=== PATIENT | female | born 1955 | race African-American/Black ===

== ENCOUNTER 2023-02-16 22:55 | Inpatient (IN) | payer MEDICARE, MEDICAID ==
[~2023-02-16] VITALS: Ht 165.1 cm; Wt 85.8 kg
[2023-02-16 23:26] LABS: Basophils # (auto) 0 10 ^3/uL (0-0.2); Basophils % (auto) 0.2 % (0.0-2.0); Eosinophils # (auto) 0 10 ^3/uL (0-0.8); Eosinophils % (auto) 0.1 % (0.0-7.0); Hematocrit 41.4 % (36.0-46.0); Hemoglobin 13.6 g/dL (12.2-16.2); Lymphocytes # (auto) 1.3 10 ^3/uL (0.4-5.4); Lymphocytes % (auto) 8.6 % (10.0-50.0); Mean Corpuscular Hemoglobin 30.6 pg (28.0-32.0); Mean Corpuscular Hgb Conc. 32.8 g/dL (32.0-36.0); Mean Corpuscular Volume 93.1 fL (80.0-100.0); Monocytes # (auto) 0.8 10 ^3/uL (0-1.3); Monocytes % (auto) 5.2 % (0.0-12.0); Neutrophils # (auto) 12.7 10 ^3/uL (1.6-8.6); Neutrophils % (auto) 85.9 % (37.0-80.0); Red Blood Cells 4.45 10^6/uL (4.0-5.20); Red Cell Distribution Width 15.2 % (11.8-14.3); White Blood Cell 14.8 10^3/uL (4.4-10.8)
[2023-02-16] MEDS ORDERED: METOCLOPRAMIDE HCL 5MG/ml INJ 2ml VIAL IV ONE (23:30)
[2023-02-16] MEDS ORDERED: MORPHINE SULFATE 4 MG/ML SYR/VIAL IV ONE (23:30)
[2023-02-16 23:40] VITALS: PULSE 131; RESP 42; O2SAT 98
[2023-02-16] MEDS ORDERED: IOHEXOL 300 MG/ML 100ML BOTTLE IJ ONE (23:40)
[2023-02-16 23:47] LABS: INR 1.1 (0.9-1.15); Partial Thromboplastin Time 25.8 SEC (24.5-34.5); Prothrombin Time 11.5 sec (9.3-11.8)
[2023-02-16 23:54] LABS: Alanine Aminotransferase 49 U/L (7-40); Albumin 4.5 g/dL (3.2-4.8); Alkaline Phosphatase 102 U/L (46-116); Anion Gap 17 (5-15); Aspartate Aminotransferase 43 U/L (13-40); BUN/Creatinine Ratio 12.5 (10.0-20.0); Bilirubin, Total 0.5 mg/dL (0.2-1.0); Blood Urea Nitrogen 17 mg/dL (9-23); Calcium 9.5 mg/dL (8.7-10.4); Carbon Dioxide 18 mmol/L (20-30); Chloride 105 mmol/L (98-107); Glucose 216 mg/dL (74-106); Magnesium 1.6 mg/dL (1.6-2.6); Potassium 2.9 mmol/L (3.5-5.1); Sodium 140 mmol/L (136-145); Total Protein 7.9 g/dL (5.7-8.2)
[2023-02-17] MEDS ORDERED: ASPirin 325 MG TAB PO ONE (01:15)
[2023-02-17] MEDS: POTASSIUM CHL 20MEQ/100ML 100 ML IV SCH ×2 (01:20→04:01)
[2023-02-17] MEDS ORDERED: MORPHINE SULFATE 4 MG/ML SYR/VIAL IV ONE ×2 (02:30→06:45)
[2023-02-17] MEDS ORDERED: METOCLOPRAMIDE HCL 5MG/ml INJ 2ml VIAL IV ONE (06:45)
[2023-02-17] MEDS ORDERED: ACETAMINOPHEN 325 MG TAB PO PRN (08:00)
[2023-02-17] MEDS ORDERED: NITROGLYCERIN 0.4 MG SL TAB SL PRN (08:00)
[2023-02-17] MEDS: MORPHINE SULFATE INJ 2 MG/ml SYRG IV PRN ×6 (08:45→23:29)
[2023-02-17] MEDS: ONDANSETRON HCL 4 MG/2 ML VIAL IV PRN ×3 (08:46→23:28)
[2023-02-17 09:44] VITALS: PULSE 113; RESP 19; O2SAT 96
[2023-02-17] MEDS ORDERED: AMLO1TAB22 PO (10:26)
[2023-02-17] MEDS ORDERED: CLON0.2T PO (10:26)
[2023-02-17] MEDS ORDERED: SACU1TAB PO (10:26)
[2023-02-17] MEDS ORDERED: DEXTROSE (50%) 50ML SYRG IV PRN (10:30)
[2023-02-17] MEDS: MULTIPLE VITAMIN TAB PO SCH (10:42)
[2023-02-17] MEDS: ASCORBIC ACID 500 MG TAB PO SCH (10:42)
[2023-02-17] MEDS: ZINC SULFATE 220mg CAP or TAB PO SCH (10:42)
[2023-02-17] MEDS: ENOXAPARIN SOD 40 MG/0.4 ML SYRINGE SC SCH (10:43)
[2023-02-17] MEDS: ACCU-CHEK COMFORT CURVE STRIP VI SCH ×2 (11:55→17:03)
[2023-02-17 12:04] LABS: COVID19 ANTIGEN SOFIA FIA NEGATIVE (NEGATIVE)
[2023-02-17 12:05] LABS: Rapid Influenza A Negative (Negative); Rapid Influenza B Negative (Negative)
[2023-02-17] MEDS: LORazepam 2MG/ML-1ML VIAL IV PRN ×2 (12:31→21:31)
[2023-02-17] MEDS: InsuLIN REG 1unit/0.01ml Soln (100units/ml) SC SCH ×2 (12:33→17:00)
[2023-02-17 13:30] LABS: Alanine Aminotransferase 44 U/L (7-40); Albumin 4.3 g/dL (3.2-4.8); Alkaline Phosphatase 91 U/L (46-116); Anion Gap 13 (5-15); Aspartate Aminotransferase 47 U/L (13-40); BUN/Creatinine Ratio 11.6 (10.0-20.0); Bilirubin, Total 0.4 mg/dL (0.2-1.0); Blood Urea Nitrogen 16 mg/dL (9-23); Calcium 9.6 mg/dL (8.5-10.1); Carbon Dioxide 23 mmol/L (20-30); Chloride 106 mmol/L (98-107); Glucose 127 mg/dL (74-106); Potassium 3.9 mmol/L (3.5-5.1); Sodium 142 mmol/L (136-145); Total Protein 7.7 g/dL (5.7-8.2)
[2023-02-17] MEDS ORDERED: POTASSIUM CHL 20MEQ/100ML 100 ML IV SCH (13:30)
[2023-02-17] MEDS: AZITHROMYCIN 500MG/ 250ML 250 ML IV SCH (13:46)
[2023-02-17] MEDS: FUROSEMIDE 40 MG TAB PO SCH ×2 (13:46→18:41)
[2023-02-17] MEDS ORDERED: SODIUM CHLORIDE 0.9% 2,000 ML IV ONE (14:30)
[2023-02-17] MEDS ORDERED: POTASSIUM CHL 20MEQ/100ML 100 ML IV ONE (14:30)
[2023-02-17] MEDS ORDERED: KETOROLAC TROMETH 30 MG/ML 1ML VIAL IV ONE (14:30)
[2023-02-17] MEDS: HYDROcodone-ACET 5/325MG TAB PO PRN (15:18)
[2023-02-17 16:53] LABS: Urine Bacteria NONE SEEN /hpf (None Seen); Urine Blood 2+ /uL (Negative); Urine Clarity Clear (Clear); Urine Color Yellow (Yellow); Urine Protein, UAD 3+ (Negative); Urine Specific Gravity 1.031 (1.001-1.035); Urine Urobilinogen Normal (Negative); Urine WBC 2 /hpf (0 - 5)
[2023-02-17 20:00] VITALS: PULSE 107; RESP 16; O2SAT 96
[2023-02-17] MEDS: TEMAZEPAM 15 MG CAP PO PRN (23:28)
[2023-02-18] VITALS (10 sets, daily range): BP systolic 127–171; BP diastolic 64–94; PULSE 64–110; RESP 17–22; TEMP 99.2–101; O2SAT 94–99
[2023-02-18] MEDS: ACCU-CHEK COMFORT CURVE STRIP VI SCH ×5 (00:44→21:25)
[2023-02-18] MEDS: ASCORBIC ACID 500 MG TAB PO SCH ×3 (00:47→21:25)
[2023-02-18] MEDS: SACUBITRIL-VALSARTAN 24mg/26mg TAB PO SCH ×3 (00:47→21:25)
[2023-02-18] MEDS: InsuLIN REG 1unit/0.01ml Soln (100units/ml) SC SCH ×5 (00:49→21:19)
[2023-02-18] MEDS: HYDROcodone-ACET 5/325MG TAB PO PRN ×3 (01:41→20:13)
[2023-02-18] MEDS: MORPHINE SULFATE INJ 2 MG/ml SYRG IV PRN ×5 (04:09→22:43)
[2023-02-18 05:15] LABS: Basophils # (auto) 0.1 10 ^3/uL (0-0.2); Basophils % (auto) 0.3 % (0.0-2.0); Eosinophils # (auto) 0 10 ^3/uL (0-0.8); Hematocrit 40.1 % (36.0-46.0); Hemoglobin 13.2 g/dL (12.2-16.2); Lymphocytes # (auto) 1.6 10 ^3/uL (0.4-5.4); Lymphocytes % (auto) 9.3 % (10.0-50.0); Mean Corpuscular Hemoglobin 30.7 pg (28.0-32.0); Mean Corpuscular Hgb Conc. 32.8 g/dL (32.0-36.0); Mean Corpuscular Volume 93.7 fL (80.0-100.0); Monocytes # (auto) 1.2 10 ^3/uL (0-1.3); Monocytes % (auto) 7.1 % (0.0-12.0); Neutrophils # (auto) 13.8 10 ^3/uL (1.6-8.6); Neutrophils % (auto) 83.3 % (37.0-80.0); Nucleated Red Blood Cells % 0.1 %; Red Blood Cells 4.29 10^6/uL (4.0-5.20); Red Cell Distribution Width 15.3 % (11.8-14.3); White Blood Cell 16.6 10^3/uL (4.4-10.8)
[2023-02-18 05:40] LABS: Alanine Aminotransferase 50 U/L (7-40); Albumin 4.2 g/dL (3.2-4.8); Alkaline Phosphatase 84 U/L (46-116); Anion Gap 8 (5-15); Aspartate Aminotransferase 57 U/L (13-40); BUN/Creatinine Ratio 12.5 (10.0-20.0); Bilirubin, Total 0.4 mg/dL (0.2-1.0); Blood Urea Nitrogen 14 mg/dL (9-23); Calcium 9.1 mg/dL (8.7-10.4); Carbon Dioxide 26 mmol/L (20-30); Chloride 105 mmol/L (98-107); Glucose 116 mg/dL (74-106); Potassium 4.3 mmol/L (3.5-5.1); Sodium 139 mmol/L (136-145)
[2023-02-18 05:41] LABS: Total Protein 7.3 g/dL (5.7-8.2)
[2023-02-18] MEDS: FUROSEMIDE 40 MG TAB PO SCH ×2 (05:50→18:21)
[2023-02-18] MEDS: PANTOPRAZOLE 40 MG TAB PO SCH (09:07)
[2023-02-18] MEDS: MULTIPLE VITAMIN TAB PO SCH (09:08)
[2023-02-18] MEDS: ZINC SULFATE 220mg CAP or TAB PO SCH (09:08)
[2023-02-18] MEDS: amLODIPine BESYLATE 5 MG TAB PO SCH (09:09)
[2023-02-18] MEDS: AZITHROMYCIN 500MG/ 250ML 250 ML IV SCH (09:09)
[2023-02-18] MEDS: ENOXAPARIN SOD 40 MG/0.4 ML SYRINGE SC SCH (09:09)
[2023-02-18] MEDS: cefTRIAXone 1GM/50ML D5W 50 ML IV SCH (11:15)
[2023-02-18] MEDS ORDERED: LOPERAMIDE HCL 2 MG CAP/TAB PO PRN (11:15)
[2023-02-18] MEDS: metroNIDAZOLE 500 MG TAB PO SCH ×2 (14:33→21:25)
[2023-02-18] MEDS: ONDANSETRON HCL 4 MG/2 ML VIAL IV PRN ×2 (14:49→20:39)
[2023-02-19] VITALS (7 sets, daily range): BP systolic 112–148; BP diastolic 77–101; PULSE 59–130; RESP 16–20; TEMP 97.8–98.8; O2SAT 94–100
[2023-02-19] MEDS: MORPHINE SULFATE INJ 2 MG/ml SYRG IV PRN ×3 (03:31→12:57)
[2023-02-19] MEDS: ACCU-CHEK COMFORT CURVE STRIP VI SCH ×4 (06:14→22:08)
[2023-02-19] MEDS: ONDANSETRON HCL 4 MG/2 ML VIAL IV PRN (06:14)
[2023-02-19] MEDS: FUROSEMIDE 40 MG TAB PO SCH ×2 (06:14→17:08)
[2023-02-19] MEDS: metroNIDAZOLE 500 MG TAB PO SCH ×3 (06:14→22:09)
[2023-02-19] MEDS: InsuLIN REG 1unit/0.01ml Soln (100units/ml) SC SCH ×4 (06:20→22:00)
[2023-02-19] MEDS: ENOXAPARIN SOD 40 MG/0.4 ML SYRINGE SC SCH (08:41)
[2023-02-19] MEDS: PANTOPRAZOLE 40 MG TAB PO SCH (08:42)
[2023-02-19] MEDS: ZINC SULFATE 220mg CAP or TAB PO SCH (08:42)
[2023-02-19] MEDS: ASCORBIC ACID 500 MG TAB PO SCH ×2 (08:42→22:25)
[2023-02-19] MEDS: amLODIPine BESYLATE 5 MG TAB PO SCH (08:42)
[2023-02-19] MEDS: SACUBITRIL-VALSARTAN 24mg/26mg TAB PO SCH ×2 (08:42→22:09)
[2023-02-19] MEDS: MULTIPLE VITAMIN TAB PO SCH (08:43)
[2023-02-19] MEDS: cefTRIAXone 1GM/50ML D5W 50 ML IV SCH (08:43)
[2023-02-19] MEDS: LORazepam 2MG/ML-1ML VIAL IV PRN (08:46)
[2023-02-19] MEDS: AZITHROMYCIN 500MG/ 250ML 250 ML IV SCH (12:12)
[2023-02-19] MEDS: HYDROmorphone HCL 2 MG/ML VL/or syr IV PRN (22:08)
[2023-02-19] MEDS: TEMAZEPAM 15 MG CAP PO PRN (22:19)
[2023-02-20] VITALS (7 sets, daily range): BP systolic 120–154; BP diastolic 76–88; PULSE 81–98; RESP 17–22; TEMP 98.1–98.9; O2SAT 96–100
[2023-02-20] MEDS: HYDROmorphone HCL 2 MG/ML VL/or syr IV PRN ×3 (02:42→13:55)
[2023-02-20] MEDS: metroNIDAZOLE 500 MG TAB PO SCH ×2 (05:49→13:52)
[2023-02-20] MEDS: FUROSEMIDE 40 MG TAB PO SCH ×2 (05:49→17:27)
[2023-02-20] MEDS: ACCU-CHEK COMFORT CURVE STRIP VI SCH ×3 (06:08→17:26)
[2023-02-20] MEDS: InsuLIN REG 1unit/0.01ml Soln (100units/ml) SC SCH ×4 (06:10→22:00)
[2023-02-20] MEDS: LORazepam 2MG/ML-1ML VIAL IV PRN (06:19)
[2023-02-20] MEDS: cefTRIAXone 1GM/50ML D5W 50 ML IV SCH (08:50)
[2023-02-20] MEDS: ONDANSETRON HCL 4 MG/2 ML VIAL IV PRN ×2 (10:24→17:26)
[2023-02-20] MEDS: MULTIPLE VITAMIN TAB PO SCH (10:24)
[2023-02-20] MEDS: AZITHROMYCIN 500MG/ 250ML 250 ML IV SCH (10:24)
[2023-02-20] MEDS: ZINC SULFATE 220mg CAP or TAB PO SCH (10:24)
[2023-02-20] MEDS: ENOXAPARIN SOD 40 MG/0.4 ML SYRINGE SC SCH (10:25)
[2023-02-20] MEDS: SACUBITRIL-VALSARTAN 24mg/26mg TAB PO SCH (10:25)
[2023-02-20] MEDS: ASCORBIC ACID 500 MG TAB PO SCH (10:25)
[2023-02-20] MEDS: PANTOPRAZOLE 40 MG TAB PO SCH (10:25)
[2023-02-20] MEDS: amLODIPine BESYLATE 5 MG TAB PO SCH (10:25)
[2023-02-20 10:32] LABS: Hepatitis B Surface Antigen Negative (Negative)
[2023-02-20 11:12] LABS: Hepatitis C Antibody Positive (Negative)
[2023-02-20] MEDS: HYDROcodone-ACET 5/325MG TAB PO PRN ×2 (12:23→17:27)
[2023-02-20 12:24] LABS: Basophils # (auto) 0 10 ^3/uL (0-0.2); Basophils % (auto) 0.4 % (0.0-2.0); Eosinophils # (auto) 0.1 10 ^3/uL (0-0.8); Hematocrit 48.9 % (36.0-46.0); Lymphocytes # (auto) 1.5 10 ^3/uL (0.4-5.4); Lymphocytes % (auto) 20.3 % (10.0-50.0); Mean Corpuscular Hemoglobin 31.2 pg (28.0-32.0); Mean Corpuscular Hgb Conc. 32.8 g/dL (32.0-36.0); Mean Corpuscular Volume 95.2 fL (80.0-100.0); Monocytes # (auto) 0.7 10 ^3/uL (0-1.3); Monocytes % (auto) 9.4 % (0.0-12.0); Neutrophils # (auto) 5.1 10 ^3/uL (1.6-8.6); Neutrophils % (auto) 68.9 % (37.0-80.0); Nucleated Red Blood Cells % 0.1 %; Red Blood Cells 5.14 10^6/uL (4.0-5.20); Red Cell Distribution Width 15.4 % (11.8-14.3); White Blood Cell 7.3 10^3/uL (4.4-10.8)
[2023-02-20 12:50] LABS: Chloride 101 mmol/L (98-107); Sodium 138 mmol/L (136-145)
[2023-02-20 12:51] LABS: Anion Gap 9 (5-15); Carbon Dioxide 28 mmol/L (20-30)
[2023-02-20 12:52] LABS: Calcium 9.6 mg/dL (8.7-10.4)
[2023-02-20 12:56] LABS: Glucose 110 mg/dL (74-106)
[2023-02-20 12:57] LABS: Blood Urea Nitrogen 9 mg/dL (9-23)
[2023-02-21] VITALS (7 sets, daily range): BP systolic 121–160; BP diastolic 89–94; PULSE 86–104; RESP 16–20; TEMP 98.5–98.8; O2SAT 95–100
[2023-02-21] MEDS: ACCU-CHEK COMFORT CURVE STRIP VI SCH ×5 (01:01→21:59)
[2023-02-21] MEDS: metroNIDAZOLE 500 MG TAB PO SCH ×4 (01:02→21:57)
[2023-02-21] MEDS: ASCORBIC ACID 500 MG TAB PO SCH ×3 (01:02→21:56)
[2023-02-21] MEDS: SACUBITRIL-VALSARTAN 24mg/26mg TAB PO SCH ×3 (01:02→21:56)
[2023-02-21] MEDS: TEMAZEPAM 15 MG CAP PO PRN ×2 (01:03→21:56)
[2023-02-21] MEDS: HYDROmorphone HCL 2 MG/ML VL/or syr IV PRN ×3 (01:08→10:50)
[2023-02-21] MEDS: HYDROcodone-ACET 5/325MG TAB PO PRN ×3 (03:26→17:47)
[2023-02-21] MEDS: FUROSEMIDE 40 MG TAB PO SCH ×2 (05:34→17:47)
[2023-02-21] MEDS: InsuLIN REG 1unit/0.01ml Soln (100units/ml) SC SCH ×4 (05:35→22:07)
[2023-02-21] MEDS: amLODIPine BESYLATE 5 MG TAB PO SCH (09:36)
[2023-02-21] MEDS: cefTRIAXone 1GM/50ML D5W 50 ML IV SCH (09:36)
[2023-02-21] MEDS: PANTOPRAZOLE 40 MG TAB PO SCH (09:37)
[2023-02-21] MEDS: ZINC SULFATE 220mg CAP or TAB PO SCH (09:37)
[2023-02-21] MEDS: MULTIPLE VITAMIN TAB PO SCH (09:37)
[2023-02-21] MEDS: ENOXAPARIN SOD 40 MG/0.4 ML SYRINGE SC SCH (09:37)
[2023-02-21] MEDS: AZITHROMYCIN 250 MG TAB PO SCH (10:39)
[2023-02-21] MEDS: ONDANSETRON HCL 4 MG/2 ML VIAL IV PRN (13:37)
[2023-02-21] MEDS: KETOROLAC TROMETH 30 MG/ML 1ML VIAL IV PRN ×2 (15:53→21:57)
[2023-02-21] MEDS: LORazepam 2MG/ML-1ML VIAL IV PRN (21:58)
[2023-02-22] VITALS (7 sets, daily range): BP systolic 128–175; BP diastolic 84–105; PULSE 89–99; RESP 17–24; TEMP 98–98.8; O2SAT 94–100
[2023-02-22] MEDS: HYDROcodone-ACET 5/325MG TAB PO PRN (05:43)
[2023-02-22] MEDS: metroNIDAZOLE 500 MG TAB PO SCH ×3 (05:47→21:07)
[2023-02-22] MEDS: SUCRALFATE 1 GM/10 ML ORAL SUSP PO SCH ×4 (05:48→21:09)
[2023-02-22] MEDS: ACCU-CHEK COMFORT CURVE STRIP VI SCH ×4 (05:48→21:08)
[2023-02-22] MEDS: FUROSEMIDE 40 MG TAB PO SCH (05:48)
[2023-02-22] MEDS: InsuLIN REG 1unit/0.01ml Soln (100units/ml) SC SCH ×4 (05:50→21:07)
[2023-02-22] MEDS: MORPHINE SULFATE INJ 2 MG/ml SYRG IV PRN (07:43)
[2023-02-22] MEDS: ZINC SULFATE 220mg CAP or TAB PO SCH (09:33)
[2023-02-22] MEDS: SACUBITRIL-VALSARTAN 24mg/26mg TAB PO SCH ×3 (09:33→21:07)
[2023-02-22] MEDS: ENOXAPARIN SOD 40 MG/0.4 ML SYRINGE SC SCH (09:33)
[2023-02-22] MEDS: AZITHROMYCIN 250 MG TAB PO SCH (09:33)
[2023-02-22] MEDS: MULTIPLE VITAMIN TAB PO SCH (09:33)
[2023-02-22] MEDS: cefTRIAXone 1GM/50ML D5W 50 ML IV SCH (09:33)
[2023-02-22] MEDS: ASCORBIC ACID 500 MG TAB PO SCH ×2 (09:34→21:07)
[2023-02-22] MEDS: PANTOPRAZOLE 40 MG TAB PO SCH (09:34)
[2023-02-22] MEDS: amLODIPine BESYLATE 5 MG TAB PO SCH (09:34)
[2023-02-22] MEDS: predniSONE 20 MG TAB PO SCH (09:54)
[2023-02-22] MEDS ORDERED: SUCR1TAB22 OR ×2 (12:14)
[2023-02-22] MEDS ORDERED: PANT40TA2 PO ×2 (12:14)
[2023-02-22] MEDS: SODIUM CHLORIDE 0.9% 1,000 ML IV SCH ×3 (15:15→22:55)
[2023-02-22 15:16] LABS: Erythrocyte Sedimentation Rate 46 mm/hr (0-20)
[2023-02-22] MEDS: KETOROLAC TROMETH 30 MG/ML 1ML VIAL IV PRN (18:19)
[2023-02-22] MEDS: ONDANSETRON HCL 4 MG/2 ML VIAL IV PRN (18:19)
[2023-02-22] MEDS: CYCLOBENZAPRINE HCL 10 MG TAB PO PRN (18:20)
[2023-02-22] MEDS: TEMAZEPAM 15 MG CAP PO PRN (21:17)
[2023-02-23] VITALS (7 sets, daily range): BP systolic 134–186; BP diastolic 79–104; PULSE 83–98; RESP 14–22; TEMP 98–98.7; O2SAT 94–99
[2023-02-23] MEDS: HYDROcodone-ACET 5/325MG TAB PO PRN ×2 (02:53→20:58)
[2023-02-23] MEDS: metroNIDAZOLE 500 MG TAB PO SCH ×3 (05:39→20:58)
[2023-02-23] MEDS: InsuLIN REG 1unit/0.01ml Soln (100units/ml) SC SCH ×4 (05:39→21:05)
[2023-02-23] MEDS: SUCRALFATE 1 GM/10 ML ORAL SUSP PO SCH ×4 (05:40→20:58)
[2023-02-23] MEDS: ACCU-CHEK COMFORT CURVE STRIP VI SCH ×4 (05:40→21:07)
[2023-02-23] MEDS: SODIUM CHLORIDE 0.9% 1,000 ML IV SCH (06:53)
[2023-02-23] MEDS: KETOROLAC TROMETH 30 MG/ML 1ML VIAL IV PRN ×2 (09:48→23:35)
[2023-02-23] MEDS: predniSONE 20 MG TAB PO SCH (09:48)
[2023-02-23] MEDS: AZITHROMYCIN 250 MG TAB PO SCH (09:48)
[2023-02-23] MEDS: SACUBITRIL-VALSARTAN 24mg/26mg TAB PO SCH ×2 (09:48→20:58)
[2023-02-23] MEDS: cefTRIAXone 1GM/50ML D5W 50 ML IV SCH (09:48)
[2023-02-23] MEDS: ASCORBIC ACID 500 MG TAB PO SCH ×2 (09:48→20:58)
[2023-02-23] MEDS: MULTIPLE VITAMIN TAB PO SCH (09:48)
[2023-02-23] MEDS: ZINC SULFATE 220mg CAP or TAB PO SCH (09:49)
[2023-02-23] MEDS: PANTOPRAZOLE 40 MG TAB PO SCH (09:49)
[2023-02-23] MEDS: amLODIPine BESYLATE 5 MG TAB PO SCH (09:49)
[2023-02-23] MEDS: ENOXAPARIN SOD 40 MG/0.4 ML SYRINGE SC SCH (09:49)
[2023-02-23] MEDS: CYCLOBENZAPRINE HCL 10 MG TAB PO PRN (09:49)
[2023-02-23] MEDS: LORazepam 2MG/ML-1ML VIAL IV PRN ×2 (12:52→23:35)
[2023-02-23] MEDS ORDERED: DOCUSATE SOD 100 MG CAP PO PRN (15:45)
[2023-02-23] MEDS ORDERED: POLYETHYLENE GLYCOL 17 GM PWDR PO ONE (15:45)
[2023-02-23] MEDS: TEMAZEPAM 15 MG CAP PO PRN (20:58)
[2023-02-24] MEDS: ONDANSETRON HCL 4 MG/2 ML VIAL IV PRN (01:43)
[2023-02-24] MEDS: MORPHINE SULFATE INJ 2 MG/ml SYRG IV PRN (01:50)
[2023-02-24] MEDS: metroNIDAZOLE 500 MG TAB PO SCH ×2 (04:52→12:42)
[2023-02-24] MEDS: HYDROcodone-ACET 5/325MG TAB PO PRN ×3 (04:53→18:05)
[2023-02-24 05:00] VITALS: BP 191/105; PULSE 101; RESP 20; TEMP 95.5; O2SAT 96
[2023-02-24] MEDS ORDERED: cloNIDine HCL 0.1 MG TAB PO PRN (05:45)
[2023-02-24] MEDS: SUCRALFATE 1 GM/10 ML ORAL SUSP PO SCH ×3 (05:51→18:01)
[2023-02-24] MEDS: KETOROLAC TROMETH 30 MG/ML 1ML VIAL IV PRN ×2 (05:51→12:41)
[2023-02-24] MEDS: LORazepam 2MG/ML-1ML VIAL IV PRN ×2 (05:58→12:42)
[2023-02-24] MEDS: ACCU-CHEK COMFORT CURVE STRIP VI SCH ×3 (06:08→18:01)
[2023-02-24] MEDS: InsuLIN REG 1unit/0.01ml Soln (100units/ml) SC SCH ×3 (06:08→18:03)
[2023-02-24 08:00] VITALS: PULSE 81; PULSE 84; RESP 18; O2SAT 97
[2023-02-24 09:00] VITALS: BP 120/70; PULSE 84; RESP 18; TEMP 97.5; O2SAT 97
[2023-02-24] MEDS: cefTRIAXone 1GM/50ML D5W 50 ML IV SCH (09:42)
[2023-02-24] MEDS: ASCORBIC ACID 500 MG TAB PO SCH (09:42)
[2023-02-24] MEDS: PANTOPRAZOLE 40 MG TAB PO SCH (09:42)
[2023-02-24] MEDS: predniSONE 20 MG TAB PO SCH (09:43)
[2023-02-24] MEDS: AZITHROMYCIN 250 MG TAB PO SCH (09:43)
[2023-02-24] MEDS: SACUBITRIL-VALSARTAN 24mg/26mg TAB PO SCH (09:43)
[2023-02-24] MEDS: amLODIPine BESYLATE 5 MG TAB PO SCH (09:43)
[2023-02-24] MEDS: ZINC SULFATE 220mg CAP or TAB PO SCH (09:43)
[2023-02-24] MEDS: MULTIPLE VITAMIN TAB PO SCH (09:44)
[2023-02-24] MEDS: ENOXAPARIN SOD 40 MG/0.4 ML SYRINGE SC SCH (09:44)
[2023-02-24 13:00] VITALS: BP 108/74; PULSE 105; RESP 19; TEMP 98.3; O2SAT 95
[2023-02-24] MEDS ORDERED: PRED20TA2 PO ×3 (15:37→19:31)
[2023-02-24 17:00] VITALS: BP 138/85; PULSE 89; RESP 20; TEMP 98.5; O2SAT 93
[2023-02-24 17:35] VITALS: BP 138/85; PULSE 89; RESP 20; TEMP 98.5; O2SAT 93
[2023-02-24] MEDS ORDERED: SUCR1TAB22 OR (19:31)
[2023-02-24] MEDS ORDERED: PANT40TA2 PO (19:31)
== END 2023-02-24 19:55 | disposition home health service (06) | DRG 351 ==
LOC: EDBD 22:55 → ER 22:55 → TELE 02-17 07:52 → TELE-CENTR 02-17 23:46
PROVIDERS: ADMIT Nurse Practitioner; ATTEND Nurse Practitioner
DX: M60.9 Myositis, unspecified (principal); N17.0 Acute kidney failure with tubular necrosis; E87.6 Hypokalemia; I11.0 Hypertensive heart disease with heart failure; J44.1 Chronic obstructive pulmonary disease with (acute) exacerbation; K52.9 Noninfective gastroenteritis and colitis, unspecified; Z20.822 Contact with and (suspected) exposure to COVID-19; K21.9 Gastro-esophageal reflux disease without esophagitis; Z86.73 Personal history of transient ischemic attack (TIA), and cerebral infarction without residual deficits; Z85.05 Personal history of malignant neoplasm of liver; I25.2 Old myocardial infarction; Z90.49 Acquired absence of other specified parts of digestive tract
CPT/HCPCS: 36415; 71260; 74177; 78582; 80048; 80053; 81001; 82550; 82962; 83735; 83880; 84484; 85025; 85379; 85610; 85652; 85730; 86141; 86803; 87040; 87340; 87426; 87804; 93005; 93306; 93970; 96361; 96374; 96375; 96376; G0378; J1815; J1885; J2405; J3480

== ENCOUNTER 2023-12-07 08:37 | Inpatient (IN) | payer MEDICARE, MEDICAID ==
[~2023-12-07] VITALS: Ht 174 cm; Wt 78.3 kg
[~2023-12-07 08:37] MED LIST: ALPR0.255 PO; AMLO1TAB22 PO; ASPI81CH59 PO; ATOR-507 PO; CARI-277 PO; CLON0.3T PO; CLOP75TA70 PO; FURO20TA4 PO; HYDR-2792 PO; METO25TA93 PO; NIFE1TAB31 PO; PANT40TA2 PO; PERCOT PO; POTA-180 PO; SACU1TAB PO; SERT25TA84 PO; SUCR1TAB31 OR; SUMA50TA16 PO; TIZA4CAP PO; ZOLP10TA PO
--- NOTE | 2023-12-07 08:57 | ED.PDOC ---
History of Present Illness HPI Comments 68-year-old female brought in by EMS presents with a chief complaint of chest pain x onset yesterday with associated SOB and nausea. Patient states that her pain is localized to her epigastric/sternal region, radiates to her back, and rates her pain a 10/10. Patient mentions that the pain woke her up from her sleep. Patient has a history of liver cancer and previous strokes. Patient is sating at 100% on room air. No other symptoms or modifying factors present at this time. Time Seen by MD: 08:44 Primary Care Provider: TAY Reviewed Notes: Medications, Allergies Allergies: Coded Allergies: NO KNOWN ALLERGIES (Unverified , 02/16/23) Home Meds Active Scripts Sertraline Hcl (Zoloft) 25 Mg Tab, 1 TAB PO BID, #30 TAB 2 Refills Prov:KEVIN POSADA MD 08/18/23 Zolpidem Tartrate (Ambien) 10 Mg Tab, 1 TAB PO QPM PRN, #20 TAB 5 Refills Prov:KEVIN POSADA MD 08/18/23 Oxycodone W/ Acetaminophen (Percocet 5/325MG) 1 Tab Tb, 1 TAB PO QID, #30 TAB Prov:KEVIN POSADA MD 08/18/23 Pantoprazole Sodium Sesquihydr (Protonix) 40 Mg Tab, 40 MG PO DAILY, #30 TAB Prov:CESAR CHIN NP 02/24/23 Sucralfate (CARAFATE) 1 Gm Tab, 1 GM OR QID for 30 Days, #120 TAB Prov:CESAR CHIN CLOTH PATTERN MAKER 02/24/23 Reported Medications Carisoprodol (Soma) 350 Mg Tab, 350 MG PO TID, #30 TAB 08/18/23 Tizanidine Hydrochloride (Zanaflex) 4 Mg Cap, 2 MG PO TID 08/14/23 Clopidogrel Bisulfate (CLOPIDOGREL) 75 Mg Tab, 1 TAB PO DAILY 08/14/23 Atorvastatin Calcium (Lipitor) 40 Mg Tab, 1 TAB PO DAILY 08/14/23 Metoprolol Succinate (Metoprolol Succinate Er) 25 Mg Tab, 1 TAB PO DAILY 08/14/23 Potassium Chloride (Potassium Chloride ER) 20 Meq Tab, 1 TAB PO DAILY 08/14/23 Aspirin (Aspirin Low Dose) 81 Mg Chw, 1 TAB PO DAILY 08/14/23 Furosemide (Furosemide) 20 Mg Tab, 1 TAB PO DAILY 08/14/23 Sumatriptan Succinate (Sumatriptan Succinate) 50 Mg Tab, 1 TAB PO DAILY for 9 Da ys, #9 08/14/23 Alprazolam (Alprazolam) 0.25 Mg Tab, 1 TAB PO BID 08/14/23 Nifedipine (Nifedipine Er) 30 Mg Tab, 1 TAB PO BID 08/14/23 Clonidine Hydrochloride (Clonidine Hcl) 0.3 Mg Tab, 1 TAB PO BID 08/14/23 Hydralazine Hcl (Hydralazine Hcl) 10 Mg Tab, 1 TAB PO TID 08/14/23 Sacubitril-Valsartan (Entresto 24-26 mg) 1 Tab Tab, 1 TAB PO BID 02/17/23 Amlodipine Besylate (Amlodipine Besylate) 5 Mg Tab, 1 TAB PO DAILY 02/17/23 Information Source: Patient, Emergency Med Personnel Mode of Arrival: EMS Severity: Moderate Timing: Days Duration: Since onset Prehospital treatment: None Past Medical History PAST MEDICAL HISTORY: AFIB, Cancer, CHF, CVA, DM, HTN, 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 Family History Family History: Reviewed,noncontributory to illness, Unknown Social History Smoker: Non-Smoker Alcohol: Denies ETOH Use Drugs: Denies Drug Use Lives In: Home Constitutional: denies: chills, diaphoresis, fatigue, fever, malaise, sweats, weakness, others EENTM: denies: blurred vision, double vision, ear bleeding, ear discharge, ear drainage, ear pain, ear ringing, eye pain, eye redness, hearing loss, mouth pain, mouth swelling, nasal discharge, nose bleeding, nose congestion, nose pain, photophobia, tearing, throat pain, throat swelling, voice changes, others Respiratory: reports: shortness of breath; denies: cough, hemoptysis, orthopnea, SOB at rest, SOB with excertion, stridor, wheezing, others Cardiovascular: reports: chest pain; denies: dizzy spells, diaphoresis, Dyspnea on exertion, edema, irregular heart beat, left arm pain, lightheadedness, palpitations, PND, syncope, others Gastrointestinal: reports: nausea; denies: abdomen distended, abdominal pain, blood streaked bowels, constipated, diarrhea, dysphagia, difficulty swallowing, hematemesis, melena, poor appetite, poor fluid intake, rectal bleeding, rectal pain, vomiting, others Genitourinary: denies: abnormal vagina bleeding, burning, dyspareunia, dysuria, flank pain, frequency, hematuria, incontinence, pain, , vagina discharge, urgency, others Neurological: denies: dizziness, fainting, headache, left sided numbness, left sided weakness, numbness, paresthesia, pre-existing deficit, right sided numbness, right sided weakness, seizure, speech problems, tingling, tremors, we akness, others Musculoskeletal: denies: back pain, gout, joint pain, joint swelling, muscle pain, muscle stiffness, neck pain, others Integumetry: denies: bruises, change in color, change in hair/nails, dryness, laceration, lesions, lumps, rash, wounds, others Allergic/Immunocompromised: denies: Difficulty Healing, Frequent Infections, Hives, Itching, others Hematologic/Lymphatic: denies: anemia, blood clots, easy bleeding, easy bruising, swollen glands, others Endocrine: denies: excessive hunger, excessive sweating, excessive thirst, excessive urination, flushing, intolerance to cold, intolerance to heat, unexplained weight gain, unexplained weight loss, others Psychiatric: denies: anxiety, bipolar disorder, depression, hopeless, panic disorder, schizophrenia, sleepless, suicidal, others All Other Systems: Reviewed and Negative Physical Exam General Appearance: Moderate Distress, Normal HEENT: Normal ENT Inspection, Pharynx Normal, TMs Normal Neck: Full Range of Motion, Non-Tender, Normal, Normal Inspection Respiratory: Accessory Muscle Use, Chest Non-Tender, Respiratory Distress Cardiovascular: No Edema, No JVD, No Murmur, No Gallop, Normal Peripheral Pulses, Tachycardia Breast Exam: Deferred Gastrointestinal: No Organomegaly, Non Tender, No Pulsatile Mass, Normal Bowel Sounds, Soft Genitalia: Deferred Pelvic: Deferred Rectal: Deferred Extremities: No calf tenderness, Normal capillary refill, Normal inspection, Normal range of motion, Non-tender, No pedal edema Musculoskeletal : Apperance: Normal Neurologic: Alert, 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 Was a procedure done?: No Differential Dx Considerations may include: Acute respiratory distress Electrolyte imbalance X-Ray, Labs, Meds, VS Vital Signs Date Time Temp Pulse Resp B/P (MAP) Pulse Ox O2 Delivery O2 Flow Rate FiO2 12/07/23 14:42 99 18 154/92 (112) 98 12/07/23 12:37 96 18 117/73 (88) 100 12/07/23 12:00 99 12/07/23 11:37 97 18 130/79 12/07/23 11:09 110 20 175/100 12/07/23 10:37 110 18 162/100 12/07/23 09:45 141 12/07/23 09:22 130 44 98 Room Air* 0 21 12/07/23 09:21 98.1 113 18 158/87 (110) 100 98.1 12/07/23 09:00 130 44 157/98 12/07/23 08:47 98.4 148 48 196/101 (132) 94 12/07/23 08:39 103 Lab Test 12/07/23 14:16 12/07/23 11:00 12/07/23 09:56 12/07/23 09:16 Range/Units Troponin I High Sensitivity Pending 94 *H 68 *H </=34 ng/L White Blood Count 10.3 4.4-10.8 10^3/uL Red Blood Count 5.25 H 4.0-5.20 10^6/uL Hemoglobin 16.0 12.2-16.2 g/dL Hematocrit 47.2 H 36.0-46.0 % Mean Corpuscular Volume 90.0 80.0-100.0 fL Mean Corpuscular Hemoglobin 30.5 28.0-32.0 pg Mean Corpuscular Hemoglobin Concent 33.9 32.0-36.0 g/dL Red Cell Distribution Width 15.3 H 11.8-14.3 % Platelet Count 266 140-450 10^3/uL Mean Platelet Volume 8.6 6.9-10.8 fL Neutrophils (%) (Auto) 86.1 H 37.0-80.0 % Lymphocytes (%) (Auto) 8.1 L 10.0-50.0 % Monocytes (%) (Auto) 5.6 0.0-12.0 % Eosinophils (%) (Auto) 0.0 0.0-7.0 % Basophils (%) (Auto) 0.2 0.0-2.0 % Neutrophils # (Auto) 8.8 H 1.6-8.6 10 ^3/uL Lymphocytes # (Auto) 0.8 0.4-5.4 10 ^3/uL Monocytes # (Auto) 0.6 0-1.3 10 ^3/uL Eosinophils # (Auto) 0 0-0.8 10 ^3/uL Basophils # (Auto) 0 0-0.2 10 ^3/uL Nucleated Red Blood Cells 0.1 % Sodium Level 136 136-145 mmol/L Potassium Level 2.4 *L 3.5-5.1 mmol/L Chloride Level 99 98-107 mmol/L Carbon Dioxide Level 17 L 20-31 mmol/L Anion Gap 20 H 5-15 Blood Urea Nitrogen 48 H 9-23 mg/dL Creatinine 2.28 H 0.550-1.02 mg/dL Glomerular Filtration Rate Calc 23 >90 mL/min BUN/Creatinine Ratio 21.1 H 10.0-20.0 Serum Glucose 268 H 74-106 mg/dL Calcium Level 11.5 H 8.7-10.4 mg/dL Total Bilirubin 0.3 0.2-1.0 mg/dL Aspartate Amino Transferase (AST) 38 13-40 U/L Alanine Aminotransferase (ALT) 29 7-40 U/L Alkaline Phosphatase 139 H 46-116 U/L Total Protein 9.1 H 5.7-8.2 g/dL Albumin 5.3 H 3.2-4.8 g/dL Current Medications Medications (Trade) Dose Ordered Sig/Jennifer Route Start Time Stop Time Status Last Admin Morphine Sulfate 4 mg ONCE ONCE IV 12/07/23 09:00 12/07/23 09:01 DC 12/07/23 09:00 Ondansetron HCl (Zofran) 4 mg ONCE ONCE IV 12/07/23 09:00 12/07/23 09:01 DC 12/07/23 09:00 Lorazepam (Ativan Inj) 1 mg ONCE ONCE IV 12/07/23 09:00 12/07/23 09:01 DC 12/07/23 09:00 Aspirin 325 mg ONCE ONCE PO 12/07/23 09:00 12/07/23 09:01 DC 12/07/23 09:00 Potassium Chloride 100 ml @ 50 mls/hr Q2H IV 12/07/23 10:15 12/07/23 14:14 DC 12/07/23 12:28 Hydromorphone HCl (Dilaudid Injection) 0.5 mg ONCE ONCE IV 12/07/23 11:00 12/07/23 11:01 DC 12/07/23 11:09 Patient alert pain Complaining of chest pain. Increased respiration. Saturation pristine on room air. Tachycardia. Unable to get a good history from the patient. Blood pressure elevated. History of cardiac disease. Does have abdominal surgery. Has a scar of the abdomen along with a chest. Reviewed her chart. Chest x-ray reviewed does not show any acute changes. EKG reviewed does not show any acute changes. Explained to the patient. Time of 1ST Reevaluation: 09:14 Reevaluation 1ST: Unchanged Patient Education/Counseling: Diagnosis, Treatment, Prognosis Family Education/Counseling: No Family Present Departure 1 Departure Time of Disposition: 09:33 Impression: Primary Impression: Chest pain of unknown etiology Additional Impressions: Hypertensive urgency Acute respiratory distress NSTEMI (non-ST elevated myocardial infarction) Disposition: ADMITTED INPATIENT Admit to: Med Surg Condition: Guarded Critical Care Note Critical Care Time?: Yes (45 min-critical care time only) Stability Stability form required: No Heart Score Heart Score: Heart Score Response (Comments) Value History Slightly Suspicious 0 EKG Normal 0 Age >65 2 Risk Factors >3 or Hx ASHD 2 Troponin Normal limit 0 Total 4 I personally scribed for ASH BIRMINGHAM MD ([email or web address]) on 12/07/23 at 08:57. Electronically submitted by Kit Bolton ([email or web address]). ASH BIRMINGHAM MD Dec 07, 2023 08:57
[2023-12-07] MEDS: MORPHINE SULFATE 4 MG/ML SYR/VIAL IV ONE (09:00)
[2023-12-07] MEDS: ASPirin 325 MG TAB PO ONE (09:00)
[2023-12-07] MEDS: ONDANSETRON HCL 4 MG/2 ML VIAL IV ONE (09:00)
[2023-12-07] MEDS: LORazepam 2MG/ML-1ML VIAL IV ONE (09:00)
[2023-12-07 09:22] VITALS: PULSE 130; RESP 44; O2SAT 98
--- NOTE | 2023-12-07 09:27 | DVH ---
EXAM: XY CHEST PORTABLE Indication:sob Technique: Single frontal view of the chest was obtained Comparison: XY CHEST XRAY 1 VIEW on DOS: 08/12/23 FINDINGS: Lines and Tubes: None Lungs: No focal consolidation. Pleura: No effusion. No pneumothorax. Cardiomediastinal contours: Unremarkable Bones: No acute osseous abnormality. IMPRESSION: No acute cardiopulmonary disease.
[2023-12-07 09:39] LABS: Basophils # (auto) 0 10 ^3/uL (0-0.2); Basophils % (auto) 0.2 % (0.0-2.0); Eosinophils # (auto) 0 10 ^3/uL (0-0.8); Hematocrit 47.2 % (36.0-46.0); Lymphocytes # (auto) 0.8 10 ^3/uL (0.4-5.4); Lymphocytes % (auto) 8.1 % (10.0-50.0); Mean Corpuscular Hemoglobin 30.5 pg (28.0-32.0); Mean Corpuscular Hgb Conc. 33.9 g/dL (32.0-36.0); Monocytes # (auto) 0.6 10 ^3/uL (0-1.3); Monocytes % (auto) 5.6 % (0.0-12.0); Neutrophils # (auto) 8.8 10 ^3/uL (1.6-8.6); Neutrophils % (auto) 86.1 % (37.0-80.0); Nucleated Red Blood Cells % 0.1 %; Platelet Count (auto) 266 10^3/uL (140-450); Red Blood Cells 5.25 10^6/uL (4.0-5.20); Red Cell Distribution Width 15.3 % (11.8-14.3); White Blood Cell 10.3 10^3/uL (4.4-10.8)
[2023-12-07 09:55] LABS: Alanine Aminotransferase 29 U/L (7-40); Albumin 5.3 g/dL (3.2-4.8); Alkaline Phosphatase 139 U/L (46-116); Anion Gap 20 (5-15); Aspartate Aminotransferase 38 U/L (13-40); BUN/Creatinine Ratio 21.1 (10.0-20.0); Blood Urea Nitrogen 48 mg/dL (9-23); Calcium 11.5 mg/dL (8.7-10.4); Carbon Dioxide 17 mmol/L (20-31); Chloride 99 mmol/L (98-107); Glucose 268 mg/dL (74-106); Sodium 136 mmol/L (136-145)
[2023-12-07 09:56] LABS: Bilirubin, Total 0.3 mg/dL (0.2-1.0); Total Protein 9.1 g/dL (5.7-8.2)
[2023-12-07 10:08] LABS: Potassium 2.4 mmol/L (3.5-5.1)
[2023-12-07] MEDS: POTASSIUM CHL 20MEQ/100ML 100 ML IV SCH (10:37)
[2023-12-07] MEDS: HYDROmorphone HCL 2 MG/ML VL/or syr IV ONE ×2 (11:09→15:49)
--- NOTE | 2023-12-07 13:43 | ECG ---
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
--- NOTE | 2023-12-07 13:44 | ECG ---
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
[2023-12-07] MEDS: ENOXAPARIN SOD 60 MG/0.6 ML SYRINGE SC ONE (15:49)
[2023-12-07] MEDS ORDERED: MORPHINE SULFATE INJ 2 MG/ml SYRG IV PRN (17:00)
[2023-12-07] MEDS ORDERED: ACETAMINOPHEN 325 MG TAB PO PRN (17:00)
[2023-12-07] MEDS ORDERED: NITROGLYCERIN 0.4 MG SL TAB SL PRN (17:00)
--- NOTE | 2023-12-07 17:21 | DVHHP2 ---
History of Present Illness History of Present Illness 68-year-old female PMHx CVA (deficits right-sided weakness), hypertension, diabetes, VT s/p stent (Dr Emeterio Orozco), AFib; chronic resp failure on home O2 2 L , CHF , Hx liver cancer (status post partial hepatectomy, no current chemo), Hx colectomy 2/2 SBO, oophorectomy, appendectomy, p/w CC of onset yesterday with associated SOB and nausea. Patient states that her pain is localized to her epigastric/sternal region, radiates to her back, and rates her pain a 10/10. Patient mentions that the pain woke her up from her sleep. She develop nausea/vomit yesterday, then diarrhea, then chest pain started. denies sick contacts, travel, fevers, cough, dysuria. She has diffuse chest pain which is worse with deep breaths. She has been offered hospice with cardiology but has declined in the past, opting for home health. Denies etoh, drug, smoking. in ED BP elevated. work-up shows left shift w/o leukocytosis, Tn trending up, hypokalemia 2.4, Cr 2.28, AGMA 20, ALP high, . VS show high BP. ED meds: she is given morphine, dilaudid, zofran, K rider, and ACS [id number]+ Lovenox. Review of Systems Review of Systems as above in hpi Allergies: Coded Allergies: NO KNOWN ALLERGIES (Unverified , 02/16/23) Exam Vital Signs Vital Signs Date Time Temp Pulse Resp B/P (MAP) Pulse Ox O2 Delivery O2 Flow Rate FiO2 12/07/23 17:03 106 18 148/89 (108) 98 12/07/23 09:22 Room Air* 0 21 12/07/23 09:21 98.1 98.1 Exam on exam: - VS - L and R arm are similar, on oxygen sat well - gen: appears in distress (mild-mod). pleuritic CP cant take deep breaths - lung- CTAB, no WRR - cards - s1s2, regular. rate 100s, no edema. NMRG. tender in multiple spots TTP along costosternal angle and lateral ribs - abd - hyperactive BS, mild TTP in all quadrants. no masses appreciated. - neuro - some R sided weakness c/w prior cva. Labs/Xrays Labs Test 12/07/23 14:16 12/07/23 09:16 Range/Units Troponin I High Sensitivity 165 *H </=34 ng/L White Blood Count 10.3 4.4-10.8 10^3/uL Red Blood Count 5.25 H 4.0-5.20 10^6/uL Hemoglobin 16.0 12.2-16.2 g/dL Hematocrit 47.2 H 36.0-46.0 % Mean Corpuscular Volume 90.0 80.0-100.0 fL Mean Corpuscular Hemoglobin 30.5 28.0-32.0 pg Mean Corpuscular Hemoglobin Concent 33.9 32.0-36.0 g/dL Red Cell Distribution Width 15.3 H 11.8-14.3 % Platelet Count 266 140-450 10^3/uL Mean Platelet Volume 8.6 6.9-10.8 fL Neutrophils (%) (Auto) 86.1 H 37.0-80.0 % Lymphocytes (%) (Auto) 8.1 L 10.0-50.0 % Monocytes (%) (Auto) 5.6 0.0-12.0 % Eosinophils (%) (Auto) 0.0 0.0-7.0 % Basophils (%) (Auto) 0.2 0.0-2.0 % Neutrophils # (Auto) 8.8 H 1.6-8.6 10 ^3/uL Lymphocytes # (Auto) 0.8 0.4-5.4 10 ^3/uL Monocytes # (Auto) 0.6 0-1.3 10 ^3/uL Eosinophils # (Auto) 0 0-0.8 10 ^3/uL Basophils # (Auto) 0 0-0.2 10 ^3/uL Nucleated Red Blood Cells 0.1 % Sodium Level 136 136-145 mmol/L Potassium Level 2.4 *L 3.5-5.1 mmol/L Chloride Level 99 98-107 mmol/L Carbon Dioxide Level 17 L 20-31 mmol/L Anion Gap 20 H 5-15 Blood Urea Nitrogen 48 H 9-23 mg/dL Creatinine 2.28 H 0.550-1.02 mg/dL Glomerular Filtration Rate Calc 23 >90 mL/min BUN/Creatinine Ratio 21.1 H 10.0-20.0 Serum Glucose 268 H 74-106 mg/dL Calcium Level 11.5 H 8.7-10.4 mg/dL Total Bilirubin 0.3 0.2-1.0 mg/dL Aspartate Amino Transferase (AST) 38 13-40 U/L Alanine Aminotransferase (ALT) 29 7-40 U/L Alkaline Phosphatase 139 H 46-116 U/L Total Protein 9.1 H 5.7-8.2 g/dL Albumin 5.3 H 3.2-4.8 g/dL Assessment/Plan Assessment/Plan chest pain, ACS, possible NSTEMI type 2. viral syndrome possible (nausea vomiting, diarrhea); left shift Troponinemia - patient p/w chest pain , but 1st had nausea vomiting -chest x-ray normal. - work-up shows left shift w/o leukocytosis, Tn trending up, hypokalemia 2.4, Cr 2.28, AGMA 20, ALP high, . VS show high BP. - differential includes viral syndrome, ACS - ACS given as aspirin 325 Lovenox 60 - suspected viral syndrome; we will give fluids (slow due to history of CHF), conservative measures with p.r.n. pain, antiemetics; encouraged p.o. hydration -admit to tele, consult Cards(Dr. Storm) - NPO for possible cardiac intervention. History of CHF - continuing most GDM T meds; holding Entresto AGMa -will obtain lactic acid versus bhb DANIA on CKD - holding nephrotoxic home meds - holding Entresto, Protonix Hypokalemia - likely secondary to vomiting, repleted in ED ALP elevated - will defer workup to hospitalist DVT prophylaxis with Lovenox GI prophylaxis with Pepcid and SCDs Admit to tele Activity: Bedrest, activity as tolerated Plan discussed with: Patient My Orders Orders - BERNADINE CRANE MD Procedure Category Date Status Time Code Status CODE 12/07/23 Transmitted 17:00 Hydrocodone-Acet PHA 12/07/23 Transmitted 5/325mg Tab ([place] 17:00 Ondansetron Hcl PHA 12/07/23 Transmitted (Zofran) 17:00 Enoxaparin Sodium PHA 12/08/23 Transmitted (Lovenox) 10:00 Complete Blood Count LAB 12/08/23 Verified 04:00 Comprehensive LAB 12/08/23 Verified Metabolic Panel 04:00 Npo (Nothing By DIET 12/07/23 Transmitted Mouth) Diet Dinner Condition: Fair PHILL 12/07/23 In Process 17:00 Acetaminophen Tablet PHA 12/07/23 Transmitted (Tylenol Tablet) 17:00 Bedrest With Bathroom PHILL 12/07/23 In Process Privileg 17:00 Morphine Sulfate PHA 12/07/23 Transmitted Injection 17:00 Nitroglycerin PHA 12/07/23 Transmitted Sublingual (Ntrostat 17:00 Morphine Sulfate PHA 12/07/23 Transmitted Injection 17:00 Stat Ekg For Chest PHILL 12/07/23 In Process Pain 17:00 Notify Of Changes [facility] 12/07/23 In Process From Base 17:00 Advertising Analyst For [facility] 12/07/23 In Process 24 Hours 17:00 Emergency Dysrhythmia [facility] 12/07/23 In Process Protocol 17:00 Rhythm Strips Once [facility] 12/07/23 In Process Every Shift 17:00 Oxygen By Nasal RT 12/07/23 Transmitted Cannula 17:00 Admit ADMIT 12/07/23 Verified 17:04 Date of Service: Dec 07, 2023 Billing Provider: BERNADINE CRANE MD Common Visit Codes: [id number] INP/OBS CARE (HIGH) BERNADINE CRANE MD Dec 07, 2023 17:21
[2023-12-07] MEDS: LACTATED RINGER'S 500 ML IV ONE (17:30)
[2023-12-07 18:53] VITALS: RESP 18
[2023-12-07] MEDS: MORPHINE SULFATE INJ 2 MG/ml SYRG IV PRN (19:17)
[2023-12-07 20:00] VITALS: PULSE 96
[2023-12-07 20:38] LABS: Lactic Acid w/Reflex 2.2 mmol/L (0.4-2.0)
[2023-12-07 21:00] VITALS: BP 203/113; PULSE 96; RESP 20; TEMP 98.9; O2SAT 99
[2023-12-07] MEDS: hydrALAZINE HCL 10 MG TAB PO SCH (21:16)
[2023-12-07] MEDS: SERTRALINE HCL 50 MG TAB PO SCH (21:16)
[2023-12-07] MEDS: ATORVASTATIN 20 MG TAB PO SCH (21:16)
[2023-12-07] MEDS: NIFEdipine ER 30 MG TAB PO SCH (21:17)
[2023-12-07] MEDS: ONDANSETRON HCL 4 MG/2 ML VIAL IV PRN (21:41)
[2023-12-07] MEDS ORDERED: HYDROmorphone HCL 2 MG/ML VL/or syr IV ONE (23:15)
[2023-12-07] MEDS: MELATONIN 5 MG TAB PO SCH (23:32)
[2023-12-08] VITALS (8 sets, daily range): BP systolic 132–199; BP diastolic 76–107; PULSE 66–102; RESP 16–20; TEMP 97.9–98.7; O2SAT 96–100
[2023-12-08] MEDS: HYDROcodone-ACET 5/325MG TAB PO PRN (00:18)
[2023-12-08 07:32] LABS: Basophils # (auto) 0 10 ^3/uL (0-0.2); Basophils % (auto) 0.4 % (0.0-2.0); Eosinophils # (auto) 0 10 ^3/uL (0-0.8); Eosinophils % (auto) 0.1 % (0.0-7.0); Hematocrit 41.9 % (36.0-46.0); Hemoglobin 14.3 g/dL (12.2-16.2); Lymphocytes # (auto) 2.1 10 ^3/uL (0.4-5.4); Lymphocytes % (auto) 19.8 % (10.0-50.0); Mean Corpuscular Hemoglobin 31.1 pg (28.0-32.0); Mean Corpuscular Hgb Conc. 34.1 g/dL (32.0-36.0); Mean Corpuscular Volume 91.4 fL (80.0-100.0); Monocytes # (auto) 0.9 10 ^3/uL (0-1.3); Monocytes % (auto) 8.8 % (0.0-12.0); Neutrophils # (auto) 7.5 10 ^3/uL (1.6-8.6); Neutrophils % (auto) 70.9 % (37.0-80.0); Nucleated Red Blood Cells % 0.1 %; Platelet Count (auto) 224 10^3/uL (140-450); Red Blood Cells 4.58 10^6/uL (4.0-5.20); Red Cell Distribution Width 15.1 % (11.8-14.3); White Blood Cell 10.5 10^3/uL (4.4-10.8)
[2023-12-08 07:53] LABS: Alanine Aminotransferase 20 U/L (7-40); Albumin 4.3 g/dL (3.2-4.8); Alkaline Phosphatase 109 U/L (46-116); Anion Gap 10 (5-15); Aspartate Aminotransferase 32 U/L (13-40); BUN/Creatinine Ratio 17.4 (10.0-20.0); Bilirubin, Total 0.4 mg/dL (0.2-1.0); Calcium 10.4 mg/dL (8.7-10.4); Carbon Dioxide 26 mmol/L (20-31); Chloride 103 mmol/L (98-107); Glucose 119 mg/dL (74-106); Potassium 2.7 mmol/L (3.5-5.1); Sodium 139 mmol/L (136-145); Total Protein 7.4 g/dL (5.7-8.2)
[2023-12-08 08:05] LABS: Blood Urea Nitrogen 38 mg/dL (9-23)
[2023-12-08] MEDS: FAMOTIDINE (10MG/ML) 2ML VL IV SCH (08:10)
[2023-12-08] MEDS: CLOPIDOGREL BISULFATE 75 MG TAB PO SCH (10:46)
[2023-12-08] MEDS: amLODIPine BESYLATE 5 MG TAB PO SCH (10:46)
[2023-12-08] MEDS: METOPROLOL SUCCINATE XL 50 MG TAB PO SCH (10:49)
[2023-12-08] MEDS: ENOXAPARIN SOD 80 MG/0.8ML SYRINGE SC SCH (10:49)
[2023-12-08] MEDS: POTASSIUM CHL 20MEQ/100ML 100 ML IV SCH (13:05)
[2023-12-08] MEDS ORDERED: METOCLOPRAMIDE HCL 5MG/ml INJ 2ml VIAL IV PRN (14:00)
--- NOTE | 2023-12-08 14:08 | DVHPN2 ---
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 WAS NEGATIVE CT OF CT NEGATIVE HIGH BUN/ CR RATION CONSISTENT WITH HYPOVOLEMIA WITH NAUSEA AND VOMITING PT WITH SEVERE HYPOKALEMIA PMH: DIABETES HTN HYPERLIPIDEMIA S/P PTCA CA OF LIVER S/P PARTIAL HEPATECTOMY HX OF COLSTOMY SECONDARY TO SBO AFIB CHRONIC HX OF L CVA RIGHT SIDED WEAKNESS vital signs Vital Sign Date Time Temp Pulse Resp B/P (MAP) Pulse Ox O2 Delivery O2 Flow Rate FiO2 12/08/23 13:00 98.4 87 20 148/81 (103) 96 98.4 12/08/23 08:00 Nasal Cannula* 2 28 Total Intake and Output 12/07/23 12/07/23 12/08/23 15:00 23:00 07:00 Intake Total 150 ml 0 ml Output Total 400 ml Balance 150 ml -400 ml medications Current Medications Medications Dose Ordered Sig/Jennifer Route Start Time Stop Time Status Last Admin Dose Admin Acetaminophen/ Hydrocodone Bitart 1 tab Q4HP PRN PO 12/07/23 17:00 12/08/23 10:45 1 TAB Ondansetron HCl 4 mg Q4HP PRN IV 12/07/23 17:00 12/07/23 21:41 4 MG Enoxaparin Sodium 70 mg DAILY SC 12/08/23 10:00 12/08/23 10:49 70 MG Acetaminophen 650 mg Q6HP PRN PO 12/07/23 17:00 Morphine Sulfate 2 mg Q4HPRN PRN IV 12/07/23 17:00 12/08/23 12:23 2 MG Nitroglycerin 0.4 mg Q5MINP PRN SL 12/07/23 17:00 Morphine Sulfate 2 mg Q30M PRN IV 12/07/23 17:00 Famotidine 20 mg DAILY IV 12/08/23 10:00 12/08/23 08:10 20 MG Amlodipine Besylate 5 mg DAILY PO 12/08/23 10:00 12/08/23 10:46 5 MG Clopidogrel Bisulfate 75 mg DAILY PO 12/08/23 10:00 12/08/23 10:46 75 MG Hydralazine HCl 10 mg TID PO 12/07/23 22:00 12/08/23 05:31 10 MG Nifedipine 30 mg BID PO 12/07/23 22:00 12/08/23 10:48 30 MG Atorvastatin Calcium 40 mg HS PO 12/07/23 22:00 12/07/23 21:16 40 MG Metoprolol Succinate 25 mg DAILY PO 12/08/23 10:00 12/08/23 10:49 25 MG Sertraline HCl 25 mg BID PO 12/07/23 22:00 12/08/23 10:47 25 MG Melatonin 5 mg HS PO 12/07/23 22:00 12/07/23 23:32 5 MG Potassium Chloride 100 ml @ 50 mls/hr Q2H IV 12/08/23 12:15 12/08/23 16:14 12/08/23 13:05 50 MLS/HR laboratory and microbiology Laboratory Tests 12/08/23 06:44 Test 12/08/23 06:44 Range/Units Serum Glucose 119 H 74-106 mg/dL Problem List SEVERE ABD / EPIGASTRIC PAIN AND 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
[2023-12-08] MEDS: SODIUM CHLORIDE 0.9% 1,000 ML IV SCH (14:27)
[2023-12-08 17:19] LABS: Urine Bacteria FEW /hpf (None Seen); Urine Blood 1+ /uL (Negative); Urine Clarity Clear (Clear); Urine Color Light-Yellow (Yellow); Urine Hyaline Cast FEW /lpf (0 - 2); Urine Protein, UAD 1+ (Negative); Urine Specific Gravity 1.015 (1.001-1.035); Urine Urobilinogen Normal (Negative); Urine WBC 1 /hpf (0 - 5); Urine pH 5.5 (5.0-9.0)
--- NOTE | 2023-12-08 19:34 | DVHPN2 ---
Subjective 68-year-old female with past medical history of CVA with right-sided residual, hypertension, diabetes, ME status post ROME, surgical aortic valve replacement, AFib Eliquis, COPD on home oxygen 2 L, CKD stage III admitted to medicine for shortness of breath, abdominal and chest pain. Was following with . Chest pain reproducible by palpation, ED found to have troponin elevation that is trending down, elevated creatinine, prolonged QT on EKG. Patient was seen by me during rounds Still abdominal pain and chest pain, reproducible by palpation. Cardiology consult appreciated. Patient breathing comfortably with 2 L he decision to obtain CT abdomen and pelvis with contrast in setting of DANIA on CKD benefit outweighs risk of contrast induced nephropathy. We will increase IV hydration meantime. Reviewed: Care Plan, H&P, Labs, Medications, Previous Orders, Radiology Changes from previous H/P or p: No Changes Objective Vitals Vital Signs Date Time Temp Pulse Resp B/P (MAP) Pulse Ox O2 Delivery O2 Flow Rate FiO2 12/08/23 18:38 86 19 155/80 12/08/23 16:56 98.0 99 98.0 12/08/23 08:00 Nasal Cannula* 2 28 Intake/Output Intake and Output 12/08/23 07:00 Intake Total 150 ml Output Total 400 ml Balance -250 ml Intake Oral 0 ml IV Total 150 ml Output Urine Total 400 ml Exam Alert, oriented x3 PERRLA, Face symmetrical No JVD Decreased breath sounds bilaterally, no crackles, no rhonchi S1-S2 irregular, systolic murmur Chest wall tender to palpation Abdomen distended, no guarding, no rebound, tender on palpation in the epigastric and umbilical area No suprapubic or flank tenderness No lower extremity edema Equal pulses bilaterally Mildly decreased strength R<L Medications Current Medications Medications Dose Ordered Sig/Jennifer Route Start Time Stop Time Status Last Admin Dose Admin Acetaminophen/ Hydrocodone Bitart 1 tab Q4HP PRN PO 12/07/23 17:00 12/08/23 16:17 1 TAB Ondansetron HCl 4 mg Q4HP PRN IV 12/07/23 17:00 Hold 12/07/23 21:41 4 MG Enoxaparin Sodium 70 mg DAILY SC 12/08/23 10:00 12/08/23 10:49 70 MG Acetaminophen 650 mg Q6HP PRN PO 12/07/23 17:00 Morphine Sulfate 2 mg Q4HPRN PRN IV 12/07/23 17:00 12/08/23 18:38 2 MG Nitroglycerin 0.4 mg Q5MINP PRN SL 12/07/23 17:00 Morphine Sulfate 2 mg Q30M PRN IV 12/07/23 17:00 Famotidine 20 mg DAILY IV 12/08/23 10:00 12/08/23 08:10 20 MG Amlodipine Besylate 5 mg DAILY PO 12/08/23 10:00 12/08/23 10:46 5 MG Clopidogrel Bisulfate 75 mg DAILY PO 12/08/23 10:00 12/08/23 10:46 75 MG Hydralazine HCl 10 mg TID PO 12/07/23 22:00 12/08/23 14:27 10 MG Nifedipine 30 mg BID PO 12/07/23 22:00 12/08/23 10:48 30 MG Atorvastatin Calcium 40 mg HS PO 12/07/23 22:00 12/07/23 21:16 40 MG Metoprolol Succinate 25 mg DAILY PO 12/08/23 10:00 12/08/23 10:49 25 MG Sertraline HCl 25 mg BID PO 12/07/23 22:00 12/08/23 10:47 25 MG Melatonin 5 mg HS PO 12/07/23 22:00 12/07/23 23:32 5 MG Sodium Chloride 1,000 ml @ 75 mls/hr [id number] IV 12/08/23 14:00 12/08/23 14:27 75 MLS/HR Metoclopramide HCl 10 mg Q8HPRN PRN IV 12/08/23 14:00 Laboratory Results Laboratory Tests 12/08/23 06:44 Chemistry Test 12/08/23 06:44 Albumin 4.3 g/dL (3.2-4.8) Calcium Level 10.4 mg/dL (8.7-10.4) Total Protein 7.4 g/dL (5.7-8.2) LFT Test 12/08/23 06:44 Alanine Aminotransferase (ALT) 20 U/L (7-40) Alkaline Phosphatase 109 U/L (46-116) Aspartate Amino Transferase (AST) 32 U/L (13-40) Total Bilirubin 0.4 mg/dL (0.2-1.0) Urinalysis Test 12/08/23 16:59 Urine Color Light-yellow (Yellow) Urine Clarity Clear (Clear) Urine pH 5.5 (5.0-9.0) Urine Specific [place] 1.015 (1.001-1.035) Urine Protein 1+ (Negative) H Urine Ketones Negative (Negative) Urine Blood 1+ /uL (Negative) H Urine Nitrite Negative (Negative) Urine Bilirubin Negative (Negative) Urine Urobilinogen Normal mg/dL (Negative) Urine Leukocyte Esterase Negative /uL (Negative) Urine RBC 7 /hpf (0 - 4) Urine WBC 1 /hpf (0 - 5) Urine Squamous Epithelial Cells Few /hpf (<5) Urine Bacteria Few /hpf (None Seen) H Urine Hyaline Casts Few /lpf (0 - 2) Urine Glucose Normal mg/dL (Normal) Labs and/or images reviewed: Labs reviewed by me, Image(s) reviewed by me Assessment/Plan Assessment/Plan Intractable abdominal and chest tenderness CVA with right-sided residual Hypertension Diabetes CAD status post ROME AFib Chronic hypoxic respiratory failure on home oxygen Likely DANIA on CKD Prolonged QT Hypokalemia Continue with home medication Insulin basal bolus and sliding scale inpatient Fingerstick x4 a.c. HS Continue with Eliquis Avoid QT prolonging medication Cardiac consult appreciated CT abdomen and pelvis with contrast, IV hydration prior Continue with oxygen supplements 2 L Replete potassium Pain management Diet clear liquid DVT prophylaxis on full anticoagulation Plan discussed with: Patient My Orders Orders - EMILI RANDOLPH MD Procedure Category Date Status Time Basic Metabolic Panel LAB 12/09/23 Verified 04:00 Phosphorus LAB 12/09/23 Verified 04:00 Magnesium LAB 12/09/23 Verified 04:00 Complete Blood Count LAB 12/09/23 Verified 04:00 Date of Service: Dec 08, 2023 Billing Provider: EMILI RANDOLPH MD Common Visit Codes: [id number] INP/OBS CARE(HIGH) EMILI RANDOLPH MD Dec 08, 2023 19:34
[2023-12-09] VITALS (10 sets, daily range): BP systolic 159–182; BP diastolic 86–99; PULSE 71–87; RESP 15–20; TEMP 97.7–99.8; O2SAT 93–99
[2023-12-09 07:35] LABS: Basophils # (auto) 0.1 10 ^3/uL (0-0.2); Basophils % (auto) 0.6 % (0.0-2.0); Eosinophils # (auto) 0.1 10 ^3/uL (0-0.8); Eosinophils % (auto) 0.6 % (0.0-7.0); Hematocrit 38.3 % (36.0-46.0); Hemoglobin 12.8 g/dL (12.2-16.2); Lymphocytes # (auto) 1.9 10 ^3/uL (0.4-5.4); Lymphocytes % (auto) 21.9 % (10.0-50.0); Mean Corpuscular Hgb Conc. 33.4 g/dL (32.0-36.0); Mean Corpuscular Volume 92.8 fL (80.0-100.0); Monocytes # (auto) 0.7 10 ^3/uL (0-1.3); Monocytes % (auto) 7.8 % (0.0-12.0); Neutrophils # (auto) 6.1 10 ^3/uL (1.6-8.6); Neutrophils % (auto) 69.1 % (37.0-80.0); Platelet Count (auto) 187 10^3/uL (140-450); Red Blood Cells 4.13 10^6/uL (4.0-5.20); Red Cell Distribution Width 15.4 % (11.8-14.3); White Blood Cell 8.8 10^3/uL (4.4-10.8)
[2023-12-09 07:51] LABS: Anion Gap 8 (5-15); Calcium 9.9 mg/dL (8.7-10.4); Carbon Dioxide 28 mmol/L (20-31); Chloride 105 mmol/L (98-107); Potassium 2.9 mmol/L (3.5-5.1); Sodium 141 mmol/L (136-145)
[2023-12-09 07:57] LABS: Blood Urea Nitrogen 29 mg/dL (9-23); Glucose 115 mg/dL (74-106); Magnesium 1.9 mg/dL (1.6-2.6)
[2023-12-09 07:59] LABS: Phosphorus 2.6 mg/dL (2.4-5.1)
[2023-12-09] MEDS: OMNIPAQUE 12mg/ml 500ml ORAL SOLUTION PO ONE (13:20)
[2023-12-09] MEDS: IOHEXOL 300 MG/ML 100ML BOTTLE IJ ONE (15:20)
--- NOTE | 2023-12-09 17:16 | DVH ---
Procedure: CT CT ABD PELVIS W CON-ORAL IV 12/09/2023 04:08 PM Indication:SEVER DIFFUSE PAIN WITH NAUSEA. Comparison Study: Chest CT scan dated 08/15/2023 , CT scan of chest, abdomen and pelvis dated 023 Technique: Axial images were obtained and reformatted in coronal and sagittal planes. All CT scans at this medical facility are performed using dose modulation techniques as appropriate t o a performed exam including the following: Automated exposure control was utilized; adjustment of th e MA and/or KV according to patient size; and use of iterative reconstruction technique. CT Dose: CTDI volume is 7.21 mGy. Dose-length product is 369.18 mGy*cm FINDINGS: Lower Chest: Unremarkable. Hepatobiliary: Gallbladder is surgically absent. Stable dilated CBD, 1.1 cm in caliber likely compens atory post cholecystectomy change. Stable 1.5 cm simple appearing right hepatic lobe cyst. Spleen: Unremarkable. Pancreas: Unremarkable. Adrenal Glands: Unremarkable. tract: The kidneys are normal in size bilaterally without hydronephrosis . A 3 mm nonobstructing s tone seen in the left kidney. The urinary bladder is unremarkable. GI tract: The stomach is grossly normal in appearance. No evidence of small bowel obstruction. Scatt ered colonic diverticula are noted without evidence of diverticulitis. The appendix is not visualiz ed. No inflammatory change is noted in the right lower quadrant. Lymphatics: No mesenteric, retroperitoneal or periportal lymphadenopathy. Vasculature: Aorta is normal in caliber. Scattered calcified plaques are noted. Pelvic Organs: Unremarkable Bones/soft tissues: Chronic mild depression of the superior endplate of L4 without retropulsion. Mul tilevel degenerative disc disease and posterior facet arthropathy of the lumbar spine. Several inject ion granulomas are seen in the left buttock. Other: None. IMPRESSION: 1. No CT evidence for acute intra-abdominal or intrapelvic process. No evidence of bowel obstruction. 2. Mild bibasilar pulmonary opacities likely subsegmental atelectasis.
[2023-12-09] MEDS: SOD CHL 0.9%/ KCL 40MEQ 1,000 ML IV ONE (17:48)
[2023-12-09] MEDS: LABETALOL HCL 20 MG/4 ML VL IV PRN (18:11)
--- NOTE | 2023-12-09 18:23 | DVHPN2 ---
Subjective Patient continues to report having some abdominal discomfort, noted in her epigastric and right lower quadrant. Reviewed: Care Plan, H&P, Labs, Medications, Previous Orders, Radiology Changes from previous H/P or p: No Changes General: Per HPI Objective Vitals Vital Signs Date Time Temp Pulse Resp B/P (MAP) Pulse Ox O2 Delivery O2 Flow Rate FiO2 12/09/23 18:11 86 182/99 12/09/23 17:00 98.6 17 93 98.6 12/09/23 08:00 Nasal Cannula* 2 28 Intake/Output Intake and Output 12/09/23 07:00 Intake Total 1150 ml Output Total 150 ml Balance 1000 ml Intake Oral 800 ml IV Total 350 ml Output Urine Total 150 ml # Voids 5 General Appearance: Alert, Cooperative, No acute distress HEENT: Atraumatic, PERRLA Lungs: Clear to auscultation, Normal air movement Cardiovascular: Normal S1, Normal S2 Abdomen: Normal bowel sounds Musculoskeletal: Normal sensory function, Normal motor function Neuro: Normal gait, Normal speech Psych/Mental Status: Mental status NL, Mood NL Medications Current Medications Medications Dose Ordered Sig/Jennifer Route Start Time Stop Time Status Last Admin Dose Admin Acetaminophen/ Hydrocodone Bitart 1 tab Q4HP PRN PO 12/07/23 17:00 12/09/23 12:47 1 TAB Ondansetron HCl 4 mg Q4HP PRN IV 12/07/23 17:00 Hold 12/07/23 21:41 4 MG Enoxaparin Sodium 70 mg DAILY SC 12/08/23 10:00 12/09/23 09:09 70 MG Acetaminophen 650 mg Q6HP PRN PO 12/07/23 17:00 Morphine Sulfate 2 mg Q4HPRN PRN IV 12/07/23 17:00 12/09/23 14:26 2 MG Nitroglycerin 0.4 mg Q5MINP PRN SL 12/07/23 17:00 Morphine Sulfate 2 mg Q30M PRN IV 12/07/23 17:00 Famotidine 20 mg DAILY IV 12/08/23 10:00 12/09/23 08:55 20 MG Clopidogrel Bisulfate 75 mg DAILY PO 12/08/23 10:00 12/09/23 09:07 75 MG Hydralazine HCl 10 mg TID PO 12/07/23 22:00 12/09/23 12:47 10 MG Atorvastatin Calcium 40 mg HS PO 12/07/23 22:00 12/08/23 21:10 40 MG Metoprolol Succinate 25 mg DAILY PO 12/08/23 10:00 12/09/23 09:08 25 MG Sertraline HCl 25 mg BID PO 12/07/23 22:00 12/09/23 09:07 25 MG Melatonin 5 mg HS PO 12/07/23 22:00 12/08/23 21:11 5 MG Metoclopramide HCl 10 mg Q8HPRN PRN IV 12/08/23 14:00 Nifedipine 60 mg BID PO 12/09/23 22:00 Zolpidem Tartrate 5 mg HSPRN PRN PO 12/09/23 17:00 Labetalol HCl 10 mg Q2HPRN PRN IV 12/09/23 17:00 12/09/23 18:11 10 MG Laboratory Results Laboratory Tests 12/09/23 06:41 Chemistry Test 12/09/23 06:41 Calcium Level 9.9 mg/dL (8.7-10.4) Magnesium Level 1.9 mg/dL (1.6-2.6) Phosphorus Level 2.6 mg/dL (2.4-5.1) Urinalysis Test 12/08/23 16:59 Urine Color Light-yellow (Yellow) Urine Clarity Clear (Clear) Urine pH 5.5 (5.0-9.0) Urine Specific [place] 1.015 (1.001-1.035) Urine Protein 1+ (Negative) H Urine Ketones Negative (Negative) Urine Blood 1+ /uL (Negative) H Urine Nitrite Negative (Negative) Urine Bilirubin Negative (Negative) Urine Urobilinogen Normal mg/dL (Negative) Urine Leukocyte Esterase Negative /uL (Negative) Urine RBC 7 /hpf (0 - 4) Urine WBC 1 /hpf (0 - 5) Urine Squamous Epithelial Cells Few /hpf (<5) Urine Bacteria Few /hpf (None Seen) H Urine Hyaline Casts Few /lpf (0 - 2) Urine Glucose Normal mg/dL (Normal) Labs and/or images reviewed: Labs reviewed by me, Image(s) reviewed by me Assessment/Plan Assessment/Plan Impression: -acute abdominal pain, questionable viral gastroenteritis -intractable nausea and vomiting -hypokalemia -history of CVA with left-sided weakness -dyslipidemia -liver CA with hepatectomy -history of small-bowel obstructions -hypokalemia -acute kidney injury Plan: -CT scan with oral contrast reviewed. No acute pathology noted. Assist patient's abdomen with mild pain noted in epigastric and right lower quadrant. Patient reports that her diarrhea has resolved. Continue with clear liquid diet. -start trial of Bentyl -start antibiotic therapy with Flagyl and Levaquin -gentle IV hydration with potassium replacement -cardiology consultation -continue antiplatelet therapy -repeat labs in a.m. -reassess for discharge in a.m. Total time spent with patient discussing and formulating plan of care: 35 minutes. This medical document was created using an electronic medical record system with [employer] dictation system. Although this document has been carefully reviewed, there may still be some phonetic and typographical errors. These areas are purely typographical due to imperfections of the software programs, and do not reflect any compromise in the patient's medical care. Plan discussed with: Patient, Other (RN) My Orders Orders - KEVEN FOLEY NP Procedure Category Date Status Time Nifedipine Er PHA 12/09/23 In Process (Procardia Xl 22:00 Zolpidem Tartrate PHA 12/09/23 In Process (Ambien) 17:00 Labetalol Hcl PHA 12/09/23 In Process (Labetalol Hcl) 17:00 Sod Chl 0.9%/ Kcl PHA 12/09/23 In Process [id number] 17:00 Basic Metabolic Panel LAB 12/10/23 Verified 04:00 Magnesium LAB 12/10/23 Verified 04:00 Metronidazole Ivpb PHA 12/09/23 Transmitted Flagyl 22:00 Levofloxacin Levaquin PHA 12/10/23 Transmitted 10:00 Lactic Acid W/ Reflex LAB 12/09/23 Transmitted Order 18:15 Dicyclomine Capsule PHA 12/09/23 Transmitted (Bentyl Capsule) 22:00 Date of Service: Dec 09, 2023 Billing Provider: KEVEN FOLEY NP Common Visit Codes: [id number] INP/OBS CARE(HIGH) KEVEN FOLEY NP Dec 09, 2023 18:23
[2023-12-09 20:05] LABS: Lactic Acid w/Reflex 2.4 mmol/L (0.4-2.0)
[2023-12-09] MEDS: DICYCLOMINE HCL 10 MG CAP PO SCH (20:15)
[2023-12-09] MEDS: NIFEdipine ER 30 MG TAB PO SCH (20:16)
[2023-12-09] MEDS: metroNIDAZOLE 500MG/100ML 100 ML IV SCH (20:18)
[2023-12-09] MEDS: ZOLPIDEM TARTRATE 5 MG TAB PO PRN (21:56)
[2023-12-10] VITALS (8 sets, daily range): BP systolic 119–164; BP diastolic 82–93; PULSE 71–82; RESP 16–20; TEMP 97.8–98.8; O2SAT 96–100
[2023-12-10 02:49] LABS: Anion Gap 6 (5-15); Carbon Dioxide 28 mmol/L (20-31); Chloride 107 mmol/L (98-107); Potassium 3.1 mmol/L (3.5-5.1); Sodium 141 mmol/L (136-145)
[2023-12-10 02:50] LABS: Calcium 9.8 mg/dL (8.7-10.4)
[2023-12-10 02:55] LABS: BUN/Creatinine Ratio 13.1 (10.0-20.0); Blood Urea Nitrogen 13 mg/dL (9-23); Glucose 102 mg/dL (74-106); Magnesium 1.8 mg/dL (1.6-2.6)
[2023-12-10] MEDS: levoFLOXacin 500MG 100 ML IV SCH (10:25)
--- NOTE | 2023-12-10 14:47 | DVHPN2 ---
Subjective Patient continues to have epigastric, questionable substernal pain in addition to left lower quadrant pain. Reviewed: Care Plan, H&P, Labs, Medications, Previous Orders, Radiology Changes from previous H/P or p: No Changes General: Per HPI Objective Vitals Vital Signs Date Time Temp Pulse Resp B/P (MAP) Pulse Ox O2 Delivery O2 Flow Rate FiO2 12/10/23 13:00 98.8 82 20 164/92 (116) 100 98.8 12/09/23 19:50 Nasal Cannula* 2 28 Intake/Output Intake and Output 12/10/23 07:00 Intake Total 900 ml Output Total 1000 ml Balance -100 ml Intake Oral 700 ml IV Total 200 ml Output Urine Total 1000 ml # Voids 5 General Appearance: Alert, Cooperative, No acute distress HEENT: Atraumatic, PERRLA Lungs: Clear to auscultation, Normal air movement Cardiovascular: Normal S1, Normal S2 Abdomen: Normal bowel sounds Musculoskeletal: Normal sensory function, Normal motor function Neuro: Normal gait, Normal speech Psych/Mental Status: Mental status NL, Mood NL Medications Current Medications Medications Dose Ordered Sig/Jennifer Route Start Time Stop Time Status Last Admin Dose Admin Acetaminophen/ Hydrocodone Bitart 1 tab Q4HP PRN PO 12/07/23 17:00 12/10/23 09:27 1 TAB Ondansetron HCl 4 mg Q4HP PRN IV 12/07/23 17:00 Hold 12/07/23 21:41 4 MG Enoxaparin Sodium 70 mg DAILY SC 12/08/23 10:00 12/10/23 10:28 70 MG Acetaminophen 650 mg Q6HP PRN PO 12/07/23 17:00 Morphine Sulfate 2 mg Q4HPRN PRN IV 12/07/23 17:00 12/10/23 10:31 2 MG Nitroglycerin 0.4 mg Q5MINP PRN SL 12/07/23 17:00 Morphine Sulfate 2 mg Q30M PRN IV 12/07/23 17:00 Famotidine 20 mg DAILY IV 12/08/23 10:00 12/10/23 10:28 20 MG Clopidogrel Bisulfate 75 mg DAILY PO 12/08/23 10:00 12/10/23 10:30 75 MG Hydralazine HCl 10 mg TID PO 12/07/23 22:00 12/10/23 05:16 10 MG Atorvastatin Calcium 40 mg HS PO 10/17/24 22:00 12/09/23 20:16 40 MG Metoprolol Succinate 25 mg DAILY PO 12/08/23 10:00 12/10/23 10:29 25 MG Sertraline HCl 25 mg BID PO 12/07/23 22:00 12/10/23 10:00 25 MG Melatonin 5 mg HS PO 12/07/23 22:00 12/08/23 21:11 5 MG Metoclopramide HCl 10 mg Q8HPRN PRN IV 12/08/23 14:00 Nifedipine 60 mg BID PO 12/09/23 22:00 12/10/23 10:30 60 MG Zolpidem Tartrate 5 mg HSPRN PRN PO 12/09/23 17:00 12/09/23 21:56 5 MG Labetalol HCl 10 mg Q2HPRN PRN IV 12/09/23 17:00 12/09/23 22:40 10 MG Metronidazole 100 ml @ 100 mls/hr Q8HR IV 12/09/23 22:00 12/10/23 05:12 100 MLS/HR Levofloxacin/ Dextrose 100 ml @ 100 mls/hr DAILY IV 12/10/23 10:00 12/10/23 10:25 100 MLS/HR Dicyclomine HCl 20 mg QID PO 12/09/23 22:00 12/10/23 12:17 20 MG Laboratory Results Laboratory Tests 12/09/23 06:41 12/10/23 02:00 12/10/23 09:29 Chemistry Test 12/10/23 02:00 Calcium Level 9.8 mg/dL (8.7-10.4) Magnesium Level 1.8 mg/dL (1.6-2.6) Urinalysis Test 12/08/23 16:59 Urine Color Light-yellow (Yellow) Urine Clarity Clear (Clear) Urine pH 5.5 (5.0-9.0) Urine Specific [place] 1.015 (1.001-1.035) Urine Protein 1+ (Negative) H Urine Ketones Negative (Negative) Urine Blood 1+ /uL (Negative) H Urine Nitrite Negative (Negative) Urine Bilirubin Negative (Negative) Urine Urobilinogen Normal mg/dL (Negative) Urine Leukocyte Esterase Negative /uL (Negative) Urine RBC 7 /hpf (0 - 4) Urine WBC 1 /hpf (0 - 5) Urine Squamous Epithelial Cells Few /hpf (<5) Urine Bacteria Few /hpf (None Seen) H Urine Hyaline Casts Few /lpf (0 - 2) Urine Glucose Normal mg/dL (Normal) Labs and/or images reviewed: Labs reviewed by me, Image(s) reviewed by me Assessment/Plan Assessment/Plan Impression: -acute abdominal pain, questionable viral gastroenteritis -intractable nausea and vomiting -hypokalemia -history of CVA with left-sided weakness -dyslipidemia -liver CA with hepatectomy -history of small-bowel obstructions -hypokalemia -acute kidney injury Plan: Events: Patient continues to have epigastric pain, left lower quadrant pain. CT scan with oral contrast negative for any acute pathology. Patient was started on Bentyl yesterday without any relief of her pain. -GI consultation -trial of transdermal nitroglycerin to see if it alleviates her pain. -start antibiotic therapy with Flagyl and Levaquin -gentle IV hydration with potassium replacement -cardiology consultation -continue antiplatelet therapy -repeat labs in a.m. -reassess for discharge in a.m. Total time spent with patient discussing and formulating plan of care: 35 minutes. This medical document was created using an electronic medical record system with [employer] dictation system. Although this document has been carefully reviewed, there may still be some phonetic and typographical errors. These areas are purely typographical due to imperfections of the software programs, and do not reflect any compromise in the patient's medical care. Plan discussed with: Patient, Other (RN) My Orders Orders - KEVEN FOLEY NP Procedure Category Date Status Time Nifedipine Er PHA 12/09/23 In Process (Procardia Xl 22:00 Zolpidem Tartrate PHA 12/09/23 In Process (Ambien) 17:00 Labetalol Hcl PHA 12/09/23 In Process (Labetalol Hcl) 17:00 Metronidazole PHA 12/09/23 In Process 500mg/100ml (Flagyl 22:00 Levofloxacin 500mg PHA 12/10/23 In Process (Levaquin 500mg/ 100m 10:00 Dicyclomine Capsule PHA 12/09/23 In Process (Bentyl Capsule) 22:00 Date of Service: Dec 10, 2023 Billing Provider: KEVEN FOLEY NP Common Visit Codes: [id number] INP/OBS CARE(HIGH) KEVEN FOLEY NP Dec 10, 2023 14:47
[2023-12-10] MEDS: NITROGLYCERIN 0.4MG/HR TOPICAL PATCH TD ONE (17:31)
[2023-12-10] MEDS: PANTOPRAZOLE 40 MG TAB PO SCH (19:29)
[2023-12-11] VITALS (8 sets, daily range): BP systolic 126–169; BP diastolic 76–98; PULSE 74–89; RESP 16–18; TEMP 98.2–98.8; O2SAT 95–99
[2023-12-11] MEDS: MORPHINE SULFATE INJ 2 MG/ml SYRG ONE (10:04)
[2023-12-11 10:32] LABS: Basophils # (auto) 0 10 ^3/uL (0-0.2); Basophils % (auto) 0.5 % (0.0-2.0); Eosinophils # (auto) 0 10 ^3/uL (0-0.8); Eosinophils % (auto) 0.6 % (0.0-7.0); Hematocrit 38.9 % (36.0-46.0); Lymphocytes # (auto) 1.3 10 ^3/uL (0.4-5.4); Mean Corpuscular Hemoglobin 30.7 pg (28.0-32.0); Mean Corpuscular Hgb Conc. 33.4 g/dL (32.0-36.0); Mean Corpuscular Volume 91.7 fL (80.0-100.0); Monocytes # (auto) 0.6 10 ^3/uL (0-1.3); Monocytes % (auto) 8.7 % (0.0-12.0); Neutrophils # (auto) 4.7 10 ^3/uL (1.6-8.6); Neutrophils % (auto) 70.2 % (37.0-80.0); Nucleated Red Blood Cells % 0.1 %; Platelet Count (auto) 182 10^3/uL (140-450); Red Blood Cells 4.24 10^6/uL (4.0-5.20); Red Cell Distribution Width 15.1 % (11.8-14.3); White Blood Cell 6.6 10^3/uL (4.4-10.8)
[2023-12-11 10:42] LABS: Chloride 103 mmol/L (98-107); Potassium 3.2 mmol/L (3.5-5.1); Sodium 138 mmol/L (136-145)
[2023-12-11 10:43] LABS: Anion Gap 6 (5-15); Carbon Dioxide 29 mmol/L (20-31)
[2023-12-11] MEDS: IOHEXOL 350 MG/ML 100ML IJ ONE ×2 (10:43→14:55)
[2023-12-11 10:44] LABS: Calcium 10.2 mg/dL (8.7-10.4)
[2023-12-11 10:48] LABS: Glucose 120 mg/dL (74-106)
[2023-12-11 10:49] LABS: BUN/Creatinine Ratio 6.6 (10.0-20.0); Blood Urea Nitrogen 8 mg/dL (9-23)
[2023-12-11] MEDS: ACETAMINOPHEN 325 MG TAB PO SCH (11:24)
[2023-12-11] MEDS: IBUPROFEN 400 MG TAB PO SCH (11:25)
--- NOTE | 2023-12-11 12:29 | ECG ---
[facility] Test Date: 2023-12-09 Test Time: 09:02:52 Pat Name: MANNY RETANA Department: Room: 0291T B Gender: F Genetic Technologist: tej : 1955 Requested By: TAY DUNLAP Order Number: [id number] Reading MD: Jose Nuñez Measurements Intervals Solomon Rate: 83 P: 240 CA: 121 QRS: 7 QRSD: 98 T: 256 QT: 363 QTc: 427 Interpretive Statements Sinus or ectopic atrial rhythm Probable left ventricular hypertrophy Anterior Q waves, possibly due to LVH Nonspecific T abnormalities, inferior leads Electronically Signed On 12-11-2023 16:39:23 PDT by Jose Nuñez Please click the below link to view image of tracing.
--- NOTE | 2023-12-11 14:48 | DVHPN2 ---
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 WAS NEGATIVE CT OF CT NEGATIVE HIGH BUN/ CR RATION CONSISTENT WITH HYPOVOLEMIA WITH NAUSEA AND VOMITING PT WITH SEVERE HYPOKALEMIA PMH: DIABETES HTN HYPERLIPIDEMIA S/P PTCA CA OF LIVER S/P PARTIAL HEPATECTOMY HX OF COLSTOMY SECONDARY TO SBO AFIB CHRONIC HX OF L CVA RIGHT SIDED WEAKNESS vital signs Vital Sign Date Time Temp Pulse Resp B/P (MAP) Pulse Ox O2 Delivery O2 Flow Rate FiO2 12/11/23 12:24 98.6 12/11/23 10:00 107/72 12/11/23 10:00 76 12/11/23 08:36 16 96 12/10/23 20:00 Nasal Cannula* 2 28 Total Intake and Output 12/10/23 12/10/23 12/11/23 15:00 23:00 07:00 Intake Total 200 ml 1050 ml 325 ml Output Total 5 ml Balance 200 ml 1045 ml 325 ml medications Current Medications Medications Dose Ordered Sig/Jennifer Route Start Time Stop Time Status Last Admin Dose Admin Ondansetron HCl 4 mg Q4HP PRN IV 12/07/23 17:00 Hold 12/07/23 21:41 4 MG Enoxaparin Sodium 70 mg DAILY SC 12/08/23 10:00 12/11/23 09:50 70 MG Famotidine 20 mg DAILY IV 12/08/23 10:00 12/11/23 10:01 20 MG Clopidogrel Bisulfate 75 mg DAILY PO 12/08/23 10:00 12/11/23 10:05 75 MG Hydralazine HCl 10 mg TID PO 12/07/23 22:00 12/11/23 05:20 10 MG Atorvastatin Calcium 40 mg HS PO 12/07/23 22:00 12/10/23 21:30 40 MG Metoprolol Succinate 25 mg DAILY PO 12/08/23 10:00 12/10/23 10:29 25 MG Sertraline HCl 25 mg BID PO 12/07/23 22:00 12/11/23 09:51 25 MG Melatonin 5 mg HS PO 12/07/23 22:00 12/08/23 21:11 5 MG Metoclopramide HCl 10 mg Q8HPRN PRN IV 12/08/23 14:00 Nifedipine 60 mg BID PO 12/09/23 22:00 12/10/23 21:31 60 MG Zolpidem Tartrate 5 mg HSPRN PRN PO 12/09/23 17:00 12/10/23 22:36 5 MG Labetalol HCl 10 mg Q2HPRN PRN IV 12/09/23 17:00 12/09/23 22:40 10 MG Metronidazole 100 ml @ 100 mls/hr Q8HR IV 12/09/23 22:00 12/11/23 05:20 100 MLS/HR Levofloxacin/ Dextrose 100 ml @ 100 mls/hr DAILY IV 12/10/23 10:00 12/11/23 09:50 100 MLS/HR Pantoprazole Sodium 40 mg BID@0600,1700 PO 12/10/23 17:00 12/11/23 05:20 40 MG Acetaminophen 650 mg Q8HR PO 12/11/23 14:00 12/11/23 11:24 650 MG Ibuprofen 400 mg Q8HR PO 12/11/23 14:00 12/14/23 13:59 12/11/23 11:25 400 MG laboratory and microbiology Laboratory Tests 12/11/23 09:57 Test 12/11/23 09:57 Range/Units Serum Glucose 120 H 74-106 mg/dL Problem List SEVERE ABD / EPIGASTRIC PAIN AND TENDERNESS 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 WAS NEGATIVE CT OF CT NEGATIVE HIGH BUN/ CR RATION CONSISTENT WITH HYPOVOLEMIA WITH NAUSEA AND VOMITING PT WITH SEVERE HYPOKALEMIA PMH: DIABETES HTN HYPERLIPIDEMIA S/P PTCA CA OF LIVER S/P PARTIAL HEPATECTOMY HX OF COLSTOMY SECONDARY TO SBO AFIB CHRONIC HX OF L CVA RIGHT SIDED WEAKNESS Assessment/Plan CTA OD ABD PELVIS R/O ISCHEMIC BOWEL GASTRIC OBSTRUCTION IV FLUID H INHIBITOR ADVANCE DIET UNTIL PT GI WORKUP CAN BE INITIATED DILAUDID FOR PAIN NEEDS EGD WITH BIOPSY TO R/O INFILTATIVE DISEASE SUCH AMYLOID/ SARCOID SINCE PAIN OUT OF PROPORTION TO CLINICAL FINDINGS ISCHEMIC BOWEL SHOULD ALSO BE EVALUATED Plan discussed with: Patient TAY DUNLAP MD Dec 11, 2023 14:48
[2023-12-11] MEDS: HYDROmorphone HCL 2 MG/ML VL/or syr IV PRN (15:56)
--- NOTE | 2023-12-11 17:07 | DVH ---
Exam: CT ANGIO AORTIC ABDOMINAL History: r/o ischemic colitis Comparison Study: None TECHNIQUE: Multidetector CT of the abdomen and pelvis was performed from lung bases to pubic symphysi s. Imaging was performed without IV contrast. Axial, coronal, and sagittal multiplanar reformats were obtained from the axial data set by the technologist. RADIATION DOSE: DLP 405.46 mGy.cm; CTDI vol 6.86 mGy. Findings: Lungs: The lung bases are clear. Heart: The visualized heart is unremarkable. No cardiomegaly or pericardial effusion. Liver: Left hepatic cyst. Postsurgical changes of the liver. Gallbladder: Unremarkable. Spleen: Unremarkable Pancreas: Unremarkable Adrenals: Unremarkable Kidneys: Right renal cysts. Punctate nonobstructive left nephrolithiasis. GI tract: Diverticulosis without evidence of acute diverticulitis. No definite evidence of ischemic c olitis. : Unremarkable. Vasculature: Unremarkable Lymphadenopathy: Absent Peritoneum: No ascites Musculoskeletal: Unremarkable Soft tissues: Unremarkable Impression: 1. No acute abdominopelvic abnormalities. 2. No definite evidence of ischemic colitis. 3. Diverticulosis without evidence of acute diverticulitis.
--- NOTE | 2023-12-11 20:11 | DVHCONRES ---
Date Seen: Dec 11, 2023 Resident Creating Document: LU RAMON RESIDENT Referring Physician MYRON Crow Reason for Consultation Nausea and vomiting History of Present Illness This is a 68-year-old female with a past medical history of CVA (deficits right- sided weakness), hypertension, diabetes, [place] s/p stent (Dr Tay Orozco), AFib; chronic respiratory failure on home O2 2 L, CHF, Hx liver cancer (status post partial hepatectomy, no current chemo), Hx colectomy 2/2 SBO, oophorectomy, appendectomy. She presented to the ED with SOB and nausea and elevated BP and work-up shows left shift w/o leukocytosis, Tn trending up, hypokalemia 2.4, Cr 2.28, AGMA 20, ALP high. Patient also complained of intractable vomiting and diarrhea for 2 days. According to patient, she was awoken from sleep by the vomits. Since her admission, she had not had any symptoms. She denies any hematemesis; however, she mentioned that her stool was dark. She had dizziness and head at the time of the vomiting. Of note, patient has not had colonoscopy or endoscopy ever. Past Medical History history of CVA (deficits right-sided weakness), hypertension, diabetes, [place] s/p stent (Dr Tay Orozco), AFib; chronic respiratory failure on home O2 2 L, CHF, Hx liver cancer Past Surgical History status post partial hepatectomy, no current chemo, Hx colectomy 2/2 SBO, oophorectomy, appendectomy Family History: FH: breast cancer G8 MOTHER FH: stomach cancer G8 MOTHER Hypertension G8 MOTHER Allergies: Coded Allergies: NO KNOWN ALLERGIES (Unverified , 02/16/23) Home Meds Active Scripts Sertraline Hcl (Zoloft) 25 Mg Tab, 1 TAB PO BID, #30 TAB 2 Refills Prov:KEVIN POSADA MD 08/18/23 Zolpidem Tartrate (Ambien) 10 Mg Tab, 1 TAB PO QPM PRN, #20 TAB 5 Refills Prov:KEVIN POSADA MD 08/18/23 Oxycodone W/ Acetaminophen (Percocet 5/325MG) 1 Tab Tb, 1 TAB PO QID, #30 TAB Prov:KEVIN POSADA MD 08/18/23 Pantoprazole Sodium Sesquihydr (Protonix) 40 Mg Tab, 40 MG PO DAILY, #30 TAB Prov:CESAR CHIN QUALITY CONTROL TECHNICIAN 02/24/23 Sucralfate (CARAFATE) 1 Gm Tab, 1 GM OR QID for 30 Days, #120 TAB Prov:CESAR CHIN QUALITY CONTROL TECHNICIAN 02/24/23 Reported Medications Carisoprodol (Soma) 350 Mg Tab, 350 MG PO TID, #30 TAB 08/18/23 Tizanidine Hydrochloride (Zanaflex) 4 Mg Cap, 2 MG PO TID 08/14/23 Clopidogrel Bisulfate (CLOPIDOGREL) 75 Mg Tab, 1 TAB PO DAILY 08/14/23 Atorvastatin Calcium (Lipitor) 40 Mg Tab, 1 TAB PO DAILY 08/14/23 Metoprolol Succinate (Metoprolol Succinate Er) 25 Mg Tab, 1 TAB PO DAILY 08/14/23 Potassium Chloride (Potassium Chloride ER) 20 Meq Tab, 1 TAB PO DAILY 08/14/23 Aspirin (Aspirin Low Dose) 81 Mg Chw, 1 TAB PO DAILY 08/14/23 Furosemide (Furosemide) 20 Mg Tab, 1 TAB PO DAILY 08/14/23 Sumatriptan Succinate (Sumatriptan Succinate) 50 Mg Tab, 1 TAB PO DAILY for 9 Days, #9 08/14/23 Alprazolam (Alprazolam) 0.25 Mg Tab, 1 TAB PO BID 08/14/23 Nifedipine (Nifedipine Er) 30 Mg Tab, 1 TAB PO BID 08/14/23 Clonidine Hydrochloride (Clonidine Hcl) 0.3 Mg Tab, 1 TAB PO BID 08/14/23 Hydralazine Hcl (Hydralazine Hcl) 10 Mg Tab, 1 TAB PO TID 08/14/23 Sacubitril-Valsartan (Entresto 24-26 mg) 1 Tab Tab, 1 TAB PO BID 02/17/23 Amlodipine Besylate (Amlodipine Besylate) 5 Mg Tab, 1 TAB PO DAILY 02/17/23 Current Medications Current Medications Medications (Trade) Dose Ordered Sig/Jennifer Route PRN Reason Start Time Stop Time Status Last Admin Acetaminophen (Tylenol Tablet) 650 mg Q8HR PO 12/11/23 14:00 12/11/23 11:24 Ibuprofen (Motrin Tablet) 400 mg Q8HR PO 12/11/23 14:00 12/14/23 13:59 12/11/23 11:25 Hydromorphone HCl (Dilaudid Injection) 0.5 mg Q4HPRN PRN IV MODERATE PAIN (4-6 PAIN SCALE) 12/11/23 14:45 12/11/23 15:56 Review of Systems as indicated in hpi. Vital Signs Vital Signs Date Time Temp Pulse Resp B/P (MAP) Pulse Ox O2 Delivery O2 Flow Rate FiO2 12/11/23 17:00 98.6 89 18 160/92 (114) 99 98.6 12/11/23 08:15 Nasal Cannula* 2 28 Physical Exam General examination- lying comfortably in bed. Not in any respiratory distress HEENT- PEERLA, no acute nasal discharge Cardiovascular- S1-S2 audible, rate and rhythm regular, no murmur Respiratory- CTAB, no wheeze or rhonchi Gastrointestinal- nondistended, no abdominal tenderness, lower abdominal tenderness, bowel sound+ Musculoskeletal-no acute joint swelling or tenderness or redness# Lower extremity- no leg edema Neurological- cranial nerves intact, no acute dysarthria or dysphagia Psychiatry- denies depression or SI or HI Skin- no acute rash or purpura Labs/Diagnostic Data Labs Test 12/11/23 09:57 12/10/23 02:00 12/09/23 06:41 12/08/23 16:59 Range/Units White Blood Count 6.6 4.4-10.8 10^3/uL Red Blood Count 4.24 4.0-5.20 10^6/uL Hemoglobin 13.0 12.2-16.2 g/dL Hematocrit 38.9 36.0-46.0 % Mean Corpuscular Volume 91.7 80.0-100.0 fL Mean Corpuscular Hemoglobin 30.7 28.0-32.0 pg Mean Corpuscular Hemoglobin Concent 33.4 32.0-36.0 g/dL Red Cell Distribution Width 15.1 H 11.8-14.3 % Platelet Count 182 140-450 10^3/uL Mean Platelet Volume 8.2 6.9-10.8 fL Neutrophils (%) (Auto) 70.2 37.0-80.0 % Lymphocytes (%) (Auto) 20.0 10.0-50.0 % Monocytes (%) (Auto) 8.7 0.0-12.0 % Eosinophils (%) (Auto) 0.6 0.0-7.0 % Basophils (%) (Auto) 0.5 0.0-2.0 % Neutrophils # (Auto) 4.7 1.6-8.6 10 ^3/uL Lymphocytes # (Auto) 1.3 0.4-5.4 10 ^3/uL Monocytes # (Auto) 0.6 0-1.3 10 ^3/uL Eosinophils # (Auto) 0 0-0.8 10 ^3/uL Basophils # (Auto) 0 0-0.2 10 ^3/uL Nucleated Red Blood Cells 0.1 % Sodium Level 138 136-145 mmol/L Potassium Level 3.2 L 3.5-5.1 mmol/L Chloride Level 103 98-107 mmol/L Carbon Dioxide Level 29 20-31 mmol/L Anion Gap 6 5-15 Blood Urea Nitrogen 8 L 9-23 mg/dL Creatinine 1.21 H 0.550-1.02 mg/dL Glomerular Filtration Rate Calc 49 >90 mL/min BUN/Creatinine Ratio 6.6 L 10.0-20.0 Serum Glucose 120 H 74-106 mg/dL Calcium Level 10.2 8.7-10.4 mg/dL Lactic Acid Level 1.2 0.4-2.0 mmol/L Magnesium Level 1.8 1.6-2.6 mg/dL Phosphorus Level 2.6 2.4-5.1 mg/dL Urine Color Light-yellow Yellow Urine Clarity Clear Clear Urine pH 5.5 5.0-9.0 Urine Specific [place] 1.015 1.001-1.035 Urine Protein 1+ H Negative Urine Ketones Negative Negative Urine Blood 1+ H Negative /uL Urine Nitrite Negative Negative Urine Bilirubin Negative Negative Urine Urobilinogen Normal Negative mg/dL Urine Leukocyte Esterase Negative Negative /uL Urine RBC 7 0 - 4 /hpf Urine WBC 1 0 - 5 /hpf Urine Squamous Epithelial Cells Few <5 /hpf Urine Bacteria Few H None Seen /hpf Urine Hyaline Casts Few 0 - 2 /lpf Urine Glucose Normal Normal mg/dL Test 12/08/23 06:44 12/07/23 22:20 12/07/23 14:16 Range/Units Total Bilirubin 0.4 0.2-1.0 mg/dL Aspartate Amino Transferase (AST) 32 13-40 U/L Alanine Aminotransferase (ALT) 20 7-40 U/L Alkaline Phosphatase 109 46-116 U/L Total Protein 7.4 5.7-8.2 g/dL Albumin 4.3 3.2-4.8 g/dL Troponin I High Sensitivity 107 *H </=34 ng/L Beta-Hydroxybutyric Acid 0.545 H < 0.4 mmol/L ORDERING PHYSICIAN: TAY DUNLAP MD PROCEDURE(s): ABPLC - CT ABD PELVIS W CON-ORAL & IV REASON: SEVER DIFFUSE PAIN WITH NAUSEA ORDER NUMBER(s): [id number], ACCESSION NUMBER(s): [id number] Procedure: CT CT ABD PELVIS W CON-ORAL IV 12/09/2023 04:08 PM Indication:SEVER DIFFUSE PAIN WITH NAUSEA. Comparison Study: Chest CT scan dated 08/15/2023 , CT scan of chest, abdomen and pelvis dated 02/16/2023 Technique: Axial images were obtained and reformatted in coronal and sagittal planes. All CT scans at this medical facility are performed using dose modulation techniques as appropriate to a performed exam including the following: Automated exposure control was utilized; adjustment of the MA and/or KV according to patient size; and use of iterative reconstruction technique. CT Dose: CTDI volume is 7.21 mGy. Dose-length product is 369.18 mGy*cm FINDINGS: Lower Chest: Unremarkable. Hepatobiliary: Gallbladder is surgically absent. Stable dilated CBD, 1.1 cm in caliber likely compensatory post cholecystectomy change. Stable 1.5 cm simple appearing right hepatic lobe cyst. Spleen: Unremarkable. Pancreas: Unremarkable. Adrenal Glands: Unremarkable. tract: The kidneys are normal in size bilaterally without hydronephrosis . A 3 mm nonobstructing stone seen in the left kidney. The urinary bladder is unremarkable. GI tract: The stomach is grossly normal in appearance. No evidence of small bowel obstruction. Scattered colonic diverticula are noted without evidence of diverticulitis. The appendix is not visualized. No inflammatory change is noted in the right lower quadrant. Lymphatics: No mesenteric, retroperitoneal or periportal lymphadenopathy. Vasculature: Aorta is normal in caliber. Scattered calcified plaques are noted. Pelvic Organs: Unremarkable Bones/soft tissues: Chronic mild depression of the superior endplate of L4 without retropulsion. Multilevel degenerative disc disease and posterior facet arthropathy of the lumbar spine. Several injection granulomas are seen in the left buttock. Other: None. IMPRESSION: 1. No CT evidence for acute intra-abdominal or intrapelvic process. No evidence of bowel obstruction. 2. Mild bibasilar pulmonary opacities likely subsegmental atelectasis. ATED BY: ASUNCION HARDING MD DICTATED DATE/TIME: 12/09/23 1714 ORDERING PHYSICIAN: EMILI RANDOLPH MD PROCEDURE(s): ANGAC - ANGIO AORTIC ABDOMINAL REASON: r/o ischemic colitis ORDER NUMBER(s): [id number], ACCESSION NUMBER(s): [id number] Exam: CT ANGIO AORTIC ABDOMINAL History: r/o ischemic colitis Comparison Study: None TECHNIQUE: Multidetector CT of the abdomen and pelvis was performed from lung bases to pubic symphysis. Imaging was performed without IV contrast. Axial, coronal, and sagittal multiplanar reformats were obtained from the axial data set by the technologist. RADIATION DOSE: DLP 405.46 mGy.cm; CTDI vol 6.86 mGy. Findings: Lungs: The lung bases are clear. Heart: The visualized heart is unremarkable. No cardiomegaly or pericardial effusion. Liver: Left hepatic cyst. Postsurgical changes of the liver. Gallbladder: Unremarkable. Spleen: Unremarkable Pancreas: Unremarkable Adrenals: Unremarkable Kidneys: Right renal cysts. Punctate nonobstructive left nephrolithiasis. GI tract: Diverticulosis without evidence of acute diverticulitis. No definite evidence of ischemic colitis. : Unremarkable. Vasculature: Unremarkable Lymphadenopathy: Absent Peritoneum: No ascites Musculoskeletal: Unremarkable Soft tissues: Unremarkable Impression: 1. No acute abdominopelvic abnormalities. 2. No definite evidence of ischemic colitis. 3. Diverticulosis without evidence of acute diverticulitis. ATED BY: ADINA IGNACIO DO DICTATED DATE/TIME: 12/11/23 1706 Assessment Intractable vomiting and diarrhea for 2 days --> Needs cardiac clearance prior to EGD --> Protonix 40mg po bid --> Will monitor closely Severe hypokalemia --> 2.4--> 3.2 --> replete K by primary team Diverticulosis without evidence of acute diverticulitis noted on CT abdomen Hx liver cancer (status post partial hepatectomy, no current chemo) CVA (deficits right-sided weakness) [place] s/p stent (Dr Tay Orozco) hypertension diabetes --> sliding scale --> plan per primary team AFib Goal care discussed for more than 25 minute: Full code Case and plan discussed with Dr. Granger Plan discussed with: Patient LU RAMON RESIDENT Dec 11, 2023 20:11
--- NOTE | 2023-12-11 21:08 | DVHPN2 ---
Subjective 68-year-old female with past medical history of CVA with right-sided residual, hypertension, diabetes, [place] status post ROME, surgical aortic valve replacement, AFib Eliquis, COPD on home oxygen 2 L, CKD stage III admitted to medicine for shortness of breath, abdominal and chest pain. Was following with . Chest pain reproducible by palpation, ED found to have troponin elevation that is trending down, elevated creatinine, prolonged QT on EKG. Patient was seen by me during rounds Having abdominal on CT you abdomen, CTA oral and IV negative, no rebound, no guarding, however persistently having abdominal and chest pain reproducible by palpation. Patient would probably benefit for EGD to rule out PUD and biopsy for other pathology Reviewed: Care Plan, H&P, Labs, Medications, Previous Orders, Radiology Changes from previous H/P or p: No Changes General: Per HPI Objective Vitals Vital Signs Date Time Temp Pulse Resp B/P (MAP) Pulse Ox O2 Delivery O2 Flow Rate FiO2 12/11/23 20:17 89 18 169/101 12/11/23 17:00 98.6 99 98.6 12/11/23 08:15 Nasal Cannula* 2 28 Intake/Output Intake and Output 12/11/23 07:00 Intake Total 1575 ml Output Total 5 ml Balance 1570 ml Intake Oral 1275 ml IV Total 300 ml Output Urine Total 5 ml # Voids 3 Exam Alert, oriented x3 PERRLA, Face symmetrical No JVD Decreased breath sounds bilaterally, no crackles, no rhonchi S1-S2 irregular, systolic murmur Chest wall tender to palpation Abdomen distended, no guarding, no rebound, tender on palpation in the epigastric and umbilical area No suprapubic or flank tenderness No lower extremity edema Equal pulses bilaterally Mildly decreased strength R<L General Appearance: Alert, Cooperative, No acute distress HEENT: Atraumatic, PERRLA Lungs: Clear to auscultation, Normal air movement Cardiovascular: Normal S1, Normal S2 Abdomen: Normal bowel sounds Musculoskeletal: Normal sensory function, Normal motor function Neuro: Normal gait, Normal speech Psych/Mental Status: Mental status NL, Mood NL Medications Current Medications Medications Dose Ordered Sig/Jennifer Route Start Time Stop Time Status Last Admin Dose Admin Ondansetron HCl 4 mg Q4HP PRN IV 12/07/23 17:00 Hold 12/07/23 21:41 4 MG Enoxaparin Sodium 70 mg DAILY SC 12/08/23 10:00 12/11/23 09:50 70 MG Famotidine 20 mg DAILY IV 12/08/23 10:00 12/11/23 10:01 20 MG Clopidogrel Bisulfate 75 mg DAILY PO 12/08/23 10:00 12/11/23 10:05 75 MG Hydralazine HCl 10 mg TID PO 12/07/23 22:00 12/11/23 16:34 10 MG Atorvastatin Calcium 40 mg HS PO 12/07/23 22:00 12/10/23 21:30 40 MG Metoprolol Succinate 25 mg DAILY PO 12/08/23 10:00 12/10/23 10:29 25 MG Sertraline HCl 25 mg BID PO 12/07/23 22:00 12/11/23 09:51 25 MG Melatonin 5 mg HS PO 12/07/23 22:00 12/08/23 21:11 5 MG Metoclopramide HCl 10 mg Q8HPRN PRN IV 12/08/23 14:00 Nifedipine 60 mg BID PO 12/09/23 22:00 12/10/23 21:31 60 MG Zolpidem Tartrate 5 mg HSPRN PRN PO 12/09/23 17:00 12/10/23 22:36 5 MG Labetalol HCl 10 mg Q2HPRN PRN IV 12/09/23 17:00 12/09/23 22:40 10 MG Metronidazole 100 ml @ 100 mls/hr Q8HR IV 12/09/23 22:00 12/11/23 15:16 100 MLS/HR Levofloxacin/ Dextrose 100 ml @ 100 mls/hr DAILY IV 12/10/23 10:00 12/11/23 09:50 100 MLS/HR Pantoprazole Sodium 40 mg BID@0600,1700 PO 12/10/23 17:00 12/11/23 18:08 40 MG Acetaminophen 650 mg Q8HR PO 12/11/23 14:00 12/11/23 11:24 650 MG Ibuprofen 400 mg Q8HR PO 12/11/23 14:00 12/14/23 13:59 12/11/23 11:25 400 MG Hydromorphone HCl 0.5 mg Q4HPRN PRN IV 12/11/23 14:45 12/11/23 20:17 0.5 MG Laboratory Results Laboratory Tests 12/11/23 09:57 Chemistry Test 12/11/23 09:57 Calcium Level 10.2 mg/dL (8.7-10.4) Urinalysis Test 12/08/23 16:59 Urine Color Light-yellow (Yellow) Urine Clarity Clear (Clear) Urine pH 5.5 (5.0-9.0) Urine Specific [place] 1.015 (1.001-1.035) Urine Protein 1+ (Negative) H Urine Ketones Negative (Negative) Urine Blood 1+ /uL (Negative) H Urine Nitrite Negative (Negative) Urine Bilirubin Negative (Negative) Urine Urobilinogen Normal mg/dL (Negative) Urine Leukocyte Esterase Negative /uL (Negative) Urine RBC 7 /hpf (0 - 4) Urine WBC 1 /hpf (0 - 5) Urine Squamous Epithelial Cells Few /hpf (<5) Urine Bacteria Few /hpf (None Seen) H Urine Hyaline Casts Few /lpf (0 - 2) Urine Glucose Normal mg/dL (Normal) Labs and/or images reviewed: Labs reviewed by me, Image(s) reviewed by me Assessment/Plan Assessment/Plan Intractable abdominal and chest tenderness CVA with right-sided residual Hypertension Diabetes CAD status post ROME AFib Chronic hypoxic respiratory failure on home oxygen Likely DANIA on CKD Prolonged QT Hypokalemia Continue with home medication Insulin basal bolus and sliding scale inpatient Fingerstick x4 a.c. HS Continue with Eliquis Avoid QT prolonging medication Cardiac consult appreciated CT abdomen and pelvis with contrast, IV hydration prior Continue with oxygen supplements 2 L Replete potassium Pain management CT abdomen and pelvis negative, CT angio abdomen negative, ischemic bowel ruled out. GI consult, for EGD Diet clear liquid DVT prophylaxis on full anticoagulation Plan discussed with: Patient My Orders Orders - EMILI RANDOLPH MD Procedure Category Date Status Time Acetaminophen Tablet PHA 12/11/23 In Process (Tylenol Tablet) 14:00 Ibuprofen Tablet PHA 12/11/23 In Process (Motrin Tablet) 14:[address] 12/11/23 Resulted 10:27 Date of Service: Dec 11, 2023 Billing Provider: EMILI RANDOLPH MD Common Visit Codes: [id number] INP/OBS CARE(HIGH) EMILI RANDOLPH MD Dec 11, 2023 21:08
[2023-12-12] VITALS (8 sets, daily range): BP systolic 114–156; BP diastolic 45–95; PULSE 72–83; RESP 16–18; TEMP 98.4–98.9; O2SAT 91–99
[2023-12-12] MEDS ORDERED: HYDROmorphone HCL 2 MG/ML VL/or syr IV PRN (10:15)
[2023-12-12] MEDS: HYDROmorphone HCL 2 MG/ML VL/or syr IV PRN (10:49)
--- NOTE | 2023-12-12 12:22 | DVHPN2 ---
Subjective 68-year-old female with past medical history of CVA with right-sided residual, hypertension, diabetes, [place] status post ROME, surgical aortic valve replacement, AFib Eliquis, COPD on home oxygen 2 L, CKD stage III admitted to medicine for shortness of breath, abdominal and chest pain. Was following with . Chest pain reproducible by palpation, ED found to have troponin elevation that is trending down, elevated creatinine, prolonged QT on EKG. Patient was seen by me during rounds Change in pain medication to scheduled Percocet plus p.r.n. Dilaudid. Pending cardiac clearance for scoping. GI on board. From prior negative studies, and pain out of proportion, high suspicion that pain is from malignancy. Discussed goals of care today with patient, she would like to continue with curative treatment including surgery if needed, pain management insert priority. In case she is incapacitated decision making will be done by John Lambert [phone]. Reviewed: Care Plan, H&P, Labs, Medications, Previous Orders, Radiology Changes from previous H/P or p: No Changes General: Per HPI Objective Vitals Vital Signs Date Time Temp Pulse Resp B/P (MAP) Pulse Ox O2 Delivery O2 Flow Rate FiO2 12/12/23 10:56 84 156/91 12/12/23 10:49 19 12/12/23 08:00 Room Air* 0 21 12/12/23 01:20 98.6 99 98.6 Intake/Output Intake and Output 12/12/23 07:00 Intake Total 2340 ml Output Total 800 ml Balance 1540 ml Intake Oral 2040 ml IV Total 300 ml Output Urine Total 800 ml # Voids 4 Exam Alert, oriented x3 PERRLA, Face symmetrical No JVD Decreased breath sounds bilaterally, no crackles, no rhonchi S1-S2 irregular, systolic murmur Chest wall tender to palpation Abdomen distended, no guarding, no rebound, tender on palpation in the epigastric and umbilical area No suprapubic or flank tenderness No lower extremity edema Equal pulses bilaterally Mildly decreased strength R<L General Appearance: Alert, Cooperative, No acute distress HEENT: Atraumatic, PERRLA Lungs: Clear to auscultation, Normal air movement Cardiovascular: Normal S1, Normal S2 Abdomen: Normal bowel sounds Musculoskeletal: Normal sensory function, Normal motor function Neuro: Normal gait, Normal speech Psych/Mental Status: Mental status NL, Mood NL Medications Current Medications Medications Dose Ordered Sig/Jennifer Route Start Time Stop Time Status Last Admin Dose Admin Ondansetron HCl 4 mg Q4HP PRN IV 12/07/23 17:00 Hold 12/07/23 21:41 4 MG Enoxaparin Sodium 70 mg DAILY SC 12/08/23 10:00 12/11/23 09:50 70 MG Famotidine 20 mg DAILY IV 12/08/23 10:00 12/12/23 10:52 20 MG Clopidogrel Bisulfate 75 mg DAILY PO 12/08/23 10:00 12/11/23 10:05 75 MG Hydralazine HCl 10 mg TID PO 12/07/23 22:00 12/12/23 06:08 10 MG Atorvastatin Calcium 40 mg HS PO 12/07/23 22:00 12/11/23 21:48 40 MG Metoprolol Succinate 25 mg DAILY PO 12/08/23 10:00 12/12/23 10:56 25 MG Sertraline HCl 25 mg BID PO 12/07/23 22:00 12/12/23 10:55 25 MG Melatonin 5 mg HS PO 12/07/23 22:00 12/08/23 21:11 5 MG Nifedipine 60 mg BID PO 12/09/23 22:00 12/12/23 10:53 60 MG Zolpidem Tartrate 5 mg HSPRN PRN PO 12/09/23 17:00 12/11/23 21:48 5 MG Metronidazole 100 ml @ 100 mls/hr Q8HR IV 12/09/23 22:00 12/12/23 06:09 100 MLS/HR Levofloxacin/ Dextrose 100 ml @ 100 mls/hr DAILY IV 12/10/23 10:00 12/12/23 10:56 100 MLS/HR Pantoprazole Sodium 40 mg BID@0600,1700 PO 12/10/23 17:00 12/12/23 06:08 40 MG Acetaminophen 650 mg Q8HR PO 12/11/23 14:00 12/11/23 11:24 650 MG Oxycodone/ Acetaminophen 1 tab Q8HR PO 12/12/23 10:15 Hydromorphone HCl 0.25 mg Q2HPRN PRN IV 12/12/23 10:15 12/12/23 10:49 0.25 MG Hydromorphone HCl 0.25 mg Q4HPRN PRN IV 12/12/23 10:15 Laboratory Results Laboratory Tests 12/11/23 09:57 Urinalysis Test 12/08/23 16:59 Urine Color Light-yellow (Yellow) Urine Clarity Clear (Clear) Urine pH 5.5 (5.0-9.0) Urine Specific [place] 1.015 (1.001-1.035) Urine Protein 1+ (Negative) H Urine Ketones Negative (Negative) Urine Blood 1+ /uL (Negative) H Urine Nitrite Negative (Negative) Urine Bilirubin Negative (Negative) Urine Urobilinogen Normal mg/dL (Negative) Urine Leukocyte Esterase Negative /uL (Negative) Urine RBC 7 /hpf (0 - 4) Urine WBC 1 /hpf (0 - 5) Urine Squamous Epithelial Cells Few /hpf (<5) Urine Bacteria Few /hpf (None Seen) H Urine Hyaline Casts Few /lpf (0 - 2) Urine Glucose Normal mg/dL (Normal) Labs and/or images reviewed: Labs reviewed by me, Image(s) reviewed by me Assessment/Plan Assessment/Plan Intractable abdominal and chest tenderness CVA with right-sided residual Hypertension Diabetes CAD status post ROME AFib Chronic hypoxic respiratory failure on home oxygen Likely DANIA on CKD Prolonged QT Hypokalemia Continue with home medication Insulin basal bolus and sliding scale inpatient Fingerstick x4 a.c. HS Continue with Eliquis Avoid QT prolonging medication Cardiac consult appreciated Continue with oxygen supplements 2 L Replete potassium Pain management with scheduled Percocet and p.r.n. Dilaudid CT abdomen and pelvis negative, CT angio abdomen negative, ischemic bowel ruled out. GI consult, for EGD need cardiac reasons Diet clear liquid DVT prophylaxis on full anticoagulation Plan discussed with: Patient My Orders Orders - EMILI RANDOLPH MD Procedure Category Date Status Time Oxycodone W/ Acet PHA 12/12/23 In Process 5/325mg Tab (Percocet 10:15 Hydromorphone PHA 12/12/23 In Process Injection (Dilaudid 10:15 Hydromorphone PHA 12/12/23 In Process Injection (Dilaudid 10:15 Date of Service: Dec 12, 2023 Billing Provider: EMILI RANDOLPH MD Common Visit Codes: [id number] INP/OBS CARE(HIGH) EMILI RANDOLPH MD Dec 12, 2023 12:22
[2023-12-12] MEDS: OXYCODONE W/ ACETAMINOPHEN 5/325MG TABLET PO SCH ×2 (12:38→20:14)
--- NOTE | 2023-12-12 13:26 | DVHPN2 ---
Progress Note - Dictate Date Seen: Dec 12, 2023 Medical Necessity Reason Pt with a Central, PICC or Fol: No Subjective PT WITH SEVERE ABD / EPIGASTRIC PAIN AND TENDERNESS 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 WAS NEGATIVE CT OF CT NEGATIVE HIGH BUN/ CR RATION CONSISTENT WITH HYPOVOLEMIA WITH NAUSEA AND VOMITING PT WITH SEVERE HYPOKALEMIA PMH: DIABETES HTN HYPERLIPIDEMIA S/P PTCA CA OF LIVER S/P PARTIAL HEPATECTOMY HX OF COLSTOMY SECONDARY TO SBO AFIB CHRONIC HX OF L CVA RIGHT SIDED WEAKNESS vital signs Vital Sign Date Time Temp Pulse Resp B/P (MAP) Pulse Ox O2 Delivery O2 Flow Rate FiO2 12/12/23 13:00 98.6 83 18 137/84 (101) 97 98.6 12/12/23 08:00 Room Air* 0 21 Total Intake and Output 12/11/23 12/11/23 12/12/23 15:00 23:00 07:00 Intake Total 580 ml 1160 ml 600 ml Output Total 800 ml Balance 580 ml 1160 ml -200 ml medications Current Medications Medications Dose Ordered Sig/Jennifer Route Start Time Stop Time Status Last Admin Dose Admin Ondansetron HCl 4 mg Q4HP PRN IV 12/07/23 17:00 Hold 12/07/23 21:41 4 MG Enoxaparin Sodium 70 mg DAILY SC 12/08/23 10:00 12/12/23 12:37 70 MG Famotidine 20 mg DAILY IV 12/08/23 10:00 12/12/23 10:52 20 MG Clopidogrel Bisulfate 75 mg DAILY PO 12/08/23 10:00 12/12/23 12:37 75 MG Hydralazine HCl 10 mg TID PO 12/07/23 22:00 12/12/23 06:08 10 MG Atorvastatin Calcium 40 mg HS PO 12/07/23 22:00 12/11/23 21:48 40 MG Metoprolol Succinate 25 mg DAILY PO 12/08/23 10:00 12/12/23 10:56 25 MG Sertraline HCl 25 mg BID PO 12/07/23 22:00 12/12/23 10:55 25 MG Melatonin 5 mg HS PO 12/07/23 22:00 12/08/23 21:11 5 MG Nifedipine 60 mg BID PO 12/09/23 22:00 12/12/23 10:53 60 MG Zolpidem Tartrate 5 mg HSPRN PRN PO 12/09/23 17:00 12/11/23 21:48 5 MG Metronidazole 100 ml @ 100 mls/hr Q8HR IV 12/09/23 22:00 12/12/23 06:09 100 MLS/HR Levofloxacin/ Dextrose 100 ml @ 100 mls/hr DAILY IV 12/10/23 10:00 12/12/23 10:56 100 MLS/HR Pantoprazole Sodium 40 mg BID@0600,1700 PO 12/10/23 17:00 12/12/23 06:08 40 MG Acetaminophen 650 mg Q8HR PO 12/11/23 14:00 12/11/23 11:24 650 MG Hydromorphone HCl 0.25 mg Q2HPRN PRN IV 12/12/23 10:15 12/12/23 10:49 0.25 MG Hydromorphone HCl 0.25 mg Q4HPRN PRN IV 12/12/23 10:15 Oxycodone/ Acetaminophen 1 tab Q8H PO 12/12/23 20:00 laboratory and microbiology Laboratory Tests 12/11/23 09:57 Test 12/11/23 09:57 Range/Units Serum Glucose 120 H 74-106 mg/dL Problem List SEVERE ABD / EPIGASTRIC PAIN AND TENDERNESS 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 WAS NEGATIVE CT OF CT NEGATIVE HIGH BUN/ CR RATION CONSISTENT WITH HYPOVOLEMIA WITH NAUSEA AND VOMITING PT WITH SEVERE HYPOKALEMIA PMH: DIABETES HTN HYPERLIPIDEMIA S/P PTCA CA OF LIVER S/P PARTIAL HEPATECTOMY HX OF COLSTOMY SECONDARY TO SBO AFIB CHRONIC HX OF L CVA RIGHT SIDED WEAKNESS Assessment/Plan CTA OD ABD PELVIS R/O ISCHEMIC BOWEL GASTRIC OBSTRUCTION IV FLUID H INHIBITOR ADVANCE DIET UNTIL PT GI WORKUP CAN BE INITIATED DILAUDID FOR PAIN NEEDS EGD WITH BIOPSY TO R/O INFILTRATIVE DISEASE SUCH AMYLOID/ SARCOID SINCE PAIN OUT OF PROPORTION TO CLINICAL FINDINGS ISCHEMIC BOWEL SHOULD ALSO BE EVALUATED MAY PROCEED TO EGD WITH BIOPSY TO R/O INFILTRATIVE PROCESS Dietary Evaluation Review Comments: 1) Advance pt diet when medically feasible 2) Continue current plan of care Expected Outcomes/Goals: F/U in 2-3 days Plan discussed with: Patient TAY DUNLAP MD Dec 12, 2023 13:26
--- NOTE | 2023-12-12 15:22 | DVHSR ---
APPROVED REPORT EXAM: Two-dimensional and M-mode echocardiogram with Doppler and color Doppler. Blood Pressure: 156/100 mmHg INDICATION EF RISK FACTORS Height: 5'8", Weight: 162 DIMENSIONS LVDd4.2 (3.8-5.7cm)LA (2D)4.0 (1.9-4.0cm)Aortic Root3.2 (2.0-3.7cm) LVDs2.2 (2.5-4.0cm)LA (MM) (1.9-4.0cm)Aortic Cusp Exc2.0 (1.5-2.0cm) EF (%) 79.0 (55-70%)Rt. Atrium3.8 (1.9-4.0cm)Asc. Aorta cm IVSd1.5 (0.7-1.1cm)RV (D) (1.8-2.4cm) PWd1.0 (0.7-1.1cm) Mitral Valve MitralMitral Stenosis E wave0.55m/sMV Mean GR.mmHg A wave0.75m/sMV Peak GR.mmHg E/A ratio0.72D MVAcm2 DECEL [id number] 1/2 Timems Aortic Valve Aortic ValveAortic Stenosis V11.44m/Mari Mean GR.4mmHg V21.30m/Mari Peak GR.7mmHg LVOT Diameter2.2 (1.8-2.4cm)Doppler AVA4.21cm2 Pulmonic Valve V21.30m/s Other Information Quality : Technically LimitedRhythm : Technically limited study due to body habitus. Conclusion CONC LVH DIASTOLIC DYSFUNCTION EF >70%
--- NOTE | 2023-12-12 20:47 | DVHPN2 ---
Progress Note Date Seen: Dec 12, 2023 Resident Creating Document: LU RAMON RESIDENT Medical Necessity Reason Pt with a Central, PICC or Fol: No Medical Necessity Reason Persistent nausea and Vomiting Subjective Review of Systems Patient with severe abdominal and epigastric pain. Patient also complained of intractable vomiting and diarrhea for 2 days. According to patient, she was awoken from sleep by the vomits. Since her admission, she had not had any symptoms. She denies any hematemesis; however, she mentioned that her stool was dark. She had dizziness and head at the time of the vomiting. Of note, patient has not had colonoscopy or endoscopy ever. Objective vital signs Vital Sign Date Time Temp Pulse Resp B/P (MAP) Pulse Ox O2 Delivery O2 Flow Rate FiO2 12/12/23 17:41 73 17 136/82 12/12/23 17:00 98.4 96 98.4 12/12/23 08:00 Room Air* 0 21 Total Intake and Output 12/11/23 12/11/23 12/12/23 15:00 23:00 07:00 Intake Total 580 ml 1160 ml 600 ml Output Total 800 ml Balance 580 ml 1160 ml -200 ml medications Current Medications Medications Dose Ordered Sig/Jennifer Route Start Time Stop Time Status Last Admin Dose Admin Ondansetron HCl 4 mg Q4HP PRN IV 12/07/23 17:00 Hold 12/07/23 21:41 4 MG Enoxaparin Sodium 70 mg DAILY SC 12/08/23 10:00 12/12/23 12:37 70 MG Famotidine 20 mg DAILY IV 12/08/23 10:00 12/12/23 10:52 20 MG Clopidogrel Bisulfate 75 mg DAILY PO 12/08/23 10:00 12/12/23 12:37 75 MG Hydralazine HCl 10 mg TID PO 12/07/23 22:00 12/12/23 13:37 10 MG Atorvastatin Calcium 40 mg HS PO 12/07/23 22:00 12/11/23 21:48 40 MG Metoprolol Succinate 25 mg DAILY PO 12/08/23 10:00 12/12/23 10:56 25 MG Sertraline HCl 25 mg BID PO 12/07/23 22:00 12/12/23 10:55 25 MG Melatonin 5 mg HS PO 12/07/23 22:00 12/08/23 21:11 5 MG Nifedipine 60 mg BID PO 12/09/23 22:00 12/12/23 10:53 60 MG Zolpidem Tartrate 5 mg HSPRN PRN PO 12/09/23 17:00 12/11/23 21:48 5 MG Metronidazole 100 ml @ 100 mls/hr Q8HR IV 12/09/23 22:00 12/12/23 13:34 100 MLS/HR Levofloxacin/ Dextrose 100 ml @ 100 mls/hr DAILY IV 12/10/23 10:00 12/12/23 10:56 100 MLS/HR Pantoprazole Sodium 40 mg BID@0600,1700 PO 12/10/23 17:00 12/12/23 17:11 40 MG Acetaminophen 650 mg Q8HR PO 12/11/23 14:00 12/11/23 11:24 650 MG Hydromorphone HCl 0.25 mg Q2HPRN PRN IV 12/12/23 10:15 12/12/23 17:11 0.25 MG Hydromorphone HCl 0.25 mg Q4HPRN PRN IV 12/12/23 10:15 Oxycodone/ Acetaminophen 1 tab Q8H PO 12/12/23 20:00 12/12/23 20:14 1 TAB Examination General examination- lying comfortably in bed. Not in any respiratory distress HEENT- PEERLA, no acute nasal discharge Cardiovascular- S1-S2 audible, rate and rhythm regular, no murmur Respiratory- CTAB, no wheeze or rhonchi Gastrointestinal- nondistended, But abdominal tenderness, lower abdominal tenderness, bowel sound+ Musculoskeletal-no acute joint swelling or tenderness or redness# Lower extremity- no leg edema Neurological- cranial nerves intact, no acute dysarthria or dysphagia Psychiatry- denies depression or SI or HI Skin- no acute rash or purpura laboratory and microbiology Laboratory Tests 12/11/23 09:57 Test 12/11/23 09:57 Range/Units Serum Glucose 120 H 74-106 mg/dL Problem List/Assessment/Plan Problem List/Assessment/Plan Intractable vomiting and diarrhea --> For EGD TOMORROW 02/12/2024 --> Protonix 40 mg po bid --> Will monitor closely Severe hypokalemia --> 2.4--> 3.2 --> replete K by primary team Diverticulosis without evidence of acute diverticulitis noted on CT abdomen Hx liver cancer (status post partial hepatectomy, no current chemo) CVA (deficits right-sided weakness) [place] s/p stent (Dr Emeterio Orozco) hypertension diabetes --> sliding scale --> plan per primary team AFib --> Currently on lovenox and plavix --> hold for EGD tomorrow Goal care discussed for more than 20 minute: Full code Case and plan discussed with Dr. Granger Plan discussed with: Patient My Orders My Orders Orders - LU RAMON Procedure Category Date Status Time Obtain Consent For: ORDERS 12/12/23 Transmitted 16:07 Npo (Nothing By DIET 12/12/23 Transmitted Mouth) Diet Dinner Obtain Consent For PHILL 12/12/23 In Process Anesthesia 16:07 Dietary Evaluation Review Comments: 1) Advance pt diet when medically feasible 2) Continue current plan of care Expected Outcomes/Goals: F/U in 2-3 days LU RAMON Dec 12, 2023 20:47
[2023-12-13] VITALS (7 sets, daily range): BP systolic 127–170; BP diastolic 60–99; PULSE 63–98; RESP 18–20; TEMP 97.9–98.2; O2SAT 93–96
[2023-12-13 05:40] LABS: INR 1.18 (0.9-1.15); Partial Thromboplastin Time 27.8 SEC (24.5-34.5); Prothrombin Time 12.4 sec (9.3-11.8)
[2023-12-13] MEDS: OXYCODONE W/ ACETAMINOPHEN 5/325MG TABLET PO ONE (08:30)
[2023-12-13] MEDS ORDERED: MIDAZOLAM HCL 2MG/2ML 2ml VIAL (1mg/ml) ONE (12:26)
[2023-12-13] MEDS ORDERED: PROPOFOL 10 MG/ML 20 ML IV ONE (12:26)
[2023-12-13] MEDS ORDERED: GLYCOPYRROLATE 0.2 MG/ML 1ML VIAL ONE (12:26)
[2023-12-13] MEDS ORDERED: ONDANSETRON HCL 4 MG/2 ML VIAL ONE (12:26)
[2023-12-13] MEDS ORDERED: fentaNYL CITRATE 100 MCG/2 ML VL ONE (12:26)
[2023-12-13] MEDS: HYDROmorphone HCL 2 MG/ML VL/or syr IV ONE (12:37)
--- NOTE | 2023-12-13 13:41 | DVHPN2 ---
Progress Note - Dictate Date Seen: Dec 13, 2023 Medical Necessity Reason Pt with a Central, PICC or Fol: No Subjective PT WITH SEVERE ABD / EPIGASTRIC PAIN AND TENDERNESS 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 WAS NEGATIVE CT OF CT NEGATIVE HIGH BUN/ CR RATION CONSISTENT WITH HYPOVOLEMIA WITH NAUSEA AND VOMITING PT WITH SEVERE HYPOKALEMIA PMH: DIABETES HTN HYPERLIPIDEMIA S/P PTCA CA OF LIVER S/P PARTIAL HEPATECTOMY HX OF COLSTOMY SECONDARY TO SBO AFIB CHRONIC HX OF L CVA RIGHT SIDED WEAKNESS vital signs Vital Sign Date Time Temp Pulse Resp B/P (MAP) Pulse Ox O2 Delivery O2 Flow Rate FiO2 12/13/23 13:23 98.2 63 20 131/86 (101) 96 98.2 12/13/23 08:00 Room Air* 0 21 Total Intake and Output 12/12/23 12/12/23 12/13/23 15:00 23:00 07:00 Intake Total 900 ml 200 ml Output Total 450 ml Balance 450 ml 200 ml medications Current Medications Medications Dose Ordered Sig/Jennifer Route Start Time Stop Time Status Last Admin Dose Admin Ondansetron HCl 4 mg Q4HP PRN IV 12/07/23 17:00 Hold 12/07/23 21:41 4 MG Enoxaparin Sodium 70 mg DAILY SC 12/08/23 10:00 12/12/23 12:37 70 MG Famotidine 20 mg DAILY IV 12/08/23 10:00 12/12/23 10:52 20 MG Clopidogrel Bisulfate 75 mg DAILY PO 12/08/23 10:00 Hold 12/12/23 12:37 75 MG Hydralazine HCl 10 mg TID PO 12/07/23 22:00 12/13/23 05:23 10 MG Atorvastatin Calcium 40 mg HS PO 12/07/23 22:00 12/12/23 22:29 40 MG Metoprolol Succinate 25 mg DAILY PO 12/08/23 10:00 12/12/23 10:56 25 MG Sertraline HCl 25 mg BID PO 12/07/23 22:00 12/12/23 22:29 25 MG Melatonin 5 mg HS PO 12/07/23 22:00 12/08/23 21:11 5 MG Nifedipine 60 mg BID PO 12/09/23 22:00 12/12/23 22:31 60 MG Zolpidem Tartrate 5 mg HSPRN PRN PO 12/09/23 17:00 12/12/23 22:29 5 MG Metronidazole 100 ml @ 100 mls/hr Q8HR IV 12/09/23 22:00 12/13/23 05:20 100 MLS/HR Levofloxacin/ Dextrose 100 ml @ 100 mls/hr DAILY IV 12/10/23 10:00 12/13/23 09:16 100 MLS/HR Pantoprazole Sodium 40 mg BID@0600,1700 PO 12/10/23 17:00 12/13/23 05:23 40 MG Hydromorphone HCl 0.25 mg Q2HPRN PRN IV 12/12/23 10:15 12/13/23 09:07 0.25 MG Hydromorphone HCl 0.25 mg Q4HPRN PRN IV 12/12/23 10:15 Oxycodone/ Acetaminophen 2 tab Q8H PO 12/13/23 12:00 laboratory and microbiology Laboratory Tests 12/11/23 09:57 Test 12/11/23 09:57 Range/Units Serum Glucose 120 H 74-106 mg/dL Problem List SEVERE ABD / EPIGASTRIC PAIN AND TENDERNESS 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 WAS NEGATIVE CT OF CT NEGATIVE HIGH BUN/ CR RATION CONSISTENT WITH HYPOVOLEMIA WITH NAUSEA AND VOMITING PT WITH SEVERE HYPOKALEMIA PMH: DIABETES HTN HYPERLIPIDEMIA S/P PTCA CA OF LIVER S/P PARTIAL HEPATECTOMY HX OF COLSTOMY SECONDARY TO SBO AFIB CHRONIC HX OF L CVA RIGHT SIDED WEAKNESS Assessment/Plan CTA OD ABD PELVIS R/O ISCHEMIC BOWEL GASTRIC OBSTRUCTION IV FLUID H INHIBITOR ADVANCE DIET UNTIL PT GI WORKUP CAN BE INITIATED DILAUDID FOR PAIN NEEDS EGD WITH BIOPSY TO R/O INFILTRATIVE DISEASE SUCH AMYLOID/ SARCOID SINCE PAIN OUT OF PROPORTION TO CLINICAL FINDINGS ISCHEMIC BOWEL SHOULD ALSO BE EVALUATED MAY PROCEED TO EGD WITH BIOPSY TO R/O INFILTRATIVE PROCESS EGD TODAY Dietary Evaluation Review Comments: 1) Advance pt diet when medically feasible 2) Continue current plan of care Expected Outcomes/Goals: F/U in 2-3 days Plan discussed with: Patient TAY DUNLAP MD Dec 13, 2023 13:41
--- NOTE | 2023-12-13 13:52 | DVHOP2 ---
Operative Report DATE OF OPERATION: 12/13/23 PROCEDURE: Upper Endoscopy with biopsy. PREOPERATIVE INDICATION: The patient is a 68 -year-old female undergoing endoscopy for epigastric pain recurrent nausea vomiting POSTOPERATIVE DIAGNOSES: 1. 2 cm sliding-type hiatal hernia with grade a erosive esophagitis and irregular squamocolumnar junction from which biopsies were obtained Patient had a 1 cm distal esophageal ulcer just above the hiatal hernia area with overlying eschar possibly a pill induced ulcer from which biopsies were obtained 2. Diujhumr-ze-eqazyn gastritis and gastropathy with multiple gastric erosions 3. Mild duodenitis of the duodenal bulb and postbulbar area otherwise normal examination up to the 2nd and 3rd part of the duodenum with no active bleeding no fresh or old blood in the stomach PROCEDURE PERFORMED BY: Clemencia Granger GI NURSE: Hali SCOPE: Olympus videoendoscope. ASA CLASS: 3 PREOPERATIVE MEDICATIONS: Mac sedation, Dr. Kirkpatrick PROCEDURE IN DETAIL: After obtaining an informed consent, the patient was placed on left lateral decubitus position. The patient was then sedated with the above medications. A bite block was placed between her teeth. The endoscope was then passed through the oropharynx, into the esophagus, and through the stomach and pylorus up to the second and third part of the duodenum. The endoscope was then withdrawn. The 2nd and 3rd part of the duodenal were normal. Duodenal bulb and postbulbar area showed duodenitis. Duodenal biopsies were obtained. The pre-pyloric area antrum and body showed wzldiogg-so-yhtavq gastritis and gastropathy With multiple small gastric erosions hyperemia erythema. Gastric biopsies were obtained. On retroflexion the fundus and cardia were otherwise normal The endoscope was then withdrawn into the distal esophagus. Patient had a 2 cm sliding-type hiatal hernia with grade a erosive esophagitis and irregular squamocolumnar junction GE junction biopsies were obtained Just above the GE junction there was a 1 cm esophageal ulcer seen at the 4 o'clock position with an overlying eschar. This appeared acute and benign possibly pill induced Biopsies were obtained from this area. The remaining distal and proximal esophagus and oropharynx were unremarkable The patient tolerated the procedure well without difficulty. COMPLICATIONS : None SPECIMENS: Duodenal biopsies Gastric biopsies Esophageal biopsies DISPOSITION: Transfer back to the floor Stable PLAN: 1. Await for biopsy result 2. Will place pt on Protonix 40 mg bid IV 3. Carafate 1 g p.o. 4 times a day 4. Zofran as needed for nausea and vomiting 5. Start a clear liquid diet advance to full liquid 6. I will follow as needed CLEMENCIA GRANGER MD Dec 13, 2023 13:52
--- NOTE | 2023-12-13 16:20 | DVHPN2 ---
Subjective 68-year-old female with past medical history of CVA with right-sided residual, hypertension, diabetes, [place] status post ROME, surgical aortic valve replacement, AFib Eliquis, COPD on home oxygen 2 L, CKD stage III admitted to medicine for shortness of breath, abdominal and chest pain. Was following with . Chest pain reproducible by palpation, ED found to have troponin elevation that is trending down, elevated creatinine, prolonged QT on EKG. Patient was seen by me during rounds Increased pain medication, patient is for EGD today. Patient will have to follow up biopsy. Advance diet once EGD is done. Reviewed: Care Plan, H&P, Labs, Medications, Previous Orders, Radiology Changes from previous H/P or p: No Changes General: Per HPI Objective Vitals Vital Signs Date Time Temp Pulse Resp B/P (MAP) Pulse Ox O2 Delivery O2 Flow Rate FiO2 12/13/23 14:15 95 15 126/77 (93) 95 12/13/23 13:45 Room Air 97 12/13/23 13:45 99.1 99.1 12/13/23 08:00 0 Intake/Output Intake and Output 12/13/23 07:00 Intake Total 1100 ml Output Total 450 ml Balance 650 ml Intake Oral 900 ml IV Total 200 ml Output Urine Total 450 ml # Voids 7 Exam Alert, oriented x3 PERRLA, Face symmetrical No JVD Decreased breath sounds bilaterally, no crackles, no rhonchi S1-S2 irregular, systolic murmur Chest wall tender to palpation Abdomen distended, no guarding, no rebound, tender on palpation in the epigastric and umbilical area No suprapubic or flank tenderness No lower extremity edema Equal pulses bilaterally Mildly decreased strength R<L General Appearance: Alert, Cooperative, No acute distress HEENT: Atraumatic, PERRLA Lungs: Clear to auscultation, Normal air movement Cardiovascular: Normal S1, Normal S2 Abdomen: Normal bowel sounds Musculoskeletal: Normal sensory function, Normal motor function Neuro: Normal gait, Normal speech Psych/Mental Status: Mental status NL, Mood NL Medications Current Medications Medications Dose Ordered Sig/Jennifer Route Start Time Stop Time Status Last Admin Dose Admin Ondansetron HCl 4 mg Q4HP PRN IV 12/07/23 17:00 Hold 12/07/23 21:41 4 MG Enoxaparin Sodium 70 mg DAILY SC 12/08/23 10:00 12/12/23 12:37 70 MG Famotidine 20 mg DAILY IV 12/08/23 10:00 12/12/23 10:52 20 MG Clopidogrel Bisulfate 75 mg DAILY PO 12/08/23 10:00 Hold 12/12/23 12:37 75 MG Hydralazine HCl 10 mg TID PO 12/07/23 22:00 12/13/23 05:23 10 MG Atorvastatin Calcium 40 mg HS PO 12/07/23 22:00 12/12/23 22:29 40 MG Metoprolol Succinate 25 mg DAILY PO 12/08/23 10:00 12/12/23 10:56 25 MG Sertraline HCl 25 mg BID PO 12/07/23 22:00 12/12/23 22:29 25 MG Melatonin 5 mg HS PO 12/07/23 22:00 12/08/23 21:11 5 MG Nifedipine 60 mg BID PO 12/09/23 22:00 12/12/23 22:31 60 MG Zolpidem Tartrate 5 mg HSPRN PRN PO 12/09/23 17:00 12/12/23 22:29 5 MG Metronidazole 100 ml @ 100 mls/hr Q8HR IV 12/09/23 22:00 12/13/23 05:20 100 MLS/HR Levofloxacin/ Dextrose 100 ml @ 100 mls/hr DAILY IV 12/10/23 10:00 12/13/23 09:16 100 MLS/HR Pantoprazole Sodium 40 mg BID@0600,1700 PO 12/10/23 17:00 12/13/23 05:23 40 MG Hydromorphone HCl 0.25 mg Q2HPRN PRN IV 12/12/23 10:15 12/13/23 09:07 0.25 MG Hydromorphone HCl 0.25 mg Q4HPRN PRN IV 12/12/23 10:15 Oxycodone/ Acetaminophen 2 tab Q8H PO 12/13/23 12:00 Pantoprazole Sodium 40 mg BID IV 12/13/23 22:00 Sucralfate 1 gm QID@0600,1130,1700,2200 PO 12/13/23 17:00 Laboratory Results Laboratory Tests 12/11/23 09:57 Coagulation Test 12/13/23 05:00 Prothrombin Time 12.4 sec (9.3-11.8) H Prothrombin Time INR 1.18 (0.9-1.15) H Activated Partial Thromboplast Time 27.8 SEC (24.5-34.5) Urinalysis Test 12/08/23 16:59 Urine Color Light-yellow (Yellow) Urine Clarity Clear (Clear) Urine pH 5.5 (5.0-9.0) Urine Specific [place] 1.015 (1.001-1.035) Urine Protein 1+ (Negative) H Urine Ketones Negative (Negative) Urine Blood 1+ /uL (Negative) H Urine Nitrite Negative (Negative) Urine Bilirubin Negative (Negative) Urine Urobilinogen Normal mg/dL (Negative) Urine Leukocyte Esterase Negative /uL (Negative) Urine RBC 7 /hpf (0 - 4) Urine WBC 1 /hpf (0 - 5) Urine Squamous Epithelial Cells Few /hpf (<5) Urine Bacteria Few /hpf (None Seen) H Urine Hyaline Casts Few /lpf (0 - 2) Urine Glucose Normal mg/dL (Normal) Labs and/or images reviewed: Labs reviewed by me, Image(s) reviewed by me Assessment/Plan Assessment/Plan Intractable abdominal and chest tenderness CVA with right-sided residual Hypertension Diabetes CAD status post ROME AFib Chronic hypoxic respiratory failure on home oxygen Likely DANIA on CKD Prolonged QT Hypokalemia Continue with home medication Insulin basal bolus and sliding scale inpatient Fingerstick x4 a.c. HS Continue with Eliquis Avoid QT prolonging medication Cardiac consult appreciated Continue with oxygen supplements 2 L Replete potassium Pain management with scheduled Percocet and p.r.n. Dilaudid CT abdomen and pelvis negative, CT angio abdomen negative, ischemic bowel ruled out. Status post EGD, pending biopsy results Diet clear liquid DVT prophylaxis on full anticoagulation Plan discussed with: Patient My Orders Orders - EMILI RANDOLPH MD Procedure Category Date Status Time Oxycodone W/ Acet PHA 12/13/23 In Process 5/325mg Tab (Percocet 12:00 Date of Service: Dec 13, 2023 Billing Provider: EMILI RANDOLPH MD Common Visit Codes: [id number] INP/OBS CARE(HIGH) EMILI RANDOLPH MD Dec 13, 2023 16:20
[2023-12-13] MEDS: SUCRALFATE 1 GM/10 ML ORAL SUSP PO SCH (17:13)
[2023-12-13] MEDS: OXYCODONE W/ ACETAMINOPHEN 5/325MG TABLET PO SCH (17:13)
[2023-12-13] MEDS: PANTOPRAZOLE 40 MG/10 ML VIAL INJ IV SCH (21:08)
[2023-12-14] VITALS (8 sets, daily range): BP systolic 129–149; BP diastolic 72–91; PULSE 71–87; RESP 17–19; TEMP 97.8–99; O2SAT 93–98
[2023-12-14 10:38] LABS: Anion Gap 9 (5-15); Carbon Dioxide 26 mmol/L (20-31); Chloride 105 mmol/L (98-107); Potassium 3.1 mmol/L (3.5-5.1); Sodium 140 mmol/L (136-145)
[2023-12-14 10:39] LABS: Calcium 9.6 mg/dL (8.7-10.4)
[2023-12-14 10:43] LABS: Glucose 115 mg/dL (74-106)
[2023-12-14 10:44] LABS: BUN/Creatinine Ratio 5.9 (10.0-20.0); Blood Urea Nitrogen 7 mg/dL (9-23)
--- NOTE | 2023-12-14 14:20 | DVHPN2 ---
Progress Note - Dictate Date Seen: Dec 14, 2023 Medical Necessity Reason Pt with a Central, PICC or Fol: No Subjective PT WITH SEVERE ABD / EPIGASTRIC PAIN AND TENDERNESS 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 WAS NEGATIVE CT OF CT NEGATIVE HIGH BUN/ CR RATION CONSISTENT WITH HYPOVOLEMIA WITH NAUSEA AND VOMITING PT WITH SEVERE HYPOKALEMIA PMH: DIABETES HTN HYPERLIPIDEMIA S/P PTCA CA OF LIVER S/P PARTIAL HEPATECTOMY HX OF COLSTOMY SECONDARY TO SBO AFIB CHRONIC HX OF L CVA RIGHT SIDED WEAKNESS vital signs Vital Sign Date Time Temp Pulse Resp B/P (MAP) Pulse Ox O2 Delivery O2 Flow Rate FiO2 12/14/23 12:46 84 20 166/127 12/14/23 12:39 97.8 95 97.8 12/14/23 08:00 Room Air* 0 21 Total Intake and Output 12/13/23 12/13/23 12/14/23 15:00 23:00 07:00 Intake Total 120 ml 350 ml 780 ml Output Total 250 ml Balance 120 ml 100 ml 780 ml medications Current Medications Medications Dose Ordered Sig/Jennifer Route Start Time Stop Time Status Last Admin Dose Admin Ondansetron HCl 4 mg Q4HP PRN IV 12/07/23 17:00 Hold 12/07/23 21:41 4 MG Enoxaparin Sodium 70 mg DAILY SC 12/08/23 10:00 Hold 12/12/23 12:37 70 MG Famotidine 20 mg DAILY IV 12/08/23 10:00 Hold 12/12/23 10:52 20 MG Clopidogrel Bisulfate 75 mg DAILY PO 12/08/23 10:00 Hold 12/12/23 12:37 75 MG Hydralazine HCl 10 mg TID PO 12/07/23 22:00 12/14/23 05:21 10 MG Atorvastatin Calcium 40 mg HS PO 12/07/23 22:00 12/13/23 21:25 40 MG Metoprolol Succinate 25 mg DAILY PO 12/08/23 10:00 12/14/23 09:31 25 MG Sertraline HCl 25 mg BID PO 12/07/23 22:00 12/14/23 09:33 25 MG Melatonin 5 mg HS PO 12/07/23 22:00 12/08/23 21:11 5 MG Nifedipine 60 mg BID PO 12/09/23 22:00 12/14/23 09:32 60 MG Zolpidem Tartrate 5 mg HSPRN PRN PO 12/09/23 17:00 12/13/23 21:25 5 MG Metronidazole 100 ml @ 100 mls/hr Q8HR IV 12/09/23 22:00 12/14/23 05:13 100 MLS/HR Levofloxacin/ Dextrose 100 ml @ 100 mls/hr DAILY IV 12/10/23 10:00 12/14/23 09:33 100 MLS/HR Hydromorphone HCl 0.25 mg Q2HPRN PRN IV 12/12/23 10:15 12/14/23 12:46 0.25 MG Hydromorphone HCl 0.25 mg Q4HPRN PRN IV 12/12/23 10:15 Oxycodone/ Acetaminophen 2 tab Q8H PO 12/13/23 12:00 12/14/23 03:56 2 TAB Pantoprazole Sodium 40 mg BID IV 12/13/23 22:00 12/14/23 09:33 40 MG Sucralfate 1 gm QID@0600,1130,1700,2200 PO 12/13/23 17:00 12/14/23 12:40 1 GM laboratory and microbiology Laboratory Tests 12/14/23 09:42 12/11/23 09:57 Test 12/14/23 09:42 Range/Units Serum Glucose 115 H 74-106 mg/dL Problem List SEVERE ABD / EPIGASTRIC PAIN AND TENDERNESS 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 WAS NEGATIVE CT OF CT NEGATIVE HIGH BUN/ CR RATION CONSISTENT WITH HYPOVOLEMIA WITH NAUSEA AND VOMITING PT WITH SEVERE HYPOKALEMIA PMH: DIABETES HTN HYPERLIPIDEMIA S/P PTCA CA OF LIVER S/P PARTIAL HEPATECTOMY HX OF COLSTOMY SECONDARY TO SBO AFIB CHRONIC HX OF L CVA RIGHT SIDED WEAKNESS Assessment/Plan CTA OD ABD PELVIS R/O ISCHEMIC BOWEL GASTRIC OBSTRUCTION IV FLUID H INHIBITOR ADVANCE DIET UNTIL PT GI WORKUP CAN BE INITIATED DILAUDID FOR PAIN NEEDS EGD WITH BIOPSY TO R/O INFILTRATIVE DISEASE SUCH AMYLOID/ SARCOID SINCE PAIN OUT OF PROPORTION TO CLINICAL FINDINGS ISCHEMIC BOWEL SHOULD ALSO BE EVALUATED MAY PROCEED TO EGD WITH BIOPSY TO R/O INFILTRATIVE PROCESS EGD TODAY EGD SEVERE ESOPHAGEAL AND GASTRIC ULCERATION AND GASTRITIS CONSIDER POTASSIUM CONNECTED ACID GOPAL (VONOPRAZAN) Na-K ATPase INHIBITOR Dietary Evaluation Review Comments: 1) Advance pt diet when medically feasible 2) Continue current plan of care Expected Outcomes/Goals: F/U in 2-3 days Plan discussed with: Patient TAY DUNLAP MD Dec 14, 2023 14:20
[2023-12-14] MEDS: LACTULOSE 20Gm/30ML SOLN PO ONE (17:20)
[2023-12-14] MEDS: POTASSIUM EFFERVESENT TAB 25 MEQ PO ONE (17:20)
--- NOTE | 2023-12-14 18:50 | DVHPN2 ---
Progress Note Date Seen: Dec 14, 2023 Resident Creating Document: LU RAMON RESIDENT Medical Necessity Reason Pt with a Central, PICC or Fol: No Medical Necessity Reason Patient is seen and examined at the bedside today. She is status post EGD which revealed hiatal hernia in the epigastric region. This is probably the cause of her upper abdominal pain, nausea nausea and vomiting. Subjective Review of Systems General examination- lying comfortably in bed. Not in any respiratory distress HEENT- PEERLA, no acute nasal discharge Cardiovascular- S1-S2 audible, rate and rhythm regular, no murmur Respiratory- CTAB, no wheeze or rhonchi Gastrointestinal- nondistended, abdominal tenderness IMPROVING, lower abdominal tenderness IMPROVING, bowel sound+ Musculoskeletal-no acute joint swelling or tenderness or redness# Lower extremity- no leg edema Neurological- cranial nerves intact, no acute dysarthria or dysphagia Psychiatry- denies depression or SI or HI Skin- no acute rash or purpura Objective vital signs Vital Sign Date Time Temp Pulse Resp B/P (MAP) Pulse Ox O2 Delivery O2 Flow Rate FiO2 12/14/23 16:40 99.0 74 19 129/81 (97) 97 99.0 12/14/23 08:00 Room Air* 0 21 Total Intake and Output 12/13/23 12/13/23 12/14/23 14:59 22:59 06:59 Intake Total 120 ml 350 ml 780 ml Output Total 250 ml Balance 120 ml 100 ml 780 ml medications Current Medications Medications Dose Ordered Sig/Jennifer Route Start Time Stop Time Status Last Admin Dose Admin Ondansetron HCl 4 mg Q4HP PRN IV 12/07/23 17:00 Hold 12/07/23 21:41 4 MG Enoxaparin Sodium 70 mg DAILY SC 12/08/23 10:00 Hold 12/12/23 12:37 70 MG Clopidogrel Bisulfate 75 mg DAILY PO 12/08/23 10:00 Hold 12/12/23 12:37 75 MG Hydralazine HCl 10 mg TID PO 12/07/23 22:00 12/14/23 14:29 10 MG Atorvastatin Calcium 40 mg HS PO 12/07/23 22:00 12/13/23 21:25 40 MG Metoprolol Succinate 25 mg DAILY PO 12/08/23 10:00 12/14/23 09:31 25 MG Sertraline HCl 25 mg BID PO 12/07/23 22:00 12/14/23 09:33 25 MG Melatonin 5 mg HS PO 12/07/23 22:00 12/08/23 21:11 5 MG Nifedipine 60 mg BID PO 12/09/23 22:00 12/14/23 09:32 60 MG Zolpidem Tartrate 5 mg HSPRN PRN PO 12/09/23 17:00 12/13/23 21:25 5 MG Metronidazole 100 ml @ 100 mls/hr Q8HR IV 12/09/23 22:00 12/14/23 14:21 100 MLS/HR Levofloxacin/ Dextrose 100 ml @ 100 mls/hr DAILY IV 12/10/23 10:00 12/14/23 09:33 100 MLS/HR Hydromorphone HCl 0.25 mg Q2HPRN PRN IV 12/12/23 10:15 12/14/23 12:46 0.25 MG Hydromorphone HCl 0.25 mg Q4HPRN PRN IV 12/12/23 10:15 Oxycodone/ Acetaminophen 2 tab Q8H PO 12/13/23 12:00 12/14/23 14:22 2 TAB Pantoprazole Sodium 40 mg BID IV 12/13/23 22:00 12/14/23 09:33 40 MG Sucralfate 1 gm QID@0600,1130,1700,2200 PO 12/13/23 17:00 12/14/23 17:20 1 GM laboratory and microbiology Laboratory Tests 12/14/23 09:42 12/11/23 09:57 Test 12/14/23 09:42 Range/Units Serum Glucose 115 H 74-106 mg/dL Problem List/Assessment/Plan Problem List/Assessment/Plan Intractable vomiting and diarrhea likely secondary hiatal hernia noted on EGD --> Protonix 40 mg po bid --> Carafate --> advanced diet as can tolerate --> Will monitor closely Severe hypokalemia K: 3.2--> 3.1 --> replete K by primary team Diverticulosis without evidence of acute diverticulitis noted on CT abdomen Hx liver cancer (status post partial hepatectomy, no current chemo) CVA (deficits right-sided weakness) [place] s/p stent (Dr Emeterio Orozco) hypertension diabetes --> sliding scale --> plan per primary team AFib --> resume lovenox and plavix Goal care discussed for more than 19minute: Full code Case and plan discussed with Dr. Granger Plan discussed with: Patient Dietary Evaluation Review Comments: 1) Advance pt diet when medically feasible 2) Continue current plan of care Expected Outcomes/Goals: F/U in 2-3 days LU RAMON RESIDENT Dec 14, 2023 18:49
--- NOTE | 2023-12-14 21:07 | DVHPN2 ---
Subjective 68-year-old female with past medical history of CVA with right-sided residual, hypertension, diabetes, [place] status post ROME, surgical aortic valve replacement, AFib Eliquis, COPD on home oxygen 2 L, CKD stage III admitted to medicine for shortness of breath, abdominal and chest pain. Was following with . Chest pain reproducible by palpation, ED found to have troponin elevation that is trending down, elevated creatinine, prolonged QT on EKG. Patient was seen by me during rounds Status post EGD, found ulcer, hiatal hernia. Started on sucralfate and IV ppi. Pain management advanced. Biopsy done Reviewed: Care Plan, H&P, Labs, Medications, Previous Orders, Radiology Changes from previous H/P or p: No Changes General: Per HPI Objective Vitals Vital Signs Date Time Temp Pulse Resp B/P (MAP) Pulse Ox O2 Delivery O2 Flow Rate FiO2 12/14/23 20:42 98.3 71 18 146/76 (99) 93 98.3 12/14/23 08:00 Room Air* 0 21 Intake/Output Intake and Output 12/15/23 04:00 Intake Total 1380 ml Output Total 800 ml Balance 580 ml Intake Oral 1080 ml IV Total 300 ml Output Urine Total 800 ml # Voids 5 Exam Alert, oriented x3 PERRLA, Face symmetrical No JVD Decreased breath sounds bilaterally, no crackles, no rhonchi S1-S2 irregular, systolic murmur Chest wall tender to palpation Abdomen distended, no guarding, no rebound, tender on palpation in the epigastric and umbilical area No suprapubic or flank tenderness No lower extremity edema Equal pulses bilaterally Mildly decreased strength R<L General Appearance: Alert, Cooperative, No acute distress HEENT: Atraumatic, PERRLA Lungs: Clear to auscultation, Normal air movement Cardiovascular: Normal S1, Normal S2 Abdomen: Normal bowel sounds Musculoskeletal: Normal sensory function, Normal motor function Neuro: Normal gait, Normal speech Psych/Mental Status: Mental status NL, Mood NL Medications Current Medications Medications Dose Ordered Sig/Jennifer Route Start Time Stop Time Status Last Admin Dose Admin Ondansetron HCl 4 mg Q4HP PRN IV 12/07/23 17:00 Hold 12/07/23 21:41 4 MG Enoxaparin Sodium 70 mg DAILY SC 12/08/23 10:00 Hold 12/12/23 12:37 70 MG Clopidogrel Bisulfate 75 mg DAILY PO 12/08/23 10:00 Hold 12/12/23 12:37 75 MG Hydralazine HCl 10 mg TID PO 12/07/23 22:00 12/14/23 14:29 10 MG Atorvastatin Calcium 40 mg HS PO 12/07/23 22:00 12/13/23 21:25 40 MG Metoprolol Succinate 25 mg DAILY PO 12/08/23 10:00 12/14/23 09:31 25 MG Sertraline HCl 25 mg BID PO 12/07/23 22:00 12/14/23 09:33 25 MG Melatonin 5 mg HS PO 12/07/23 22:00 12/08/23 21:11 5 MG Nifedipine 60 mg BID PO 12/09/23 22:00 12/14/23 09:32 60 MG Zolpidem Tartrate 5 mg HSPRN PRN PO 12/09/23 17:00 12/13/23 21:25 5 MG Metronidazole 100 ml @ 100 mls/hr Q8HR IV 12/09/23 22:00 12/14/23 14:21 100 MLS/HR Levofloxacin/ Dextrose 100 ml @ 100 mls/hr DAILY IV 12/10/23 10:00 12/14/23 09:33 100 MLS/HR Hydromorphone HCl 0.25 mg Q2HPRN PRN IV 12/12/23 10:15 12/14/23 18:45 0.25 MG Hydromorphone HCl 0.25 mg Q4HPRN PRN IV 12/12/23 10:15 Oxycodone/ Acetaminophen 2 tab Q8H PO 12/13/23 12:00 12/14/23 19:22 2 TAB Pantoprazole Sodium 40 mg BID IV 12/13/23 22:00 12/14/23 09:33 40 MG Sucralfate 1 gm QID@0600,1130,1700,2200 PO 12/13/23 17:00 12/14/23 17:20 1 GM Laboratory Results Laboratory Tests 12/11/23 09:57 12/14/23 09:42 Chemistry Test 12/14/23 09:42 Calcium Level 9.6 mg/dL (8.7-10.4) Urinalysis Test 12/08/23 16:59 Urine Color Light-yellow (Yellow) Urine Clarity Clear (Clear) Urine pH 5.5 (5.0-9.0) Urine Specific [place] 1.015 (1.001-1.035) Urine Protein 1+ (Negative) H Urine Ketones Negative (Negative) Urine Blood 1+ /uL (Negative) H Urine Nitrite Negative (Negative) Urine Bilirubin Negative (Negative) Urine Urobilinogen Normal mg/dL (Negative) Urine Leukocyte Esterase Negative /uL (Negative) Urine RBC 7 /hpf (0 - 4) Urine WBC 1 /hpf (0 - 5) Urine Squamous Epithelial Cells Few /hpf (<5) Urine Bacteria Few /hpf (None Seen) H Urine Hyaline Casts Few /lpf (0 - 2) Urine Glucose Normal mg/dL (Normal) Labs and/or images reviewed: Labs reviewed by me, Image(s) reviewed by me Assessment/Plan Assessment/Plan Intractable abdominal and chest tenderness CVA with right-sided residual Hypertension Diabetes CAD status post ROME AFib Chronic hypoxic respiratory failure on home oxygen Likely DANIA on CKD Prolonged QT Hypokalemia Continue with home medication Insulin basal bolus and sliding scale inpatient Fingerstick x4 a.c. HS Continue with Eliquis Avoid QT prolonging medication Cardiac consult appreciated Continue with oxygen supplements 2 L Replete potassium Pain management with scheduled Percocet, p.r.n. p.o. morphine and IV Dilaudid for breakthrough pain CT abdomen and pelvis negative, CT angio abdomen negative, ischemic bowel ruled out. Status post EGD, pending biopsy results IV PPI, sucralfate Diet clear liquid DVT prophylaxis on full anticoagulation Plan discussed with: Patient My Orders Orders - EMILI RANDOLPH MD Procedure Category Date Status Time Soft Diet DIET 12/14/23 Transmitted Lunch Communication Order ORDERS 12/14/23 Transmitted 09:37 Date of Service: Dec 15, 2023 Billing Provider: EMILI RANDOLPH MD Common Visit Codes: [id number] INP/OBS CARE(HIGH) EMILI RANDOLPH MD Dec 14, 2023 21:07
[2023-12-14] MEDS: HYDROmorphone HCL 2 MG/ML VL/or syr IV PRN (22:31)
[2023-12-15] VITALS (8 sets, daily range): BP systolic 140–173; BP diastolic 89–105; PULSE 72–94; RESP 16–20; TEMP 97.6–98.7; O2SAT 94–99
[2023-12-15] MEDS: MORPHINE SULF 15mg ER tab PO SCH (05:15)
[2023-12-15] MEDS: oxyCODONE HCL 5MG TAB PO PRN (12:19)
--- NOTE | 2023-12-15 14:07 | DVHPN2 ---
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 WAS NEGATIVE CT OF CT NEGATIVE HIGH BUN/ CR RATION CONSISTENT WITH HYPOVOLEMIA WITH NAUSEA AND VOMITING PT WITH SEVERE HYPOKALEMIA PMH: DIABETES HTN HYPERLIPIDEMIA S/P PTCA CA OF LIVER S/P PARTIAL HEPATECTOMY HX OF COLSTOMY SECONDARY TO SBO AFIB CHRONIC HX OF L CVA RIGHT SIDED WEAKNESS vital signs Vital Sign Date Time Temp Pulse Resp B/P (MAP) Pulse Ox O2 Delivery O2 Flow Rate FiO2 12/15/23 12:54 98.0 74 16 151/91 (111) 97 98.0 12/15/23 08:00 Room Air* 0 21 Total Intake and Output 12/14/23 12/14/23 12/15/23 15:00 23:00 07:00 Intake Total 100 ml 500 ml 800 ml Output Total 800 ml Balance 100 ml -300 ml 800 ml medications Current Medications Medications Dose Ordered Sig/Jennifer Route Start Time Stop Time Status Last Admin Dose Admin Ondansetron HCl 4 mg Q4HP PRN IV 12/07/23 17:00 Hold 12/07/23 21:41 4 MG Enoxaparin Sodium 70 mg DAILY SC 12/08/23 10:00 Hold 12/12/23 12:37 70 MG Clopidogrel Bisulfate 75 mg DAILY PO 12/08/23 10:00 Hold 12/12/23 12:37 75 MG Hydralazine HCl 10 mg TID PO 12/07/23 22:00 12/15/23 05:15 10 MG Atorvastatin Calcium 40 mg HS PO 12/07/23 22:00 12/14/23 23:55 40 MG Metoprolol Succinate 25 mg DAILY PO 12/08/23 10:00 12/15/23 09:06 25 MG Sertraline HCl 25 mg BID PO 12/07/23 22:00 12/15/23 09:07 25 MG Melatonin 5 mg HS PO 12/07/23 22:00 12/08/23 21:11 5 MG Nifedipine 60 mg BID PO 12/09/23 22:00 12/15/23 09:06 60 MG Zolpidem Tartrate 5 mg HSPRN PRN PO 12/09/23 17:00 12/14/23 23:55 5 MG Metronidazole 100 ml @ 100 mls/hr Q8HR IV 12/09/23 22:00 12/15/23 05:17 100 MLS/HR Levofloxacin/ Dextrose 100 ml @ 100 mls/hr DAILY IV 12/10/23 10:00 12/15/23 09:06 100 MLS/HR Pantoprazole Sodium 40 mg BID IV 12/13/23 22:00 12/15/23 09:05 40 MG Sucralfate 1 gm QID@0600,1130,1700,2200 PO 12/13/23 17:00 12/15/23 11:34 1 GM Morphine Sulfate 15 mg Q8HR PO 12/15/23 06:00 12/15/23 05:15 15 MG Hydromorphone HCl 0.25 mg Q4HPRN PRN IV 12/14/23 21:15 12/15/23 09:05 0.25 MG Oxycodone HCl 5 mg Q4HP PRN PO 12/15/23 06:00 12/15/23 12:19 5 MG laboratory and microbiology Laboratory Tests 12/14/23 09:42 12/11/23 09:57 Test 12/14/23 09:42 Range/Units Serum Glucose 115 H 74-106 mg/dL Problem List SEVERE ABD / EPIGASTRIC PAIN AND TENDERNESS 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 WAS NEGATIVE CT OF CT NEGATIVE HIGH BUN/ CR RATION CONSISTENT WITH HYPOVOLEMIA WITH NAUSEA AND VOMITING PT WITH SEVERE HYPOKALEMIA PMH: DIABETES HTN HYPERLIPIDEMIA S/P PTCA CA OF LIVER S/P PARTIAL HEPATECTOMY HX OF COLSTOMY SECONDARY TO SBO AFIB CHRONIC HX OF L CVA RIGHT SIDED WEAKNESS Assessment/Plan CTA OD ABD PELVIS R/O ISCHEMIC BOWEL GASTRIC OBSTRUCTION IV FLUID H INHIBITOR ADVANCE DIET UNTIL PT GI WORKUP CAN BE INITIATED DILAUDID FOR PAIN NEEDS EGD WITH BIOPSY TO R/O INFILTRATIVE DISEASE SUCH AMYLOID/ SARCOID SINCE PAIN OUT OF PROPORTION TO CLINICAL FINDINGS ISCHEMIC BOWEL SHOULD ALSO BE EVALUATED MAY PROCEED TO EGD WITH BIOPSY TO R/O INFILTRATIVE PROCESS EGD TODAY EGD SEVERE ESOPHAGEAL AND GASTRIC ULCERATION AND GASTRITIS CONSIDER POTASSIUM CONNECTED ACID GOPAL (VONOPRAZAN) Na-K ATPase INHIBITOR Dietary Evaluation Review Comments: 1) Advance pt diet when medically feasible 2) Continue current plan of care Expected Outcomes/Goals: F/U in 2-3 days Plan discussed with: Patient TAY DUNLAP MD Dec 15, 2023 14:07
--- NOTE | 2023-12-15 14:08 | DVHDS2 ---
Discharge Summary Date of Admission Dec 07, 2023 at 17:04 Date of Discharge: Dec 15, 2023 Admitting Diagnosis ABD PAIN CHEST PAIN Labs/Diagnostic Data: Laboratory Results Test 12/14/23 09:42 12/13/23 05:00 12/11/23 09:57 12/10/23 02:00 Sodium Level 140 mmol/L (136-145) Potassium Level 3.1 mmol/L (3.5-5.1) Chloride Level 105 mmol/L (98-107) Carbon Dioxide Level 26 mmol/L (20-31) Anion Gap 9 (5-15) Blood Urea Nitrogen 7 mg/dL (9-23) Creatinine 1.18 mg/dL (0.550-1.02) Glomerular Filtration Rate Calc 51 mL/min (>90) BUN/Creatinine Ratio 5.9 (10.0-20.0) Serum Glucose 115 mg/dL (74-106) Calcium Level 9.6 mg/dL (8.7-10.4) Prothrombin Time 12.4 sec (9.3-11.8) Prothrombin Time INR 1.18 (0.9-1.15) Activated Partial Thromboplast Time 27.8 SEC (24.5-34.5) White Blood Count 6.6 10^3/uL (4.4-10.8) Red Blood Count 4.24 10^6/uL (4.0-5.20) Hemoglobin 13.0 g/dL (12.2-16.2) Hematocrit 38.9 % (36.0-46.0) Mean Corpuscular Volume 91.7 fL (80.0-100.0) Mean Corpuscular Hemoglobin 30.7 pg (28.0-32.0) Mean Corpuscular Hemoglobin Concent 33.4 g/dL (32.0-36.0) Red Cell Distribution Width 15.1 % (11.8-14.3) Platelet Count 182 10^3/uL (140-450) Mean Platelet Volume 8.2 fL (6.9-10.8) Neutrophils (%) (Auto) 70.2 % (37.0-80.0) Lymphocytes (%) (Auto) 20.0 % (10.0-50.0) Monocytes (%) (Auto) 8.7 % (0.0-12.0) Eosinophils (%) (Auto) 0.6 % (0.0-7.0) Basophils (%) (Auto) 0.5 % (0.0-2.0) Neutrophils # (Auto) 4.7 10 ^3/uL (1.6-8.6) Lymphocytes # (Auto) 1.3 10 ^3/uL (0.4-5.4) Monocytes # (Auto) 0.6 10 ^3/uL (0-1.3) Eosinophils # (Auto) 0 10 ^3/uL (0-0.8) Basophils # (Auto) 0 10 ^3/uL (0-0.2) Nucleated Red Blood Cells 0.1 % Lactic Acid Level 1.2 mmol/L (0.4-2.0) Magnesium Level 1.8 mg/dL (1.6-2.6) Test 12/09/23 06:41 12/08/23 16:59 12/08/23 06:44 12/07/23 22:20 Phosphorus Level 2.6 mg/dL (2.4-5.1) Urine Color Light-yellow (Yellow) Urine Clarity Clear (Clear) Urine pH 5.5 (5.0-9.0) Urine Specific [place] 1.015 (1.001-1.035) Urine Protein 1+ (Negative) Urine Ketones Negative (Negative) Urine Blood 1+ /uL (Negative) Urine Nitrite Negative (Negative) Urine Bilirubin Negative (Negative) Urine Urobilinogen Normal mg/dL (Negative) Urine Leukocyte Esterase Negative /uL (Negative) Urine RBC 7 /hpf (0 - 4) Urine WBC 1 /hpf (0 - 5) Urine Squamous Epithelial Cells Few /hpf (<5) Urine Bacteria Few /hpf (None Seen) Urine Hyaline Casts Few /lpf (0 - 2) Urine Glucose Normal mg/dL (Normal) Total Bilirubin 0.4 mg/dL (0.2-1.0) Aspartate Amino Transferase (AST) 32 U/L (13-40) Alanine Aminotransferase (ALT) 20 U/L (7-40) Alkaline Phosphatase 109 U/L (46-116) Total Protein 7.4 g/dL (5.7-8.2) Albumin 4.3 g/dL (3.2-4.8) Troponin I High Sensitivity 107 ng/L (</=34) Test 12/07/23 14:16 Beta-Hydroxybutyric Acid 0.545 mmol/L (< 0.4) Other Laboratory Tests 12/14/23 09:42 12/11/23 09:57 Brief Hx & Hospital Course: SEVERE ABD / EPIGASTRIC PAIN AND TENDERNESS 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 WAS NEGATIVE CT OF CT NEGATIVE HIGH BUN/ CR RATION CONSISTENT WITH HYPOVOLEMIA WITH NAUSEA AND VOMITING PT WITH SEVERE HYPOKALEMIA PMH: DIABETES HTN HYPERLIPIDEMIA S/P PTCA CA OF LIVER S/P PARTIAL HEPATECTOMY HX OF COLSTOMY SECONDARY TO SBO AFIB CHRONIC HX OF L CVA RIGHT SIDED WEAKNESS Assessment/Plan CTA OD ABD PELVIS R/O ISCHEMIC BOWEL GASTRIC OBSTRUCTION IV FLUID H INHIBITOR ADVANCE DIET UNTIL PT GI WORKUP CAN BE INITIATED DILAUDID FOR PAIN NEEDS EGD WITH BIOPSY TO R/O INFILTRATIVE DISEASE SUCH AMYLOID/ SARCOID SINCE PAIN OUT OF PROPORTION TO CLINICAL FINDINGS ISCHEMIC BOWEL SHOULD ALSO BE EVALUATED MAY PROCEED TO EGD WITH BIOPSY TO R/O INFILTRATIVE PROCESS EGD TODAY EGD SEVERE ESOPHAGEAL AND GASTRIC ULCERATION AND GASTRITIS CONSIDER POTASSIUM CONNECTED ACID GOPAL (VONOPRAZAN) Na-K ATPase INHIBITOR START PT ON PROTON INHIBITOR CARFATE Consults/Reason for consult GI Operations or Procedures EGD Condition at Discharge: Guarded Final Diagnosis/Problems List EROSIVE ESOPHAGITIS GASTRIC ULCER Discharge Disposition: Home Discharge Instruct/Medications Diet: Cardiac 2g Na,low cholest Activity: Light activity Follow Up/Referral: 1 WEEK Medications: NEXXIUM 40 MG PO BID CARAFATE SUSPENSION 2G PO BID CONT HOME MEDS Discharge Statement: "Patient was advised to return to the ER or call 911 if any headaches, dizziness, shortness of breath, chest pain, abdominal pain, bleeding, fevers, or worsening of medical condition. Patient was counseled about treatment plan, medications, possible side effects, patientverbalized understanding. All questions were answered to the best of my ability. This discharge took greater then 30 minutes in planning, reviewing documentation, counseling the patient, and discussing with other team members." ASSESSMENT ASSESSMENT Assessment EROSIVE ESOPHAGITIS GASTRIC ULCER TAY DUNLAP MD Dec 15, 2023 14:08
--- NOTE | 2023-12-15 16:39 | DVHPN2 ---
Subjective 68-year-old female with past medical history of CVA with right-sided residual, hypertension, diabetes, [place] status post ROME, surgical aortic valve replacement, AFib Eliquis, COPD on home oxygen 2 L, CKD stage III admitted to medicine for shortness of breath, abdominal and chest pain. Was following with . Chest pain reproducible by palpation, ED found to have troponin elevation that is trending down, elevated creatinine, prolonged QT on EKG. Patient was seen by me during rounds Status post EGD, found ulcer, hiatal hernia. Started on sucralfate and IV ppi. Pain management advanced. Biopsy done Reviewed: Care Plan, H&P, Labs, Medications, Previous Orders, Radiology Changes from previous H/P or p: No Changes General: Per HPI Objective Vitals Vital Signs Date Time Temp Pulse Resp B/P (MAP) Pulse Ox O2 Delivery O2 Flow Rate FiO2 12/15/23 16:35 97.6 79 17 173/93 (119) 99 97.6 12/15/23 08:00 Room Air* 0 21 Intake/Output Intake and Output 12/15/23 07:00 Intake Total 1400 ml Output Total 800 ml Balance 600 ml Intake Oral 1000 ml IV Total 400 ml Output Urine Total 800 ml # Voids 5 # Bowel Movements 3 Exam Alert, oriented x3 PERRLA, Face symmetrical No JVD Decreased breath sounds bilaterally, no crackles, no rhonchi S1-S2 irregular, systolic murmur Chest wall tender to palpation Abdomen distended, no guarding, no rebound, tender on palpation in the epigastric and umbilical area No suprapubic or flank tenderness No lower extremity edema Equal pulses bilaterally Mildly decreased strength R<L General Appearance: Alert, Cooperative, No acute distress HEENT: Atraumatic, PERRLA Lungs: Clear to auscultation, Normal air movement Cardiovascular: Normal S1, Normal S2 Abdomen: Normal bowel sounds Musculoskeletal: Normal sensory function, Normal motor function Neuro: Normal gait, Normal speech Psych/Mental Status: Mental status NL, Mood NL Medications Current Medications Medications Dose Ordered Sig/Jennifer Route Start Time Stop Time Status Last Admin Dose Admin Ondansetron HCl 4 mg Q4HP PRN IV 12/07/23 17:00 Hold 12/07/23 21:41 4 MG Enoxaparin Sodium 70 mg DAILY SC 12/08/23 10:00 Hold 12/12/23 12:37 70 MG Clopidogrel Bisulfate 75 mg DAILY PO 12/08/23 10:00 Hold 12/12/23 12:37 75 MG Hydralazine HCl 10 mg TID PO 12/07/23 22:00 12/15/23 14:06 10 MG Atorvastatin Calcium 40 mg HS PO 12/07/23 22:00 12/14/23 23:55 40 MG Metoprolol Succinate 25 mg DAILY PO 12/08/23 10:00 12/15/23 09:06 25 MG Sertraline HCl 25 mg BID PO 12/07/23 22:00 12/15/23 09:07 25 MG Melatonin 5 mg HS PO 12/07/23 22:00 12/08/23 21:11 5 MG Nifedipine 60 mg BID PO 12/09/23 22:00 12/15/23 09:06 60 MG Zolpidem Tartrate 5 mg HSPRN PRN PO 12/09/23 17:00 12/14/23 23:55 5 MG Metronidazole 100 ml @ 100 mls/hr Q8HR IV 12/09/23 22:00 12/15/23 14:05 100 MLS/HR Levofloxacin/ Dextrose 100 ml @ 100 mls/hr DAILY IV 12/10/23 10:00 12/15/23 09:06 100 MLS/HR Pantoprazole Sodium 40 mg BID IV 12/13/23 22:00 12/15/23 09:05 40 MG Sucralfate 1 gm QID@0600,1130,1700,2200 PO 12/13/23 17:00 12/15/23 11:34 1 GM Morphine Sulfate 15 mg Q8HR PO 12/15/23 06:00 12/15/23 14:06 15 MG Hydromorphone HCl 0.25 mg Q4HPRN PRN IV 12/14/23 21:15 12/15/23 16:14 0.25 MG Oxycodone HCl 5 mg Q4HP PRN PO 12/15/23 06:00 12/15/23 12:19 5 MG Laboratory Results Laboratory Tests 12/11/23 09:57 12/14/23 09:42 Urinalysis Test 12/08/23 16:59 Urine Color Light-yellow (Yellow) Urine Clarity Clear (Clear) Urine pH 5.5 (5.0-9.0) Urine Specific [place] 1.015 (1.001-1.035) Urine Protein 1+ (Negative) H Urine Ketones Negative (Negative) Urine Blood 1+ /uL (Negative) H Urine Nitrite Negative (Negative) Urine Bilirubin Negative (Negative) Urine Urobilinogen Normal mg/dL (Negative) Urine Leukocyte Esterase Negative /uL (Negative) Urine RBC 7 /hpf (0 - 4) Urine WBC 1 /hpf (0 - 5) Urine Squamous Epithelial Cells Few /hpf (<5) Urine Bacteria Few /hpf (None Seen) H Urine Hyaline Casts Few /lpf (0 - 2) Urine Glucose Normal mg/dL (Normal) Labs and/or images reviewed: Labs reviewed by me, Image(s) reviewed by me Assessment/Plan Assessment/Plan Intractable abdominal and chest tenderness CVA with right-sided residual Hypertension Diabetes CAD status post ROME AFib Chronic hypoxic respiratory failure on home oxygen Likely DANIA on CKD Prolonged QT Hypokalemia Continue with home medication Insulin basal bolus and sliding scale inpatient Fingerstick x4 a.c. HS Continue with Eliquis Avoid QT prolonging medication Cardiac consult appreciated Continue with oxygen supplements 2 L Replete potassium Pain management with scheduled Percocet, p.r.n. p.o. morphine and IV Dilaudid for breakthrough pain CT abdomen and pelvis negative, CT angio abdomen negative, ischemic bowel ruled out. Status post EGD, pending biopsy results IV PPI, sucralfate Diet clear liquid DVT prophylaxis on full anticoagulation Plan discussed with: Patient My Orders Orders - EMILI RANDOLPH MD Procedure Category Date Status Time Morphine Extended PHA 12/15/23 In Process Release Tab (Oramorph 06:00 Hydromorphone PHA 12/14/23 In Process Injection (Dilaudid 21:15 Oxycodone Immediate PHA 12/15/23 In Process Rel Tablet 06:00 Date of Service: Dec 15, 2023 Billing Provider: EMILI RANDOLPH MD Common Visit Codes: [id number] INP/OBS CARE(MOD) EMILI RANDOLPH MD Dec 15, 2023 16:38
--- NOTE | 2023-12-15 19:55 | DVHPN2 ---
Progress Note Date Seen: Dec 15, 2023 Resident Creating Document: LU RAMON RESIDENT Medical Necessity Reason Pt with a Central, PICC or Fol: No Medical Necessity Reason Patient is seen and examined at the bedside today. Abdominal pain is getting better. currently on the protonix and carafate Subjective Review of Systems General: Not acutely ill, in bed HEENT: No headache, ear/eye pain, nasal discharges, throat is clear CVS: no chest pain, shortness of breath, palpitation Resp: No cough, sputum production, epistasis or hemoptysis GI: Mild epigastric discomfort : No dysuria, heamturia MSK: No joint or muscle pains Objective vital signs Vital Sign Date Time Temp Pulse Resp B/P (MAP) Pulse Ox O2 Delivery O2 Flow Rate FiO2 12/15/23 16:44 72 16 149/102 12/15/23 16:35 97.6 99 97.6 12/15/23 08:00 Room Air* 0 21 Total Intake and Output 12/14/23 12/14/23 12/15/23 15:00 23:00 07:00 Intake Total 100 ml 500 ml 800 ml Output Total 800 ml Balance 100 ml -300 ml 800 ml medications Current Medications Medications Dose Ordered Sig/Jennifer Route Start Time Stop Time Status Last Admin Dose Admin Ondansetron HCl 4 mg Q4HP PRN IV 12/07/23 17:00 Hold 12/07/23 21:41 4 MG Enoxaparin Sodium 70 mg DAILY SC 12/08/23 10:00 Hold 12/12/23 12:37 70 MG Clopidogrel Bisulfate 75 mg DAILY PO 12/08/23 10:00 Hold 12/12/23 12:37 75 MG Hydralazine HCl 10 mg TID PO 12/07/23 22:00 12/15/23 14:06 10 MG Atorvastatin Calcium 40 mg HS PO 12/07/23 22:00 12/14/23 23:55 40 MG Metoprolol Succinate 25 mg DAILY PO 12/08/23 10:00 12/15/23 09:06 25 MG Sertraline HCl 25 mg BID PO 12/07/23 22:00 12/15/23 09:07 25 MG Melatonin 5 mg HS PO 12/07/23 22:00 12/08/23 21:11 5 MG Nifedipine 60 mg BID PO 12/09/23 22:00 12/15/23 09:06 60 MG Zolpidem Tartrate 5 mg HSPRN PRN PO 12/09/23 17:00 12/14/23 23:55 5 MG Metronidazole 100 ml @ 100 mls/hr Q8HR IV 12/09/23 22:00 12/15/23 14:05 100 MLS/HR Levofloxacin/ Dextrose 100 ml @ 100 mls/hr DAILY IV 12/10/23 10:00 12/15/23 09:06 100 MLS/HR Pantoprazole Sodium 40 mg BID IV 12/13/23 22:00 12/15/23 09:05 40 MG Sucralfate 1 gm QID@0600,1130,1700,2200 PO 12/13/23 17:00 12/15/23 17:08 1 GM Morphine Sulfate 15 mg Q8HR PO 12/15/23 06:00 12/15/23 14:06 15 MG Hydromorphone HCl 0.25 mg Q4HPRN PRN IV 12/14/23 21:15 12/15/23 16:14 0.25 MG Oxycodone HCl 5 mg Q4HP PRN PO 12/15/23 06:00 12/15/23 12:19 5 MG Examination General examination- lying comfortably in bed. Not in distress HEENT- PEERLA, no acute nasal discharge Cardiovascular- S1-S2 audible, rate and rhythm regular, no murmur Respiratory- CTAB, no wheeze or rhonchi Gastrointestinal- nondistended, abdominal tenderness IMPROVING, lower abdominal tenderness IMPROVING, bowel sound+ Musculoskeletal-no acute joint swelling or tenderness or redness# Lower extremity- no leg edemaI laboratory and microbiology Laboratory Tests 12/14/23 09:42 12/11/23 09:57 Test 12/14/23 09:42 Range/Units Serum Glucose 115 H 74-106 mg/dL Problem List/Assessment/Plan Problem List/Assessment/Plan Intractable vomiting and diarrhea likely secondary hiatal hernia noted on EGD --> Continue Protonix 40 mg po bid --> Continue Carafate --> advanced diet as can tolerate --> follow up at the GI clinic for biopsy result --> stable from GI standpoint Severe hypokalemia K: 3.2--> 3.1 --> replete K by primary team Diverticulosis without evidence of acute diverticulitis noted on CT abdomen Hx liver cancer (status post partial hepatectomy, no current chemo) CVA (deficits right-sided weakness) LA s/p stent (Dr Emeterio Orozco) hypertension diabetes --> sliding scale --> plan per primary team AFib --> resume ovenox and plavix Goal care discussed for more than 19minute: Full code Case and plan discussed with Dr. Granger Plan discussed with: Patient Dietary Evaluation Review Comments: 1) Advance pt diet when medically feasible 2) Continue current plan of care Expected Outcomes/Goals: F/U in 2-3 days LU RAMON RESIDENT Dec 15, 2023 19:55
== END 2023-12-15 20:56 | disposition home or self-care (01) | DRG 243 ==
LOC: EDUNIT# 08:37 → EDBD 08:37 → ER 08:37 → TELE 17:04 → TELE-WESTW 17:59
PROVIDERS: ADMIT Student in an Organized Health Care Education/Training Program; ATTEND Student in an Organized Health Care Education/Training Program
PROC: 05H933Z Insertion of Infusion Device into Right Brachial Vein, Percutaneous Approach (ICD-10-PCS; 2023-12-07)
PROC: B54MZZA Ultrasonography of Right Upper Extremity Veins, Guidance (ICD-10-PCS; 2023-12-07)
PROC: 0DB68ZX Excision of Stomach, Via Natural or Artificial Opening Endoscopic, Diagnostic (ICD-10-PCS; 2023-12-13)
PROC: 0DB58ZX Excision of Esophagus, Via Natural or Artificial Opening Endoscopic, Diagnostic (ICD-10-PCS; 2023-12-13)
PROC: 0DB98ZX Excision of Duodenum, Via Natural or Artificial Opening Endoscopic, Diagnostic (ICD-10-PCS; principal; 2023-12-13 13:30)
DX: K22.10 Ulcer of esophagus without bleeding (principal); E87.20 Acidosis, unspecified; N17.9 Acute kidney failure, unspecified; J96.11 Chronic respiratory failure with hypoxia; I48.20 Chronic atrial fibrillation, unspecified; I69.351 Hemiplegia and hemiparesis following cerebral infarction affecting right dominant side; E86.1 Hypovolemia; B34.9 Viral infection, unspecified; K29.70 Gastritis, unspecified, without bleeding; K25.9 Gastric ulcer, unspecified as acute or chronic, without hemorrhage or perforation; E87.6 Hypokalemia; I50.9 Heart failure, unspecified; I13.0 Hypertensive heart and chronic kidney disease with heart failure and stage 1 through stage 4 chronic kidney disease, or unspecified chronic kidney disease; K29.80 Duodenitis without bleeding; E11.22 Type 2 diabetes mellitus with diabetic chronic kidney disease; I69.354 Hemiplegia and hemiparesis following cerebral infarction affecting left non-dominant side; I25.10 Atherosclerotic heart disease of native coronary artery without angina pectoris; E78.5 Hyperlipidemia, unspecified; I16.0 Hypertensive urgency; N18.30 Chronic kidney disease, stage 3 unspecified; J44.9 Chronic obstructive pulmonary disease, unspecified; K31.9 Disease of stomach and duodenum, unspecified; K44.9 Diaphragmatic hernia without obstruction or gangrene; Z85.05 Personal history of malignant neoplasm of liver; Z95.2 Presence of prosthetic heart valve; Z95.5 Presence of coronary angioplasty implant and graft; Z99.81 Dependence on supplemental oxygen
CPT/HCPCS: 36415; 71045; 74175; 74177; 80048; 80053; 81001; 82010; 83605; 83735; 84100; 84132; 84484; 85025; 85610; 85730; 86850; 86900; 86901; 93005; 93306; 96361; 96372; 96374; 96375; 96376; 99291; G0378; J1956; J2250; J2405; J2470; J2704; J3480; J3490

== ENCOUNTER 2024-02-12 05:11 | Inpatient (IN) | payer MEDICARE, MEDICAID ==
[~2024-02-12] VITALS: Ht 172.7 cm; Wt 85.1 kg
--- NOTE | 2024-02-12 05:27 | ED.PDOC ---
HPI Comments 68-year-old female presents with a chief complaint of chest pain x onset "this morning". Patient states that her chest pain is localized to her sternal region/epigastric region, non-radiating, and describes as sharp. Patient is crying and thrashing around, not able to sit still. Patient is poor historian and does not know what medications she takes. Patient simply states "Dr. Storm is my doctor". Time Seen by MD: 05:23 Primary Care Provider: TAY Reviewed Notes: Medications, Allergies Allergies: Coded Allergies: NO KNOWN ALLERGIES (Unverified , 02/16/23) Home Meds Active Scripts Sertraline Hcl (Zoloft) 25 Mg Tab, 1 TAB PO BID, #30 TAB 2 Refills Prov:KEVIN POSADA MD 08/18/23 Zolpidem Tartrate (Ambien) 10 Mg Tab, 1 TAB PO QPM PRN, #20 TAB 5 Refills Prov:KEVIN POSADA MD 08/18/23 Oxycodone W/ Acetaminophen (Percocet 5/325MG) 1 Tab Tb, 1 TAB PO QID, #30 TAB Prov:KEVIN POSADA MD 08/18/23 Pantoprazole Sodium Sesquihydr (Protonix) 40 Mg Tab, 40 MG PO DAILY, #30 TAB Prov:CESAR CHIN HOSPITALITY MANAGER 02/24/23 Sucralfate (CARAFATE) 1 Gm Tab, 1 GM OR QID for 30 Days, #120 TAB Prov:CESAR CHIN HOSPITALITY MANAGER 02/24/23 Reported Medications Carisoprodol (Soma) 350 Mg Tab, 350 MG PO TID, #30 TAB 08/18/23 Tizanidine Hydrochloride (Zanaflex) 4 Mg Cap, 2 MG PO TID 08/14/23 Clopidogrel Bisulfate (CLOPIDOGREL) 75 Mg Tab, 1 TAB PO DAILY 08/14/23 Atorvastatin Calcium (Lipitor) 40 Mg Tab, 1 TAB PO DAILY 08/14/23 Metoprolol Succinate (Metoprolol Succinate Er) 25 Mg Tab, 1 TAB PO DAILY 08/14/23 Potassium Chloride (Potassium Chloride ER) 20 Meq Tab, 1 TAB PO DAILY 08/14/23 Aspirin (Aspirin Low Dose) 81 Mg Chw, 1 TAB PO DAILY 08/14/23 Furosemide (Furosemide) 20 Mg Tab, 1 TAB PO DAILY 08/14/23 Sumatriptan Succinate (Sumatriptan Succinate) 50 Mg Tab, 1 TAB PO DAILY for 9 Days, #9 08/14/23 Alprazolam (Alprazolam) 0.25 Mg Tab, 1 TAB PO BID 08/14/23 Nifedipine (Nifedipine Er) 30 Mg Tab, 1 TAB PO BID 08/14/23 Clonidine Hydrochloride (Clonidine Hcl) 0.3 Mg Tab, 1 TAB PO BID 08/14/23 Hydralazine Hcl (Hydralazine Hcl) 10 Mg Tab, 1 TAB PO TID 08/14/23 Sacubitril-Valsartan (Entresto 24-26 mg) 1 Tab Tab, 1 TAB PO BID 02/17/23 Amlodipine Besylate (Amlodipine Besylate) 5 Mg Tab, 1 TAB PO DAILY 02/17/23 Information Source: Patient Mode of Arrival: Wheelchair Severity: Moderate Timing: Hours Duration: Since onset Prehospital treatment: None Location: Substernal Radiation: No Radiation Quality: Sharp Onset: At Rest History of: Similar pain in past Past Medical History PAST MEDICAL HISTORY: AFIB, Cancer, CHF, CVA, DM, HTN, [place] Surgical History: [employer] MARKETING ACCOUNT MANAGER History: No Pertinent MARKETING ACCOUNT MANAGER History Family History Family History: Reviewed,noncontributory to illness, Unknown Social History Smoker: Non-Smoker Alcohol: Denies ETOH Use Drugs: Denies Drug Use Lives In: Home Constitutional: denies: chills, diaphoresis, fatigue, fever, malaise, sweats, weakness, others EENTM: denies: blurred vision, double vision, ear bleeding, ear discharge, ear drainage, ear pain, ear ringing, eye pain, eye redness, hearing loss, mouth pain, mouth swelling, nasal discharge, nose bleeding, nose congestion, nose pain, photophobia, tearing, throat pain, throat swelling, voice changes, others Respiratory: denies: cough, hemoptysis, orthopnea, SOB at rest, shortness of breath, SOB with excertion, stridor, wheezing, others Cardiovascular: reports: chest pain; denies: dizzy spells, diaphoresis, Dyspnea on exertion, edema, irregular heart beat, left arm pain, lightheadedness, palpitations, PND, syncope, others Gastrointestinal: denies: abdomen distended, abdominal pain, blood streaked bowels, constipated, diarrhea, dysphagia, difficulty swallowing, hematemesis, melena, nausea, poor appetite, poor fluid intake, rectal bleeding, rectal pain, vomiting, others Genitourinary: denies: abnormal vagina bleeding, burning, dyspareunia, dysuria, flank pain, frequency, hematuria, incontinence, pain, , vagina discharge, urgency, others Neurological: denies: dizziness, fainting, headache, left sided numbness, left sided weakness, numbness, paresthesia, pre-existing deficit, right sided numbness, right sided weakness, seizure, speech problems, tingling, tremors, weakness, others Musculoskeletal: denies: back pain, gout, joint pain, joint swelling, muscle pain, muscle stiffness, neck pain, others Integumetry: denies: bruises, change in color, change in hair/nails, dryness, laceration, lesions, lumps, rash, wounds, others Allergic/Immunocompromised: denies: Difficulty Healing, Frequent Infections, Hives, Itching, others Hematologic/Lymphatic: denies: anemia, blood clots, easy bleeding, easy bruising, swollen glands, others Endocrine: denies: excessive hunger, excessive sweating, excessive thirst, excessive urination, flushing, intolerance to cold, intolerance to heat, unexplained weight gain, unexplained weight loss, others Psychiatric: denies: anxiety, bipolar disorder, depression, hopeless, panic disorder, schizophrenia, sleepless, suicidal, others All Other Systems: Reviewed and Negative Physical Exam General Appearance: No Apparent Distress, Normal HEENT: Normal ENT Inspection, Pharynx Normal, TMs Normal Neck: Full Range of Motion, Non-Tender, Normal, Normal Inspection Respiratory: Chest Non-Tender, Lungs Clear, No Accessory Muscle Use, No Respiratory Distress, Normal Breath Sounds Cardiovascular: No Edema, No JVD, No Murmur, No Gallop, Normal Peripheral Pulses, Regular Rate/Rhythm Breast Exam: Deferred Gastrointestinal: No Organomegaly, Non Tender, No Pulsatile Mass, Normal Bowel Sounds, Soft Genitalia: Deferred Pelvic: Deferred Rectal: Deferred Extremities: No calf tenderness, Normal capillary refill, Normal inspection, Normal range of motion, Non-tender, No pedal edema Musculoskeletal : Apperance: Normal Neurologic: Alert, ore miner blasting II-XII nml as Tested, No Motor Deficits, Normal Affect, Normal Mood, No Sensory Deficits Cerebellar Function: Normal Reflexes: Normal Skin: Dry, Normal Color, Warm Lymphatic: No Adenopathy Was a procedure done? Was a procedure done?: No CP Differential Dx Differential Diagnosis: A-fib, A-Flutter, Anxiety / Panic Attack, MAT, PAC's Differential Diagnosis: CHF, HTN Essential Differential Diagnosis: Cholelithiasis, Myocardial Infarction, Pericarditis X-Ray, Labs, Meds, VS Vital Signs Date Time Temp Pulse Resp B/P (MAP) Pulse Ox O2 Delivery O2 Flow Rate FiO2 02/12/24 06:19 118 02/12/24 06:05 120 14 200/101 02/12/24 05:44 134 22 183/53 02/12/24 05:19 160 02/12/24 05:15 98.6 160 24 214/85 (128) 99 Lab Test 02/12/24 05:30 Range/Units White Blood Count 12.5 H 4.4-10.8 10^3/uL Red Blood Count 4.54 4.0-5.20 10^6/uL Hemoglobin 13.8 12.2-16.2 g/dL Hematocrit 41.9 36.0-46.0 % Mean Corpuscular Volume 92.1 80.0-100.0 fL Mean Corpuscular Hemoglobin 30.4 28.0-32.0 pg Mean Corpuscular Hemoglobin Concent 33.0 32.0-36.0 g/dL Red Cell Distribution Width 15.5 H 11.8-14.3 % Platelet Count 275 140-450 10^3/uL Mean Platelet Volume 8.7 6.9-10.8 fL Neutrophils (%) (Auto) 80.5 H 37.0-80.0 % Lymphocytes (%) (Auto) 14.3 10.0-50.0 % Monocytes (%) (Auto) 5.0 0.0-12.0 % Eosinophils (%) (Auto) 0.0 0.0-7.0 % Basophils (%) (Auto) 0.2 0.0-2.0 % Neutrophils # (Auto) 10.1 H 1.6-8.6 10 ^3/uL Lymphocytes # (Auto) 1.8 0.4-5.4 10 ^3/uL Monocytes # (Auto) 0.6 0-1.3 10 ^3/uL Eosinophils # (Auto) 0 0-0.8 10 ^3/uL Basophils # (Auto) 0 0-0.2 10 ^3/uL Nucleated Red Blood Cells 0.0 % Sodium Level 142 136-145 mmol/L Potassium Level 3.0 L 3.5-5.1 mmol/L Chloride Level 105 98-107 mmol/L Carbon Dioxide Level 21 20-31 mmol/L Anion Gap 16 H 5-15 Blood Urea Nitrogen 12 9-23 mg/dL Creatinine 1.16 H 0.550-1.02 mg/dL Glomerular Filtration Rate Calc 52 >90 mL/min BUN/Creatinine Ratio 10.3 10.0-20.0 Serum Glucose 127 H 74-106 mg/dL Lactic Acid Level 4.5 *H 0.4-2.0 mmol/L Calcium Level 10.8 H 8.7-10.4 mg/dL Total Bilirubin 0.3 0.2-1.0 mg/dL Aspartate Amino Transferase (AST) 35 13-40 U/L Alanine Aminotransferase (ALT) 29 7-40 U/L Alkaline Phosphatase 139 H 46-116 U/L Troponin I High Sensitivity 18 </=34 ng/L B-Type Natriuretic Peptide 314.89 0-100 pg/mL Total Protein 8.4 H 5.7-8.2 g/dL Albumin 4.9 H 3.2-4.8 g/dL Lipase 43 12-53 U/L Current Medications Medications (Trade) Dose Ordered Sig/Jennifer Route Start Time Stop Time Status Last Admin Morphine Sulfate 4 mg ONCE ONCE IV 02/12/24 05:30 02/12/24 05:31 NE 02/12/24 05:44 Ondansetron HCl (Zofran) 4 mg ONCE ONCE IV 02/12/24 05:30 02/12/24 05:31 NE 02/12/24 05:46 Sodium Chloride 1,000 ml @ 1,000 mls/hr Q1H ONCE IV 02/12/24 05:30 02/12/24 06:29 NE 02/12/24 05:46 Morphine Sulfate 4 mg ONCE ONCE IV 02/12/24 06:00 02/12/24 06:01 NE 02/12/24 06:05 Time of 1ST Reevaluation: 05:53 Reevaluation 1ST: Unchanged Patient Education/Counseling: Diagnosis, Treatment, Prognosis Family Education/Counseling: No Family Present Departure 1 Departure Time of Disposition: 07:04 (Patient presented with chest pain that was concerning for possible STEMI, ACS, PE, Pneumonia, Muscle Strain, COPD, Dissection. Data: 1. I ordered and reviewed the result of at least 3 labs including a CBC, BMP, and Troponin. 2. I independently interpreted the following tests: EKG which shows _ AFib with RVR and Chest X-ray which shows benign chest.Risk:This patient has a high risk of morbidity due to further diagnostic testing or treatment and may suffer from an acute cardiac or respiratory disorder. Workup reveals concern for ACS and patient should be admitted for further workup and possible expert consultation. ) Impression: Primary Impression: Acute chest pain Additional Impression: Atrial fibrillation with RVR Disposition: ADMITTED INPATIENT Admit to: Tele Condition: Guarded Critical Care Note Critical Care Time?: Yes Critical care comment: Acute chest pain Authorized and Performed by: Jacqueline Foreman MD Total critical care time: Approximately 44_ minutes Due to a high probability of clinically significant, life threatening deterioration, the patient required my highest level of preparedness to intervene emergently and I personally spent this critical care time directly and personally managing the patient. This critical care time included obtaining a history; examining the patient; pulse oximetry; ordering and review of studies; arranging urgent treatment with development of a management plan; evaluation of patient's response to treatment; frequent reassessment; and, discussions with other providers. This critical care time was performed to assess and manage the high probability of imminent, life-threatening deterioration that could result in multi-organ failure. It was exclusive of separately billable procedures and treating other patients and teaching time. Please see my other sections and the rest of the note for further information on patient assessment and treatment. Stability Stability form required: No Heart Score Heart Score: Heart Score Response (Comments) Value History Moderate Suspicious [address]-Deviation 2 Age >65 2 Risk Factors >3 or Hx ASHD 2 Troponin 1-2 x's Normal limit 1 Total 8 I personally scribed for JACQUELINE FOREMAN MD ([email or web address]) on 02/12/24 at 05:27. Electronically submitted by Kit Bolton ([email or web address]). JACQUELINE FOREMAN MD Feb 12, 2024 05:27
[2024-02-12] MEDS: MORPHINE SULFATE 4 MG/ML SYR/VIAL IV ONE ×2 (05:44→06:05)
[2024-02-12] MEDS: ONDANSETRON HCL 4 MG/2 ML VIAL IV ONE (05:46)
[2024-02-12] MEDS: SODIUM CHLORIDE 0.9% 1,000 ML IV ONE (05:46)
[2024-02-12 05:53] LABS: Basophils # (auto) 0 10 ^3/uL (0-0.2); Basophils % (auto) 0.2 % (0.0-2.0); Eosinophils # (auto) 0 10 ^3/uL (0-0.8); Hematocrit 41.9 % (36.0-46.0); Hemoglobin 13.8 g/dL (12.2-16.2); Lymphocytes # (auto) 1.8 10 ^3/uL (0.4-5.4); Lymphocytes % (auto) 14.3 % (10.0-50.0); Mean Corpuscular Hemoglobin 30.4 pg (28.0-32.0); Mean Corpuscular Volume 92.1 fL (80.0-100.0); Monocytes # (auto) 0.6 10 ^3/uL (0-1.3); Neutrophils # (auto) 10.1 10 ^3/uL (1.6-8.6); Neutrophils % (auto) 80.5 % (37.0-80.0); Platelet Count (auto) 275 10^3/uL (140-450); Red Blood Cells 4.54 10^6/uL (4.0-5.20); Red Cell Distribution Width 15.5 % (11.8-14.3); White Blood Cell 12.5 10^3/uL (4.4-10.8)
--- NOTE | 2024-02-12 06:12 | DVH ---
CHEST RADIOGRAPH Indication: chest pain Technique: Single frontal view of the chest was obtained Comparison: XY CHEST PORTABLE on DOS: 12/07/23 FINDINGS: Lines and Tubes: None Lungs: No focal consolidation. Pleura: No effusion. No pneumothorax. Cardiomediastinal contours: Unremarkable Bones: No acute osseous abnormality. Status post median sternotomy. IMPRESSION: 1. No acute cardiopulmonary disease.
--- NOTE | 2024-02-12 06:17 | ECG ---
[facility] Test Date: 2024-02-12 Test Time: 05:19:53 Pat Name: MANNY RETANA Department: ED Room: [address] [place] [address] Gender: F Seo Associate: MERY : 1955 Requested By: JACQUELINE FOREMAN Order Number: [id number] Reading MD: Randy Church Measurements Intervals [place] Rate: 160 P: 0 MN: 0 QRS: 110 QRSD: 91 T: -13 QT: 310 QTc: 506 Interpretive Statements Atrial fibrillation with rapid V-rate Paired ventricular premature complexes Right axis deviation Anteroseptal infarct, old ST depression, probably rate related Electronically Signed On 02-13-2024 13:08:18 PST by Randy Church Please click the below link to view image of tracing.
[2024-02-12 06:18] LABS: Alanine Aminotransferase 29 U/L (7-40); Anion Gap 16 (5-15); Aspartate Aminotransferase 35 U/L (13-40); BUN/Creatinine Ratio 10.3 (10.0-20.0); Bilirubin, Total 0.3 mg/dL (0.2-1.0); Blood Urea Nitrogen 12 mg/dL (9-23); Carbon Dioxide 21 mmol/L (20-31); Chloride 105 mmol/L (98-107); Lipase 43 U/L (12-53); Sodium 142 mmol/L (136-145)
[2024-02-12 06:23] LABS: Lactic Acid w/Reflex 4.5 mmol/L (0.4-2.0)
[2024-02-12 06:25] LABS: Albumin 4.9 g/dL (3.2-4.8); Alkaline Phosphatase 139 U/L (46-116); Calcium 10.8 mg/dL (8.7-10.4); Glucose 127 mg/dL (74-106); Total Protein 8.4 g/dL (5.7-8.2)
[2024-02-12 06:30] VITALS: PULSE 41; RESP 38; O2SAT 100
[2024-02-12] MEDS: LORazepam 2MG/ML-1ML VIAL ONE (07:22)
[2024-02-12] MEDS: PANTOPRAZOLE 40 MG/10 ML VIAL INJ IV ONE ×2 (07:27→12:45)
[2024-02-12] MEDS: METOPROLOL TARTRATE 1MG/1ML-5ML VIAL IV ONE (07:27)
[2024-02-12] MEDS: LORazepam 2MG/ML-1ML VIAL IV ONE (07:29)
[2024-02-12 07:31] VITALS: PULSE 102; RESP 22; O2SAT 95
[2024-02-12] MEDS: IOHEXOL 350 MG/ML 100ML IJ ONE (07:39)
[2024-02-12] MEDS: MAALOX PLUS or MAALOX 30 ML PO ONE (09:00)
[2024-02-12] MEDS: hydrALAZINE HCL 20 MG/ML VL IV ONE (09:17)
[2024-02-12] MEDS: HYDROmorphone HCL 2 MG/ML VL/or syr IV ONE (09:18)
--- NOTE | 2024-02-12 12:25 | DVH ---
CTA of the chest abdomen and pelvis INDICATION: CTA abd look for mesen ischemia vs aortic dissection TECHNIQUE: Following IV administration of 100 cc contrast, Serial axial images were performed through the abdomen and pelvis and then reformatted in the sagittal and coronal plane. All CT scans at this medical facility are performed using dose modulation techniques as appropriate t o a performed exam including the following: Automated exposure control was utilized; adjustment of the MA and/or KvP according to patient size; a nd use of iterative reconstruction technique. FINDINGS: Chest: On lung windows there is pulmonary hyperexpansion. There is a 3 mm pleural-based nodule in th e right lower lung zone. Patchy infiltrate is seen in the right lung base. On soft tissue windows the heart size is enlarged without pericardial effusion The aorta is normal in caliber without aneurysm or dissection. ABDOMEN and PELVIS Liver borderline normal in size. There is a 1 cm cyst high in the right lobe of the liver. Spleen normal in size Bilateral renal concentration and excretion. Right renal cyst measures 3 cm No masses in the adrenal glands or pancreas. No biliary dilatation. Gallbladder has been removed. No evidence of bowel obstruction. No evidence of bowel wall thickening. The aorta is normal in caliber without evidence of dissection or obstruction. There is calcification in the hernandez of the aorta and iliac arteries. No evidence of appendicitis No evidence of diverticulitis In the pelvis the bladder is smooth walled. No uterine or adnexal masses are present. No hernia sacs On bone windows degenerative changes in the spine. Mild old compression fracture at L4. IMPRESSION: 1. No evidence of mesenteric ischemia or aortic aneurysm, dissection, or obstruction. Computed Tomographic Radiation Dosimetry Report: Total CTDI vol = 13 mGy Total DLP = 871 mGy-cm Low dose protocols were performed.
[2024-02-12] MEDS ORDERED: NITROGLYCERIN 0.4 MG SL TAB SL PRN (12:45)
[2024-02-12] MEDS ORDERED: MORPHINE SULFATE INJ 2 MG/ml SYRG IV PRN ×2 (12:45)
--- NOTE | 2024-02-12 13:09 | DVHHP2 ---
History of Present Illness History of Present Illness 68-year-old female PMHx CVA (deficits right-sided weakness), hypertension, diabetes, [place] s/p stent (Dr Emeterio Orozco), AFib on Eliquis; COPD/chronic resp failure on home O2 2 L , CHF , Hx liver cancer (status post partial hepatectomy, no current chemo), CKD 3, Hx colectomy 2/2 SBO, oophorectomy, appendectomy, presenting to ED with c/o chest pain x onset "this morning". Patient states that her chest pain is localized to her sternal region/epigastric region, radiating to the back, and describes as sharp , mostly constant but has episodes of worsening unlike colic.. Patient is crying and thrashing around, not able to sit still. Patient is poor historian and does not know what medications she takes. Patient has history of admissions due to similar complaints. ACS has been ruled out multiple times. Mesentery ischemia with CTA ruled out multiple times. All admissions CT have shown negative acute abdomen. More recent in December 10, 2023 EGD is done and shows hiatal hernia, erosive esophagitis, distal esophageal ulcer (? Pill esophagitis), gastritis, gastropathy, duodenitis. This episode again is acute onset and patient is not able to give a good history, or if there is any precipitating events. No nausea/vomit, cough, fever chills, diarrhea, constipation,. ROS márquez-negative. She was history of colostomy, history of SBO, history multiple abdominal surgeries. Review of Systems Review of Systems As HPI Allergies: Coded Allergies: NO KNOWN ALLERGIES (Unverified , 02/16/23) Medications Current Medications Medications Dose Ordered Sig/Jennifer Route Start Time Stop Time Status Last Admin Dose Admin Acetaminophen/ Hydrocodone Bitart 1 tab Q4HP PRN PO 02/12/24 12:45 UNV Ondansetron HCl 4 mg Q4HP PRN IV 02/12/24 12:45 UNV Enoxaparin Sodium 40 mg DAILY SC 02/13/24 10:00 UNV Acetaminophen 650 mg Q6HP PRN PO 02/12/24 12:45 UNV Morphine Sulfate 2 mg Q4HPRN PRN IV 02/12/24 12:45 UNV Nitroglycerin 0.4 mg Q5MINP PRN SL 02/12/24 12:45 UNV Morphine Sulfate 2 mg Q30M PRN IV 02/12/24 12:45 UNV Pantoprazole Sodium 40 mg BID IV 02/12/24 22:00 UNV Sucralfate 1 gm BID@0600,2200 PO 02/12/24 22:00 UNV Exam Vital Signs Vital Signs Date Time Temp Pulse Resp B/P (MAP) Pulse Ox O2 Delivery O2 Flow Rate FiO2 02/12/24 12:43 67 192/119 02/12/24 12:41 18 02/12/24 11:20 98 02/12/24 09:32 Nasal Cannula* 2 28 02/12/24 06:05 97.9 97.9 Exam GEN: Patient in acute distress despite multiple or enteral analgesic injections HEENT: NC/AT; dry mucous membrane CV: Severe Tender chest wall LUNGS: CTAB, no w/r/c. ABD: Severe tender epigastrium, hypo active BS, no rigidity guarding or rebound, no acute abdomen signs, no masses or organomegaly. EXT: skin Warm, well perfused. no rashes. No clubbing, cyanosis, or edema. NEURO: Ambulating with no limitations. No focal deficits. Labs/Xrays Labs Test 02/12/24 09:32 02/12/24 05:30 Range/Units Lactic Acid Level 1.4 0.4-2.0 mmol/L Troponin I High Sensitivity 22 </=34 ng/L White Blood Count 12.5 H 4.4-10.8 10^3/uL Red Blood Count 4.54 4.0-5.20 10^6/uL Hemoglobin 13.8 12.2-16.2 g/dL Hematocrit 41.9 36.0-46.0 % Mean Corpuscular Volume 92.1 80.0-100.0 fL Mean Corpuscular Hemoglobin 30.4 28.0-32.0 pg Mean Corpuscular Hemoglobin Concent 33.0 32.0-36.0 g/dL Red Cell Distribution Width 15.5 H 11.8-14.3 % Platelet Count 275 140-450 10^3/uL Mean Platelet Volume 8.7 6.9-10.8 fL Neutrophils (%) (Auto) 80.5 H 37.0-80.0 % Lymphocytes (%) (Auto) 14.3 10.0-50.0 % Monocytes (%) (Auto) 5.0 0.0-12.0 % Eosinophils (%) (Auto) 0.0 0.0-7.0 % Basophils (%) (Auto) 0.2 0.0-2.0 % Neutrophils # (Auto) 10.1 H 1.6-8.6 10 ^3/uL Lymphocytes # (Auto) 1.8 0.4-5.4 10 ^3/uL Monocytes # (Auto) 0.6 0-1.3 10 ^3/uL Eosinophils # (Auto) 0 0-0.8 10 ^3/uL Basophils # (Auto) 0 0-0.2 10 ^3/uL Nucleated Red Blood Cells 0.0 % Sodium Level 142 136-145 mmol/L Potassium Level 3.0 L 3.5-5.1 mmol/L Chloride Level 105 98-107 mmol/L Carbon Dioxide Level 21 20-31 mmol/L Anion Gap 16 H 5-15 Blood Urea Nitrogen 12 9-23 mg/dL Creatinine 1.16 H 0.550-1.02 mg/dL Glomerular Filtration Rate Calc 52 >90 mL/min BUN/Creatinine Ratio 10.3 10.0-20.0 Serum Glucose 127 H 74-106 mg/dL Calcium Level 10.8 H 8.7-10.4 mg/dL Total Bilirubin 0.3 0.2-1.0 mg/dL Aspartate Amino Transferase (AST) 35 13-40 U/L Alanine Aminotransferase (ALT) 29 7-40 U/L Alkaline Phosphatase 139 H 46-116 U/L B-Type Natriuretic Peptide 314.89 0-100 pg/mL Total Protein 8.4 H 5.7-8.2 g/dL Albumin 4.9 H 3.2-4.8 g/dL Lipase 43 12-53 U/L Assessment/Plan Assessment/Plan # Hypertensive emergency- given multiple parenteral IV pushes blood pressure remains elevated. - started nitro patch, we will up titrate p.o. meds as needed # Sirs with end-organ damage - source from likely pain - IV fluids. Adding IV p.r.n. hydralazine, adding p.o. Procardia 60, Coreg 12.5 b.i.d.. # Intractable abdominal pain- p.r.n. pain control, NPO # abdominal pain likely due to hiatal hernia versus erosive esophagitis- # gastritis, gastropathy possible- PPI IV b.i.d., Carafate 1 g b.i.d. # diffuse Esophageal spasms possible- try 1 time congenital oumou Procardia # Intractable chest pain - troponins negative, BNP normal, now # aortic dissection ruled out CTA chest abdomen without any signs of dissection. # Lactic acidosis- lactic acidosis concern for mesenteric ischemia, CTA abdomen negative for blockages. Prior CTA is abdomen are also negative. Lactic acidosis resolved on repeat # History erosive esophagitis # Recent EGD with hiatal hernia # Gastritis and gastropathy # History SBO with colostomy status post reversal # Multiple abdominal surgeries # Liver cancer status post hepatectomy # History left stroke with residual right hemiplegia # Hypertension - C hypertensive emergency above # Diabetes - moderate SSI q.6 H # CAD status post stents # AFib on Eliquis # CHF Diet NPO GI prophylaxis PPI IV b.i.d. DVT prophylaxis-patient already on Eliquis for AFib Telemetry with we will threshold for ICU/day OU for hypertensive emergency Full code Plan discussed with: Patient My Orders Orders - BERNADINE CRANE MD Procedure Category Date Status Time Insert Midline ORDERS 02/12/24 Transmitted 09:40 Ct Chest/Ab/Pl W Con- CT 02/12/24 Resulted Iv Only 08:32 Admit ADMIT 02/12/24 Transmitted 12:33 Code Status CODE 02/12/24 Transmitted 12:33 Hydrocodone-Acet PHA 02/12/24 Logged 5/325mg Tab ([place] 12:45 Ondansetron Hcl PHA 02/12/24 Logged (Zofran) 12:45 Enoxaparin Sodium PHA 02/13/24 Logged (Lovenox) 10:00 Complete Blood Count LAB 02/13/24 Verified 04:00 Comprehensive LAB 02/13/24 Verified Metabolic Panel 04:00 Npo (Nothing By DIET 02/12/24 Transmitted Mouth) Diet Lunch Acetaminophen Tablet PHA 02/12/24 Logged (Tylenol Tablet) 12:45 Bedrest With Bathroom PHILL 02/12/24 In Process Privileg 12:33 Morphine Sulfate PHA 02/12/24 Logged Injection 12:45 Nitroglycerin PHA 02/12/24 Logged Sublingual (Ntrostat 12:45 Morphine Sulfate PHA 02/12/24 Logged Injection 12:45 Stat Ekg For Chest PHILL 02/12/24 In Process Pain 12:33 Notify Md Of Changes [facility] 02/12/24 In Process From Base 12:33 Computer Numeric Control Setter For [facility] 02/12/24 In Process 24 Hours 12:33 Emergency Dysrhythmia [facility] 02/12/24 In Process Protocol 12:33 Rhythm Strips Once [facility] 02/12/24 In Process Every Shift 12:33 Oxygen By Nasal RT 02/12/24 Transmitted Cannula 12:33 Pantoprazole PHA 02/12/24 Logged (Protonix) 12:45 Pantoprazole PHA 02/12/24 Logged (Protonix) 22:00 Sucralfate Susp PHA 02/12/24 Logged (Carafate Susp) 22:00 Nitroglycerin PHA 02/12/24 Logged 0.4mg/Hr (Nitrodur 12:45 Nifedipine Er PHA 02/12/24 Logged (Procardia Xl 12:45 Date of Service: Feb 12, 2024 Billing Provider: BERNADINE CRANE MD Common Visit Codes: [id number] INP/OBS CARE (HIGH) BERNADINE CRANE MD Feb 12, 2024 13:09
[2024-02-12] MEDS: NIFEdipine ER 30 MG TAB PO ONE ×2 (13:46→17:20)
[2024-02-12] MEDS: NITROGLYCERIN 0.4MG/HR TOPICAL PATCH TD ONE (13:46)
[2024-02-12] MEDS: HYDROmorphone HCL 2 MG/ML VL/or syr IV PRN (13:47)
[2024-02-12] MEDS: hydrALAZINE HCL 20 MG/ML VL ONE (16:47)
[2024-02-12] MEDS: SUCRALFATE 1 GM/10 ML ORAL SUSP PO SCH (17:19)
[2024-02-12] MEDS: CARVEDILOL 12.5 MG TAB PO ONE (17:19)
[2024-02-12] MEDS: hydrALAZINE HCL 20 MG/ML VL IV PRN (17:21)
--- NOTE | 2024-02-12 19:09 | ECG ---
[facility] Test Date: 2024-02-12 Test Time: 08:14:30 Pat Name: MANNY RETANA Department: ER Room: [address] [place] [address] Gender: F Executor Of Estate: ANNY : 1955 Requested By: JACQUELINE FOREMAN Order Number: [id number] Reading MD: Randy Church Measurements Intervals [place] Rate: 97 P: 62 KS: 161 QRS: 5 QRSD: 90 T: 149 QT: 419 QTc: 533 Interpretive Statements Sinus rhythm Multiform ventricular premature complexes Probable left atrial enlargement Anterior infarct, old Nonspecific T abnormalities, lateral leads Prolonged QT interval Electronically Signed On 02-13-2024 13:08:40 PST by Randy Church Please click the below link to view image of tracing.
[2024-02-12 20:56] VITALS: PULSE 122; RESP 22; O2SAT 94
[2024-02-12] MEDS: dilTIAZem 25 MG/5 ML VIAL IV ONE (21:30)
[2024-02-12] MEDS: SERTRALINE HCL 50 MG TAB PO SCH (21:30)
[2024-02-12] MEDS: CARISOPRODOL 350 MG TAB PO SCH (21:31)
[2024-02-12] MEDS: PANTOPRAZOLE 40 MG/10 ML VIAL INJ IV SCH (21:31)
[2024-02-12] MEDS: ATORVASTATIN 20 MG TAB PO SCH (21:31)
[2024-02-12] MEDS ORDERED: PATIENTS OWN MEDICATION (Sertraline Hcl (Zoloft) 1 TAB) PO SCH (22:00)
[2024-02-12 22:02] VITALS: BP 142/84; PULSE 99; RESP 17; TEMP 99.4; O2SAT 96
[2024-02-12] MEDS: CIPROFLOXACIN 0.3%OPTH(EYE) SOL 5ML EACHEYE SCH (23:55)
[2024-02-13] VITALS (10 sets, daily range): BP systolic 111–160; BP diastolic 68–93; PULSE 75–108; RESP 16–20; TEMP 98.2–100; O2SAT 93–97
[2024-02-13 07:02] LABS: Basophils # (auto) 0 10 ^3/uL (0-0.2); Basophils % (auto) 0.4 % (0.0-2.0); Eosinophils # (auto) 0 10 ^3/uL (0-0.8); Eosinophils % (auto) 0.4 % (0.0-7.0); Hematocrit 35.9 % (36.0-46.0); Lymphocytes % (auto) 25.6 % (10.0-50.0); Mean Corpuscular Hemoglobin 30.6 pg (28.0-32.0); Mean Corpuscular Hgb Conc. 33.4 g/dL (32.0-36.0); Mean Corpuscular Volume 91.8 fL (80.0-100.0); Monocytes # (auto) 0.5 10 ^3/uL (0-1.3); Monocytes % (auto) 6.8 % (0.0-12.0); Neutrophils # (auto) 5.3 10 ^3/uL (1.6-8.6); Neutrophils % (auto) 66.8 % (37.0-80.0); Nucleated Red Blood Cells % 0.1 %; Platelet Count (auto) 189 10^3/uL (140-450); Red Blood Cells 3.91 10^6/uL (4.0-5.20); Red Cell Distribution Width 15.4 % (11.8-14.3); White Blood Cell 7.9 10^3/uL (4.4-10.8)
[2024-02-13 07:09] LABS: Alanine Aminotransferase 23 U/L (7-40); Albumin 4.2 g/dL (3.2-4.8); Anion Gap 9 (5-15); Aspartate Aminotransferase 28 U/L (13-40); BUN/Creatinine Ratio 11.3 (10.0-20.0); Bilirubin, Total 0.6 mg/dL (0.2-1.0); Blood Urea Nitrogen 14 mg/dL (9-23); Calcium 9.8 mg/dL (8.7-10.4); Carbon Dioxide 26 mmol/L (20-31); Chloride 107 mmol/L (98-107); Glucose 99 mg/dL (74-106); Sodium 142 mmol/L (136-145); Total Protein 7.1 g/dL (5.7-8.2)
[2024-02-13 07:12] LABS: Alkaline Phosphatase 119 U/L (46-116); Potassium 3.2 mmol/L (3.5-5.1)
[2024-02-13] MEDS: CIPROFLOXACIN 0.3%OPTH(EYE) SOL 5ML EACHEYE SCH (08:10)
[2024-02-13] MEDS: ASPirin-EC 81 mg tab PO SCH (08:38)
[2024-02-13] MEDS: NIFEdipine ER 30 MG TAB PO SCH (08:39)
[2024-02-13] MEDS: CLOPIDOGREL BISULFATE 75 MG TAB PO SCH (08:40)
[2024-02-13] MEDS: CARVEDILOL 12.5 MG TAB PO SCH (08:40)
[2024-02-13] MEDS: ENOXAPARIN SOD 40 MG/0.4 ML SYRINGE SC SCH (08:42)
[2024-02-13] MEDS ORDERED: METOPROLOL SUCCINATE XL 50 MG TAB PO SCH (10:00)
[2024-02-13] MEDS ORDERED: PATIENTS OWN MEDICATION (Atorvastatin Calcium (Lipitor) 1 TAB) PO SCH (10:00)
[2024-02-13] MEDS ORDERED: PATIENTS OWN MEDICATION (Aspirin (Aspirin Low Dose) 1 TAB) PO SCH (10:00)
[2024-02-13] MEDS ORDERED: PATIENTS OWN MEDICATION (Metoprolol Succinate (Metoprolol Succinate Er) 1 TAB) PO SCH (10:00)
--- NOTE | 2024-02-13 11:27 | ECG ---
[facility] Test Date: 2024-02-12 Test Time: 06:19:11 Pat Name: MANNY RETANA Department: ED Room: [address] [place] [address] 4 Gender: F Telecommunications Clerk: RICHA : 1955 Requested By: JACQUELINE FOREMAN Order Number: [id number] Reading MD: Randy Church Measurements Intervals [place] Rate: 118 P: 71 NV: 174 QRS: 30 QRSD: 81 T: 256 QT: 307 QTc: 431 Interpretive Statements Sinus tachycardia Atrial premature complex LAE, consider biatrial enlargement Anteroseptal infarct, old Nonspecific T abnormalities, inferior leads Electronically Signed On 02-13-2024 13:08:27 PST by Randy Church Please click the below link to view image of tracing.
--- NOTE | 2024-02-13 13:28 | DVHPN2 ---
Reviewed: Care Plan, H&P, Labs, Medications, Previous Orders, Radiology Changes from previous H/P or p: No Changes Objective Vitals Vital Signs Date Time Temp Pulse Resp B/P (MAP) Pulse Ox O2 Delivery O2 Flow Rate FiO2 02/13/24 13:06 98.4 88 16 123/71 (88) 95 98.4 02/13/24 08:00 Nasal Cannula* 2 28 Intake/Output Intake and Output 02/13/24 07:00 Intake Total 0 ml Balance 0 ml Intake Oral 0 ml Medications Current Medications Medications Dose Ordered Sig/Jennifer Route Start Time Stop Time Status Last Admin Dose Admin Acetaminophen/ Hydrocodone Bitart 1 tab Q4HP PRN PO 02/12/24 12:45 Ondansetron HCl 4 mg Q4HP PRN IV 02/12/24 12:45 Enoxaparin Sodium 40 mg DAILY SC 02/13/24 10:00 02/13/24 08:42 40 MG Acetaminophen 650 mg Q6HP PRN PO 02/12/24 12:45 Nitroglycerin 0.4 mg Q5MINP PRN SL 02/12/24 12:45 Pantoprazole Sodium 40 mg BID IV 02/12/24 22:00 02/13/24 08:38 40 MG Sucralfate 1 gm BIDAC PO 02/12/24 17:00 02/13/24 05:56 1 GM Hydromorphone HCl 0.5 mg Q2HPRN PRN IV 02/12/24 13:00 02/13/24 11:49 0.5 MG Carisoprodol 350 mg TID PO 02/12/24 22:00 02/13/24 05:57 350 MG Clopidogrel Bisulfate 75 mg DAILY PO 02/13/24 10:00 02/13/24 08:40 75 MG Patient Own Medication 1 tab DAILY PO 02/13/24 10:00 UNV Patient Own Medication 1 tab DAILY PO 02/13/24 10:00 UNV Patient Own Medication 1 tab DAILY PO 02/13/24 10:00 UNV Patient Own Medication 1 tab BID PO 02/12/24 22:00 UNV Patient Own Medication 2 mg TID PO 02/12/24 22:00 Aspirin 81 mg DAILY PO 02/13/24 10:00 02/13/24 08:38 81 MG Atorvastatin Calcium 40 mg HS PO 02/12/24 22:00 02/12/24 21:31 40 MG Sertraline HCl 25 mg BID PO 02/12/24 22:00 02/13/24 08:40 25 MG Hydralazine HCl 10 mg Q6HP PRN IV 02/12/24 16:45 02/12/24 17:21 10 MG Nifedipine 60 mg DAILY PO 02/13/24 10:00 02/13/24 08:39 60 MG Carvedilol 12.5 mg Q12HR PO 02/13/24 09:00 02/13/24 08:40 12.5 MG Ciprofloxacin HCl 1 drop Q4H EACHEYE 02/13/24 08:00 02/13/24 11:30 1 DROP Laboratory Results Laboratory Tests 02/13/24 06:13 Chemistry Test 02/13/24 06:13 Albumin 4.2 g/dL (3.2-4.8) Calcium Level 9.8 mg/dL (8.7-10.4) Total Protein 7.1 g/dL (5.7-8.2) LFT Test 02/13/24 06:13 Alanine Aminotransferase (ALT) 23 U/L (7-40) Alkaline Phosphatase 119 U/L (46-116) H Aspartate Amino Transferase (AST) 28 U/L (13-40) Total Bilirubin 0.6 mg/dL (0.2-1.0) Labs and/or images reviewed: Labs reviewed by me, Image(s) reviewed by me Assessment/Plan Assessment/Plan PCP Dr Storm # Hypertensive emergency- given multiple parenteral IV pushes blood pressure remains elevated. - started nitro patch, we will up titrate p.o. meds as needed # Sirs with end-organ damage - source from likely pain - IV fluids. Adding IV p.r.n. hydralazine, adding p.o. Procardia 60, Coreg 12.5 b.i.d.. # Intractable abdominal pain- p.r.n. pain control, NPO # abdominal pain likely due to hiatal hernia versus erosive esophagitis- # gastritis, gastropathy possible- PPI IV b.i.d., Carafate 1 g b.i.d. # diffuse Esophageal spasms possible- try 1 time congenital oumou Procardia # Intractable chest pain - troponins negative, BNP normal, consult for patient's program officer Dr. Storm # aortic dissection ruled out CTA chest abdomen without any signs of dissection. # Lactic acidosis- lactic acidosis concern for mesenteric ischemia, CTA abdomen negative for blockages. Prior CTA is abdomen are also negative. Lactic acidosis resolved on repeat # History erosive esophagitis # Recent EGD with hiatal hernia # Gastritis and gastropathy # History SBO with colostomy status post reversal # Multiple abdominal surgeries # Liver cancer status post hepatectomy # History left stroke with residual right hemiplegia # Hypertension - C hypertensive emergency above # Diabetes - moderate SSI q.6 H # CAD status post stents # AFib on Eliquis # CHF Continue current management Time spent 65 minutes Condition guarded Patient is full code Advanced care planning time 20 mts Plan discussed with: Patient Date of Service: Feb 13, 2024 Billing Provider: KEVIN POSADA MD Common Visit Codes: [id number] CARE 30-74 MIN KEVIN POSADA MD Feb 13, 2024 13:28
[2024-02-13] MEDS: POTASSIUM CHL 20 Meq TABLET PO ONE (14:35)
[2024-02-14] VITALS (8 sets, daily range): BP systolic 125–185; BP diastolic 81–93; PULSE 66–117; RESP 18–19; TEMP 98–99.9; O2SAT 92–96
[2024-02-14] MEDS: HYDROcodone-ACET 5/325MG TAB PO PRN (09:18)
--- NOTE | 2024-02-14 12:05 | DVHPN2 ---
Reviewed: Care Plan, H&P, Labs, Medications, Previous Orders, Radiology Changes from previous H/P or p: No Changes Objective Vitals Vital Signs Date Time Temp Pulse Resp B/P (MAP) Pulse Ox O2 Delivery O2 Flow Rate FiO2 02/14/24 11:32 80 18 138/80 02/14/24 09:00 98.1 96 98.1 02/13/24 20:00 Nasal Cannula* 2 28 Intake/Output Intake and Output 02/14/24 07:00 Intake Total 1650 ml Output Total 350 ml Balance 1300 ml Intake Oral 1650 ml Output Urine Total 350 ml # Voids 1 # Bowel Movements 1 Medications Current Medications Medications Dose Ordered Sig/Jennifer Route Start Time Stop Time Status Last Admin Dose Admin Acetaminophen/ Hydrocodone Bitart 1 tab Q4HP PRN PO 02/12/24 12:45 02/14/24 09:18 1 TAB Ondansetron HCl 4 mg Q4HP PRN IV 02/12/24 12:45 Enoxaparin Sodium 40 mg DAILY SC 02/13/24 10:00 02/14/24 09:15 40 MG Acetaminophen 650 mg Q6HP PRN PO 02/12/24 12:45 Nitroglycerin 0.4 mg Q5MINP PRN SL 02/12/24 12:45 Pantoprazole Sodium 40 mg BID IV 02/12/24 22:00 02/14/24 09:19 40 MG Sucralfate 1 gm BIDAC PO 02/12/24 17:00 02/14/24 06:18 1 GM Hydromorphone HCl 0.5 mg Q2HPRN PRN IV 02/12/24 13:00 02/14/24 11:32 0.5 MG Carisoprodol 350 mg TID PO 02/12/24 22:00 02/14/24 06:18 350 MG Clopidogrel Bisulfate 75 mg DAILY PO 02/13/24 10:00 02/14/24 09:16 75 MG Patient Own Medication 1 tab DAILY PO 02/13/24 10:00 UNV Patient Own Medication 1 tab DAILY PO 02/13/24 10:00 UNV Patient Own Medication 1 tab DAILY PO 02/13/24 10:00 UNV Patient Own Medication 1 tab BID PO 02/12/24 22:00 UNV Patient Own Medication 2 mg TID PO 02/12/24 22:00 Aspirin 81 mg DAILY PO 02/13/24 10:00 02/14/24 09:14 81 MG Atorvastatin Calcium 40 mg HS PO 02/12/24 22:00 02/13/24 21:04 40 MG Sertraline HCl 25 mg BID PO 02/12/24 22:00 02/14/24 09:15 25 MG Hydralazine HCl 10 mg Q6HP PRN IV 02/12/24 16:45 02/14/24 04:05 10 MG Nifedipine 60 mg DAILY PO 02/13/24 10:00 02/14/24 09:14 60 MG Carvedilol 12.5 mg Q12HR PO 02/13/24 09:00 02/14/24 09:17 12.5 MG Ciprofloxacin HCl 1 drop Q4H EACHEYE 02/13/24 08:00 02/14/24 08:00 1 DROP Laboratory Results Laboratory Tests 02/13/24 06:13 Microbiology Microbiology Date/Time Source Procedure Growth Status 02/13/24 01:00 Nose MRSA Screen - Final Complete Labs and/or images reviewed: Labs reviewed by me, Image(s) reviewed by me Assessment/Plan Assessment/Plan PCP Dr Storm # Hypertensive emergency- given multiple parenteral IV pushes blood pressure remains elevated. - started nitro patch, we will up titrate p.o. meds as needed # Sirs with end-organ damage - source from likely pain - IV fluids. Adding IV p.r.n. hydralazine, adding p.o. Procardia 60, Coreg 12.5 b.i.d.. # Intractable abdominal pain- p.r.n. pain control, NPO # abdominal pain likely due to hiatal hernia versus erosive esophagitis- # gastritis, gastropathy possible- PPI IV b.i.d., Carafate 1 g b.i.d. # diffuse Esophageal spasms possible- try 1 time congenital oumou Procardia # Intractable chest pain - troponins negative, BNP normal, consult for patient's fans clerk Dr. Storm # aortic dissection ruled out CTA chest abdomen without any signs of dissection. # Lactic acidosis- lactic acidosis concern for mesenteric ischemia, CTA abdomen negative for blockages. Prior CTA is abdomen are also negative. Lactic acidosis resolved on repeat # History erosive esophagitis # Recent EGD with hiatal hernia # Gastritis and gastropathy # History SBO with colostomy status post reversal # Multiple abdominal surgeries # Liver cancer status post hepatectomy # History left stroke with residual right hemiplegia # Hypertension - C hypertensive emergency above # Diabetes - moderate SSI q.6 H # CAD status post stents # AFib on Eliquis # CHF Continue current management Time spent 68 minutes Condition guarded Patient is full code Plan discussed with: Patient My Orders Orders - KEVIN POSADA MD Procedure Category Date Status Time Cardiac DIET 02/13/24 Transmitted Diet-2gna,Lofat,Lochol Lunch * Cardiology Consult CONS 02/13/24 Transmitted 13:28 Transfer Service ORDERS 02/13/24 Transmitted 13:36 Date of Service: Feb 14, 2024 Billing Provider: KEVIN POSADA MD Common Visit Codes: [id number] CARE 30-74 MIN KEVIN POSADA MD Feb 14, 2024 12:05
[2024-02-15] VITALS (8 sets, daily range): BP systolic 154–185; BP diastolic 90–98; PULSE 61–119; RESP 16–19; TEMP 97.5–98.8; O2SAT 93–97
--- NOTE | 2024-02-15 11:32 | DVHPN2 ---
Progress Note - Dictate Date Seen: Feb 15, 2024 Medical Necessity Reason Pt with a Central, PICC or Fol: Yes The following are medically ne: Sanchez Catheter Subjective PT WITH RECURRENT ACC HTN ABD PAIN NON COMPLIANT HAS NOT SEEN ME IN OFFICE SINCE LAST ADMISSION IN NOVEMBER PT HAS HAD MULTIPLE CTs OF ABD/ HEAD / CHEST LACK OF MOBILITY MORBID OBESITY SEVERE ABD / EPIGASTRIC PAIN AND TENDERNESS 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 WAS NEGATIVE CT OF CT NEGATIVE HIGH BUN/ CR RATION CONSISTENT WITH HYPOVOLEMIA WITH NAUSEA AND VOMITING PT WITH SEVERE HYPOKALEMIA PMH: DIABETES HTN HYPERLIPIDEMIA S/P PTCA CA OF LIVER S/P PARTIAL HEPATECTOMY HX OF COLSTOMY SECONDARY TO SBO AFIB CHRONIC HX OF L CVA RIGHT SIDED WEAKNESS vital signs Vital Sign Date Time Temp Pulse Resp B/P (MAP) Pulse Ox O2 Delivery O2 Flow Rate FiO2 02/15/24 10:30 80 155/85 02/15/24 10:30 16 02/15/24 09:00 97.8 96 97.8 02/14/24 20:00 Room Air* 0 21 Total Intake and Output 02/14/24 02/14/24 02/15/24 15:00 23:00 07:00 Intake Total 480 ml 960 ml 800 ml Output Total 600 ml Balance 480 ml 360 ml 800 ml medications Current Medications Medications Dose Ordered Sig/Jennifer Route Start Time Stop Time Status Last Admin Dose Admin Acetaminophen/ Hydrocodone Bitart 1 tab Q4HP PRN PO 02/12/24 12:45 02/15/24 00:58 1 TAB Ondansetron HCl 4 mg Q4HP PRN IV 02/12/24 12:45 Enoxaparin Sodium 40 mg DAILY SC 02/13/24 10:00 02/15/24 09:28 40 MG Acetaminophen 650 mg Q6HP PRN PO 02/12/24 12:45 Nitroglycerin 0.4 mg Q5MINP PRN SL 02/12/24 12:45 Pantoprazole Sodium 40 mg BID IV 02/12/24 22:00 02/15/24 09:28 40 MG Sucralfate 1 gm BIDAC PO 02/12/24 17:00 02/15/24 06:08 1 GM Hydromorphone HCl 0.5 mg Q2HPRN PRN IV 02/12/24 13:00 02/15/24 09:30 0.5 MG Carisoprodol 350 mg TID PO 02/12/24 22:00 02/15/24 06:08 350 MG Clopidogrel Bisulfate 75 mg DAILY PO 02/13/24 10:00 02/15/24 09:29 75 MG Patient Own Medication 1 tab DAILY PO 02/13/24 10:00 UNV Patient Own Medication 1 tab DAILY PO 02/13/24 10:00 UNV Patient Own Medication 1 tab DAILY PO 02/13/24 10:00 UNV Patient Own Medication 1 tab BID PO 02/12/24 22:00 UNV Patient Own Medication 2 mg TID PO 02/12/24 22:00 Aspirin 81 mg DAILY PO 02/13/24 10:00 02/15/24 09:29 81 MG Atorvastatin Calcium 40 mg HS PO 02/12/24 22:00 02/14/24 21:44 40 MG Sertraline HCl 25 mg BID PO 02/12/24 22:00 02/15/24 09:29 25 MG Hydralazine HCl 10 mg Q6HP PRN IV 02/12/24 16:45 02/14/24 04:05 10 MG Nifedipine 60 mg DAILY PO 02/13/24 10:00 02/15/24 09:28 60 MG Carvedilol 12.5 mg Q12HR PO 02/13/24 09:00 02/15/24 09:28 12.5 MG Ciprofloxacin HCl 1 drop Q4H EACHEYE 02/13/24 08:00 02/15/24 09:29 1 DROP laboratory and microbiology Laboratory Tests 02/13/24 06:13 Test 02/13/24 06:13 Range/Units Serum Glucose 99 74-106 mg/dL Problem List RECURRENT ACC HTN ABD PAIN NON COMPLIANT HAS NOT SEEN ME IN OFFICE SINCE LAST ADMISSION IN NOVEMBER PT HAS HAD MULTIPLE CTs OF ABD/ HEAD / CHEST LACK OF MOBILITY MORBID OBESITY SEVERE ABD / EPIGASTRIC PAIN AND TENDERNESS 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 WAS NEGATIVE CT OF CT NEGATIVE HIGH BUN/ CR RATION CONSISTENT WITH HYPOVOLEMIA WITH NAUSEA AND VOMITING PT WITH SEVERE HYPOKALEMIA PMH: DIABETES HTN HYPERLIPIDEMIA S/P PTCA CA OF LIVER S/P PARTIAL HEPATECTOMY HX OF COLSTOMY SECONDARY TO SBO AFIB CHRONIC HX OF L CVA RIGHT SIDED WEAKNESS HYPOKALEMIA ANEMIA Assessment/Plan NOW WITH CHEST PAIN/ ABD PAIN CT NEGATIVE TROPONIN NEGATIVE RESTART ENTRESTO Plan discussed with: Patient Critical Care Time(min): 35 ARUNASALAM,TAY MD Feb 15, 2024 11:32
[2024-02-15] MEDS: ACETAMINOPHEN 325 MG TAB PO PRN (20:26)
[2024-02-15] MEDS: HYOSCYAMINE SULF 0.125 MG ODT TAB PO SCH (21:37)
[2024-02-15] MEDS: SACUBITRIL-VALSARTAN 24mg/26mg TAB PO SCH (21:37)
[2024-02-16] VITALS (8 sets, daily range): BP systolic 137–163; BP diastolic 75–110; PULSE 68–98; RESP 15–19; TEMP 97.7–98.8; O2SAT 94–98
[2024-02-16] MEDS: ZOLPIDEM TARTRATE 5 MG TAB PO PRN (02:23)
--- NOTE | 2024-02-16 13:43 | DVHPN2 ---
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 WAS NEGATIVE CT OF CT NEGATIVE HIGH BUN/ CR RATION CONSISTENT WITH HYPOVOLEMIA WITH NAUSEA AND VOMITING PT WITH SEVERE HYPOKALEMIA PMH: DIABETES HTN HYPERLIPIDEMIA S/P PTCA CA OF LIVER S/P PARTIAL HEPATECTOMY HX OF COLSTOMY SECONDARY TO SBO AFIB CHRONIC HX OF L CVA RIGHT SIDED WEAKNESS vital signs Vital Sign Date Time Temp Pulse Resp B/P (MAP) Pulse Ox O2 Delivery O2 Flow Rate FiO2 02/16/24 13:00 98.3 72 16 156/104 (121) 96 98.3 02/16/24 08:00 Room Air* 0 21 Total Intake and Output 02/15/24 02/15/24 02/16/24 15:00 23:00 07:00 Intake Total 600 ml 1200 ml 420 ml Output Total 950 ml 4 ml Balance 600 ml 250 ml 416 ml medications Current Medications Medications Dose Ordered Sig/Jennifer Route Start Time Stop Time Status Last Admin Dose Admin Acetaminophen/ Hydrocodone Bitart 1 tab Q4HP PRN PO 02/12/24 12:45 02/15/24 00:58 1 TAB Ondansetron HCl 4 mg Q4HP PRN IV 02/12/24 12:45 Enoxaparin Sodium 40 mg DAILY SC 02/13/24 10:00 02/16/24 09:23 40 MG Acetaminophen 650 mg Q6HP PRN PO 02/12/24 12:45 02/15/24 20:26 650 MG Nitroglycerin 0.4 mg Q5MINP PRN SL 02/12/24 12:45 Pantoprazole Sodium 40 mg BID IV 02/12/24 22:00 02/16/24 09:23 40 MG Sucralfate 1 gm BIDAC PO 02/12/24 17:00 02/16/24 06:42 1 GM Hydromorphone HCl 0.5 mg Q2HPRN PRN IV 02/12/24 13:00 02/16/24 12:39 0.5 MG Carisoprodol 350 mg TID PO 02/12/24 22:00 02/16/24 06:42 350 MG Clopidogrel Bisulfate 75 mg DAILY PO 02/13/24 10:00 02/16/24 09:24 75 MG Patient Own Medication 1 tab DAILY PO 02/13/24 10:00 UNV Patient Own Medication 1 tab DAILY PO 02/13/24 10:00 UNV Patient Own Medication 1 tab DAILY PO 02/13/24 10:00 UNV Patient Own Medication 1 tab BID PO 02/12/24 22:00 UNV Patient Own Medication 2 mg TID PO 02/12/24 22:00 Aspirin 81 mg DAILY PO 02/13/24 10:00 02/16/24 09:23 81 MG Atorvastatin Calcium 40 mg HS PO 02/12/24 22:00 02/15/24 21:37 40 MG Sertraline HCl 25 mg BID PO 02/12/24 22:00 02/16/24 09:24 25 MG Hydralazine HCl 10 mg Q6HP PRN IV 02/12/24 16:45 02/15/24 17:44 10 MG Nifedipine 60 mg DAILY PO 02/13/24 10:00 02/16/24 09:25 60 MG Carvedilol 12.5 mg Q12HR PO 02/13/24 09:00 02/16/24 09:24 12.5 MG Ciprofloxacin HCl 1 drop Q4H EACHEYE 02/13/24 08:00 02/16/24 12:54 1 DROP Sacubitril/ Valsartan 2 tab BID PO 02/15/24 22:00 02/16/24 09:23 2 TAB Hyoscyamine 0.125 mg BID PO 02/15/24 22:00 02/16/24 09:23 0.125 MG Zolpidem Tartrate 10 mg HSPRN PRN PO 02/15/24 23:00 02/16/24 02:23 10 MG laboratory and microbiology Laboratory Tests 02/13/24 06:13 Test 02/13/24 06:13 Range/Units Serum Glucose 99 74-106 mg/dL Problem List RECURRENT ACC HTN ABD PAIN NON COMPLIANT HAS NOT SEEN ME IN OFFICE SINCE LAST ADMISSION IN NOVEMBER PT HAS HAD MULTIPLE CTs OF ABD/ HEAD / CHEST LACK OF MOBILITY MORBID OBESITY SEVERE ABD / EPIGASTRIC PAIN AND TENDERNESS 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 WAS NEGATIVE CT OF CT NEGATIVE HIGH BUN/ CR RATION CONSISTENT WITH HYPOVOLEMIA WITH NAUSEA AND VOMITING PT WITH SEVERE HYPOKALEMIA PMH: DIABETES HTN HYPERLIPIDEMIA S/P PTCA CA OF LIVER S/P PARTIAL HEPATECTOMY HX OF COLSTOMY SECONDARY TO SBO AFIB CHRONIC HX OF L CVA RIGHT SIDED WEAKNESS HYPOKALEMIA ANEMIA Assessment/Plan NOW WITH CHEST PAIN/ ABD PAIN CT NEGATIVE TROPONIN NEGATIVE RESTART ENTRESTO LEVSIN 0.125 MG PO BID QUESTIONABLE ADHESIONS/ RADIATION ENTERITIS Plan discussed with: Patient TAY DUNLAP MD Feb 16, 2024 13:43
[2024-02-17] VITALS (8 sets, daily range): BP systolic 121–159; BP diastolic 39–102; PULSE 64–76; RESP 16–19; TEMP 97.9–99.2; O2SAT 92–96
[2024-02-18] VITALS (8 sets, daily range): BP systolic 119–178; BP diastolic 71–119; PULSE 65–92; RESP 15–20; TEMP 97.7–98.4; O2SAT 94–98
[2024-02-19] VITALS (7 sets, daily range): BP systolic 135–170; BP diastolic 75–105; PULSE 52–78; RESP 18–19; TEMP 98–99.5; O2SAT 96–97
--- NOTE | 2024-02-19 13:46 | DVHPN2 ---
Progress Note - Dictate Date Seen: Feb 18, 2024 Medical Necessity Reason Pt with a Central, PICC or Fol: Yes The following are medically ne: Sanchez Catheter Subjective PT WITH RECURRENT ACC HTN ABD PAIN NON COMPLIANT HAS NOT SEEN ME IN OFFICE SINCE LAST ADMISSION IN NOVEMBER PT HAS HAD MULTIPLE CTs OF ABD/ HEAD / CHEST LACK OF MOBILITY MORBID OBESITY SEVERE ABD / EPIGASTRIC PAIN AND TENDERNESS 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 WAS NEGATIVE CT OF CT NEGATIVE HIGH BUN/ CR RATION CONSISTENT WITH HYPOVOLEMIA WITH NAUSEA AND VOMITING PT WITH SEVERE HYPOKALEMIA PMH: DIABETES HTN HYPERLIPIDEMIA S/P PTCA CA OF LIVER S/P PARTIAL HEPATECTOMY HX OF COLSTOMY SECONDARY TO SBO AFIB CHRONIC HX OF L CVA RIGHT SIDED WEAKNESS vital signs Vital Sign Date Time Temp Pulse Resp B/P (MAP) Pulse Ox O2 Delivery O2 Flow Rate FiO2 02/19/24 11:36 71 20 182/107 02/19/24 09:00 98.0 96 98.0 02/19/24 08:00 Room Air* 0 21 Total Intake and Output 02/18/24 02/18/24 02/19/24 14:59 22:59 06:59 Intake Total 750 ml 800 ml Output Total 600 ml Balance 750 ml 200 ml medications Current Medications Medications Dose Ordered Sig/Jennifer Route Start Time Stop Time Status Last Admin Dose Admin Acetaminophen/ Hydrocodone Bitart 1 tab Q4HP PRN PO 02/12/24 12:45 02/15/24 00:58 1 TAB Ondansetron HCl 4 mg Q4HP PRN IV 02/12/24 12:45 Enoxaparin Sodium 40 mg DAILY SC 02/13/24 10:00 02/19/24 08:20 40 MG Acetaminophen 650 mg Q6HP PRN PO 02/12/24 12:45 02/15/24 20:26 650 MG Nitroglycerin 0.4 mg Q5MINP PRN SL 02/12/24 12:45 Pantoprazole Sodium 40 mg BID IV 02/12/24 22:00 02/19/24 08:17 40 MG Sucralfate 1 gm BIDAC PO 02/12/24 17:00 02/19/24 06:26 1 GM Hydromorphone HCl 0.5 mg Q2HPRN PRN IV 02/12/24 13:00 02/19/24 11:36 0.5 MG Carisoprodol 350 mg TID PO 02/12/24 22:00 02/19/24 06:04 350 MG Clopidogrel Bisulfate 75 mg DAILY PO 02/13/24 10:00 02/19/24 08:26 75 MG Patient Own Medication 1 tab DAILY PO 02/13/24 10:00 UNV Patient Own Medication 1 tab DAILY PO 02/13/24 10:00 UNV Patient Own Medication 1 tab DAILY PO 02/13/24 10:00 UNV Patient Own Medication 1 tab BID PO 02/12/24 22:00 UNV Patient Own Medication 2 mg TID PO 02/12/24 22:00 Aspirin 81 mg DAILY PO 02/13/24 10:00 02/19/24 08:26 81 MG Atorvastatin Calcium 40 mg HS PO 02/12/24 22:00 02/18/24 22:16 40 MG Sertraline HCl 25 mg BID PO 02/12/24 22:00 02/19/24 08:27 25 MG Hydralazine HCl 10 mg Q6HP PRN IV 02/12/24 16:45 02/15/24 17:44 10 MG Nifedipine 60 mg DAILY PO 02/13/24 10:00 02/19/24 08:26 60 MG Carvedilol 12.5 mg Q12HR PO 02/13/24 09:00 02/19/24 08:27 12.5 MG Ciprofloxacin HCl 1 drop Q4H EACHEYE 02/13/24 08:00 02/19/24 04:55 1 DROP Sacubitril/ Valsartan 2 tab BID PO 02/15/24 22:00 02/19/24 08:26 2 TAB Hyoscyamine 0.125 mg BID PO 02/15/24 22:00 02/19/24 08:27 0.125 MG Zolpidem Tartrate 10 mg HSPRN PRN PO 02/15/24 23:00 02/18/24 22:16 10 MG laboratory and microbiology Laboratory Tests 02/13/24 06:13 Test 02/13/24 06:13 Range/Units Serum Glucose 99 74-106 mg/dL Problem List RECURRENT ACC HTN ABD PAIN NON COMPLIANT HAS NOT SEEN ME IN OFFICE SINCE LAST ADMISSION IN NOVEMBER PT HAS HAD MULTIPLE CTs OF ABD/ HEAD / CHEST LACK OF MOBILITY MORBID OBESITY SEVERE ABD / EPIGASTRIC PAIN AND TENDERNESS 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 WAS NEGATIVE CT OF CT NEGATIVE HIGH BUN/ CR RATION CONSISTENT WITH HYPOVOLEMIA WITH NAUSEA AND VOMITING PT WITH SEVERE HYPOKALEMIA PMH: DIABETES HTN HYPERLIPIDEMIA S/P PTCA CA OF LIVER S/P PARTIAL HEPATECTOMY HX OF COLSTOMY SECONDARY TO SBO AFIB CHRONIC HX OF L CVA RIGHT SIDED WEAKNESS HYPOKALEMIA ANEMIA Assessment/Plan NOW WITH CHEST PAIN/ ABD PAIN CT NEGATIVE TROPONIN NEGATIVE RESTART ENTRESTO LEVSIN 0.125 MG PO BID QUESTIONABLE ADHESIONS/ RADIATION ENTERITIS Plan discussed with: Patient Critical Care Time(min): 35 TAY DUNLAP MD Feb 19, 2024 13:46
[2024-02-19 14:49] LABS: Alanine Aminotransferase 23 U/L (7-40); Albumin 4.1 g/dL (3.2-4.8); Alkaline Phosphatase 104 U/L (46-116); Anion Gap 5 (5-15); Aspartate Aminotransferase 32 U/L (13-40); BUN/Creatinine Ratio 12.7 (10.0-20.0); Blood Urea Nitrogen 14 mg/dL (9-23); CRP High Sensitivity 0.02 mg/dL (<1.0); Carbon Dioxide 28 mmol/L (20-31); Chloride 105 mmol/L (98-107); Glucose 103 mg/dL (74-106); Sodium 138 mmol/L (136-145); Total Protein 6.9 g/dL (5.7-8.2)
[2024-02-19 15:10] LABS: Potassium 3.4 mmol/L (3.5-5.1)
[2024-02-19 15:11] LABS: Bilirubin, Total < 0.2 mg/dL (0.2-1.0)
[2024-02-19 15:27] LABS: Erythrocyte Sedimentation Rate 33 mm/hr (0-20)
[2024-02-19 16:37] LABS: Basophils # (auto) 0 10 ^3/uL (0-0.2); Basophils % (auto) 0.4 % (0.0-2.0); Eosinophils # (auto) 0.1 10 ^3/uL (0-0.8); Eosinophils % (auto) 2.7 % (0.0-7.0); Hematocrit 37.3 % (36.0-46.0); Hemoglobin 12.3 g/dL (12.2-16.2); Lymphocytes # (auto) 1.9 10 ^3/uL (0.4-5.4); Lymphocytes % (auto) 37.8 % (10.0-50.0); Monocytes # (auto) 0.5 10 ^3/uL (0-1.3); Monocytes % (auto) 9.6 % (0.0-12.0); Neutrophils # (auto) 2.4 10 ^3/uL (1.6-8.6); Neutrophils % (auto) 49.5 % (37.0-80.0); Nucleated Red Blood Cells % 0.1 %; Platelet Count (auto) 161 10^3/uL (140-450); Red Cell Distribution Width 14.9 % (11.8-14.3); White Blood Cell 4.9 10^3/uL (4.4-10.8)
[2024-02-20] VITALS (8 sets, daily range): BP systolic 141–164; BP diastolic 58–118; PULSE 59–79; RESP 15–19; TEMP 97.4–99.1; O2SAT 94–100
[2024-02-21] VITALS (8 sets, daily range): BP systolic 151–191; BP diastolic 80–109; PULSE 59–97; RESP 16–20; TEMP 97.9–99.1; O2SAT 94–98
--- NOTE | 2024-02-21 14:02 | ECG ---
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
[2024-02-21] MEDS: HYDROmorphone HCL 2 MG/ML VL/or syr IV PRN (21:24)
[2024-02-22] VITALS (8 sets, daily range): BP systolic 130–184; BP diastolic 89–109; PULSE 55–67; RESP 16–20; TEMP 97.9–99.4; O2SAT 91–98
--- NOTE | 2024-02-22 11:36 | DVHPN2 ---
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 WAS NEGATIVE CT OF CT NEGATIVE HIGH BUN/ CR RATION CONSISTENT WITH HYPOVOLEMIA WITH NAUSEA AND VOMITING PT WITH SEVERE HYPOKALEMIA PMH: DIABETES HTN HYPERLIPIDEMIA S/P PTCA CA OF LIVER S/P PARTIAL HEPATECTOMY HX OF COLSTOMY SECONDARY TO SBO AFIB CHRONIC HX OF L CVA RIGHT SIDED WEAKNESS vital signs Vital Sign Date Time Temp Pulse Resp B/P (MAP) Pulse Ox O2 Delivery O2 Flow Rate FiO2 02/22/24 09:40 94 18 130/68 02/22/24 09:00 99.4 91 99.4 02/22/24 08:00 Room Air* 0 21 Total Intake and Output 02/21/24 02/21/24 02/22/24 15:00 23:00 07:00 Intake Total 180 ml 600 ml 1020 ml Output Total 2 ml Balance 180 ml 598 ml 1020 ml medications Current Medications Medications Dose Ordered Sig/Jennifer Route Start Time Stop Time Status Last Admin Dose Admin Ondansetron HCl 4 mg Q4HP PRN IV 02/12/24 12:45 Enoxaparin Sodium 40 mg DAILY SC 02/13/24 10:00 02/22/24 09:39 40 MG Acetaminophen 650 mg Q6HP PRN PO 02/12/24 12:45 02/15/24 20:26 650 MG Nitroglycerin 0.4 mg Q5MINP PRN SL 02/12/24 12:45 Pantoprazole Sodium 40 mg BID IV 02/12/24 22:00 02/22/24 09:38 40 MG Sucralfate 1 gm BIDAC PO 02/12/24 17:00 02/22/24 06:24 1 GM Carisoprodol 350 mg TID PO 02/12/24 22:00 02/22/24 06:24 350 MG Clopidogrel Bisulfate 75 mg DAILY PO 02/13/24 10:00 02/22/24 09:37 75 MG Patient Own Medication 1 tab DAILY PO 02/13/24 10:00 UNV Patient Own Medication 1 tab DAILY PO 02/13/24 10:00 UNV Patient Own Medication 1 tab DAILY PO 02/13/24 10:00 UNV Patient Own Medication 1 tab BID PO 02/12/24 22:00 UNV Patient Own Medication 2 mg TID PO 02/12/24 22:00 Aspirin 81 mg DAILY PO 02/13/24 10:00 02/22/24 09:38 81 MG Atorvastatin Calcium 40 mg HS PO 02/12/24 22:00 02/21/24 21:51 40 MG Sertraline HCl 25 mg BID PO 02/12/24 22:00 02/21/24 21:50 25 MG Hydralazine HCl 10 mg Q6HP PRN IV 02/12/24 16:45 02/21/24 15:53 10 MG Nifedipine 60 mg DAILY PO 02/13/24 10:00 02/22/24 09:38 60 MG Carvedilol 12.5 mg Q12HR PO 02/13/24 09:00 02/22/24 09:38 12.5 MG Ciprofloxacin HCl 1 drop Q4H EACHEYE 02/13/24 08:00 02/22/24 04:45 1 DROP Sacubitril/ Valsartan 2 tab BID PO 02/15/24 22:00 02/22/24 09:37 2 TAB Hyoscyamine 0.125 mg BID PO 02/15/24 22:00 02/22/24 09:37 0.125 MG Zolpidem Tartrate 10 mg HSPRN PRN PO 02/15/24 23:00 02/21/24 21:51 10 MG Hydromorphone HCl 0.5 mg Q2HPRN PRN IV 02/21/24 20:45 02/22/24 09:40 0.5 MG Acetaminophen/ Hydrocodone Bitart 1 tab Q4HPRN PRN PO 02/21/24 20:45 Belladonna Alkaloids/ Phenobarbital 10 ml Q8HR PO 02/22/24 14:00 laboratory and microbiology Laboratory Tests 02/19/24 14:23 Test 02/19/24 14:23 Range/Units Serum Glucose 103 74-106 mg/dL Problem List RECURRENT ACC HTN ABD PAIN NON COMPLIANT HAS NOT SEEN ME IN OFFICE SINCE LAST ADMISSION IN NOVEMBER PT HAS HAD MULTIPLE CTs OF ABD/ HEAD / CHEST LACK OF MOBILITY MORBID OBESITY SEVERE ABD / EPIGASTRIC PAIN AND TENDERNESS 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
[2024-02-22 13:10] LABS: Basophils # (auto) 0 10 ^3/uL (0-0.2); Basophils % (auto) 0.4 % (0.0-2.0); Eosinophils # (auto) 0.2 10 ^3/uL (0-0.8); Eosinophils % (auto) 2.4 % (0.0-7.0); Hematocrit 36.3 % (36.0-46.0); Hemoglobin 11.7 g/dL (12.2-16.2); Lymphocytes % (auto) 29.8 % (10.0-50.0); Mean Corpuscular Hemoglobin 30.2 pg (28.0-32.0); Mean Corpuscular Hgb Conc. 32.1 g/dL (32.0-36.0); Monocytes # (auto) 0.5 10 ^3/uL (0-1.3); Neutrophils # (auto) 3.9 10 ^3/uL (1.6-8.6); Neutrophils % (auto) 59.4 % (37.0-80.0); Nucleated Red Blood Cells % 0.1 %; Platelet Count (auto) 250 10^3/uL (140-450); Red Blood Cells 3.86 10^6/uL (4.0-5.20); Red Cell Distribution Width 15.5 % (11.8-14.3); White Blood Cell 6.6 10^3/uL (4.4-10.8)
[2024-02-22 13:20] LABS: Alanine Aminotransferase 27 U/L (7-40); Alkaline Phosphatase 95 U/L (46-116); Anion Gap 6 (5-15); Aspartate Aminotransferase 27 U/L (13-40); BUN/Creatinine Ratio 10.1 (10.0-20.0); Blood Urea Nitrogen 11 mg/dL (9-23); Carbon Dioxide 25 mmol/L (20-31); Chloride 107 mmol/L (98-107); Glucose 104 mg/dL (74-106); Potassium 3.9 mmol/L (3.5-5.1); Sodium 138 mmol/L (136-145); Total Protein 6.8 g/dL (5.7-8.2)
[2024-02-22 13:21] LABS: Bilirubin, Total 0.2 mg/dL (0.2-1.0)
[2024-02-22] MEDS: DONNATAL 5ml ORAL Elix (BELLADONNA ALK-PHENOBARB) PO SCH (14:00)
[2024-02-22] MEDS: HYDROcodone-ACET 5/325MG TAB PO PRN (20:20)
[2024-02-22] MEDS: PREGABALIN 25 MG CAP PO SCH (20:43)
[2024-02-23] VITALS (8 sets, daily range): BP systolic 110–138; BP diastolic 62–95; PULSE 61–70; RESP 17–20; TEMP 97.8–99.2; O2SAT 92–97
[2024-02-23] MEDS: ONDANSETRON HCL 4 MG/2 ML VIAL IV PRN (09:01)
[2024-02-23] MEDS: PREGABALIN 25 MG CAP PO ONE (11:02)
--- NOTE | 2024-02-23 13:56 | DVHPN2 ---
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 WAS NEGATIVE CT OF CT NEGATIVE HIGH BUN/ CR RATION CONSISTENT WITH HYPOVOLEMIA WITH NAUSEA AND VOMITING PT WITH SEVERE HYPOKALEMIA PMH: DIABETES HTN HYPERLIPIDEMIA S/P PTCA CA OF LIVER S/P PARTIAL HEPATECTOMY HX OF COLSTOMY SECONDARY TO SBO AFIB CHRONIC HX OF L CVA RIGHT SIDED WEAKNESS vital signs Vital Sign Date Time Temp Pulse Resp B/P (MAP) Pulse Ox O2 Delivery O2 Flow Rate FiO2 02/23/24 13:26 66 17 110/62 02/23/24 13:00 98.7 92 98.7 02/23/24 08:00 Room Air* 0 21 Total Intake and Output 02/22/24 02/22/24 02/23/24 15:00 23:00 07:00 Intake Total 1000 ml 400 ml Balance 1000 ml 400 ml medications Current Medications Medications Dose Ordered Sig/Jennifer Route Start Time Stop Time Status Last Admin Dose Admin Ondansetron HCl 4 mg Q4HP PRN IV 02/12/24 12:45 02/23/24 13:25 4 MG Enoxaparin Sodium 40 mg DAILY SC 02/13/24 10:00 02/23/24 09:13 40 MG Acetaminophen 650 mg Q6HP PRN PO 02/12/24 12:45 02/15/24 20:26 650 MG Nitroglycerin 0.4 mg Q5MINP PRN SL 02/12/24 12:45 Pantoprazole Sodium 40 mg BID IV 02/12/24 22:00 02/23/24 09:02 40 MG Sucralfate 1 gm BIDAC PO 02/12/24 17:00 02/23/24 05:16 1 GM Carisoprodol 350 mg TID PO 02/12/24 22:00 02/23/24 13:34 350 MG Clopidogrel Bisulfate 75 mg DAILY PO 02/13/24 10:00 02/23/24 09:14 75 MG Patient Own Medication 1 tab DAILY PO 02/13/24 10:00 UNV Patient Own Medication 1 tab DAILY PO 02/13/24 10:00 UNV Patient Own Medication 1 tab DAILY PO 02/13/24 10:00 UNV Patient Own Medication 1 tab BID PO 02/12/24 22:00 UNV Patient Own Medication 2 mg TID PO 02/12/24 22:00 Aspirin 81 mg DAILY PO 02/13/24 10:00 02/23/24 09:13 81 MG Atorvastatin Calcium 40 mg HS PO 02/12/24 22:00 02/22/24 21:11 40 MG Sertraline HCl 25 mg BID PO 02/12/24 22:00 02/23/24 09:14 25 MG Hydralazine HCl 10 mg Q6HP PRN IV 02/12/24 16:45 02/22/24 21:05 10 MG Nifedipine 60 mg DAILY PO 02/13/24 10:00 02/23/24 09:14 60 MG Carvedilol 12.5 mg Q12HR PO 02/13/24 09:00 02/23/24 09:15 12.5 MG Ciprofloxacin HCl 1 drop Q4H EACHEYE 02/13/24 08:00 02/23/24 12:08 1 DROP Sacubitril/ Valsartan 2 tab BID PO 02/15/24 22:00 02/23/24 09:15 2 TAB Hyoscyamine 0.125 mg BID PO 02/15/24 22:00 02/23/24 12:42 0.125 MG Zolpidem Tartrate 10 mg HSPRN PRN PO 02/15/24 23:00 02/22/24 21:10 10 MG Hydromorphone HCl 0.5 mg Q2HPRN PRN IV 02/21/24 20:45 02/23/24 13:26 0.5 MG Acetaminophen/ Hydrocodone Bitart 1 tab Q4HPRN PRN PO 02/21/24 20:45 02/22/24 20:20 1 TAB Belladonna Alkaloids/ Phenobarbital 10 ml Q8HR PO 02/22/24 14:00 02/23/24 13:35 10 ML Pregabalin 75 mg BID PO 02/23/24 22:00 laboratory and microbiology Laboratory Tests 02/22/24 12:15 Test 02/22/24 12:15 Range/Units Serum Glucose 104 74-106 mg/dL Problem List RECURRENT ACC HTN ABD PAIN NON COMPLIANT HAS NOT SEEN ME IN OFFICE SINCE LAST ADMISSION IN NOVEMBER PT HAS HAD MULTIPLE CTs OF ABD/ HEAD / CHEST LACK OF MOBILITY MORBID OBESITY SEVERE ABD / EPIGASTRIC PAIN AND TENDERNESS 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 WAS NEGATIVE CT OF CT NEGATIVE HIGH BUN/ CR RATION CONSISTENT WITH HYPOVOLEMIA WITH NAUSEA AND VOMITING PT WITH SEVERE HYPOKALEMIA PMH: DIABETES HTN HYPERLIPIDEMIA S/P PTCA CA OF LIVER S/P PARTIAL HEPATECTOMY HX OF COLSTOMY SECONDARY TO SBO AFIB CHRONIC HX OF L CVA RIGHT SIDED WEAKNESS HYPOKALEMIA ANEMIA Assessment/Plan NOW WITH CHEST PAIN/ ABD PAIN CT NEGATIVE TROPONIN NEGATIVE RESTART ENTRESTO LEVSIN 0.125 MG PO BID QUESTIONABLE ADHESIONS/ RADIATION ENTERITIS START NEEDS AMBULATION TITRATE LYRICA INCREASE LYRICA TO 75 MG BID Plan discussed with: Patient TAY DUNLAP MD Feb 23, 2024 13:56
[2024-02-23] MEDS: PREGABALIN CAPSULE 75 MG CAP PO SCH (21:18)
[2024-02-24] VITALS (8 sets, daily range): BP systolic 110–158; BP diastolic 68–113; PULSE 60–83; RESP 16–20; TEMP 97.1–99.1; O2SAT 93–99
[2024-02-25] VITALS (7 sets, daily range): BP systolic 109–159; BP diastolic 67–87; PULSE 63–71; RESP 17–20; TEMP 97.8–98.7; O2SAT 92–98
[2024-02-26] VITALS (9 sets, daily range): BP systolic 126–170; BP diastolic 76–109; PULSE 59–91; RESP 16–20; TEMP 98.7–99.3; O2SAT 94–97
--- NOTE | 2024-02-26 08:43 | DVHPN2 ---
Progress Note - Dictate Date Seen: Feb 24, 2024 Medical Necessity Reason Pt with a Central, PICC or Fol: Yes The following are medically ne: Sanchez Catheter Subjective PT WITH RECURRENT ACC HTN ABD PAIN NON COMPLIANT HAS NOT SEEN ME IN OFFICE SINCE LAST ADMISSION IN NOVEMBER PT HAS HAD MULTIPLE CTs OF ABD/ HEAD / CHEST LACK OF MOBILITY MORBID OBESITY SEVERE ABD / EPIGASTRIC PAIN AND TENDERNESS 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 WAS NEGATIVE CT OF CT NEGATIVE HIGH BUN/ CR RATION CONSISTENT WITH HYPOVOLEMIA WITH NAUSEA AND VOMITING PT WITH SEVERE HYPOKALEMIA PMH: DIABETES HTN HYPERLIPIDEMIA S/P PTCA CA OF LIVER S/P PARTIAL HEPATECTOMY HX OF COLSTOMY SECONDARY TO SBO AFIB CHRONIC HX OF L CVA RIGHT SIDED WEAKNESS vital signs Vital Sign Date Time Temp Pulse Resp B/P (MAP) Pulse Ox O2 Delivery O2 Flow Rate FiO2 02/26/24 08:17 66 147/76 02/26/24 08:14 18 02/26/24 05:00 98.7 95 98.7 02/25/24 20:00 Nasal Cannula* 2 28 Total Intake and Output 02/25/24 02/25/24 02/26/24 15:00 23:00 07:00 Intake Total 1480 ml 900 ml Output Total 6 ml Balance 1480 ml 894 ml medications Current Medications Medications Dose Ordered Sig/Jennifer Route Start Time Stop Time Status Last Admin Dose Admin Ondansetron HCl 4 mg Q4HP PRN IV 02/12/24 12:45 02/25/24 21:44 4 MG Acetaminophen 650 mg Q6HP PRN PO 02/12/24 12:45 02/15/24 20:26 650 MG Nitroglycerin 0.4 mg Q5MINP PRN SL 02/12/24 12:45 Pantoprazole Sodium 40 mg BID IV 02/12/24 22:00 02/26/24 08:14 40 MG Sucralfate 1 gm BIDAC PO 02/12/24 17:00 02/26/24 06:07 1 GM Carisoprodol 350 mg TID PO 02/12/24 22:00 02/26/24 06:07 350 MG Clopidogrel Bisulfate 75 mg DAILY PO 02/13/24 10:00 02/26/24 08:15 75 MG Patient Own Medication 1 tab DAILY PO 02/13/24 10:00 UNV Patient Own Medication 1 tab DAILY PO 02/13/24 10:00 UNV Patient Own Medication 1 tab DAILY PO 02/13/24 10:00 UNV Patient Own Medication 1 tab BID PO 02/12/24 22:00 UNV Patient Own Medication 2 mg TID PO 02/12/24 22:00 Aspirin 81 mg DAILY PO 02/13/24 10:00 02/26/24 08:18 81 MG Atorvastatin Calcium 40 mg HS PO 02/12/24 22:00 02/25/24 21:05 40 MG Sertraline HCl 25 mg BID PO 02/12/24 22:00 02/26/24 08:16 25 MG Hydralazine HCl 10 mg Q6HP PRN IV 02/12/24 16:45 02/22/24 21:05 10 MG Nifedipine 60 mg DAILY PO 02/13/24 10:00 02/26/24 08:17 60 MG Carvedilol 12.5 mg Q12HR PO 02/13/24 09:00 02/26/24 08:17 12.5 MG Sacubitril/ Valsartan 2 tab BID PO 02/15/24 22:00 02/26/24 08:17 2 TAB Hyoscyamine 0.125 mg BID PO 02/15/24 22:00 02/26/24 08:16 0.125 MG Zolpidem Tartrate 10 mg HSPRN PRN PO 02/15/24 23:00 02/25/24 22:16 10 MG Hydromorphone HCl 0.5 mg Q2HPRN PRN IV 02/21/24 20:45 02/26/24 08:14 0.5 MG Acetaminophen/ Hydrocodone Bitart 1 tab Q4HPRN PRN PO 02/21/24 20:45 02/25/24 18:15 1 TAB Belladonna Alkaloids/ Phenobarbital 10 ml Q8HR PO 02/22/24 14:00 02/26/24 07:47 10 ML Pregabalin 75 mg BID PO 02/23/24 22:00 02/26/24 08:16 75 MG laboratory and microbiology Laboratory Tests 02/22/24 12:15 Test 02/22/24 12:15 Range/Units Serum Glucose 104 74-106 mg/dL Problem List RECURRENT ACC HTN ABD PAIN NON COMPLIANT HAS NOT SEEN ME IN OFFICE SINCE LAST ADMISSION IN NOV[place]BER PT HAS HAD MULTIPLE CTs OF ABD/ HEAD / CHEST LACK OF MOBILITY MORBID OBESITY SEVERE ABD / EPIGASTRIC PAIN AND TENDERNESS 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
--- NOTE | 2024-02-26 08:46 | DVHPN2 ---
Progress Note - Dictate Date Seen: Feb 25, 2024 Medical Necessity Reason Pt with a Central, PICC or Fol: Yes The following are medically ne: Sanchez Catheter Subjective PT WITH RECURRENT ACC HTN ABD PAIN NON COMPLIANT HAS NOT SEEN ME IN OFFICE SINCE LAST ADMISSION IN NOVEMBER PT HAS HAD MULTIPLE CTs OF ABD/ HEAD / CHEST LACK OF MOBILITY MORBID OBESITY SEVERE ABD / EPIGASTRIC PAIN AND TENDERNESS 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 WAS NEGATIVE CT OF CT NEGATIVE HIGH BUN/ CR RATION CONSISTENT WITH HYPOVOLEMIA WITH NAUSEA AND VOMITING PT WITH SEVERE HYPOKALEMIA PMH: DIABETES HTN HYPERLIPIDEMIA S/P PTCA CA OF LIVER S/P PARTIAL HEPATECTOMY HX OF COLSTOMY SECONDARY TO SBO AFIB CHRONIC HX OF L CVA RIGHT SIDED WEAKNESS vital signs Vital Sign Date Time Temp Pulse Resp B/P (MAP) Pulse Ox O2 Delivery O2 Flow Rate FiO2 02/26/24 08:17 66 147/76 02/26/24 08:14 18 02/26/24 05:00 98.7 95 98.7 02/25/24 20:00 Nasal Cannula* 2 28 Total Intake and Output 02/25/24 02/25/24 02/26/24 15:00 23:00 07:00 Intake Total 1480 ml 900 ml Output Total 6 ml Balance 1480 ml 894 ml medications Current Medications Medications Dose Ordered Sig/Jennifer Route Start Time Stop Time Status Last Admin Dose Admin Ondansetron HCl 4 mg Q4HP PRN IV 02/12/24 12:45 02/25/24 21:44 4 MG Acetaminophen 650 mg Q6HP PRN PO 02/12/24 12:45 02/15/24 20:26 650 MG Nitroglycerin 0.4 mg Q5MINP PRN SL 02/12/24 12:45 Pantoprazole Sodium 40 mg BID IV 02/12/24 22:00 02/26/24 08:14 40 MG Sucralfate 1 gm BIDAC PO 02/12/24 17:00 02/26/24 06:07 1 GM Carisoprodol 350 mg TID PO 02/12/24 22:00 02/26/24 06:07 350 MG Clopidogrel Bisulfate 75 mg DAILY PO 02/13/24 10:00 02/26/24 08:15 75 MG Patient Own Medication 1 tab DAILY PO 02/13/24 10:00 UNV Patient Own Medication 1 tab DAILY PO 02/13/24 10:00 UNV Patient Own Medication 1 tab DAILY PO 02/13/24 10:00 UNV Patient Own Medication 1 tab BID PO 02/12/24 22:00 UNV Patient Own Medication 2 mg TID PO 02/12/24 22:00 Aspirin 81 mg DAILY PO 02/13/24 10:00 02/26/24 08:18 81 MG Atorvastatin Calcium 40 mg HS PO 02/12/24 22:00 02/25/24 21:05 40 MG Sertraline HCl 25 mg BID PO 02/12/24 22:00 02/26/24 08:16 25 MG Hydralazine HCl 10 mg Q6HP PRN IV 02/12/24 16:45 02/22/24 21:05 10 MG Nifedipine 60 mg DAILY PO 02/13/24 10:00 02/26/24 08:17 60 MG Carvedilol 12.5 mg Q12HR PO 02/13/24 09:00 02/26/24 08:17 12.5 MG Sacubitril/ Valsartan 2 tab BID PO 02/15/24 22:00 02/26/24 08:17 2 TAB Hyoscyamine 0.125 mg BID PO 02/15/24 22:00 02/26/24 08:16 0.125 MG Zolpidem Tartrate 10 mg HSPRN PRN PO 02/15/24 23:00 02/25/24 22:16 10 MG Hydromorphone HCl 0.5 mg Q2HPRN PRN IV 02/21/24 20:45 02/26/24 08:14 0.5 MG Acetaminophen/ Hydrocodone Bitart 1 tab Q4HPRN PRN PO 02/21/24 20:45 02/25/24 18:15 1 TAB Belladonna Alkaloids/ Phenobarbital 10 ml Q8HR PO 02/22/24 14:00 02/26/24 07:47 10 ML Pregabalin 75 mg BID PO 02/23/24 22:00 02/26/24 08:16 75 MG laboratory and microbiology Laboratory Tests 02/22/24 12:15 Test 02/22/24 12:15 Range/Units Serum Glucose 104 74-106 mg/dL Problem List RECURRENT ACC HTN ABD PAIN NON COMPLIANT HAS NOT SEEN ME IN OFFICE SINCE LAST ADMISSION IN NOVEMBER PT HAS HAD MULTIPLE CTs OF ABD/ HEAD / CHEST LACK OF MOBILITY MORBID OBESITY SEVERE ABD / EPIGASTRIC PAIN AND TENDERNESS 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 WAS NEGATIVE CT OF CT NEGATIVE HIGH BUN/ CR RATION CONSISTENT WITH HYPOVOLEMIA WITH NAUSEA AND VOMITING PT WITH SEVERE HYPOKALEMIA PMH: DIABETES HTN HYPERLIPIDEMIA S/P PTCA CA OF LIVER S/P PARTIAL HEPATECTOMY HX OF COLSTOMY SECONDARY TO SBO AFIB CHRONIC HX OF L CVA RIGHT SIDED WEAKNESS HYPOKALEMIA ANEMIA Assessment/Plan NOW WITH CHEST PAIN/ ABD PAIN CT NEGATIVE TROPONIN NEGATIVE RESTART ENTRESTO LEVSIN 0.125 MG PO BID QUESTIONABLE ADHESIONS/ RADIATION ENTERITIS START NEEDS AMBULATION TITRATE LYRICA INCREASE LYRICA TO 75 MG BID CHECK LABS IF LABS WNL THAN DC HOME ON ADEQUATE PAIN MANAGEMENT NEEDS PILL CAM RE[facility]AL [facility]AL[facility] Plan discussed with: Patient TAY DUNLAP MD Feb 26, 2024 08:46
[2024-02-26 11:12] LABS: Basophils # (auto) 0 10 ^3/uL (0-0.2); Basophils % (auto) 0.6 % (0.0-2.0); Eosinophils # (auto) 0.2 10 ^3/uL (0-0.8); Eosinophils % (auto) 3.4 % (0.0-7.0); Lymphocytes # (auto) 1.3 10 ^3/uL (0.4-5.4); Lymphocytes % (auto) 24.9 % (10.0-50.0); Mean Corpuscular Hemoglobin 30.3 pg (28.0-32.0); Mean Corpuscular Hgb Conc. 32.3 g/dL (32.0-36.0); Monocytes # (auto) 0.5 10 ^3/uL (0-1.3); Monocytes % (auto) 9.1 % (0.0-12.0); Neutrophils # (auto) 3.2 10 ^3/uL (1.6-8.6); Nucleated Red Blood Cells % 0.1 %; Platelet Count (auto) 211 10^3/uL (140-450); Red Blood Cells 3.62 10^6/uL (4.0-5.20); White Blood Cell 5.1 10^3/uL (4.4-10.8)
[2024-02-26 12:09] LABS: Urine Bacteria None Seen /hpf (None Seen)
[2024-02-26] MEDS: predniSONE 20 MG TAB PO SCH (12:11)
--- NOTE | 2024-02-26 12:17 | DVHDS2 ---
Discharge Summary Date of Admission Feb 12, 2024 at 12:33 Date of Discharge: Feb 26, 2024 Admitting Diagnosis ACC HTN ABD PAIN Labs/Diagnostic Data: Laboratory Results Test 02/26/24 11:30 02/26/24 10:35 02/26/24 09:58 02/19/24 14:23 White Blood Count 5.1 10^3/uL (4.4-10.8) Red Blood Count 3.62 10^6/uL (4.0-5.20) Hemoglobin 11.0 g/dL (12.2-16.2) Hematocrit 34.0 % (36.0-46.0) Mean Corpuscular Volume 94.0 fL (80.0-100.0) Mean Corpuscular Hemoglobin 30.3 pg (28.0-32.0) Mean Corpuscular Hemoglobin Concent 32.3 g/dL (32.0-36.0) Red Cell Distribution Width 15.0 % (11.8-14.3) Platelet Count 211 10^3/uL (140-450) Mean Platelet Volume 8.4 fL (6.9-10.8) Neutrophils (%) (Auto) 62.0 % (37.0-80.0) Lymphocytes (%) (Auto) 24.9 % (10.0-50.0) Monocytes (%) (Auto) 9.1 % (0.0-12.0) Eosinophils (%) (Auto) 3.4 % (0.0-7.0) Basophils (%) (Auto) 0.6 % (0.0-2.0) Neutrophils # (Auto) 3.2 10 ^3/uL (1.6-8.6) Lymphocytes # (Auto) 1.3 10 ^3/uL (0.4-5.4) Monocytes # (Auto) 0.5 10 ^3/uL (0-1.3) Eosinophils # (Auto) 0.2 10 ^3/uL (0-0.8) Basophils # (Auto) 0 10 ^3/uL (0-0.2) Nucleated Red Blood Cells 0.1 % Erythrocyte Sedimentation Rate 33 mm/hr (0-20) C-Reactive Protein High Sensitivity 0.02 mg/dL (<1.0) Test 02/13/24 06:13 02/12/24 09:32 02/12/24 05:30 Hepatitis B Surface Antigen Negative (Negative) Lactic Acid Level 1.4 mmol/L (0.4-2.0) Troponin I High Sensitivity 22 ng/L (</=34) B-Type Natriuretic Peptide 314.89 pg/mL (0-100) Lipase 43 U/L (12-53) Other Laboratory Tests 02/26/24 10:35 Brief Hx & Hospital Course: RECURRENT ACC HTN ABD PAIN NON COMPLIANT HAS NOT SEEN ME IN OFFICE SINCE LAST ADMISSION IN NOVEMBER PT HAS HAD MULTIPLE CTs OF ABD/ HEAD / CHEST LACK OF MOBILITY MORBID OBESITY SEVERE ABD / EPIGASTRIC PAIN AND TENDERNESS 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 WAS NEGATIVE CT OF CT NEGATIVE HIGH BUN/ CR RATION CONSISTENT WITH HYPOVOLEMIA WITH NAUSEA AND VOMITING PT WITH SEVERE HYPOKALEMIA PMH: DIABETES HTN HYPERLIPIDEMIA S/P PTCA CA OF LIVER S/P PARTIAL HEPATECTOMY HX OF COLSTOMY SECONDARY TO SBO AFIB CHRONIC HX OF L CVA RIGHT SIDED WEAKNESS HYPOKALEMIA ANEMIA Assessment/Plan NOW WITH CHEST PAIN/ ABD PAIN CT NEGATIVE TROPONIN NEGATIVE RESTART ENTRESTO LEVSIN 0.125 MG PO BID QUESTIONABLE ADHESIONS/ RADIATION ENTERITIS START NEEDS AMBULATION TITRATE LYRICA INCREASE LYRICA TO 75 MG BID CHECK LABS IF LABS WNL THAN DC HOME ON ADEQUATE PAIN MANAGEMENT NEEDS PILL CAM [facility] Condition at Discharge: Guarded Final Diagnosis/Problems List ACC HTN ABD PAIN NON COMPLIANT HAS NOT SEEN ME IN OFFICE SINCE LAST ADMISSION IN NOVEMBER PT HAS HAD MULTIPLE CTs OF ABD/ HEAD / CHEST LACK OF MOBILITY MORBID OBESITY SEVERE ABD / EPIGASTRIC PAIN AND TENDERNESS 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 WAS NEGATIVE CT OF CT NEGATIVE HIGH BUN/ CR RATION CONSISTENT WITH HYPOVOLEMIA WITH NAUSEA AND VOMITING PT WITH SEVERE HYPOKALEMIA PMH: DIABETES HTN HYPERLIPIDEMIA S/P PTCA CA OF LIVER S/P PARTIAL HEPATECTOMY HX OF COLSTOMY SECONDARY TO SBO AFIB CHRONIC HX OF L CVA RIGHT SIDED WEAKNESS HYPOKALEMIA ANEMIA Discharge Disposition: Home Discharge Instruct/Medications Diet: Cardiac 2g Na,low cholest Activity: No Restrictions, As Tolerated Follow Up/Referral: 1 WEEK Medications: CONT CURRENT MEDS Discharge Statement: "Patient was advised to return to the ER or call 911 if any headaches, dizziness, shortness of breath, chest pain, abdominal pain, bleeding, fevers, or worsening of medical condition. Patient was counseled about treatment plan, medications, possible side effects, patientverbalized understanding. All questions were answered to the best of my ability. This discharge took greater then 30 minutes in planning, reviewing documentation, counseling the patient, and discussing with other team members." ASSESSMENT ASSESSMENT Assessment TAY DUNLAP MD Feb 26, 2024 12:17
[2024-02-26 12:49] LABS: Urine Blood Negative /uL (Negative); Urine Clarity Clear (Clear); Urine Color Colorless (Yellow); Urine Protein, UAD Negative (Negative); Urine Specific Gravity 1.006 (1.001-1.035); Urine Squamous Epithelial Cell FEW /hpf (<5); Urine Urobilinogen Normal (Negative); Urine WBC <1 /hpf (0 - 5)
[2024-02-26 13:34] LABS: Alanine Aminotransferase 17 U/L (7-40); Albumin 3.8 g/dL (3.2-4.8); Alkaline Phosphatase 94 U/L (46-116); Anion Gap 7 (5-15); Aspartate Aminotransferase 22 U/L (13-40); BUN/Creatinine Ratio 18.9 (10.0-20.0); Blood Urea Nitrogen 23 mg/dL (9-23); Calcium 9.5 mg/dL (8.7-10.4); Carbon Dioxide 26 mmol/L (20-31); Chloride 106 mmol/L (98-107); Glucose 98 mg/dL (74-106); Potassium 4.3 mmol/L (3.5-5.1); Sodium 139 mmol/L (136-145); Total Protein 6.2 g/dL (5.7-8.2)
[2024-02-26 13:35] LABS: Bilirubin, Total < 0.2 mg/dL (0.2-1.0)
[2024-02-27] VITALS (9 sets, daily range): BP systolic 105–160; BP diastolic 68–112; PULSE 63–82; RESP 16–20; TEMP 97.6–99; O2SAT 95–98
--- NOTE | 2024-02-27 16:13 | DVHPN2 ---
Progress Note - Dictate Date Seen: Mar 28, 2024 Medical Necessity Reason Pt with a Central, PICC or Fol: Yes The following are medically ne: Sanchez Catheter Subjective PT WITH RECURRENT ACC HTN ABD PAIN NON COMPLIANT HAS NOT SEEN ME IN OFFICE SINCE LAST ADMISSION IN NOVEMBER PT HAS HAD MULTIPLE CTs OF ABD/ HEAD / CHEST LACK OF MOBILITY MORBID OBESITY SEVERE ABD / EPIGASTRIC PAIN AND TENDERNESS 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 WAS NEGATIVE CT OF CT NEGATIVE HIGH BUN/ CR RATION CONSISTENT WITH HYPOVOLEMIA WITH NAUSEA AND VOMITING PT WITH SEVERE HYPOKALEMIA PMH: DIABETES HTN HYPERLIPIDEMIA S/P PTCA CA OF LIVER S/P PARTIAL HEPATECTOMY HX OF COLSTOMY SECONDARY TO SBO AFIB CHRONIC HX OF L CVA RIGHT SIDED WEAKNESS vital signs Vital Sign Date Time Temp Pulse Resp B/P (MAP) Pulse Ox O2 Delivery O2 Flow Rate FiO2 02/27/24 13:31 65 18 137/81 02/27/24 13:18 98.0 95 98.0 02/27/24 08:00 Room Air* 0 21 Total Intake and Output 02/26/24 02/26/24 02/27/24 15:00 23:00 07:00 Intake Total 858 ml 1138 ml 420 ml Balance 858 ml 1138 ml 420 ml medications Current Medications Medications Dose Ordered Sig/Jennifer Route Start Time Stop Time Status Last Admin Dose Admin Ondansetron HCl 4 mg Q4HP PRN IV 02/12/24 12:45 02/25/24 21:44 4 MG Acetaminophen 650 mg Q6HP PRN PO 02/12/24 12:45 02/15/24 20:26 650 MG Nitroglycerin 0.4 mg Q5MINP PRN SL 02/12/24 12:45 Pantoprazole Sodium 40 mg BID IV 02/12/24 22:00 02/27/24 09:13 40 MG Sucralfate 1 gm BIDAC PO 02/12/24 17:00 02/27/24 06:13 1 GM Carisoprodol 350 mg TID PO 02/12/24 22:00 02/27/24 14:17 350 MG Clopidogrel Bisulfate 75 mg DAILY PO 02/13/24 10:00 02/27/24 09:15 75 MG Patient Own Medication 1 tab DAILY PO 02/13/24 10:00 UNV Patient Own Medication 1 tab DAILY PO 02/13/24 10:00 UNV Patient Own Medication 1 tab DAILY PO 02/13/24 10:00 UNV Patient Own Medication 1 tab BID PO 02/12/24 22:00 UNV Patient Own Medication 2 mg TID PO 02/12/24 22:00 Aspirin 81 mg DAILY PO 02/13/24 10:00 02/27/24 09:15 81 MG Atorvastatin Calcium 40 mg HS PO 02/12/24 22:00 02/26/24 21:01 40 MG Sertraline HCl 25 mg BID PO 02/12/24 22:00 02/27/24 09:16 25 MG Hydralazine HCl 10 mg Q6HP PRN IV 02/12/24 16:45 02/26/24 12:11 10 MG Nifedipine 60 mg DAILY PO 02/13/24 10:00 02/27/24 09:17 60 MG Carvedilol 12.5 mg Q12HR PO 02/13/24 09:00 02/27/24 09:17 12.5 MG Sacubitril/ Valsartan 2 tab BID PO 02/15/24 22:00 02/27/24 09:16 2 TAB Hyoscyamine 0.125 mg BID PO 02/15/24 22:00 02/27/24 09:16 0.125 MG Zolpidem Tartrate 10 mg HSPRN PRN PO 02/15/24 23:00 02/26/24 23:02 10 MG Hydromorphone HCl 0.5 mg Q2HPRN PRN IV 02/21/24 20:45 02/27/24 13:01 0.5 MG Acetaminophen/ Hydrocodone Bitart 1 tab Q4HPRN PRN PO 02/21/24 20:45 02/25/24 18:15 1 TAB Belladonna Alkaloids/ Phenobarbital 10 ml Q8HR PO 02/22/24 14:00 02/27/24 14:17 10 ML Pregabalin 75 mg BID PO 02/23/24 22:00 02/27/24 09:15 75 MG Prednisone 20 mg DAILY PO 02/26/24 10:00 02/27/24 09:15 20 MG laboratory and microbiology Laboratory Tests 02/26/24 10:35 02/26/24 09:58 Test 02/26/24 09:58 Range/Units Serum Glucose 98 74-106 mg/dL Problem List RECURRENT ACC HTN ABD PAIN NON COMPLIANT HAS NOT SEEN ME IN OFFICE SINCE LAST ADMISSION IN NOVEMBER PT HAS HAD MULTIPLE CTs OF ABD/ HEAD / CHEST LACK OF MOBILITY MORBID OBESITY SEVERE ABD / EPIGASTRIC PAIN AND TENDERNESS 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 WAS NEGATIVE CT OF CT NEGATIVE HIGH BUN/ CR RATION CONSISTENT WITH HYPOVOLEMIA WITH NAUSEA AND VOMITING PT WITH SEVERE HYPOKALEMIA PMH: DIABETES HTN HYPERLIPIDEMIA S/P PTCA CA OF LIVER S/P PARTIAL HEPATECTOMY HX OF COLSTOMY SECONDARY TO SBO AFIB CHRONIC HX OF L CVA RIGHT SIDED WEAKNESS HYPOKALEMIA ANEMIA Assessment/Plan NOW WITH CHEST PAIN/ ABD PAIN CT NEGATIVE TROPONIN NEGATIVE RESTART ENTRESTO LEVSIN 0.125 MG PO BID QUESTIONABLE ADHESIONS/ RADIATION ENTERITIS START NEEDS AMBULATION TITRATE LYRICA INCREASE LYRICA TO 75 MG BID CHECK LABS IF LABS WNL THAN DC HOME ON ADEQUATE PAIN MANAGEMENT NEEDS PILL CAM RE[facility] Plan discussed with: Patient TAY DUNLAP MD Feb 27, 2024 16:13
[2024-02-28 01:00] VITALS: BP 108/59; PULSE 80; RESP 16; TEMP 98; O2SAT 94
[2024-02-28 05:00] VITALS: BP 179/99; PULSE 68; RESP 18; TEMP 98.5; O2SAT 99
[2024-02-28 08:00] VITALS: PULSE 70; PULSE 74; RESP 16; O2SAT 96
[2024-02-28 09:00] VITALS: BP 155/90; PULSE 70; RESP 19; TEMP 99; O2SAT 96
[2024-02-28 13:24] VITALS: BP 144/79; PULSE 70; RESP 19; TEMP 97.9; O2SAT 96
--- NOTE | 2024-02-28 13:31 | DVHPN2 ---
Progress Note - Dictate Date Seen: Feb 28, 2024 Medical Necessity Reason Pt with a Central, PICC or Fol: Yes The following are medically ne: Sanchez Catheter Subjective PT WITH RECURRENT ACC HTN ABD PAIN NON COMPLIANT HAS NOT SEEN ME IN OFFICE SINCE LAST ADMISSION IN NOVEMBER PT HAS HAD MULTIPLE CTs OF ABD/ HEAD / CHEST LACK OF MOBILITY MORBID OBESITY SEVERE ABD / EPIGASTRIC PAIN AND TENDERNESS 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 WAS NEGATIVE CT OF CT NEGATIVE HIGH BUN/ CR RATION CONSISTENT WITH HYPOVOLEMIA WITH NAUSEA AND VOMITING PT WITH SEVERE HYPOKALEMIA PMH: DIABETES HTN HYPERLIPIDEMIA S/P PTCA CA OF LIVER S/P PARTIAL HEPATECTOMY HX OF COLSTOMY SECONDARY TO SBO AFIB CHRONIC HX OF L CVA RIGHT SIDED WEAKNESS vital signs Vital Sign Date Time Temp Pulse Resp B/P (MAP) Pulse Ox O2 Delivery O2 Flow Rate FiO2 02/28/24 13:24 97.9 70 19 144/79 (100) 96 97.9 02/28/24 08:00 Room Air* 0 21 Total Intake and Output 02/27/24 02/27/24 02/28/24 15:00 23:00 07:00 Intake Total 1100 ml 320 ml Balance 1100 ml 320 ml medications Current Medications Medications Dose Ordered Sig/Jennifer Route Start Time Stop Time Status Last Admin Dose Admin Ondansetron HCl 4 mg Q4HP PRN IV 02/12/24 12:45 02/25/24 21:44 4 MG Acetaminophen 650 mg Q6HP PRN PO 02/12/24 12:45 02/15/24 20:26 650 MG Nitroglycerin 0.4 mg Q5MINP PRN SL 02/12/24 12:45 Pantoprazole Sodium 40 mg BID IV 02/12/24 22:00 02/28/24 09:38 40 MG Sucralfate 1 gm BIDAC PO 02/12/24 17:00 02/28/24 06:09 1 GM Carisoprodol 350 mg TID PO 02/12/24 22:00 02/28/24 05:17 350 MG Clopidogrel Bisulfate 75 mg DAILY PO 02/13/24 10:00 02/28/24 09:38 75 MG Patient Own Medication 1 tab DAILY PO 02/13/24 10:00 UNV Patient Own Medication 1 tab DAILY PO 02/13/24 10:00 UNV Patient Own Medication 1 tab DAILY PO 02/13/24 10:00 UNV Patient Own Medication 1 tab BID PO 02/12/24 22:00 UNV Patient Own Medication 2 mg TID PO 02/12/24 22:00 Aspirin 81 mg DAILY PO 02/13/24 10:00 02/28/24 09:39 81 MG Atorvastatin Calcium 40 mg HS PO 02/12/24 22:00 02/27/24 21:18 40 MG Sertraline HCl 25 mg BID PO 02/12/24 22:00 02/28/24 09:39 25 MG Hydralazine HCl 10 mg Q6HP PRN IV 02/12/24 16:45 02/27/24 17:06 10 MG Nifedipine 60 mg DAILY PO 02/13/24 10:00 02/28/24 09:39 60 MG Carvedilol 12.5 mg Q12HR PO 02/13/24 09:00 02/28/24 09:40 12.5 MG Sacubitril/ Valsartan 2 tab BID PO 02/15/24 22:00 02/28/24 09:38 2 TAB Hyoscyamine 0.125 mg BID PO 02/15/24 22:00 02/27/24 21:18 0.125 MG Zolpidem Tartrate 10 mg HSPRN PRN PO 02/15/24 23:00 02/27/24 22:31 10 MG Hydromorphone HCl 0.5 mg Q2HPRN PRN IV 02/21/24 20:45 02/28/24 12:22 0.5 MG Acetaminophen/ Hydrocodone Bitart 1 tab Q4HPRN PRN PO 02/21/24 20:45 02/25/24 18:15 1 TAB Belladonna Alkaloids/ Phenobarbital 10 ml Q8HR PO 02/22/24 14:00 02/28/24 05:18 10 ML Pregabalin 75 mg BID PO 02/23/24 22:00 02/28/24 09:39 75 MG Prednisone 20 mg DAILY PO 02/26/24 10:00 02/28/24 09:38 20 MG laboratory and microbiology Laboratory Tests 02/26/24 10:35 02/26/24 09:58 Test 02/26/24 09:58 Range/Units Serum Glucose 98 74-106 mg/dL Problem List RECURRENT ACC HTN ABD PAIN NON COMPLIANT HAS NOT SEEN ME IN OFFICE SINCE LAST ADMISSION IN NOVEMBER PT HAS HAD MULTIPLE CTs OF ABD/ HEAD / CHEST LACK OF MOBILITY MORBID OBESITY SEVERE ABD / EPIGASTRIC PAIN AND TENDERNESS 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 WAS NEGATIVE CT OF CT NEGATIVE HIGH BUN/ CR RATION CONSISTENT WITH HYPOVOLEMIA WITH NAUSEA AND VOMITING PT WITH SEVERE HYPOKALEMIA PMH: DIABETES HTN HYPERLIPIDEMIA S/P PTCA CA OF LIVER S/P PARTIAL HEPATECTOMY HX OF COLSTOMY SECONDARY TO SBO AFIB CHRONIC HX OF L CVA RIGHT SIDED WEAKNESS HYPOKALEMIA ANEMIA Assessment/Plan NOW WITH CHEST PAIN/ ABD PAIN CT NEGATIVE TROPONIN NEGATIVE RESTART ENTRESTO LEVSIN 0.125 MG PO BID QUESTIONABLE ADHESIONS/ RADIATION ENTERITIS START NEEDS AMBULATION TITRATE LYRICA INCREASE LYRICA TO 75 MG BID CHECK LABS IF LABS WNL THAN DC HOME ON ADEQUATE PAIN MANAGEMENT NEEDS PILL CAM RE[facility] Plan discussed with: Patient TAY DUNLAP MD Feb 28, 2024 13:31
== END 2024-02-28 13:00 | disposition home or self-care (01) | DRG 199 ==
LOC: ER 05:11 → TELE 12:33 → TELE-E-ADS 22:01
PROVIDERS: ADMIT Student in an Organized Health Care Education/Training Program; ATTEND Internal Medicine Cardiovascular Disease
PROC: 05H933Z Insertion of Infusion Device into Right Brachial Vein, Percutaneous Approach (ICD-10-PCS; principal; 2024-02-12)
PROC: B54MZZA Ultrasonography of Right Upper Extremity Veins, Guidance (ICD-10-PCS; 2024-02-12)
DX: I16.1 Hypertensive emergency (principal); R65.11 Systemic inflammatory response syndrome (SIRS) of non-infectious origin with acute organ dysfunction; K52.0 Gastroenteritis and colitis due to radiation; E87.20 Acidosis, unspecified; I69.351 Hemiplegia and hemiparesis following cerebral infarction affecting right dominant side; D64.9 Anemia, unspecified; I48.91 Unspecified atrial fibrillation; E86.1 Hypovolemia; E11.9 Type 2 diabetes mellitus without complications; E87.6 Hypokalemia; I50.9 Heart failure, unspecified; I11.0 Hypertensive heart disease with heart failure; K66.0 Peritoneal adhesions (postprocedural) (postinfection); J44.9 Chronic obstructive pulmonary disease, unspecified; I25.10 Atherosclerotic heart disease of native coronary artery without angina pectoris; E66.01 Morbid (severe) obesity due to excess calories; E78.5 Hyperlipidemia, unspecified; Z79.01 Long term (current) use of anticoagulants; Z79.891 Long term (current) use of opiate analgesic; Z79.899 Other long term (current) drug therapy; Z93.3 Colostomy status; Z85.05 Personal history of malignant neoplasm of liver; Z87.19 Personal history of other diseases of the digestive system; Z95.5 Presence of coronary angioplasty implant and graft; Z91.199 Patient's noncompliance with other medical treatment and regimen due to unspecified reason; Z68.28 Body mass index [BMI] 28.0-28.9, adult
CPT/HCPCS: 36415; 71045; 71260; 74177; 80053; 81001; 83605; 83690; 83880; 84484; 85025; 85652; 86141; 87081; 87340; 93005; 96374; 96375; 96376; 97110; 97116; 97163; 97530; 99291; G0378; J2405; J2470

== ENCOUNTER 2024-04-07 08:16 | Inpatient (IN) | payer MEDICARE, MEDICAID ==
[~2024-04-07] VITALS: Ht 172.7 cm; Wt 82.3 kg
[2024-04-07] VITALS (8 sets, daily range): BP systolic 157–170; BP diastolic 95–117; PULSE 92–107; RESP 18–22; TEMP 98.7–100.2; O2SAT 95–97
--- NOTE | 2024-04-07 08:33 | ECG ---
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
[2024-04-07] MEDS: ONDANSETRON HCL 4 MG/2 ML VIAL IV ONE (08:39)
[2024-04-07] MEDS: SODIUM CHLORIDE 0.9% 1,000 ML IVB ONE (08:39)
[2024-04-07] MEDS: MORPHINE SULFATE 4 MG/ML SYR/VIAL IV ONE (08:39)
--- NOTE | 2024-04-07 08:51 | ED.PDOC ---
History of Present Illness HPI Comments 69F BIBA w/ prior Hx of Liver Cancer, Ulcer, and gastric Bypass x2 which all may be associated to the c/c of ABD pain. EMS report the pt was coming from home and has had N/V x6hrs, w/ emesis x4, and Hematemesis x2 normal color. EMS state that the pt was hospitalized at [facility] for 2 weeks 1.5 months ago and was diagnosed w/ ulcers. Pt states that she has 10/10 upper epigastric pain. Pt is Tachycardic arrival to the ER. PMHx of HTN, DM, CVA, CHF, AFIB and CO. SHx of Leg Sx and Tonsillectomy. Denies chills, fever, /D, SOB, CP or other associated symptom's, modifiers, or recent injuries or sick contact at this time. Chief Complaint: Abdominal Pain Time Seen by MD: 08:25 Primary Care Provider: TAY Reviewed Notes: Nurses Notes, Spray Drier Operator Helper Notes, Medications, Allergies Allergies: Coded Allergies: NO KNOWN ALLERGIES (Unverified , 02/16/23) Home Meds Active Scripts Sertraline Hcl (Zoloft) 25 Mg Tab, 1 TAB PO BID, #30 TAB 2 Refills Prov:KEVIN POSADA MD 08/18/23 Zolpidem Tartrate (Ambien) 10 Mg Tab, 1 TAB PO QPM PRN, #20 TAB 5 Refills Prov:KEVIN POSADA MD 08/18/23 Oxycodone W/ Acetaminophen (Percocet 5/325MG) 1 Tab Tb, 1 TAB PO QID, #30 TAB Prov:KEVIN POSADA MD 08/18/23 Pantoprazole Sodium Sesquihydr (Protonix) 40 Mg Tab, 40 MG PO DAILY, #30 TAB Prov:CESAR CHIN NP 02/24/23 Sucralfate (CARAFATE) 1 Gm Tab, 1 GM OR QID for 30 Days, #120 TAB Prov:CESAR CHIN STEAM SHOVEL OILER 02/24/23 Reported Medications Carisoprodol (Soma) 350 Mg Tab, 350 MG PO TID, #30 TAB 08/18/23 Tizanidine Hydrochloride (Zanaflex) 4 Mg Cap, 2 MG PO TID 08/14/23 Clopidogrel Bisulfate (CLOPIDOGREL) 75 Mg Tab, 1 TAB PO DAILY 08/14/23 Atorvastatin Calcium (Lipitor) 40 Mg Tab, 1 TAB PO DAILY 08/14/23 Metoprolol Succinate (Metoprolol Succinate Er) 25 Mg Tab, 1 TAB PO DAILY 08/14/23 Potassium Chloride (Potassium Chloride ER) 20 Meq Tab, 1 TAB PO DAILY 08/14/23 Aspirin (Aspirin Low Dose) 81 Mg Chw, 1 TAB PO DAILY 08/14/23 Furosemide (Furosemide) 20 Mg Tab, 1 TAB PO DAILY 08/14/23 Sumatriptan Succinate (Sumatriptan Succinate) 50 Mg Tab, 1 TAB PO DAILY for 9 Days, #9 08/14/23 Alprazolam (Alprazolam) 0.25 Mg Tab, 1 TAB PO BID 08/14/23 Nifedipine (Nifedipine Er) 30 Mg Tab, 1 TAB PO BID 08/14/23 Clonidine Hydrochloride (Clonidine Hcl) 0.3 Mg Tab, 1 TAB PO BID 08/14/23 Hydralazine Hcl (Hydralazine Hcl) 10 Mg Tab, 1 TAB PO TID 08/14/23 Sacubitril-Valsartan (Entresto 24-26 mg) 1 Tab Tab, 1 TAB PO BID 02/17/23 Amlodipine Besylate (Amlodipine Besylate) 5 Mg Tab, 1 TAB PO DAILY 02/17/23 Information Source: Patient, Emergency Med Personnel Mode of Arrival: EMS Severity: Moderate Timing: Hours Duration: Since onset, Hours Prehospital treatment: None Past Medical History PAST MEDICAL HISTORY: AFIB, Cancer (Liver), CHF, CVA, DM, HTN, CO Surgical History: Tonsillectomy Surgical History (Other): Gastric Bypass x2 and Leg Sx 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 COACH 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 COACH History Family History Family History: Reviewed,noncontributory to illness, Unknown Social History Smoker: Non-Smoker Alcohol: Denies ETOH Use Drugs: Denies Drug Use Lives In: Home Constitutional: denies: chills, diaphoresis, fatigue, fever, malaise, sweats, weakness, others EENTM: denies: blurred vision, double vision, ear bleeding, ear discharge, ear drainage, ear pain, ear ringing, eye pain, eye redness, hearing loss, mouth pain, mouth swelling, nasal discharge, nose bleeding, nose congestion, nose pain, photophobia, tearing, throat pain, throat swelling, voice changes, others Respiratory: denies: cough, hemoptysis, orthopnea, SOB at rest, shortness of breath, SOB with excertion, stridor, wheezing, others Cardiovascular: denies: chest pain, dizzy spells, diaphoresis, Dyspnea on exertion, edema, irregular heart beat, left arm pain, lightheadedness, palpitations, PND, syncope, others Gastrointestinal: reports: abdominal pain, hematemesis, nausea, vomiting; denies: abdomen distended, blood streaked bowels, constipated, diarrhea, dysphagia, difficulty swallowing, melena, poor appetite, poor fluid intake, rectal bleeding, rectal pain, others Genitourinary: denies: abnormal vagina bleeding, burning, dyspareunia, dysuria, flank pain, frequency, hematuria, incontinence, pain, , vagina discharge, urgency, others Neurological: denies: dizziness, fainting, headache, left sided numbness, left sided weakness, numbness, paresthesia, pre-existing deficit, right sided numbness, right sided weakness, seizure, speech problems, tingling, tremors, weakness, others Musculoskeletal: denies: back pain, gout, joint pain, joint swelling, muscle pain, muscle stiffness, neck pain, others Integumetry: denies: bruises, change in color, change in hair/nails, dryness, laceration, lesions, lumps, rash, wounds, others Allergic/Immunocompromised: denies: Difficulty Healing, Frequent Infections, Hives, Itching, others Hematologic/Lymphatic: denies: anemia, blood clots, easy bleeding, easy bruising, swollen glands, others Endocrine: denies: excessive hunger, excessive sweating, excessive thirst, excessive urination, flushing, intolerance to cold, intolerance to heat, unexplained weight gain, unexplained weight loss, others Psychiatric: denies: anxiety, bipolar disorder, depression, hopeless, panic disorder, schizophrenia, sleepless, suicidal, others All Other Systems: Reviewed and Negative Physical Exam General Appearance: Moderate Distress, Normal HEENT: Normal ENT Inspection, Pharynx Normal, TMs Normal Neck: Full Range of Motion, Non-Tender, Normal, Normal Inspection Respiratory: Chest Non-Tender, Lungs Clear, No Accessory Muscle Use, No Respiratory Distress, Normal Breath Sounds Cardiovascular: No Edema, No JVD, No Murmur, No Gallop, Normal Peripheral Pulses, Tachycardia Breast Exam: Deferred Gastrointestinal: No Organomegaly, Non Tender, No Pulsatile Mass, Normal Bowel Sounds, Soft Genitalia: Deferred Pelvic: Deferred Rectal: Deferred Extremities: No calf tenderness, Normal capillary refill, Normal inspection, Normal range of motion, Non-tender, No pedal edema Musculoskeletal : Apperance: Normal Neurologic: Alert, quality control lead II-XII nml as Tested, No Motor Deficits, Normal Affect, Normal Mood, No Sensory Deficits Cerebellar Function: NOT DONE Reflexes: NOT DONE Skin: Dry, Normal Color, Warm Peripheral Pulses: 3+ Radial (R), 3+ Radial (L) Lymphatic: No Adenopathy Was a procedure done? Was a procedure done?: No Differential Dx Considerations may include: Colitis Electrolyte imbalance X-Ray, Labs, Meds, VS Vital Signs Date Time Temp Pulse Resp B/P (MAP) Pulse Ox O2 Delivery O2 Flow Rate FiO2 04/07/24 08:39 104 17 162/109 04/07/24 08:19 99.2 101 20 140/90 (107) 96 99.2 04/07/24 08:19 99.2 101 20 140/90 (107) 96 04/07/24 08:19 101 20 96 Room Air* 0 21 04/07/24 08:16 107 Current Medications Medications (Trade) Dose Ordered Sig/Jennifer Route Start Time Stop Time Status Last Admin Ondansetron HCl (Zofran) 4 mg ONCE ONCE IV 04/07/24 08:30 04/07/24 08:31 DC 04/07/24 08:39 Sodium Chloride 1,000 ml @ 1,000 mls/hr Q1H ONCE IVB 04/07/24 08:30 04/07/24 09:29 04/07/24 08:39 Morphine Sulfate 4 mg ONCE ONCE IV 04/07/24 08:30 04/07/24 08:31 DC 04/07/24 08:39 Patient alert. Complaining of abdominal pain. Tachycardic. Saturation pristine on room air. Possible colitis. Establish intravenous access. Was given fluids. Was given morphine. Was given Zofran. Blood pressure elevated. Possibly from pain. Continue to monitor blood pressure. Had many abdominal surgeries. Possibly addition. Possible sepsis. Possible esophageal varices. Was given Protonix. Gastroenterology consultation. Reviewed her previous visit. Explained to the patient. Continue cardiac monitoring. Time of 1ST Reevaluation: 08:55 Reevaluation 1ST: Unchanged Patient Education/Counseling: Diagnosis, Treatment, Prognosis Family Education/Counseling: No Family Present Departure 1 Departure Time of Disposition: 09:01 Impression: Primary Impression: Non-specific colitis Additional Impressions: Hypertensive urgency GI bleed Qualified Codes: K92.2 - Gastrointestinal hemorrhage, unspecified Disposition: 09 ADMITTED INPATIENT Admit to: Med Surg Condition: Guarded Critical Care Note Critical Care Time?: Yes (45 min-critical care time only) Stability Stability form required: No Heart Score Heart Score: Heart Score Response (Comments) Value History N/A 0 EKG N/A 0 Age N/A 0 Risk Factors N/A 0 Troponin N/A 0 Total 0 I personally scribed for ASH BIRMINGHAM MD ([email or web address]) on 04/07/24 at 08:51. Electronically submitted by Nasir Sena ([email or web address]). ASH BIRMINGHAM MD Apr 07, 2024 08:51
[2024-04-07] MEDS: PANTOPRAZOLE 40 MG/10 ML VIAL INJ IV ONE ×2 (09:24→13:04)
--- NOTE | 2024-04-07 09:39 | DVH ---
Procedure: CT CT AB PEL WO CON-NO ORAL OR IV 04/07/2024 09:01 AM Indication: colitis Comparison Study: None Technique: Axial images were obtained and reformatted in coronal and sagittal planes. All CT scans at this medical facility are performed using dose modulation techniques as appropriate t o a performed exam including the following: Automated exposure control was utilized; adjustment of th e MA and/or KV according to patient size; and use of iterative reconstruction technique. CT Dose: CTDI volume is 11.89 mGy. Dose-length product is 652.23 mGy*cm FINDINGS: Lower Chest: Right basilar subsegmental atelectasis. Hepatobiliary: A 1.5 cm cyst is seen in the right hepatic lobe. Gallbladder is surgically absent. Di lated CBD, 1.2 cm in caliber likely compensatory post cholecystectomy change. Spleen: Unremarkable. Pancreas: Unremarkable. Adrenal Glands: Unremarkable. tract: The kidneys are normal in size bilaterally without hydronephrosis . A 2 mm nonobstructing stone is seen in the left kidney. A 3 cm cyst is seen in the lower pole of the right kidney. The uri nary bladder is unremarkable. GI tract: The stomach is grossly normal in appearance. No evidence of small bowel obstruction. The la rge bowel is unremarkable. The appendix is not visualized. No inflammatory change is noted in the ri ght lower quadrant. Lymphatics: No mesenteric, retroperitoneal or periportal lymphadenopathy. Vasculature: The abdominal aorta is normal in in caliber. Pelvic Organs: Unremarkable Bones/soft tissues: Chronic depression of the superior endplate of L4 with approximately 30% loss of height centrally. Other: None. IMPRESSION: 1. No CT evidence for acute intra-abdominal or intrapelvic process. Specifically, no evidence of coli tis or enteritis.
[2024-04-07 09:43] LABS: Basophils # (auto) 0 10 ^3/uL (0-0.2); Basophils % (auto) 0.5 % (0.0-2.0); Eosinophils # (auto) 0 10 ^3/uL (0-0.8); Eosinophils % (auto) 0.4 % (0.0-7.0); Hematocrit 41.1 % (36.0-46.0); Hemoglobin 13.6 g/dL (12.2-16.2); Lymphocytes # (auto) 1.3 10 ^3/uL (0.4-5.4); Lymphocytes % (auto) 17.3 % (10.0-50.0); Mean Corpuscular Hemoglobin 29.4 pg (28.0-32.0); Mean Corpuscular Hgb Conc. 33.1 g/dL (32.0-36.0); Mean Corpuscular Volume 88.8 fL (80.0-100.0); Monocytes # (auto) 0.6 10 ^3/uL (0-1.3); Monocytes % (auto) 7.9 % (0.0-12.0); Neutrophils # (auto) 5.4 10 ^3/uL (1.6-8.6); Neutrophils % (auto) 73.9 % (37.0-80.0); Nucleated Red Blood Cells % 0.2 %; Platelet Count (auto) 209 10^3/uL (140-450); Red Blood Cells 4.62 10^6/uL (4.0-5.20); Red Cell Distribution Width 16.7 % (11.8-14.3); White Blood Cell 7.3 10^3/uL (4.4-10.8)
[2024-04-07] MEDS: HYDROmorphone HCL 2 MG/ML VL/or syr IV ONE (09:47)
[2024-04-07 09:48] LABS: Alanine Aminotransferase 30 U/L (7-40); Anion Gap 11 (5-15); Aspartate Aminotransferase 36 U/L (13-40); Bilirubin, Total 0.6 mg/dL (0.2-1.0); Carbon Dioxide 22 mmol/L (20-31); Chloride 104 mmol/L (98-107); Sodium 137 mmol/L (136-145)
[2024-04-07 09:51] LABS: Albumin 5.2 g/dL (3.2-4.8); Alkaline Phosphatase 133 U/L (46-116); Blood Urea Nitrogen 27 mg/dL (9-23); Calcium 10.7 mg/dL (8.7-10.4); Glucose 134 mg/dL (74-106); Potassium 3.1 mmol/L (3.5-5.1); Total Protein 8.3 g/dL (5.7-8.2)
[2024-04-07 10:25] LABS: Lipase 44 U/L (12-53)
--- NOTE | 2024-04-07 10:32 | DVHHP2 ---
History of Present Illness Reason for Visit: acute upper gi bleed History of Present Illness 69-year-old female past medical history liver cancer diagnosed in September of 2023 ulcers blood transfusion in the past gastric pipe past surgery leg surgery diabetes hypertension CVA CHF AFib GA and tonsillectomy surgery chief complaint patient has been complaining epigastric abdominal pain he has been a stabbing pain. Nothing has made it worse nothing has made it better. Patient states the pain started last night but today the pain got more intense in the last 6 hours. She also states she has a emesis and she had coffee-ground emesis. No bright red blood or clots. Patient denies any tearing sensation in her abdomen no chest pain no shortness with the breath. When evaluating patient's labs and imaging Dilaudid was given Protonix morphine normal saline Zofran CBC was unremarkable potassium was 3.1. CT scan of the abdomen pelvis unremarkable glucose was 134 alkaline phosphatase 133 creatinine was 1.50/27. With these findings we will admit and provide IV hydration ask for GI consult for acute upper GI bleed Past Medical History Liver cancer, ulcer, gastritis, dm, htn, cva, chf, afib, mi, sx history gastric bypass, blood transfusion, tonsillectomy, Past Surgical History tonsillectomy, gastric bypass surgery, leg surgery Family History Reviewed, non-contributory to the management of this case. Past Social History The patient lives at home, denies smoking, alcohol or illicit drugs abuse. Review of Systems Constitutional: No: Fever, Chills, Sweats, Weakness, Malaise, Other Eyes: No: Pain, Vision change, Conjunctivae inflammation, Eyelid inflammation, Other, Redness ENT: No: Ear pain, Ear discharge, Nose pain, Nose discharge, Nose congestion, Mouth pain, Mouth swelling, Throat pain, Throat swelling, Other Respiratory: No: Cough, Dry, Shortness of breath, SOB with excertion, Wheezing, Hemoptysis, Pleuritic Pain, Sputum, Wheezing, Other Cardiovascular: No: Chest Pain, Palpitations, Orthopnea, Paroxysmal Noc. Dyspnea, Edema, Lt Headedness, Other Gastrointestinal: Nausea, Vomiting, Abdominal Pain; No: Diarrhea, Constipation, Melena, Hematochezia, Other Genitourinary: No Dysuria, No Frequency, No Incontinence, No Hematuria, No Retention, No Other Musculoskeletal: No: other, neck pain, shoulder pain, arm pain, back pain, hand pain, leg pain, foot pain Skin: No: Rash, Lesions, Jaundice, Bruising, Other Neurological: No: Weakness, Numbness, Incoordination, Change in speech, Confusion, Seizures, Other Allergies: Coded Allergies: NO KNOWN ALLERGIES (Unverified , 02/16/23) Exam Vital Signs Vital Signs Date Time Temp Pulse Resp B/P (MAP) Pulse Ox O2 Delivery O2 Flow Rate FiO2 04/07/24 09:47 90 19 154/70 04/07/24 08:19 99.2 96 99.2 04/07/24 08:19 Room Air* 0 21 General Appearance: Alert, Oriented X3, Cooperative, No acute distress HEENT: Atraumatic, PERRLA, EOMI, Mucous membr. moist/pink Respiratory: Clear to auscultation, Normal air movement Cardiovascular: Regular rate, Normal S1, Normal S2, No murmurs Abdominal: Normal bowel sounds, Soft, No tenderness, No hepatospenomegaly, No masses Extremities: No clubbing, No cyanosis, No edema, Normal pulses, No tenderness/swelling Skin: No rashes, No breakdown, No significant lesion Neuro: Normal gait, Normal speech, Strength at 5/5 X4 ext, Normal tone, Sensation intact, Cranial nerves 3-12 NL Psych/Mental Status: Mental status NL, Mood NL Labs/Xrays ct abd pelvis no acute findings I reviewed labs, imaging CT scan abdomen pelvis, EKG and all diagnostic studies on this patient from ED records and the medical chart Labs Test 04/07/24 09:00 Range/Units White Blood Count 7.3 4.4-10.8 10^3/uL Red Blood Count 4.62 4.0-5.20 10^6/uL Hemoglobin 13.6 12.2-16.2 g/dL Hematocrit 41.1 36.0-46.0 % Mean Corpuscular Volume 88.8 80.0-100.0 fL Mean Corpuscular Hemoglobin 29.4 28.0-32.0 pg Mean Corpuscular Hemoglobin Concent 33.1 32.0-36.0 g/dL Red Cell Distribution Width 16.7 H 11.8-14.3 % Platelet Count 209 140-450 10^3/uL Mean Platelet Volume 8.0 6.9-10.8 fL Neutrophils (%) (Auto) 73.9 37.0-80.0 % Lymphocytes (%) (Auto) 17.3 10.0-50.0 % Monocytes (%) (Auto) 7.9 0.0-12.0 % Eosinophils (%) (Auto) 0.4 0.0-7.0 % Basophils (%) (Auto) 0.5 0.0-2.0 % Neutrophils # (Auto) 5.4 1.6-8.6 10 ^3/uL Lymphocytes # (Auto) 1.3 0.4-5.4 10 ^3/uL Monocytes # (Auto) 0.6 0-1.3 10 ^3/uL Eosinophils # (Auto) 0 0-0.8 10 ^3/uL Basophils # (Auto) 0 0-0.2 10 ^3/uL Nucleated Red Blood Cells 0.2 % Sodium Level 137 136-145 mmol/L Potassium Level 3.1 L 3.5-5.1 mmol/L Chloride Level 104 98-107 mmol/L Carbon Dioxide Level 22 20-31 mmol/L Anion Gap 11 5-15 Blood Urea Nitrogen 27 H 9-23 mg/dL Creatinine 1.50 H 0.550-1.02 mg/dL Glomerular Filtration Rate Calc 38 >90 mL/min BUN/Creatinine Ratio 18.0 10.0-20.0 Serum Glucose 134 H 74-106 mg/dL Calcium Level 10.7 H 8.7-10.4 mg/dL Total Bilirubin 0.6 0.2-1.0 mg/dL Aspartate Amino Transferase (AST) 36 13-40 U/L Alanine Aminotransferase (ALT) 30 7-40 U/L Alkaline Phosphatase 133 H 46-116 U/L Total Protein 8.3 H 5.7-8.2 g/dL Albumin 5.2 H 3.2-4.8 g/dL Assessment/Plan Assessment/Plan acute intractable abd pain likely from gi bleed ct scan normal ordered morphine as needed for pain ivf clr liquid diet for now acute upper gi bleed found with emesis current ct scan no bleeding ordered protonix for now ordered gi consult fu results ordered clr liquid for now hemoglobin q6h for now ordered sucralfate acute hypokalemia replete k ordered mag and phos fu results acute elevation in crea likely and d/t gi bleeding dehydration will provided ivf hydration ordered urine sodium and crea to check fena chronic problems liver cancer pt states 09/2023 ulcers dm ISS htn cva right side weakness chf no exacerbation afib no rvr mi fen/ppx npo ivf no dvt ppx since with acute bleeding protonix plan admit to medicine for GI consult Plan discussed with: Patient Date of Service: Apr 07, 2024 Billing Provider: BIJAL CASTELLANO DNP Common Visit Codes: [id number] INP/OBS CARE (HIGH) BIJAL CASTELLANO DNP Apr 07, 2024 10:32
[2024-04-07] MEDS ORDERED: DOCUSATE SOD 100 MG CAP PO PRN (11:45)
[2024-04-07] MEDS ORDERED: MORPHINE SULFATE INJ 2 MG/ml SYRG IV PRN (11:45)
[2024-04-07] MEDS ORDERED: NITROGLYCERIN 0.4 MG SL TAB SL PRN (11:45)
[2024-04-07] MEDS ORDERED: ONDANSETRON HCL 4 MG/2 ML VIAL IV PRN (11:45)
[2024-04-07 12:47] LABS: Magnesium 1.9 mg/dL (1.6-2.6)
[2024-04-07 12:49] LABS: Phosphorus 3.3 mg/dL (2.4-5.1)
[2024-04-07] MEDS: SODIUM CHLORIDE 0.9% 1,000 ML IV SCH (13:00)
[2024-04-07] MEDS ORDERED: SUMAtriptan SUCCINATE 25 MG TAB PO PRN (13:00)
[2024-04-07] MEDS: POTASSIUM EFFERVESENT TAB 25 MEQ PO ONE (13:22)
[2024-04-07] MEDS: hydrALAZINE HCL 10 MG TAB PO SCH (13:23)
[2024-04-07] MEDS: CARISOPRODOL 350 MG TAB PO SCH (13:23)
[2024-04-07] MEDS: SUCRALFATE 1 GM TAB PO SCH (13:23)
[2024-04-07] MEDS: HYDROmorphone HCL 2 MG/ML VL/or syr IV PRN (14:41)
[2024-04-07] MEDS: METOPROLOL SUCCINATE XL 50 MG TAB PO ONE (16:26)
[2024-04-07] MEDS: amLODIPine BESYLATE 5 MG TAB PO ONE (16:28)
[2024-04-07] MEDS: ONDANSETRON HCL 4 MG/2 ML VIAL IV SCH (17:31)
[2024-04-07] MEDS: METOCLOPRAMIDE HCL 5MG/ml INJ 2ml VIAL IV ONE (17:40)
--- NOTE | 2024-04-07 17:43 | DVHCONRES ---
Date Seen: Apr 07, 2024 Resident Creating Document: VASILE HANKINS RESIDENT Referring Physician brenda SANCHES Reason for Consultation Upper GI bleed History of Present Illness Patient is a 69-year-old female with a past medical history of hepatitis-C infection, liver cancer, acute gastritis, utilized AV esophagitis, hiatal hernia, SBO, status post hepatectomy, diabetes, CAD with status post, AFib, CHF who presented to the hospital with epigastric pain with intractable nausea and vomiting for past three days. As per patient intractable nausea and vomiting associated with hematemesis that prompted visit to the hospital. she is denying any other symptoms at this point including fever, chills, chest pain, weakness, dizziness, sensory deficits, any other symptoms. EGD on 12/13/23: 1. 2 cm sliding-type hiatal hernia with grade a erosive esophagitis and irregular squamocolumnar junction from which biopsies were obtained Patient had a 1 cm distal esophageal ulcer just above the hiatal hernia area with overlying eschar possibly a pill induced ulcer from which biopsies were obtained 2. [id number] gastritis and gastropathy with multiple gastric erosions 3. Mild duodenitis of the duodenal bulb and postbulbar area otherwise normal examination up to the 2nd and 3rd part of the duodenum with no active bleeding no fresh or old blood in the stomach Past surgical history: Status post partial hepatectomy, colostomy secondary to SBO, multiple abdominal surgery Allergic: None Patient denying any illicit drug use, nonsmoking, no alcohol. Family History: FH: breast cancer G8 MOTHER FH: heart disease G8 MOTHER 19 CHILD G8 SISTER FH: stomach cancer G8 MOTHER Hypertension G8 MOTHER Allergies: Coded Allergies: NO KNOWN ALLERGIES (Unverified , 02/16/23) Home Meds Active Scripts Sertraline Hcl (Zoloft) 25 Mg Tab, 1 TAB PO BID, #30 TAB 2 Refills Prov:KEVIN POSADA MD 08/18/23 Zolpidem Tartrate (Ambien) 10 Mg Tab, 1 TAB PO QPM PRN, #20 TAB 5 Refills Prov:KEVIN POSADA MD 08/18/23 Oxycodone W/ Acetaminophen (Percocet 5/325MG) 1 Tab Tb, 1 TAB PO QID, #30 TAB Prov:KEVIN POSADA MD 08/18/23 Pantoprazole Sodium Sesquihydr (Protonix) 40 Mg Tab, 40 MG PO DAILY, #30 TAB Prov:CESAR CHIN JEWELRY CUTTER 02/24/23 Sucralfate (CARAFATE) 1 Gm Tab, 1 GM OR QID for 30 Days, #120 TAB Prov:CESAR CHIN JEWELRY CUTTER 02/24/23 Reported Medications Carisoprodol (Soma) 350 Mg Tab, 350 MG PO TID, #30 TAB 08/18/23 Tizanidine Hydrochloride (Zanaflex) 4 Mg Cap, 2 MG PO TID 08/14/23 Clopidogrel Bisulfate (CLOPIDOGREL) 75 Mg Tab, 1 TAB PO DAILY 08/14/23 Atorvastatin Calcium (Lipitor) 40 Mg Tab, 1 TAB PO DAILY 08/14/23 Metoprolol Succinate (Metoprolol Succinate Er) 25 Mg Tab, 1 TAB PO DAILY 08/14/23 Potassium Chloride (Potassium Chloride ER) 20 Meq Tab, 1 TAB PO DAILY 08/14/23 Aspirin (Aspirin Low Dose) 81 Mg Chw, 1 TAB PO DAILY 08/14/23 Furosemide (Furosemide) 20 Mg Tab, 1 TAB PO DAILY 08/14/23 Sumatriptan Succinate (Sumatriptan Succinate) 50 Mg Tab, 1 TAB PO DAILY for 9 Days, #9 08/14/23 Alprazolam (Alprazolam) 0.25 Mg Tab, 1 TAB PO BID 08/14/23 Nifedipine (Nifedipine Er) 30 Mg Tab, 1 TAB PO BID 08/14/23 Clonidine Hydrochloride (Clonidine Hcl) 0.3 Mg Tab, 1 TAB PO BID 08/14/23 Hydralazine Hcl (Hydralazine Hcl) 10 Mg Tab, 1 TAB PO TID 08/14/23 Sacubitril-Valsartan (Entresto 24-26 mg) 1 Tab Tab, 1 TAB PO BID 02/17/23 Amlodipine Besylate (Amlodipine Besylate) 5 Mg Tab, 1 TAB PO DAILY 02/17/23 Current Medications Current Medications Medications (Trade) Dose Ordered Sig/Jennifer Route PRN Reason Start Time Stop Time Status Last Admin Alprazolam (Xanax Tablet) 0.25 mg BID PO 04/07/24 22:00 Amlodipine Besylate (Norvasc Tablet) 5 mg DAILY PO 04/08/24 10:00 Carisoprodol (Soma Tablet) 350 mg TID PO 04/07/24 14:00 04/07/24 13:23 Hydralazine HCl (Apresoline Tablet) 10 mg TID PO 04/07/24 14:00 04/07/24 13:23 Nifedipine (Procardia Xl (Time-Release)) 30 mg BID PO 04/07/24 22:00 Sacubitril/ Valsartan (Entresto 24-26 Mg tab) 1 tab BID PO 04/07/24 22:00 Sucralfate (Carafate Tab) 1 gm QID PO 04/07/24 12:00 04/07/24 13:23 Atorvastatin Calcium (Lipitor) 40 mg HS PO 04/07/24 22:00 Clonidine HCl (Catapres Tablet) 0.3 mg BID PO 04/07/24 22:00 Metoprolol Succinate (Toprol Xl) 25 mg DAILY PO 04/08/24 10:00 Sertraline HCl (Zoloft) 25 mg BID PO 04/08/24 10:00 Sumatriptan Succinate (Imitrex Tablet) 25 mg DAILY PRN PO FOR HEADACHE 04/07/24 13:00 04/07/24 12:50 DC Sodium Chloride 1,000 ml @ 100 mls/hr Q10H IV 04/07/24 11:45 Ondansetron HCl (Zofran) 4 mg Q4HP PRN IV NAUSEA / VOMITING 04/07/24 11:45 04/07/24 17:15 DC Docusate Sodium (Colace Capsule) 100 mg BIDPRN PRN PO FOR CONSTIPATION 04/07/24 11:45 Morphine Sulfate 2 mg Q4HPRN PRN IV SEVERE PAIN (7-10 PAIN SCALE) 04/07/24 11:45 04/07/24 13:40 DC Nitroglycerin (Ntrostat Sublingual) 0.4 mg Q5MINP PRN SL FOR CHEST PAIN 04/07/24 11:45 Pantoprazole Sodium (Protonix) 40 mg BID IV 04/07/24 22:00 Sumatriptan Succinate (Imitrex Tablet) 50 mg DAILY PRN PO FOR HEADACHE 04/07/24 13:00 Hydromorphone HCl (Dilaudid Injection) 0.5 mg Q4HPRN PRN IV SEVERE PAIN (7-10 PAIN SCALE) 04/07/24 13:45 04/07/24 14:41 Ondansetron HCl (Zofran) 4 mg Q6HP IV 04/07/24 18:00 UNV Metoclopramide HCl (Reglan Injection) 10 mg Q8HR IV 04/07/24 22:00 UNV Review of Systems Patient is complaining nausea, vomiting, intractable abdominal pain. Hematemesis. No any other symptoms. Vital Signs Vital Signs Date Time Temp Pulse Resp B/P (MAP) Pulse Ox O2 Delivery O2 Flow Rate FiO2 04/07/24 16:26 92 160/95 04/07/24 15:11 16 04/07/24 13:30 98.8 98.8 04/07/24 13:13 97 Room Air* 0 21 Physical Exam General Appearance: Cooperative. Well developed. Well nourished. NAD Head Exam: Normal inspection Neck Exam: Normal inspection. Non-tender. Normal alignment Pulmonary/Respiratory: Chest non-tender. Clear bilateral breath sounds Cardiovascular/Chest: Regular rate and rhythm. No murmurs. No JVD. Peripheral Pulses: 2+ Radial (R). 2+ Radial (L). 2+ Pedal (R). 2+ Pedal (L) Abdominal Exam: Normal bowel sounds. Soft. Mild tenderness over epigastric region, no rigidity, no guarding. No hepatospenomegaly. No masses Ankle Exam: Negative ankle edema Lower extremities: Negative lower extremity edema Neuro/Mental Status: A&O x4. Coherent Thoughts/Psych: Normal thought pattern. Appropriate mood and affect. Good judgement and insight Appearance: In no acute distress Skin Exam: Normal inspection. Normal color. Warm. Dry Labs/Diagnostic Data Labs Test 04/07/24 09:00 Range/Units White Blood Count 7.3 4.4-10.8 10^3/uL Red Blood Count 4.62 4.0-5.20 10^6/uL Hemoglobin 13.6 12.2-16.2 g/dL Hematocrit 41.1 36.0-46.0 % Mean Corpuscular Volume 88.8 80.0-100.0 fL Mean Corpuscular Hemoglobin 29.4 28.0-32.0 pg Mean Corpuscular Hemoglobin Concent 33.1 32.0-36.0 g/dL Red Cell Distribution Width 16.7 H 11.8-14.3 % Platelet Count 209 140-450 10^3/uL Mean Platelet Volume 8.0 6.9-10.8 fL Neutrophils (%) (Auto) 73.9 37.0-80.0 % Lymphocytes (%) (Auto) 17.3 10.0-50.0 % Monocytes (%) (Auto) 7.9 0.0-12.0 % Eosinophils (%) (Auto) 0.4 0.0-7.0 % Basophils (%) (Auto) 0.5 0.0-2.0 % Neutrophils # (Auto) 5.4 1.6-8.6 10 ^3/uL Lymphocytes # (Auto) 1.3 0.4-5.4 10 ^3/uL Monocytes # (Auto) 0.6 0-1.3 10 ^3/uL Eosinophils # (Auto) 0 0-0.8 10 ^3/uL Basophils # (Auto) 0 0-0.2 10 ^3/uL Nucleated Red Blood Cells 0.2 % Sodium Level 137 136-145 mmol/L Potassium Level 3.1 L 3.5-5.1 mmol/L Chloride Level 104 98-107 mmol/L Carbon Dioxide Level 22 20-31 mmol/L Anion Gap 11 5-15 Blood Urea Nitrogen 27 H 9-23 mg/dL Creatinine 1.50 H 0.550-1.02 mg/dL Glomerular Filtration Rate Calc 38 >90 mL/min BUN/Creatinine Ratio 18.0 10.0-20.0 Serum Glucose 134 H 74-106 mg/dL Calcium Level 10.7 H 8.7-10.4 mg/dL Phosphorus Level 3.3 2.4-5.1 mg/dL Magnesium Level 1.9 1.6-2.6 mg/dL Total Bilirubin 0.6 0.2-1.0 mg/dL Aspartate Amino Transferase (AST) 36 13-40 U/L Alanine Aminotransferase (ALT) 30 7-40 U/L Alkaline Phosphatase 133 H 46-116 U/L Total Protein 8.3 H 5.7-8.2 g/dL Albumin 5.2 H 3.2-4.8 g/dL Lipase 44 12-53 U/L Assessment Intractable nausea and vomiting Epigastric pain ? Acute gastritis, hiatal hernia, gastropathy, esophageal spasm Upper GI bleed Acute dehydration DANIA History of hepatitis-C antibody infection History of liver cancer with partial hepatectomy Diabetes mellitus Coronary artery disease with status post PTCA History of AFib History of CHF Plan/recommendation Dr Granger -Initiated Protonix drip 8 microgram/hour. -NPO, possible EGD tomorrow. -monitor H&H q.12 -symptomatic treatment with ondansetron 4 mg IV q.6, dicyclomine 10 mg IM once, metoclopramide 5 mg IV Q eight. -EGD on 12/13/2023: Hiatal hernia, duodenitis, acute gastritis with erosive esophagitis. -hepatitis-C antibody infection: Not sure patient followed up in outpatient setting, we will need outpatient follow up in GI clinic. -NPO from midnight, we will continue to monitor patient's clinical status, possible EGD in tomorrow based on clinical status. -CT abdomen and pelvis no acute intra-abdominal pathology. -IV hydration -rest of the management as per hospitalist team -continue following up with this patient Plan discussed with: Patient, Other (RN) VASILE HANKINS RESIDENT Apr 07, 2024 17:43
[2024-04-07] MEDS: DICYCLOMINE HCL (10MG/ML) 2 ML AMPULE IM ONE (18:14)
[2024-04-07] MEDS: PANTOPRAZOLE 40mg/50ML NS AE 50 ML IV SCH (18:34)
[2024-04-07] MEDS: MAALOX PLUS or MAALOX 30 ML PO ONE (18:34)
[2024-04-07] MEDS: cloNIDine HCL 0.1 MG TAB PO ONE (18:37)
[2024-04-07 19:27] LABS: Hematocrit 39.2 % (36.0-46.0); Hemoglobin 12.9 g/dL (12.2-16.2)
--- NOTE | 2024-04-07 19:55 | DVH ---
CHEST RADIOGRAPH Indication: H/o CHF Technique: Single frontal view of the chest was obtained COMPARISON: XY CHEST PORTABLE on DOS: 02/12/24, XY CHEST PORTABLE on DOS: 12/07/23, XY CHEST XRAY 1 V IEW on DOS: 08/12/23 FINDINGS: Lines and Tubes: Median sternotomy Lungs: Mild congestion Pleura: No effusion. No pneumothorax. Cardiomediastinal contours: Unremarkable Bones: Unremarkable IMPRESSION: Mild pulmonary vascular congestion
[2024-04-07] MEDS: ACETAMINOPHEN 325 MG TAB PO ONE (20:21)
[2024-04-07] MEDS: METOCLOPRAMIDE HCL 5MG/ml INJ 2ml VIAL IV SCH (21:02)
[2024-04-07] MEDS: ATORVASTATIN 20 MG TAB PO SCH (21:02)
[2024-04-07] MEDS: SACUBITRIL-VALSARTAN 24mg/26mg TAB PO SCH (21:02)
[2024-04-07] MEDS: NIFEdipine ER 30 MG TAB PO SCH (21:03)
[2024-04-07] MEDS: cloNIDine HCL 0.1 MG TAB PO SCH (21:03)
[2024-04-07] MEDS ORDERED: PANTOPRAZOLE 40 MG/10 ML VIAL INJ IV SCH (22:00)
[2024-04-07] MEDS: ALPRAZolam 0.25 MG TAB PO SCH (22:10)
[2024-04-08] VITALS (9 sets, daily range): BP systolic 113–160; BP diastolic 58–107; PULSE 61–79; RESP 16–19; TEMP 98–98.6; O2SAT 93–100
[2024-04-08 07:43] LABS: Basophils # (auto) 0 10 ^3/uL (0-0.2); Basophils % (auto) 0.4 % (0.0-2.0); Eosinophils # (auto) 0.1 10 ^3/uL (0-0.8); Eosinophils % (auto) 1.2 % (0.0-7.0); Hematocrit 36.7 % (36.0-46.0); Hemoglobin 12.2 g/dL (12.2-16.2); Lymphocytes # (auto) 1.8 10 ^3/uL (0.4-5.4); Lymphocytes % (auto) 35.9 % (10.0-50.0); Mean Corpuscular Hemoglobin 29.4 pg (28.0-32.0); Mean Corpuscular Hgb Conc. 33.2 g/dL (32.0-36.0); Mean Corpuscular Volume 88.6 fL (80.0-100.0); Monocytes # (auto) 0.6 10 ^3/uL (0-1.3); Monocytes % (auto) 11.2 % (0.0-12.0); Neutrophils # (auto) 2.6 10 ^3/uL (1.6-8.6); Neutrophils % (auto) 51.3 % (37.0-80.0); Nucleated Red Blood Cells % 0.2 %; Platelet Count (auto) 194 10^3/uL (140-450); Red Blood Cells 4.14 10^6/uL (4.0-5.20); Red Cell Distribution Width 16.7 % (11.8-14.3)
[2024-04-08 07:53] LABS: INR 1.08 (0.9-1.15); Partial Thromboplastin Time 27.9 SEC (24.5-34.5); Prothrombin Time 11.4 sec (9.3-11.8)
[2024-04-08 07:57] LABS: Alanine Aminotransferase 28 U/L (7-40); Albumin 4.4 g/dL (3.2-4.8); Alkaline Phosphatase 105 U/L (46-116); Anion Gap 10 (5-15); Aspartate Aminotransferase 34 U/L (13-40); BUN/Creatinine Ratio 19.3 (10.0-20.0); Bilirubin, Total 0.7 mg/dL (0.2-1.0); Calcium 10.3 mg/dL (8.7-10.4); Carbon Dioxide 26 mmol/L (20-31); Chloride 105 mmol/L (98-107); Glucose 92 mg/dL (74-106); Sodium 141 mmol/L (136-145); Total Protein 7.1 g/dL (5.7-8.2)
[2024-04-08 08:02] LABS: Blood Urea Nitrogen 33 mg/dL (9-23)
[2024-04-08] MEDS ORDERED: NALOXONE HCL 0.4 MG/ML VIAL ONE (09:19)
[2024-04-08] MEDS ORDERED: FLUMAZENIL 0.1 MG/ML INJ 10ML MDV IV ONE (09:19)
[2024-04-08] MEDS ORDERED: SODIUM CHLORIDE LOCK 10 ML ONE (09:25)
[2024-04-08] MEDS: amLODIPine BESYLATE 5 MG TAB PO SCH (09:33)
[2024-04-08] MEDS: METOPROLOL SUCCINATE XL 50 MG TAB PO SCH (09:33)
[2024-04-08] MEDS: SERTRALINE HCL 50 MG TAB PO SCH (09:34)
[2024-04-08] MEDS: POTASSIUM CHL 20MEQ/100ML 100 ML IV SCH (11:57)
[2024-04-08] MEDS: LIDOCAINE VISCOUS 2% 15ML UD ONE (14:15)
[2024-04-08] MEDS: MIDAZOLAM HCL 5 MG/ML-1ML VIAL ONE (14:16)
[2024-04-08] MEDS: diphenhdrAMINE HCL 50 MG/1 ML VL ONE (14:16)
[2024-04-08] MEDS: fentaNYL CITRATE 100 MCG/2 ML VL ONE (14:16)
--- NOTE | 2024-04-08 14:32 | DVHOP2 ---
Operative Report DATE OF OPERATION: 04/08/24 PROCEDURE: Upper Endoscopy with biopsy. PREOPERATIVE INDICATION: The patient is a 69 -year-old female undergoing endoscopy for for nausea vomiting abdominal pain POSTOPERATIVE DIAGNOSES: 1. 2 cm sliding-type hiatal hernia with slightly irregular squamocolumnar junction no significant erosive esophagitis 2. Mild antral gastritis with pre-pyloric antral gastric erosions and mild duodenitis of the duodenal bulb 3. Otherwise normal examination up to the 2nd and 3rd part of the duodenal with no active bleeding and good bile drainage PROCEDURE PERFORMED BY: Clemencia Granger GI NURSE: Hali SCOPE: Olympus videoendoscope. ASA CLASS: 2. PREOPERATIVE MEDICATIONS: Versed 2 mg, Fentanyl 50 mcg, Benadryl 50 mg I administered moderate sedation throughout this _7_ minutes procedure. An independent trained observer pushed medications at my direction, and monitored the patient's level of consciousness and physiological status throughout. PROCEDURE IN DETAIL: After obtaining an informed consent, the patient was placed on left lateral decubitus position. The patient was then sedated with the above medications. A bite block was placed between her teeth. The endoscope was then passed through the oropharynx, into the esophagus, and through the stomach and pylorus up to the second and third part of the duodenum. The endoscope was then withdrawn. The 2nd and 3rd part of the duodenal were normal. There was good bile drainage. There was minimal duodenitis of the duodenal bulb. There was mild gastritis with pre-pyloric antral gastric erosions On retroflexion the fundus cardia and angularis were also normal. The endoscope was then withdrawn into the distal esophagus She had a 1-2 cm sliding-type hiatal hernia with slightly irregular squamocolumnar junction no esophagitis. The remaining distal and proximal esophagus and oropharynx were unremarkable The patient tolerated the procedure well without difficulty. COMPLICATIONS : None SPECIMENS: Duodenal biopsy Gastric biopsies DISPOSITION: Transfer back to the floor Stable PLAN: 1. Await for biopsy result 2. Will place pt on Protonix 40 mg bid 3. Carafate 1 g p.o. twice a day 4. Zofran as needed for nausea vomiting 5. Start full liquid diet advance as tolerated CLEMENCIA GRANGER MD Apr 08, 2024 14:32
--- NOTE | 2024-04-08 15:39 | DVHPN2 ---
Subjective Admitted for hematemesis s/p EGD c/o epigastric pain Changes from previous H/P or p: Changes Eyes: No Pain, No Vision change, No Conjunctivae inflammation, No Eyelid inflammation, No Other, No Redness ENT: No Ear pain, No Ear discharge, No Nose pain, No Nose discharge, No Nose congestion, No Mouth pain, No Mouth swelling, No Throat pain, No Throat swelling, No Other Cardiovascular: No Chest Pain, No Palpitations, No Orthopnea, No Paroxysmal Noc. Dyspnea, No Edema, No Lt Headedness, No Other Respiratory: No Cough, No Dry, No Shortness of breath, No SOB with excertion, No Wheezing, No Hemoptysis, No Pleuritic Pain, No Sputum, No Other Gastrointestinal: Nausea, Vomiting, Abdominal Pain; No Diarrhea, No Constipation, No Melena, No Hematochezia, No Other Genitourinary: No Dysuria, No Frequency, No Incontinence, No Hematuria, No Retention, No Other Musculoskeletal: No other, No neck pain, No shoulder pain, No arm pain, No back pain, No hand pain, No leg pain, No foot pain Skin: No Rash, No Lesions, No Jaundice, No Bruising, No Other Objective Vitals Vital Signs Date Time Temp Pulse Resp B/P (MAP) Pulse Ox O2 Delivery O2 Flow Rate FiO2 04/08/24 14:54 62 16 132/73 (92) 95 04/08/24 14:29 Room Air 0 04/08/24 14:29 98 04/08/24 14:29 98.0 98.0 Intake/Output Intake and Output 04/08/24 07:00 Intake Total 1780 ml Balance 1780 ml Intake Oral 650 ml IV Total 1130 ml # Voids 2 General Appearance: Alert, Oriented X3, Cooperative Lungs: Clear to auscultation, Normal air movement Cardiovascular: Regular rate, Normal S1 Abdomen: Normal bowel sounds, Soft Extremities: No edema Medications Current Medications Medications Dose Ordered Sig/Jennifer Route Start Time Stop Time Status Last Admin Dose Admin Alprazolam 0.25 mg BID PO 04/07/24 22:00 04/08/24 10:28 0.25 MG Amlodipine Besylate 5 mg DAILY PO 04/08/24 10:00 Carisoprodol 350 mg TID PO 04/07/24 14:00 04/07/24 22:10 350 MG Hydralazine HCl 10 mg TID PO 04/07/24 14:00 04/07/24 21:03 10 MG Nifedipine 30 mg BID PO 04/07/24 22:00 04/08/24 09:30 30 MG Sacubitril/ Valsartan 1 tab BID PO 04/07/24 22:00 04/08/24 09:29 1 TAB Sucralfate 1 gm QID PO 04/07/24 12:00 04/07/24 21:03 1 GM Atorvastatin Calcium 40 mg HS PO 04/07/24 22:00 04/07/24 21:02 40 MG Clonidine HCl 0.3 mg BID PO 04/07/24 22:00 04/08/24 10:28 0.3 MG Metoprolol Succinate 25 mg DAILY PO 04/08/24 10:00 04/08/24 09:33 25 MG Sertraline HCl 25 mg BID PO 04/08/24 10:00 04/08/24 09:34 25 MG Sodium Chloride 1,000 ml @ 100 mls/hr Q10H IV 04/07/24 11:45 04/08/24 08:27 100 MLS/HR Docusate Sodium 100 mg BIDPRN PRN PO 04/07/24 11:45 Nitroglycerin 0.4 mg Q5MINP PRN SL 04/07/24 11:45 Sumatriptan Succinate 50 mg DAILY PRN PO 04/07/24 13:00 Hydromorphone HCl 0.5 mg Q4HPRN PRN IV 04/07/24 13:45 04/08/24 09:25 0.5 MG Ondansetron HCl 4 mg Q6HP IV 04/07/24 18:00 04/08/24 12:05 4 MG Metoclopramide HCl 10 mg Q8HR IV 04/07/24 22:00 04/08/24 06:17 10 MG Pantoprazole Sodium 50 ml @ 10 mls/hr Q5H IV 04/07/24 17:30 04/08/24 08:26 10 MLS/HR Potassium Chloride 100 ml @ 50 mls/hr Q2H IV 04/08/24 11:45 04/08/24 15:44 04/08/24 11:57 50 MLS/HR Pantoprazole Sodium 40 mg BID@0600,1700 PO 04/08/24 17:00 UNV Laboratory Results Laboratory Tests 04/08/24 06:20 Chemistry Test 04/08/24 06:20 Albumin 4.4 g/dL (3.2-4.8) Calcium Level 10.3 mg/dL (8.7-10.4) Total Protein 7.1 g/dL (5.7-8.2) Coagulation Test 04/08/24 06:20 Prothrombin Time 11.4 sec (9.3-11.8) Prothrombin Time INR 1.08 (0.9-1.15) Activated Partial Thromboplast Time 27.9 SEC (24.5-34.5) LFT Test 04/08/24 06:20 Alanine Aminotransferase (ALT) 28 U/L (7-40) Alkaline Phosphatase 105 U/L (46-116) Aspartate Amino Transferase (AST) 34 U/L (13-40) Total Bilirubin 0.7 mg/dL (0.2-1.0) Microbiology Microbiology Date/Time Source Procedure Growth Status 04/07/24 21:13 Nose MRSA Screen - Final Complete Assessment/Plan Assessment/Plan Upper GI bleed Hiatal hernia Mild gastritis History of atrial fibrillation History of CVA History of CHF Acute kidney injury hemodynamically mediated Rule out chronic kidney disease Type 2 diabetes Hypertension Hypokalemia Plan Continue p.o. Protonix Carafate Discontinue the IV fluids Replace potassium IV Home medications Place on area safety manager the patient closely Full code Rest of the management will depend on the hospital course Plan of care discussed for 20 minute Plan discussed with: Patient My Orders Orders - CORINNE AC MD Procedure Category Date Status Time Initiate Vte PHILL 04/08/24 In Process Prophylaxis 09:59 Complete Blood Count LAB 04/09/24 Verified 04:00 Comprehensive LAB 04/09/24 Verified Metabolic Panel 04:00 Magnesium LAB 04/09/24 Verified 04:00 Pantoprazole Tablet PHA 04/08/24 Logged (Protonix Tablet) 17:00 Date of Service: Apr 08, 2024 Billing Provider: CORINNE AC MD Common Visit Codes: [id number] INP/OBS CARE(HIGH) Secondary Visit Codes: [id number] CARE PLAN 30 MINUTES CORINNE AC MD Apr 08, 2024 15:39
--- NOTE | 2024-04-08 16:14 | DVHPN2 ---
Progress Note - Dictate Date Seen: Apr 08, 2024 Medical Necessity Reason Pt with a Central, PICC or Fol: No Subjective ABD PAIN HAS NOT SEEN ME IN OFFICE SINCE LAST ADMISSION IN FEBRUARY PT HAS HAD MULTIPLE CTs OF ABD/ HEAD / CHEST LACK OF MOBILITY MORBID OBESITY SEVERE ABD / EPIGASTRIC PAIN AND TENDERNESS 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 WAS NEGATIVE CT OF CT NEGATIVE HIGH BUN/ CR RATION CONSISTENT WITH HYPOVOLEMIA WITH NAUSEA AND VOMITING PT WITH SEVERE HYPOKALEMIA PMH: DIABETES HTN HYPERLIPIDEMIA S/P PTCA CA OF LIVER S/P PARTIAL HEPATECTOMY HX OF COLSTOMY SECONDARY TO SBO AFIB CHRONIC HX OF L CVA RIGHT SIDED WEAKNESS vital signs Vital Sign Date Time Temp Pulse Resp B/P (MAP) Pulse Ox O2 Delivery O2 Flow Rate FiO2 04/08/24 14:54 62 16 132/73 (92) 95 04/08/24 14:29 Room Air 0 04/08/24 14:29 98 04/08/24 14:29 98.0 98.0 Total Intake and Output 04/07/24 04/07/24 04/08/24 15:00 23:00 07:00 Intake Total 1000 ml 400 ml 380 ml Balance 1000 ml 400 ml 380 ml medications Current Medications Medications Dose Ordered Sig/Jennifer Route Start Time Stop Time Status Last Admin Dose Admin Alprazolam 0.25 mg BID PO 04/07/24 22:00 04/08/24 10:28 0.25 MG Amlodipine Besylate 5 mg DAILY PO 04/08/24 10:00 Carisoprodol 350 mg TID PO 04/07/24 14:00 04/07/24 22:10 350 MG Hydralazine HCl 10 mg TID PO 04/07/24 14:00 04/07/24 21:03 10 MG Nifedipine 30 mg BID PO 04/07/24 22:00 04/08/24 09:30 30 MG Sacubitril/ Valsartan 1 tab BID PO 04/07/24 22:00 04/08/24 09:29 1 TAB Sucralfate 1 gm QID PO 04/07/24 12:00 04/07/24 21:03 1 GM Atorvastatin Calcium 40 mg HS PO 04/07/24 22:00 04/07/24 21:02 40 MG Clonidine HCl 0.3 mg BID PO 04/07/24 22:00 04/08/24 10:28 0.3 MG Metoprolol Succinate 25 mg DAILY PO 04/08/24 10:00 04/08/24 09:33 25 MG Sertraline HCl 25 mg BID PO 04/08/24 10:00 04/08/24 09:34 25 MG Docusate Sodium 100 mg BIDPRN PRN PO 04/07/24 11:45 Nitroglycerin 0.4 mg Q5MINP PRN SL 04/07/24 11:45 Sumatriptan Succinate 50 mg DAILY PRN PO 04/07/24 13:00 Hydromorphone HCl 0.5 mg Q4HPRN PRN IV 04/07/24 13:45 04/08/24 09:25 0.5 MG Ondansetron HCl 4 mg Q6HP IV 04/07/24 18:00 04/08/24 12:05 4 MG Metoclopramide HCl 10 mg Q8HR IV 04/07/24 22:00 04/08/24 06:17 10 MG Pantoprazole Sodium 40 mg BID@0600,1700 PO 04/08/24 17:00 laboratory and microbiology Laboratory Tests 04/08/24 06:20 Test 04/08/24 06:20 Range/Units Serum Glucose 92 74-106 mg/dL Problem List ABD PAIN HAS NOT SEEN ME IN OFFICE SINCE LAST ADMISSION IN FEBRUARY PT HAS HAD MULTIPLE CTs OF ABD/ HEAD / CHEST LACK OF MOBILITY MORBID OBESITY SEVERE ABD / EPIGASTRIC PAIN AND TENDERNESS 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 WAS NEGATIVE CT OF CT NEGATIVE HIGH BUN/ CR RATION CONSISTENT WITH HYPOVOLEMIA WITH NAUSEA AND VOMITING PT WITH SEVERE HYPOKALEMIA PMH: DIABETES HTN HYPERLIPIDEMIA S/P PTCA CA OF LIVER S/P PARTIAL HEPATECTOMY HX OF COLSTOMY SECONDARY TO SBO AFIB CHRONIC HX OF L CVA RIGHT SIDED WEAKNESS Assessment/Plan S/P EGD HH EROSIVE ESOPHAGITIS EROSIVE GASTRITIS Plan discussed with: Patient TAY DUNLAP MD Apr 08, 2024 16:14
[2024-04-08] MEDS: PANTOPRAZOLE 40 MG TAB PO SCH (16:57)
[2024-04-09] VITALS (9 sets, daily range): BP systolic 112–164; BP diastolic 40–104; PULSE 64–79; RESP 18–20; TEMP 98–98.6; O2SAT 93–96
[2024-04-09 06:36] LABS: Basophils # (auto) 0 10 ^3/uL (0-0.2); Basophils % (auto) 0.5 % (0.0-2.0); Eosinophils # (auto) 0.2 10 ^3/uL (0-0.8); Eosinophils % (auto) 3.3 % (0.0-7.0); Hematocrit 37.8 % (36.0-46.0); Hemoglobin 12.3 g/dL (12.2-16.2); Lymphocytes # (auto) 1.7 10 ^3/uL (0.4-5.4); Lymphocytes % (auto) 33.5 % (10.0-50.0); Mean Corpuscular Hemoglobin 29.3 pg (28.0-32.0); Mean Corpuscular Hgb Conc. 32.6 g/dL (32.0-36.0); Mean Corpuscular Volume 90.1 fL (80.0-100.0); Monocytes # (auto) 0.4 10 ^3/uL (0-1.3); Monocytes % (auto) 8.2 % (0.0-12.0); Neutrophils # (auto) 2.7 10 ^3/uL (1.6-8.6); Neutrophils % (auto) 54.5 % (37.0-80.0); Nucleated Red Blood Cells % 0.2 %; Platelet Count (auto) 188 10^3/uL (140-450); Red Blood Cells 4.19 10^6/uL (4.0-5.20); Red Cell Distribution Width 16.5 % (11.8-14.3)
[2024-04-09 06:56] LABS: Alanine Aminotransferase 25 U/L (7-40); Albumin 4.1 g/dL (3.2-4.8); Alkaline Phosphatase 99 U/L (46-116); Anion Gap 8 (5-15); Aspartate Aminotransferase 29 U/L (13-40); BUN/Creatinine Ratio 18.3 (10.0-20.0); Blood Urea Nitrogen 23 mg/dL (9-23); Calcium 9.8 mg/dL (8.7-10.4); Carbon Dioxide 25 mmol/L (20-31); Chloride 106 mmol/L (98-107); Glucose 90 mg/dL (74-106); Magnesium 1.8 mg/dL (1.6-2.6); Sodium 139 mmol/L (136-145)
[2024-04-09 06:57] LABS: Bilirubin, Total 0.4 mg/dL (0.2-1.0); Total Protein 6.5 g/dL (5.7-8.2)
[2024-04-09 06:59] LABS: Potassium 3.4 mmol/L (3.5-5.1)
[2024-04-09] MEDS: POTASSIUM CHL 20 Meq TABLET PO ONE (09:23)
--- NOTE | 2024-04-09 10:53 | DVHPN2 ---
Subjective Still complains of abdominal pain Changes from previous H/P or p: Changes Eyes: No Pain, No Vision change, No Conjunctivae inflammation, No Eyelid inflammation, No Other, No Redness ENT: No Ear pain, No Ear discharge, No Nose pain, No Nose discharge, No Nose congestion, No Mouth pain, No Mouth swelling, No Throat pain, No Throat swelling, No Other Cardiovascular: No Chest Pain, No Palpitations, No Orthopnea, No Paroxysmal Noc. Dyspnea, No Edema, No Lt Headedness, No Other Respiratory: No Cough, No Dry, No Shortness of breath, No SOB with excertion, No Wheezing, No Hemoptysis, No Pleuritic Pain, No Sputum, No Other Gastrointestinal: Nausea, Vomiting, Abdominal Pain; No Diarrhea, No Constipation, No Melena, No Hematochezia, No Other Genitourinary: No Dysuria, No Frequency, No Incontinence, No Hematuria, No Retention, No Other Musculoskeletal: No other, No neck pain, No shoulder pain, No arm pain, No back pain, No hand pain, No leg pain, No foot pain Skin: No Rash, No Lesions, No Jaundice, No Bruising, No Other Objective Vitals Vital Signs Date Time Temp Pulse Resp B/P (MAP) Pulse Ox O2 Delivery O2 Flow Rate FiO2 04/09/24 09:26 98.0 75 20 148/87 (107) 94 98.0 04/08/24 20:00 Room Air* 0 21 Intake/Output Intake and Output 04/09/24 07:00 Intake Total 1955 ml Balance 1955 ml Intake Oral 725 ml IV Total 1230 ml # Voids 4 # Bowel Movements 3 General Appearance: Alert, Oriented X3, Cooperative Lungs: Clear to auscultation, Normal air movement Cardiovascular: Regular rate, Normal S1 Abdomen: Normal bowel sounds, Soft Extremities: No edema Medications Current Medications Medications Dose Ordered Sig/Jennifer Route Start Time Stop Time Status Last Admin Dose Admin Alprazolam 0.25 mg BID PO 04/07/24 22:00 04/08/24 22:28 0.25 MG Amlodipine Besylate 5 mg DAILY PO 04/08/24 10:00 Carisoprodol 350 mg TID PO 04/07/24 14:00 04/09/24 05:17 350 MG Hydralazine HCl 10 mg TID PO 04/07/24 14:00 04/09/24 05:17 10 MG Nifedipine 30 mg BID PO 04/07/24 22:00 04/08/24 21:22 30 MG Sacubitril/ Valsartan 1 tab BID PO 04/07/24 22:00 04/08/24 21:22 1 TAB Sucralfate 1 gm QID PO 04/07/24 12:00 04/09/24 05:17 1 GM Atorvastatin Calcium 40 mg HS PO 04/07/24 22:00 04/08/24 21:22 40 MG Clonidine HCl 0.3 mg BID PO 04/07/24 22:00 04/08/24 21:21 0.3 MG Metoprolol Succinate 25 mg DAILY PO 04/08/24 10:00 04/08/24 09:33 25 MG Sertraline HCl 25 mg BID PO 04/08/24 10:00 04/08/24 22:28 25 MG Docusate Sodium 100 mg BIDPRN PRN PO 04/07/24 11:45 Nitroglycerin 0.4 mg Q5MINP PRN SL 04/07/24 11:45 Sumatriptan Succinate 50 mg DAILY PRN PO 04/07/24 13:00 Hydromorphone HCl 0.5 mg Q4HPRN PRN IV 04/07/24 13:45 04/09/24 06:09 0.5 MG Ondansetron HCl 4 mg Q6HP IV 04/07/24 18:00 04/09/24 05:17 4 MG Metoclopramide HCl 10 mg Q8HR IV 04/07/24 22:00 04/09/24 05:17 10 MG Pantoprazole Sodium 40 mg BID@0600,1700 PO 04/08/24 17:00 04/09/24 05:17 40 MG Laboratory Results Laboratory Tests 04/09/24 05:58 Chemistry Test 04/09/24 05:58 Albumin 4.1 g/dL (3.2-4.8) Calcium Level 9.8 mg/dL (8.7-10.4) Magnesium Level 1.8 mg/dL (1.6-2.6) Total Protein 6.5 g/dL (5.7-8.2) LFT Test 04/09/24 05:58 Alanine Aminotransferase (ALT) 25 U/L (7-40) Alkaline Phosphatase 99 U/L (46-116) Aspartate Amino Transferase (AST) 29 U/L (13-40) Total Bilirubin 0.4 mg/dL (0.2-1.0) Microbiology Microbiology Date/Time Source Procedure Growth Status 04/07/24 21:13 Nose MRSA Screen - Final Complete Assessment/Plan Assessment/Plan Upper GI bleed Hiatal hernia Mild gastritis History of atrial fibrillation History of CVA History of CHF Acute kidney injury hemodynamically mediated Rule out chronic kidney disease Type 2 diabetes Hypertension Hypokalemia Plan Continue p.o. Protonix Carafate Discontinue the IV fluids Replace potassium IV Home medications Place on maintenance of way superintendent the patient closely Full code Rest of the management will depend on the hospital course Plan of care discussed for 20 minute 04/09/2024: Abdominal pain: Continue Carafate and Protonix Hypokalemia: Replace Anxiety: Xanax p.r.n. Hypertension: Amlodipine, clonidine, metoprolol, nifedipine CHF: Naasto, DC the IV fluids Monitor the hospital closely The rest of the management will depend on the hospital course Cardiology is following Plan discussed with: Patient My Orders Orders - CORINNE AC MD Procedure Category Date Status Time Pantoprazole Tablet PHA 04/08/24 In Process (Protonix Tablet) 17:00 Core Winder ORDERS 04/08/24 Transmitted 15:36 Date of Service: Apr 09, 2024 Billing Provider: CORINNE AC MD Common Visit Codes: [id number] INP/OBS CARE(HIGH) CORINNE AC MD Apr 09, 2024 10:53
--- NOTE | 2024-04-09 14:25 | DVHPN2 ---
Progress Note - Dictate Date Seen: Apr 09, 2024 Medical Necessity Reason Pt with a Central, PICC or Fol: No Subjective ABD PAIN HAS NOT SEEN ME IN OFFICE SINCE LAST ADMISSION IN FEBRUARY PT HAS HAD MULTIPLE CTs OF ABD/ HEAD / CHEST LACK OF MOBILITY MORBID OBESITY SEVERE ABD / EPIGASTRIC PAIN AND TENDERNESS 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 WAS NEGATIVE CT OF CT NEGATIVE HIGH BUN/ CR RATION CONSISTENT WITH HYPOVOLEMIA WITH NAUSEA AND VOMITING PT WITH SEVERE HYPOKALEMIA PMH: DIABETES HTN HYPERLIPIDEMIA S/P PTCA CA OF LIVER S/P PARTIAL HEPATECTOMY HX OF COLSTOMY SECONDARY TO SBO AFIB CHRONIC HX OF L CVA RIGHT SIDED WEAKNESS vital signs Vital Sign Date Time Temp Pulse Resp B/P (MAP) Pulse Ox O2 Delivery O2 Flow Rate FiO2 04/09/24 12:11 157/93 04/09/24 11:40 76 18 04/09/24 09:26 98.0 94 98.0 04/09/24 08:15 Room Air* 0 21 Total Intake and Output 04/08/24 04/08/24 04/09/24 15:00 23:00 07:00 Intake Total 430 ml 925 ml 600 ml Balance 430 ml 925 ml 600 ml medications Current Medications Medications Dose Ordered Sig/Jennifer Route Start Time Stop Time Status Last Admin Dose Admin Alprazolam 0.25 mg BID PO 04/07/24 22:00 04/09/24 11:14 0.25 MG Amlodipine Besylate 5 mg DAILY PO 04/08/24 10:00 04/09/24 11:12 5 MG Carisoprodol 350 mg TID PO 04/07/24 14:00 04/09/24 05:17 350 MG Hydralazine HCl 10 mg TID PO 04/07/24 14:00 04/09/24 05:17 10 MG Nifedipine 30 mg BID PO 04/07/24 22:00 04/09/24 11:12 30 MG Sacubitril/ Valsartan 1 tab BID PO 04/07/24 22:00 04/09/24 11:14 1 TAB Sucralfate 1 gm QID PO 04/07/24 12:00 04/09/24 12:43 1 GM Atorvastatin Calcium 40 mg HS PO 04/07/24 22:00 04/08/24 21:22 40 MG Clonidine HCl 0.3 mg BID PO 04/07/24 22:00 04/09/24 11:11 0.3 MG Metoprolol Succinate 25 mg DAILY PO 04/08/24 10:00 04/09/24 11:13 25 MG Sertraline HCl 25 mg BID PO 04/08/24 10:00 04/09/24 11:13 25 MG Docusate Sodium 100 mg BIDPRN PRN PO 04/07/24 11:45 Nitroglycerin 0.4 mg Q5MINP PRN SL 04/07/24 11:45 Sumatriptan Succinate 50 mg DAILY PRN PO 04/07/24 13:00 Hydromorphone HCl 0.5 mg Q4HPRN PRN IV 04/07/24 13:45 04/09/24 11:10 0.5 MG Ondansetron HCl 4 mg Q6HP IV 04/07/24 18:00 04/09/24 12:43 4 MG Metoclopramide HCl 10 mg Q8HR IV 04/07/24 22:00 04/09/24 05:17 10 MG Pantoprazole Sodium 40 mg BID@0600,1700 PO 04/08/24 17:00 04/09/24 05:17 40 MG laboratory and microbiology Laboratory Tests 04/09/24 05:58 Test 04/09/24 05:58 Range/Units Serum Glucose 90 74-106 mg/dL Problem List ABD PAIN HAS NOT SEEN ME IN OFFICE SINCE LAST ADMISSION IN FEBRUARY PT HAS HAD MULTIPLE CTs OF ABD/ HEAD / CHEST LACK OF MOBILITY MORBID OBESITY SEVERE ABD / EPIGASTRIC PAIN AND TENDERNESS 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 WAS NEGATIVE CT OF CT NEGATIVE HIGH BUN/ CR RATION CONSISTENT WITH HYPOVOLEMIA WITH NAUSEA AND VOMITING PT WITH SEVERE HYPOKALEMIA PMH: DIABETES HTN HYPERLIPIDEMIA S/P PTCA CA OF LIVER S/P PARTIAL HEPATECTOMY HX OF COLSTOMY SECONDARY TO SBO AFIB CHRONIC HX OF L CVA RIGHT SIDED WEAKNESS Assessment/Plan S/P EGD HH EROSIVE ESOPHAGITIS EROSIVE GASTRITIS Plan discussed with: Patient TAY DUNLAP MD Apr 09, 2024 14:25
--- NOTE | 2024-04-09 14:34 | DVHPN2 ---
Progress Note Date Seen: Apr 09, 2024 Resident Creating Document: VASILE HANKINS RESIDENT Medical Necessity Reason Pt with a Central, PICC or Fol: No Subjective Review of Systems Patient is a 69-year-old female with a past medical history of hepatitis-C infection, liver cancer, acute gastritis, utilized AV esophagitis, hiatal hernia, SBO, status post hepatectomy, diabetes, CAD with status post, AFib, CHF who presented to the hospital with epigastric pain with intractable nausea and vomiting for past three days. As per patient intractable nausea and vomiting associated with hematemesis that prompted visit to the hospital. she is denying any other symptoms at this point including fever, chills, chest pain, weakness, dizziness, sensory deficits, any other symptoms. EGD on 12/13/23: 1. 2 cm sliding-type hiatal hernia with grade a erosive esophagitis and irregular squamocolumnar junction from which biopsies were obtained Patient had a 1 cm distal esophageal ulcer just above the hiatal hernia area with overlying eschar possibly a pill induced ulcer from which biopsies were obtained 2. [id number] gastritis and gastropathy with multiple gastric erosions 3. 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 Patient had mild nausea, no vomiting. No diarrhea. No any other complaints. Objective vital signs Vital Sign Date Time Temp Pulse Resp B/P (MAP) Pulse Ox O2 Delivery O2 Flow Rate FiO2 04/09/24 12:11 157/93 04/09/24 11:40 76 18 04/09/24 09:26 98.0 94 98.0 04/09/24 08:15 Room Air* 0 21 Total Intake and Output 04/08/24 04/08/24 04/09/24 15:00 23:00 07:00 Intake Total 430 ml 925 ml 600 ml Balance 430 ml 925 ml 600 ml medications Current Medications Medications Dose Ordered Sig/Jennifer Route Start Time Stop Time Status Last Admin Dose Admin Alprazolam 0.25 mg BID PO 04/07/24 22:00 04/09/24 11:14 0.25 MG Amlodipine Besylate 5 mg DAILY PO 04/08/24 10:00 04/09/24 11:12 5 MG Carisoprodol 350 mg TID PO 04/07/24 14:00 04/09/24 05:17 350 MG Hydralazine HCl 10 mg TID PO 04/07/24 14:00 04/09/24 05:17 10 MG Nifedipine 30 mg BID PO 04/07/24 22:00 04/09/24 11:12 30 MG Sacubitril/ Valsartan 1 tab BID PO 04/07/24 22:00 04/09/24 11:14 1 TAB Sucralfate 1 gm QID PO 04/07/24 12:00 04/09/24 12:43 1 GM Atorvastatin Calcium 40 mg HS PO 04/07/24 22:00 04/08/24 21:22 40 MG Clonidine HCl 0.3 mg BID PO 04/07/24 22:00 04/09/24 11:11 0.3 MG Metoprolol Succinate 25 mg DAILY PO 04/08/24 10:00 04/09/24 11:13 25 MG Sertraline HCl 25 mg BID PO 04/08/24 10:00 04/09/24 11:13 25 MG Docusate Sodium 100 mg BIDPRN PRN PO 04/07/24 11:45 Nitroglycerin 0.4 mg Q5MINP PRN SL 04/07/24 11:45 Sumatriptan Succinate 50 mg DAILY PRN PO 04/07/24 13:00 Hydromorphone HCl 0.5 mg Q4HPRN PRN IV 04/07/24 13:45 04/09/24 11:10 0.5 MG Ondansetron HCl 4 mg Q6HP IV 04/07/24 18:00 04/09/24 12:43 4 MG Metoclopramide HCl 10 mg Q8HR IV 04/07/24 22:00 04/09/24 05:17 10 MG Pantoprazole Sodium 40 mg BID@0600,1700 PO 04/08/24 17:00 04/09/24 05:17 40 MG Examination General Appearance: Cooperative. Well developed. Well nourished. NAD Head Exam: Normal inspection Neck Exam: Normal inspection. Non-tender. Normal alignment Pulmonary/Respiratory: Chest non-tender. Clear bilateral breath sounds Cardiovascular/Chest: Regular rate and rhythm. No murmurs. No JVD. Peripheral Pulses: 2+ Radial (R). 2+ Radial (L). 2+ Pedal (R). 2+ Pedal (L) Abdominal Exam: Normal bowel sounds. Soft. Mild tenderness over epigastric region, no rigidity, no guarding. No hepatospenomegaly. No masses Ankle Exam: Negative ankle edema Lower extremities: Negative lower extremity edema Neuro/Mental Status: A&O x4. Coherent Thoughts/Psych: Normal thought pattern. Appropriate mood and affect. Good judgement and insight Appearance: In no acute distress Skin Exam: Normal inspection. Normal color. Warm. Dry laboratory and microbiology Laboratory Tests 04/09/24 05:58 Test 04/09/24 05:58 Range/Units Serum Glucose 90 74-106 mg/dL Microbiology Date/Time Source Procedure Growth Status 04/07/24 21:13 Nose MRSA Screen - Final Complete Problem List/Assessment/Plan Problem List/Assessment/Plan Intractable nausea and vomiting Epigastric pain ? Acute gastritis, hiatal hernia, gastropathy, esophageal spasm Upper GI bleed Acute dehydration DANIA History of hepatitis-C antibody infection History of liver cancer with partial hepatectomy Diabetes mellitus Coronary artery disease with status post PTCA History of AFib History of CHF Plan/recommendation Dr Granger EGD on 04/08/2024 POSTOPERATIVE DIAGNOSES: 1. 2 cm sliding-type hiatal hernia with slightly irregular squamocolumnar junction no significant erosive esophagitis 2. Mild antral gastritis with pre-pyloric antral gastric erosions and mild duodenitis of the duodenal bulb 3. Otherwise normal examination up to the 2nd and 3rd part of the duodenal with no active bleeding and good bile drainage -follow up in GI clinic in outpatient setting for colonoscopy. -symptomatic treatment with ondansetron 4 mg IV q.6, dicyclomine 10 mg IM once, metoclopramide 5 mg IV Q eight. -EGD on 12/13/2023: Hiatal hernia, duodenitis, acute gastritis with erosive esophagitis. -hepatitis-C antibody infection: Not sure patient followed up in outpatient setting, we will need outpatient follow up in GI clinic. -NPO from midnight, we will continue to monitor patient's clinical status, possible EGD in tomorrow based on clinical status. -CT abdomen and pelvis no acute intra-abdominal pathology. -IV hydration -rest of the management as per hospitalist team -continue following up with this patient Plan discussed with: Patient, Other (RN) VASILE HANKINS RESIDENT Apr 09, 2024 14:34
[2024-04-10] VITALS (8 sets, daily range): BP systolic 113–159; BP diastolic 75–103; PULSE 58–87; RESP 16–18; TEMP 97.7–98.1; O2SAT 92–97
[2024-04-10 06:32] LABS: Anion Gap 8 (5-15); Carbon Dioxide 26 mmol/L (20-31); Chloride 106 mmol/L (98-107); Sodium 140 mmol/L (136-145)
[2024-04-10 06:33] LABS: Calcium 10.3 mg/dL (8.7-10.4)
[2024-04-10 06:38] LABS: BUN/Creatinine Ratio 12.1 (10.0-20.0); Blood Urea Nitrogen 14 mg/dL (9-23); Glucose 95 mg/dL (74-106); Magnesium 1.7 mg/dL (1.6-2.6)
[2024-04-10 06:39] LABS: Potassium 3.3 mmol/L (3.5-5.1)
--- NOTE | 2024-04-10 09:54 | DVHPN2 ---
Progress Note - Dictate Date Seen: Apr 10, 2024 Medical Necessity Reason Pt with a Central, PICC or Fol: No Subjective ABD PAIN HAS NOT SEEN ME IN OFFICE SINCE LAST ADMISSION IN FEBRUARY PT HAS HAD MULTIPLE CTs OF ABD/ HEAD / CHEST LACK OF MOBILITY MORBID OBESITY SEVERE ABD / EPIGASTRIC PAIN AND TENDERNESS 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 WAS NEGATIVE CT OF CT NEGATIVE HIGH BUN/ CR RATION CONSISTENT WITH HYPOVOLEMIA WITH NAUSEA AND VOMITING PT WITH SEVERE HYPOKALEMIA PMH: DIABETES HTN HYPERLIPIDEMIA S/P PTCA CA OF LIVER S/P PARTIAL HEPATECTOMY HX OF COLSTOMY SECONDARY TO SBO AFIB CHRONIC HX OF L CVA RIGHT SIDED WEAKNESS vital signs Vital Sign Date Time Temp Pulse Resp B/P (MAP) Pulse Ox O2 Delivery O2 Flow Rate FiO2 04/10/24 08:36 98.1 64 18 128/77 (94) 94 98.1 04/09/24 20:00 Room Air* 0 21 Total Intake and Output 04/09/24 04/09/24 04/10/24 15:00 23:00 07:00 Intake Total 300 ml 700 ml Balance 300 ml 700 ml medications Current Medications Medications Dose Ordered Sig/Jennifer Route Start Time Stop Time Status Last Admin Dose Admin Alprazolam 0.25 mg BID PO 04/07/24 22:00 04/09/24 21:20 0.25 MG Amlodipine Besylate 5 mg DAILY PO 04/08/24 10:00 04/09/24 11:12 5 MG Carisoprodol 350 mg TID PO 04/07/24 14:00 04/10/24 06:32 350 MG Hydralazine HCl 10 mg TID PO 04/07/24 14:00 04/10/24 06:33 10 MG Nifedipine 30 mg BID PO 04/07/24 22:00 04/09/24 21:21 30 MG Sacubitril/ Valsartan 1 tab BID PO 04/07/24 22:00 04/09/24 21:20 1 TAB Sucralfate 1 gm QID PO 04/07/24 12:00 04/10/24 06:33 1 GM Atorvastatin Calcium 40 mg HS PO 04/07/24 22:00 04/09/24 21:22 40 MG Clonidine HCl 0.3 mg BID PO 04/07/24 22:00 04/09/24 21:21 0.3 MG Metoprolol Succinate 25 mg DAILY PO 04/08/24 10:00 04/09/24 11:13 25 MG Sertraline HCl 25 mg BID PO 04/08/24 10:00 04/09/24 21:21 25 MG Docusate Sodium 100 mg BIDPRN PRN PO 04/07/24 11:45 Nitroglycerin 0.4 mg Q5MINP PRN SL 04/07/24 11:45 Sumatriptan Succinate 50 mg DAILY PRN PO 04/07/24 13:00 Hydromorphone HCl 0.5 mg Q4HPRN PRN IV 04/07/24 13:45 04/10/24 05:21 0.5 MG Ondansetron HCl 4 mg Q6HP IV 04/07/24 18:00 04/10/24 06:32 4 MG Metoclopramide HCl 10 mg Q8HR IV 04/07/24 22:00 04/10/24 06:32 10 MG Pantoprazole Sodium 40 mg BID@0600,1700 PO 04/08/24 17:00 04/10/24 06:33 40 MG laboratory and microbiology Laboratory Tests 04/10/24 05:56 04/09/24 05:58 Test 04/10/24 05:56 Range/Units Serum Glucose 95 74-106 mg/dL Problem List ABD PAIN HAS NOT SEEN ME IN OFFICE SINCE LAST ADMISSION IN FEBRUARY PT HAS HAD MULTIPLE CTs OF ABD/ HEAD / CHEST LACK OF MOBILITY MORBID OBESITY SEVERE ABD / EPIGASTRIC PAIN AND TENDERNESS 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 WAS NEGATIVE CT OF CT NEGATIVE HIGH BUN/ CR RATION CONSISTENT WITH HYPOVOLEMIA WITH NAUSEA AND VOMITING PT WITH SEVERE HYPOKALEMIA PMH: DIABETES HTN HYPERLIPIDEMIA S/P PTCA CA OF LIVER S/P PARTIAL HEPATECTOMY HX OF COLSTOMY SECONDARY TO SBO AFIB CHRONIC HX OF L CVA RIGHT SIDED WEAKNESS Assessment/Plan S/P EGD HH EROSIVE ESOPHAGITIS EROSIVE GASTRITIS Plan discussed with: Patient TAY DUNLAP MD Apr 10, 2024 09:54
[2024-04-10] MEDS: MAGNESIUM OXIDE 400 MG TAB PO ONE (09:56)
[2024-04-10] MEDS: POTASSIUM EFFERVESENT TAB 25 MEQ PO ONE (09:58)
--- NOTE | 2024-04-10 11:50 | DVHPN2 ---
Subjective She is still symptomatic with abdominal pain Potassium is low at 3.3 Changes from previous H/P or p: Changes Eyes: No Pain, No Vision change, No Conjunctivae inflammation, No Eyelid inflammation, No Other, No Redness ENT: No Ear pain, No Ear discharge, No Nose pain, No Nose discharge, No Nose congestion, No Mouth pain, No Mouth swelling, No Throat pain, No Throat swelling, No Other Cardiovascular: No Chest Pain, No Palpitations, No Orthopnea, No Paroxysmal Noc. Dyspnea, No Edema, No Lt Headedness, No Other Respiratory: No Cough, No Dry, No Shortness of breath, No SOB with excertion, No Wheezing, No Hemoptysis, No Pleuritic Pain, No Sputum, No Other Gastrointestinal: Nausea, Vomiting, Abdominal Pain; No Diarrhea, No Constipation, No Melena, No Hematochezia, No Other Genitourinary: No Dysuria, No Frequency, No Incontinence, No Hematuria, No Retention, No Other Musculoskeletal: No other, No neck pain, No shoulder pain, No arm pain, No back pain, No hand pain, No leg pain, No foot pain Skin: No Rash, No Lesions, No Jaundice, No Bruising, No Other Objective Vitals Vital Signs Date Time Temp Pulse Resp B/P (MAP) Pulse Ox O2 Delivery O2 Flow Rate FiO2 04/10/24 10:34 62 16 124/78 04/10/24 08:36 98.1 94 98.1 04/10/24 08:00 Room Air* 0 21 Intake/Output Intake and Output 04/10/24 07:00 Intake Total 1000 ml Balance 1000 ml Intake Oral 1000 ml # Voids 7 General Appearance: Alert, Oriented X3, Cooperative Lungs: Clear to auscultation, Normal air movement Cardiovascular: Regular rate, Normal S1 Abdomen: Normal bowel sounds, Soft Extremities: No edema Medications Current Medications Medications Dose Ordered Sig/Jennifer Route Start Time Stop Time Status Last Admin Dose Admin Alprazolam 0.25 mg BID PO 04/07/24 22:00 04/10/24 09:56 0.25 MG Amlodipine Besylate 5 mg DAILY PO 04/08/24 10:00 04/10/24 09:53 5 MG Carisoprodol 350 mg TID PO 04/07/24 14:00 04/10/24 06:32 350 MG Hydralazine HCl 10 mg TID PO 04/07/24 14:00 04/10/24 06:33 10 MG Nifedipine 30 mg BID PO 04/07/24 22:00 04/10/24 09:52 30 MG Sacubitril/ Valsartan 1 tab BID PO 04/07/24 22:00 04/10/24 09:58 1 TAB Sucralfate 1 gm QID PO 04/07/24 12:00 04/10/24 06:33 1 GM Atorvastatin Calcium 40 mg HS PO 04/07/24 22:00 04/09/24 21:22 40 MG Clonidine HCl 0.3 mg BID PO 04/07/24 22:00 04/10/24 09:55 0.3 MG Metoprolol Succinate 25 mg DAILY PO 04/08/24 10:00 04/10/24 09:57 25 MG Sertraline HCl 25 mg BID PO 04/08/24 10:00 04/10/24 09:47 25 MG Docusate Sodium 100 mg BIDPRN PRN PO 04/07/24 11:45 Nitroglycerin 0.4 mg Q5MINP PRN SL 04/07/24 11:45 Sumatriptan Succinate 50 mg DAILY PRN PO 04/07/24 13:00 Hydromorphone HCl 0.5 mg Q4HPRN PRN IV 04/07/24 13:45 04/10/24 10:00 0.5 MG Ondansetron HCl 4 mg Q6HP IV 04/07/24 18:00 04/10/24 06:32 4 MG Metoclopramide HCl 10 mg Q8HR IV 04/07/24 22:00 04/10/24 06:32 10 MG Pantoprazole Sodium 40 mg BID@0600,1700 PO 04/08/24 17:00 04/10/24 06:33 40 MG Laboratory Results Laboratory Tests 04/09/24 05:58 04/10/24 05:56 Chemistry Test 04/10/24 05:56 Calcium Level 10.3 mg/dL (8.7-10.4) Magnesium Level 1.7 mg/dL (1.6-2.6) Microbiology Microbiology Date/Time Source Procedure Growth Status 04/07/24 21:13 Nose MRSA Screen - Final Complete Assessment/Plan Assessment/Plan Upper GI bleed Hiatal hernia Mild gastritis History of atrial fibrillation History of CVA History of CHF Acute kidney injury hemodynamically mediated Rule out chronic kidney disease Type 2 diabetes Hypertension Hypokalemia Plan Continue p.o. 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 Hypertension: Amlodipine, clonidine, metoprolol, nifedipine CHF: JENNIE Lane the IV fluids Monitor the hospital closely The rest of the management will depend on the hospital course Cardiology is following 04/10/2024: Continue the current management with Protonix and Carafate Replace potassium for hypokalemia Anxiety: Xanax p.r.n. Hypertension CHF Monitor closely Advance diet slowly as tolerated to mechanical soft diet Hypomagnesemia, replace Plan discussed with: Patient Date of Service: Apr 10, 2024 Billing Provider: CORINNE AC MD Common Visit Codes: [id number] INP/OBS CARE(HIGH) CORINNE AC MD Apr 10, 2024 11:50
--- NOTE | 2024-04-10 15:20 | DVHPN2 ---
Progress Note Date Seen: Apr 10, 2024 Resident Creating Document: VASILE HANKINS RESIDENT Medical Necessity Reason Pt with a Central, PICC or Fol: No Subjective Review of Systems Patient is a 69-year-old female with a past medical history of hepatitis-C infection, liver cancer, acute gastritis, utilized AV esophagitis, hiatal hernia, SBO, status post hepatectomy, diabetes, CAD with status post, AFib, CHF who presented to the hospital with epigastric pain with intractable nausea and vomiting for past three days. As per patient intractable nausea and vomiting associated with hematemesis that prompted visit to the hospital. she is denying any other symptoms at this point including fever, chills, chest pain, weakness, dizziness, sensory deficits, any other symptoms. EGD on 12/13/23: 1. 2 cm sliding-type hiatal hernia with grade a erosive esophagitis and irregular squamocolumnar junction from which biopsies were obtained Patient had a 1 cm distal esophageal ulcer just above the hiatal hernia area with overlying eschar possibly a pill induced ulcer from which biopsies were obtained 2. [id number] gastritis and gastropathy with multiple gastric erosions 3. 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 Patient had mild nausea, no vomiting. No diarrhea. No any other complaints. Objective vital signs Vital Sign Date Time Temp Pulse Resp B/P (MAP) Pulse Ox O2 Delivery O2 Flow Rate FiO2 04/10/24 14:11 63 17 113/76 04/10/24 12:38 97.9 95 97.9 04/10/24 08:00 Room Air* 0 21 Total Intake and Output 04/09/24 04/09/24 04/10/24 15:00 23:00 07:00 Intake Total 300 ml 700 ml Balance 300 ml 700 ml medications Current Medications Medications Dose Ordered Sig/Jennifer Route Start Time Stop Time Status Last Admin Dose Admin Alprazolam 0.25 mg BID PO 04/07/24 22:00 04/10/24 09:56 0.25 MG Amlodipine Besylate 5 mg DAILY PO 04/08/24 10:00 04/10/24 09:53 5 MG Carisoprodol 350 mg TID PO 04/07/24 14:00 04/10/24 14:09 350 MG Hydralazine HCl 10 mg TID PO 04/07/24 14:00 04/10/24 14:10 10 MG Nifedipine 30 mg BID PO 04/07/24 22:00 04/10/24 09:52 30 MG Sacubitril/ Valsartan 1 tab BID PO 04/07/24 22:00 04/10/24 09:58 1 TAB Sucralfate 1 gm QID PO 04/07/24 12:00 04/10/24 12:23 1 GM Atorvastatin Calcium 40 mg HS PO 04/07/24 22:00 04/09/24 21:22 40 MG Clonidine HCl 0.3 mg BID PO 04/07/24 22:00 04/10/24 09:55 0.3 MG Metoprolol Succinate 25 mg DAILY PO 04/08/24 10:00 04/10/24 09:57 25 MG Sertraline HCl 25 mg BID PO 04/08/24 10:00 04/10/24 09:47 25 MG Docusate Sodium 100 mg BIDPRN PRN PO 04/07/24 11:45 Nitroglycerin 0.4 mg Q5MINP PRN SL 04/07/24 11:45 Sumatriptan Succinate 50 mg DAILY PRN PO 04/07/24 13:00 Hydromorphone HCl 0.5 mg Q4HPRN PRN IV 04/07/24 13:45 04/10/24 14:11 0.5 MG Ondansetron HCl 4 mg Q6HP IV 04/07/24 18:00 04/10/24 12:24 4 MG Metoclopramide HCl 10 mg Q8HR IV 04/07/24 22:00 04/10/24 14:11 10 MG Pantoprazole Sodium 40 mg BID@0600,1700 PO 04/08/24 17:00 04/10/24 06:33 40 MG Examination General Appearance: Cooperative. Well developed. Well nourished. NAD Head Exam: Normal inspection Neck Exam: Normal inspection. Non-tender. Normal alignment Pulmonary/Respiratory: Chest non-tender. Clear bilateral breath sounds Cardiovascular/Chest: Regular rate and rhythm. No murmurs. No JVD. Peripheral Pulses: 2+ Radial (R). 2+ Radial (L). 2+ Pedal (R). 2+ Pedal (L) Abdominal Exam: Normal bowel sounds. Soft. Mild tenderness over epigastric region, no rigidity, no guarding. No hepatospenomegaly. No masses Ankle Exam: Negative ankle edema Lower extremities: Negative lower extremity edema Neuro/Mental Status: A&O x4. Coherent Thoughts/Psych: Normal thought pattern. Appropriate mood and affect. Good judgement and insight Appearance: In no acute distress Skin Exam: Normal inspection. Normal color. Warm. Dry laboratory and microbiology Laboratory Tests 04/10/24 05:56 04/09/24 05:58 Test 04/10/24 05:56 Range/Units Serum Glucose 95 74-106 mg/dL Microbiology Date/Time Source Procedure Growth Status 04/07/24 21:13 Nose MRSA Screen - Final Complete Problem List/Assessment/Plan Problem List/Assessment/Plan Intractable nausea and vomiting Epigastric pain ? Acute gastritis, hiatal hernia, gastropathy, esophageal spasm Upper GI bleed Acute dehydration DANIA History of hepatitis-C antibody infection History of liver cancer with partial hepatectomy Diabetes mellitus Coronary artery disease with status post PTCA History of AFib History of CHF Plan/recommendation Dr Granger EGD on 04/08/2024 POSTOPERATIVE DIAGNOSES: 1. 2 cm sliding-type hiatal hernia with slightly irregular squamocolumnar junction no significant erosive esophagitis 2. Mild antral gastritis with pre-pyloric antral gastric erosions and mild duodenitis of the duodenal bulb 3. Otherwise normal examination up to the 2nd and 3rd part of the duodenal with no active bleeding and good bile drainage -follow up in GI clinic in outpatient setting for colonoscopy. -symptomatic treatment with ondansetron 4 mg IV q.6, dicyclomine 10 mg IM once, metoclopramide 5 mg IV Q eight. -EGD on 12/13/2023: Hiatal hernia, duodenitis, acute gastritis with erosive esophagitis. -hepatitis-C antibody infection: Not sure patient followed up in outpatient setting, we will need outpatient follow up in GI clinic. -NPO from midnight, we will continue to monitor patient's clinical status, possible EGD in tomorrow based on clinical status. -CT abdomen and pelvis no acute intra-abdominal pathology. -IV hydration -rest of the management as per hospitalist team -continue following up with this patient Plan discussed with: Patient, Other (RN) Dietary Evaluation Review Comments: encourage and monitor PO intake to meet 75% of her needs. diet as tolerated Expected Outcomes/Goals: maintain wt, recover from GI bleed VASILE HANKINS RESIDENT Apr 10, 2024 15:20
[2024-04-11] VITALS (8 sets, daily range): BP systolic 119–160; BP diastolic 72–93; PULSE 55–89; RESP 16–20; TEMP 97.6–98; O2SAT 92–98
[2024-04-11 05:57] LABS: Anion Gap 7 (5-15); Carbon Dioxide 28 mmol/L (20-31); Chloride 106 mmol/L (98-107); Sodium 141 mmol/L (136-145)
[2024-04-11 06:03] LABS: BUN/Creatinine Ratio 13.4 (10.0-20.0); Blood Urea Nitrogen 15 mg/dL (9-23); Glucose 98 mg/dL (74-106); Magnesium 1.7 mg/dL (1.6-2.6)
[2024-04-11 06:18] LABS: Potassium 3.4 mmol/L (3.5-5.1)
[2024-04-11] MEDS: POTASSIUM CHL 20 Meq TABLET PO ONE (09:45)
--- NOTE | 2024-04-11 10:08 | DVHPN2 ---
Subjective She is still symptomatic with abdominal pain Potassium is low at 3.4 Changes from previous H/P or p: Changes Eyes: No Pain, No Vision change, No Conjunctivae inflammation, No Eyelid inflammation, No Other, No Redness ENT: No Ear pain, No Ear discharge, No Nose pain, No Nose discharge, No Nose congestion, No Mouth pain, No Mouth swelling, No Throat pain, No Throat swelling, No Other Cardiovascular: No Chest Pain, No Palpitations, No Orthopnea, No Paroxysmal Noc. Dyspnea, No Edema, No Lt Headedness, No Other Respiratory: No Cough, No Dry, No Shortness of breath, No SOB with excertion, No Wheezing, No Hemoptysis, No Pleuritic Pain, No Sputum, No Other Gastrointestinal: Nausea, Vomiting, Abdominal Pain; No Diarrhea, No Constipation, No Melena, No Hematochezia, No Other Genitourinary: No Dysuria, No Frequency, No Incontinence, No Hematuria, No Retention, No Other Musculoskeletal: No other, No neck pain, No shoulder pain, No arm pain, No back pain, No hand pain, No leg pain, No foot pain Skin: No Rash, No Lesions, No Jaundice, No Bruising, No Other Objective Vitals Vital Signs Date Time Temp Pulse Resp B/P (MAP) Pulse Ox O2 Delivery O2 Flow Rate FiO2 04/11/24 09:45 89 20 168/115 04/11/24 05:00 98.0 92 98.0 04/10/24 20:00 Room Air* 0 21 Intake/Output Intake and Output 04/11/24 06:59 Intake Total 1620 ml Balance 1620 ml Intake Oral 1620 ml # Voids 6 General Appearance: Alert, Oriented X3, Cooperative Lungs: Clear to auscultation, Normal air movement Cardiovascular: Regular rate, Normal S1 Abdomen: Normal bowel sounds, Soft Extremities: No edema Medications Current Medications Medications Dose Ordered Sig/Jennifer Route Start Time Stop Time Status Last Admin Dose Admin Alprazolam 0.25 mg BID PO 04/07/24 22:00 04/11/24 08:46 0.25 MG Amlodipine Besylate 5 mg DAILY PO 04/08/24 10:00 04/11/24 08:46 5 MG Carisoprodol 350 mg TID PO 04/07/24 14:00 04/11/24 05:17 350 MG Hydralazine HCl 10 mg TID PO 04/07/24 14:00 04/11/24 05:18 10 MG Nifedipine 30 mg BID PO 04/07/24 22:00 04/11/24 08:46 30 MG Sacubitril/ Valsartan 1 tab BID PO 04/07/24 22:00 04/11/24 08:47 1 TAB Sucralfate 1 gm QID PO 04/07/24 12:00 04/11/24 05:17 1 GM Atorvastatin Calcium 40 mg HS PO 04/07/24 22:00 04/10/24 21:20 40 MG Clonidine HCl 0.3 mg BID PO 04/07/24 22:00 04/11/24 08:48 0.3 MG Metoprolol Succinate 25 mg DAILY PO 04/08/24 10:00 04/11/24 08:47 25 MG Sertraline HCl 25 mg BID PO 04/08/24 10:00 04/11/24 08:46 25 MG Docusate Sodium 100 mg BIDPRN PRN PO 04/07/24 11:45 Nitroglycerin 0.4 mg Q5MINP PRN SL 04/07/24 11:45 Sumatriptan Succinate 50 mg DAILY PRN PO 04/07/24 13:00 Hydromorphone HCl 0.5 mg Q4HPRN PRN IV 04/07/24 13:45 04/11/24 09:45 0.5 MG Ondansetron HCl 4 mg Q6HP IV 04/07/24 18:00 04/11/24 05:17 4 MG Metoclopramide HCl 10 mg Q8HR IV 04/07/24 22:00 04/11/24 05:17 10 MG Pantoprazole Sodium 40 mg BID@0600,1700 PO 04/08/24 17:00 04/11/24 05:17 40 MG Laboratory Results Laboratory Tests 04/09/24 05:58 04/11/24 05:28 Chemistry Test 04/11/24 05:28 Calcium Level 10.0 mg/dL (8.7-10.4) Magnesium Level 1.7 mg/dL (1.6-2.6) Microbiology Microbiology Date/Time Source Procedure Growth Status 04/07/24 21:13 Nose MRSA Screen - Final Complete Assessment/Plan Assessment/Plan Upper GI bleed Hiatal hernia Mild gastritis History of atrial fibrillation History of CVA History of CHF Acute kidney injury hemodynamically mediated Rule out chronic kidney disease Type 2 diabetes Hypertension Hypokalemia Plan Continue p.o. 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 Hypertension: Amlodipine, clonidine, metoprolol, nifedipine CHF: JENNIE Lane the IV fluids Monitor the hospital closely The rest of the management will depend on the hospital course Cardiology is following 04/10/2024: Continue the current management with Protonix and Carafate Replace potassium for hypokalemia Anxiety: Xanax p.r.n. Hypertension CHF Monitor closely Advance diet slowly as tolerated to mechanical soft diet Hypomagnesemia, replace 04/11/2024: Hypokalemia: Replace Abdominal pain: The patient is still symptomatic, continue Carafate and Protonix, add Mylanta p.r.n. Anxiety: Takes Xanax p.r.n. Hypertension CHF Continue to monitor monitor the patient closely and the rest of the management will depend on the hospital course Hypomagnesemia: Replace magnesium Plan discussed with: Patient Date of Service: Apr 11, 2024 Billing Provider: CORINNE AC MD Common Visit Codes: [id number] INP/OBS CARE(MOD) CORINNE AC MD Apr 11, 2024 10:08
[2024-04-11] MEDS ORDERED: MAALOX PLUS or MAALOX 30 ML PO PRN (10:15)
--- NOTE | 2024-04-11 11:45 | DVHPN2 ---
Progress Note Date Seen: Apr 11, 2024 Resident Creating Document: VASILE HANKINS RESIDENT Medical Necessity Reason Pt with a Central, PICC or Fol: No Subjective Review of Systems Patient is a 69-year-old female with a past medical history of hepatitis-C infection, liver cancer, acute gastritis, utilized AV esophagitis, hiatal hernia, SBO, status post hepatectomy, diabetes, CAD with status post, AFib, CHF who presented to the hospital with epigastric pain with intractable nausea and vomiting for past three days. As per patient intractable nausea and vomiting associated with hematemesis that prompted visit to the hospital. she is denying any other symptoms at this point including fever, chills, chest pain, weakness, dizziness, sensory deficits, any other symptoms. EGD on 12/13/23: 1. 2 cm sliding-type hiatal hernia with grade a erosive esophagitis and irregular squamocolumnar junction from which biopsies were obtained Patient had a 1 cm distal esophageal ulcer just above the hiatal hernia area with overlying eschar possibly a pill induced ulcer from which biopsies were obtained 2. [id number] gastritis and gastropathy with multiple gastric erosions 3. 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 Patient had mild nausea, no vomiting. No diarrhea. No any other complaints. Objective vital signs Vital Sign Date Time Temp Pulse Resp B/P (MAP) Pulse Ox O2 Delivery O2 Flow Rate FiO2 04/11/24 09:45 89 20 168/115 04/11/24 09:00 97.8 98 97.8 04/10/24 20:00 Room Air* 0 21 Total Intake and Output 04/10/24 04/10/24 04/11/24 15:00 23:00 07:00 Intake Total 900 ml 720 ml Balance 900 ml 720 ml medications Current Medications Medications Dose Ordered Sig/Jennifer Route Start Time Stop Time Status Last Admin Dose Admin Alprazolam 0.25 mg BID PO 04/07/24 22:00 04/11/24 08:46 0.25 MG Amlodipine Besylate 5 mg DAILY PO 04/08/24 10:00 04/11/24 08:46 5 MG Carisoprodol 350 mg TID PO 04/07/24 14:00 04/11/24 05:17 350 MG Hydralazine HCl 10 mg TID PO 04/07/24 14:00 04/11/24 05:18 10 MG Nifedipine 30 mg BID PO 04/07/24 22:00 04/11/24 08:46 30 MG Sacubitril/ Valsartan 1 tab BID PO 04/07/24 22:00 04/11/24 08:47 1 TAB Sucralfate 1 gm QID PO 04/07/24 12:00 04/11/24 05:17 1 GM Atorvastatin Calcium 40 mg HS PO 04/07/24 22:00 04/10/24 21:20 40 MG Clonidine HCl 0.3 mg BID PO 04/07/24 22:00 04/11/24 08:48 0.3 MG Metoprolol Succinate 25 mg DAILY PO 04/08/24 10:00 04/11/24 08:47 25 MG Sertraline HCl 25 mg BID PO 04/08/24 10:00 04/11/24 08:46 25 MG Docusate Sodium 100 mg BIDPRN PRN PO 04/07/24 11:45 Nitroglycerin 0.4 mg Q5MINP PRN SL 04/07/24 11:45 Sumatriptan Succinate 50 mg DAILY PRN PO 04/07/24 13:00 Hydromorphone HCl 0.5 mg Q4HPRN PRN IV 04/07/24 13:45 04/11/24 09:45 0.5 MG Ondansetron HCl 4 mg Q6HP IV 04/07/24 18:00 04/11/24 05:17 4 MG Metoclopramide HCl 10 mg Q8HR IV 04/07/24 22:00 04/11/24 05:17 10 MG Pantoprazole Sodium 40 mg BID@0600,1700 PO 04/08/24 17:00 04/11/24 05:17 40 MG Al Hydrox/Mg Hydrox/Simethicone 30 ml Q4HP PRN PO 04/11/24 10:15 UNV Magnesium Sulfate/ Dextrose 100 ml @ 100 mls/hr Q1HR IV 04/11/24 11:00 04/11/24 12:59 UNV Examination General Appearance: Cooperative. Well developed. Well nourished. NAD Head Exam: Normal inspection Neck Exam: Normal inspection. Non-tender. Normal alignment Pulmonary/Respiratory: Chest non-tender. Clear bilateral breath sounds Cardiovascular/Chest: Regular rate and rhythm. No murmurs. No JVD. Peripheral Pulses: 2+ Radial (R). 2+ Radial (L). 2+ Pedal (R). 2+ Pedal (L) Abdominal Exam: Normal bowel sounds. Soft. Mild tenderness over epigastric region, no rigidity, no guarding. No hepatospenomegaly. No masses Ankle Exam: Negative ankle edema Lower extremities: Negative lower extremity edema Neuro/Mental Status: A&O x4. Coherent Thoughts/Psych: Normal thought pattern. Appropriate mood and affect. Good judgement and insight Appearance: In no acute distress Skin Exam: Normal inspection. Normal color. Warm. Dry laboratory and microbiology Laboratory Tests 04/11/24 05:28 04/09/24 05:58 Test 04/11/24 05:28 Range/Units Serum Glucose 98 74-106 mg/dL Microbiology Date/Time Source Procedure Growth Status 04/07/24 21:13 Nose MRSA Screen - Final Complete Problem List/Assessment/Plan Problem List/Assessment/Plan Intractable nausea and vomiting Epigastric pain ? Acute gastritis, hiatal hernia, gastropathy, esophageal spasm Upper GI bleed Acute dehydration DANIA History of hepatitis-C antibody infection History of liver cancer with partial hepatectomy Diabetes mellitus Coronary artery disease with status post PTCA History of AFib History of CHF Plan/recommendation Dr Granger EGD on 04/08/2024 POSTOPERATIVE DIAGNOSES: 1. 2 cm sliding-type hiatal hernia with slightly irregular squamocolumnar junction no significant erosive esophagitis 2. Mild antral gastritis with pre-pyloric antral gastric erosions and mild duodenitis of the duodenal bulb 3. Otherwise normal examination up to the 2nd and 3rd part of the duodenal with no active bleeding and good bile drainage -follow up in GI clinic in outpatient setting for colonoscopy. -symptomatic treatment with ondansetron 4 mg IV q.6, dicyclomine 10 mg IM once, metoclopramide 5 mg IV Q eight. -EGD on 12/13/2023: Hiatal hernia, duodenitis, acute gastritis with erosive esophagitis. -hepatitis-C antibody infection: Not sure patient followed up in outpatient setting, we will need outpatient follow up in GI clinic. -NPO from midnight, we will continue to monitor patient's clinical status, possible EGD in tomorrow based on clinical status. -CT abdomen and pelvis no acute intra-abdominal pathology. -IV hydration -rest of the management as per hospitalist team -continue following up with this patient Plan discussed with: Patient, Other (RN) Dietary Evaluation Review Comments: encourage and monitor PO intake to meet 75% of her needs. diet as tolerated Expected Outcomes/Goals: maintain wt, recover from GI bleed VASILE HANKINS RESIDENT Apr 11, 2024 11:45
--- NOTE | 2024-04-11 12:17 | DVHPN2 ---
Progress Note - Dictate Date Seen: Apr 11, 2024 Medical Necessity Reason Pt with a Central, PICC or Fol: No Subjective ABD PAIN HAS NOT SEEN ME IN OFFICE SINCE LAST ADMISSION IN FEBRUARY PT HAS HAD MULTIPLE CTs OF ABD/ HEAD / CHEST LACK OF MOBILITY MORBID OBESITY SEVERE ABD / EPIGASTRIC PAIN AND TENDERNESS 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 WAS NEGATIVE CT OF CT NEGATIVE HIGH BUN/ CR RATION CONSISTENT WITH HYPOVOLEMIA WITH NAUSEA AND VOMITING PT WITH SEVERE HYPOKALEMIA PMH: DIABETES HTN HYPERLIPIDEMIA S/P PTCA CA OF LIVER S/P PARTIAL HEPATECTOMY HX OF COLSTOMY SECONDARY TO SBO AFIB CHRONIC HX OF L CVA RIGHT SIDED WEAKNESS vital signs Vital Sign Date Time Temp Pulse Resp B/P (MAP) Pulse Ox O2 Delivery O2 Flow Rate FiO2 04/11/24 09:45 89 20 168/115 04/11/24 09:00 97.8 98 97.8 04/10/24 20:00 Room Air* 0 21 Total Intake and Output 04/10/24 04/10/24 04/11/24 15:00 23:00 07:00 Intake Total 900 ml 720 ml Balance 900 ml 720 ml medications Current Medications Medications Dose Ordered Sig/Jennifer Route Start Time Stop Time Status Last Admin Dose Admin Alprazolam 0.25 mg BID PO 04/07/24 22:00 04/11/24 08:46 0.25 MG Amlodipine Besylate 5 mg DAILY PO 04/08/24 10:00 04/11/24 08:46 5 MG Carisoprodol 350 mg TID PO 04/07/24 14:00 04/11/24 05:17 350 MG Hydralazine HCl 10 mg TID PO 04/07/24 14:00 04/11/24 05:18 10 MG Nifedipine 30 mg BID PO 04/07/24 22:00 04/11/24 08:46 30 MG Sacubitril/ Valsartan 1 tab BID PO 04/07/24 22:00 04/11/24 08:47 1 TAB Sucralfate 1 gm QID PO 04/07/24 12:00 04/11/24 12:00 1 GM Atorvastatin Calcium 40 mg HS PO 04/07/24 22:00 04/10/24 21:20 40 MG Clonidine HCl 0.3 mg BID PO 04/07/24 22:00 04/11/24 08:48 0.3 MG Metoprolol Succinate 25 mg DAILY PO 04/08/24 10:00 04/11/24 08:47 25 MG Sertraline HCl 25 mg BID PO 04/08/24 10:00 04/11/24 08:46 25 MG Docusate Sodium 100 mg BIDPRN PRN PO 04/07/24 11:45 Nitroglycerin 0.4 mg Q5MINP PRN SL 04/07/24 11:45 Sumatriptan Succinate 50 mg DAILY PRN PO 04/07/24 13:00 Hydromorphone HCl 0.5 mg Q4HPRN PRN IV 04/07/24 13:45 04/11/24 09:45 0.5 MG Ondansetron HCl 4 mg Q6HP IV 04/07/24 18:00 04/11/24 12:00 4 MG Metoclopramide HCl 10 mg Q8HR IV 04/07/24 22:00 04/11/24 05:17 10 MG Pantoprazole Sodium 40 mg BID@0600,1700 PO 04/08/24 17:00 04/11/24 05:17 40 MG Al Hydrox/Mg Hydrox/Simethicone 30 ml Q4HP PRN PO 04/11/24 10:15 UNV Magnesium Sulfate/ Dextrose 100 ml @ 100 mls/hr Q1HR IV 04/11/24 11:00 04/11/24 12:59 UNV laboratory and microbiology Laboratory Tests 04/11/24 05:28 04/09/24 05:58 Test 04/11/24 05:28 Range/Units Serum Glucose 98 74-106 mg/dL Problem List ABD PAIN HAS NOT SEEN ME IN OFFICE SINCE LAST ADMISSION IN FEBRUARY PT HAS HAD MULTIPLE CTs OF ABD/ HEAD / CHEST LACK OF MOBILITY MORBID OBESITY SEVERE ABD / EPIGASTRIC PAIN AND TENDERNESS 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 WAS NEGATIVE CT OF CT NEGATIVE HIGH BUN/ CR RATION CONSISTENT WITH HYPOVOLEMIA WITH NAUSEA AND VOMITING PT WITH SEVERE HYPOKALEMIA PMH: DIABETES HTN HYPERLIPIDEMIA S/P PTCA CA OF LIVER S/P PARTIAL HEPATECTOMY HX OF COLSTOMY SECONDARY TO SBO AFIB CHRONIC HX OF L CVA RIGHT SIDED WEAKNESS Assessment/Plan S/P EGD HH EROSIVE ESOPHAGITIS EROSIVE GASTRITIS START POTASSIUM CHANNEL GOPAL VONOPRAZAN Dietary Evaluation Review Comments: encourage and monitor PO intake to meet 75% of her needs. diet as tolerated Expected Outcomes/Goals: maintain wt, recover from GI bleed Plan discussed with: Patient TAY DUNLAP MD Apr 11, 2024 12:17
[2024-04-11] MEDS: MAGNESIUM SULFATE 1GM/100ML 100 ML IV SCH (13:33)
[2024-04-11] MEDS: SUMAtriptan SUCCINATE 25 MG TAB PO PRN (18:00)
[2024-04-11] MEDS: cloNIDine HCL 0.1 MG TAB PO SCH (21:16)
[2024-04-12] VITALS (8 sets, daily range): BP systolic 114–147; BP diastolic 66–98; PULSE 54–74; RESP 17–20; TEMP 97.4–97.9; O2SAT 92–96
[2024-04-12] MEDS: MORPHINE SULFATE INJ 2 MG/ml SYRG IV PRN (02:49)
[2024-04-12] MEDS: HYDROmorphone HCL 2 MG/ML VL/or syr IV PRN (06:09)
[2024-04-12 07:09] LABS: Calcium 9.7 mg/dL (8.7-10.4); Chloride 104 mmol/L (98-107); Potassium 3.7 mmol/L (3.5-5.1); Sodium 139 mmol/L (136-145)
[2024-04-12 07:10] LABS: Anion Gap 9 (5-15); Carbon Dioxide 26 mmol/L (20-31)
[2024-04-12 07:15] LABS: BUN/Creatinine Ratio 12.5 (10.0-20.0); Blood Urea Nitrogen 16 mg/dL (9-23); Glucose 91 mg/dL (74-106)
[2024-04-12 07:16] LABS: Magnesium 2.1 mg/dL (1.6-2.6)
[2024-04-12] MEDS: VONOPRAZAN 20 MG PO SCH (10:00)
--- NOTE | 2024-04-12 12:25 | DVHPN2 ---
Progress Note Date Seen: Apr 12, 2024 Resident Creating Document: VASILE HANKINS RESIDENT Medical Necessity Reason Pt with a Central, PICC or Fol: No Subjective Review of Systems Patient is a 69-year-old female with a past medical history of hepatitis-C infection, liver cancer, acute gastritis, utilized AV esophagitis, hiatal hernia, SBO, status post hepatectomy, diabetes, CAD with status post, AFib, CHF who presented to the hospital with epigastric pain with intractable nausea and vomiting for past three days. As per patient intractable nausea and vomiting associated with hematemesis that prompted visit to the hospital. she is denying any other symptoms at this point including fever, chills, chest pain, weakness, dizziness, sensory deficits, any other symptoms. EGD on 12/13/23: 1. 2 cm sliding-type hiatal hernia with grade a erosive esophagitis and irregular squamocolumnar junction from which biopsies were obtained Patient had a 1 cm distal esophageal ulcer just above the hiatal hernia area with overlying eschar possibly a pill induced ulcer from which biopsies were obtained 2. [id number] gastritis and gastropathy with multiple gastric erosions 3. 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 No any other complaints. Objective vital signs Vital Sign Date Time Temp Pulse Resp B/P (MAP) Pulse Ox O2 Delivery O2 Flow Rate FiO2 04/12/24 10:06 67 18 117/72 04/12/24 09:00 97.6 95 97.6 04/12/24 08:20 Room Air* 0 21 Total Intake and Output 04/11/24 04/11/24 04/12/24 15:00 23:00 07:00 Intake Total 840 ml 1360 ml 600 ml Balance 840 ml 1360 ml 600 ml medications Current Medications Medications Dose Ordered Sig/Jennifer Route Start Time Stop Time Status Last Admin Dose Admin Alprazolam 0.25 mg BID PO 04/07/24 22:00 04/12/24 09:55 0.25 MG Amlodipine Besylate 5 mg DAILY PO 04/08/24 10:00 04/12/24 09:54 5 MG Carisoprodol 350 mg TID PO 04/07/24 14:00 04/12/24 05:44 350 MG Hydralazine HCl 10 mg TID PO 04/07/24 14:00 04/12/24 05:43 10 MG Nifedipine 30 mg BID PO 04/07/24 22:00 04/12/24 09:55 30 MG Sacubitril/ Valsartan 1 tab BID PO 04/07/24 22:00 04/12/24 09:54 1 TAB Sucralfate 1 gm QID PO 04/07/24 12:00 04/12/24 05:44 1 GM Atorvastatin Calcium 40 mg HS PO 04/07/24 22:00 04/11/24 21:15 40 MG Metoprolol Succinate 25 mg DAILY PO 04/08/24 10:00 04/12/24 09:56 25 MG Sertraline HCl 25 mg BID PO 04/08/24 10:00 04/12/24 09:56 25 MG Docusate Sodium 100 mg BIDPRN PRN PO 04/07/24 11:45 Nitroglycerin 0.4 mg Q5MINP PRN SL 04/07/24 11:45 Sumatriptan Succinate 50 mg DAILY PRN PO 04/07/24 13:00 04/11/24 18:00 50 MG Ondansetron HCl 4 mg Q6HP IV 04/07/24 18:00 04/12/24 05:44 4 MG Metoclopramide HCl 10 mg Q8HR IV 04/07/24 22:00 04/12/24 05:44 10 MG Pantoprazole Sodium 40 mg BID@0600,1700 PO 04/08/24 17:00 04/12/24 05:44 40 MG Al Hydrox/Mg Hydrox/Simethicone 30 ml Q4HP PRN PO 04/11/24 10:15 Patient Own Medication 20 mg DAILY PO 04/12/24 10:00 Clonidine HCl 0.3 mg BID PO 04/11/24 22:00 04/12/24 09:56 0.3 MG Morphine Sulfate 2 mg Q4HPRN PRN IV 04/12/24 02:45 04/12/24 10:06 2 MG Hydromorphone HCl 0.5 mg Q4HPRN PRN IV 04/12/24 02:45 Hold 04/12/24 06:09 0.5 MG Examination General Appearance: Cooperative. Well developed. Well nourished. NAD Head Exam: Normal inspection Neck Exam: Normal inspection. Non-tender. Normal alignment Pulmonary/Respiratory: Chest non-tender. Clear bilateral breath sounds Cardiovascular/Chest: Regular rate and rhythm. No murmurs. No JVD. Peripheral Pulses: 2+ Radial (R). 2+ Radial (L). 2+ Pedal (R). 2+ Pedal (L) Abdominal Exam: Normal bowel sounds. Soft. Mild tenderness over epigastric region, no rigidity, no guarding. No hepatospenomegaly. No masses Ankle Exam: Negative ankle edema Lower extremities: Negative lower extremity edema Neuro/Mental Status: A&O x4. Coherent Thoughts/Psych: Normal thought pattern. Appropriate mood and affect. Good judgement and insight Appearance: In no acute distress Skin Exam: Normal inspection. Normal color. Warm. Dry laboratory and microbiology Laboratory Tests 04/12/24 05:54 04/09/24 05:58 Test 04/12/24 05:54 Range/Units Serum Glucose 91 74-106 mg/dL Microbiology Date/Time Source Procedure Growth Status 04/07/24 21:13 Nose MRSA Screen - Final Complete Problem List/Assessment/Plan Problem List/Assessment/Plan Intractable nausea and vomiting Epigastric pain ? Acute gastritis, hiatal hernia, gastropathy, esophageal spasm Upper GI bleed Acute dehydration DANIA History of hepatitis-C antibody infection History of liver cancer with partial hepatectomy Diabetes mellitus Coronary artery disease with status post PTCA History of AFib History of CHF Plan/recommendation Dr Granger EGD on 04/08/2024 POSTOPERATIVE DIAGNOSES: 1. 2 cm sliding-type hiatal hernia with slightly irregular squamocolumnar junction no significant erosive esophagitis 2. Mild antral gastritis with pre-pyloric antral gastric erosions and mild duodenitis of the duodenal bulb 3. Otherwise normal examination up to the 2nd and 3rd part of the duodenal with no active bleeding and good bile drainage -follow up in GI clinic in outpatient setting for colonoscopy. -symptomatic treatment with ondansetron 4 mg IV q.6, dicyclomine 10 mg IM once, metoclopramide 5 mg IV Q eight. Avoid opioids. -EGD on 12/13/2023: Hiatal hernia, duodenitis, acute gastritis with erosive esophagitis. -hepatitis-C antibody infection: Not sure patient followed up in outpatient setting, we will need outpatient follow up in GI clinic. -CT abdomen and pelvis no acute intra-abdominal pathology. -IV hydration -rest of the management as per hospitalist team -continue following up with this patient Plan discussed with: Patient, Other Dietary Evaluation Review Comments: encourage and monitor PO intake to meet 75% of her needs. diet as tolerated Expected Outcomes/Goals: maintain wt, recover from GI bleed VASILE HANKINS RESIDENT Apr 12, 2024 12:25
--- NOTE | 2024-04-12 14:29 | DVHPN2 ---
Progress Note - Dictate Date Seen: Apr 12, 2024 Medical Necessity Reason Pt with a Central, PICC or Fol: No Subjective ABD PAIN HAS NOT SEEN ME IN OFFICE SINCE LAST ADMISSION IN FEBRUARY PT HAS HAD MULTIPLE CTs OF ABD/ HEAD / CHEST LACK OF MOBILITY MORBID OBESITY SEVERE ABD / EPIGASTRIC PAIN AND TENDERNESS 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 WAS NEGATIVE CT OF CT NEGATIVE HIGH BUN/ CR RATION CONSISTENT WITH HYPOVOLEMIA WITH NAUSEA AND VOMITING PT WITH SEVERE HYPOKALEMIA PMH: DIABETES HTN HYPERLIPIDEMIA S/P PTCA CA OF LIVER S/P PARTIAL HEPATECTOMY HX OF COLSTOMY SECONDARY TO SBO AFIB CHRONIC HX OF L CVA RIGHT SIDED WEAKNESS vital signs Vital Sign Date Time Temp Pulse Resp B/P (MAP) Pulse Ox O2 Delivery O2 Flow Rate FiO2 04/12/24 13:43 114/66 04/12/24 13:00 97.6 54 18 92 97.6 04/12/24 08:20 Room Air* 0 21 Total Intake and Output 04/11/24 04/11/24 04/12/24 15:00 23:00 07:00 Intake Total 840 ml 1360 ml 600 ml Balance 840 ml 1360 ml 600 ml medications Current Medications Medications Dose Ordered Sig/Jennifer Route Start Time Stop Time Status Last Admin Dose Admin Alprazolam 0.25 mg BID PO 04/07/24 22:00 04/12/24 09:55 0.25 MG Amlodipine Besylate 5 mg DAILY PO 04/08/24 10:00 04/12/24 09:54 5 MG Carisoprodol 350 mg TID PO 04/07/24 14:00 04/12/24 13:43 350 MG Hydralazine HCl 10 mg TID PO 04/07/24 14:00 04/12/24 13:43 10 MG Nifedipine 30 mg BID PO 04/07/24 22:00 04/12/24 09:55 30 MG Sacubitril/ Valsartan 1 tab BID PO 04/07/24 22:00 04/12/24 09:54 1 TAB Sucralfate 1 gm QID PO 04/07/24 12:00 04/12/24 13:42 1 GM Atorvastatin Calcium 40 mg HS PO 04/07/24 22:00 04/11/24 21:15 40 MG Metoprolol Succinate 25 mg DAILY PO 04/08/24 10:00 04/12/24 09:56 25 MG Sertraline HCl 25 mg BID PO 04/08/24 10:00 04/12/24 09:56 25 MG Docusate Sodium 100 mg BIDPRN PRN PO 04/07/24 11:45 Nitroglycerin 0.4 mg Q5MINP PRN SL 04/07/24 11:45 Sumatriptan Succinate 50 mg DAILY PRN PO 04/07/24 13:00 04/11/24 18:00 50 MG Ondansetron HCl 4 mg Q6HP IV 04/07/24 18:00 04/12/24 13:44 4 MG Metoclopramide HCl 10 mg Q8HR IV 04/07/24 22:00 04/12/24 13:43 10 MG Pantoprazole Sodium 40 mg BID@0600,1700 PO 04/08/24 17:00 04/12/24 05:44 40 MG Al Hydrox/Mg Hydrox/Simethicone 30 ml Q4HP PRN PO 04/11/24 10:15 Patient Own Medication 20 mg DAILY PO 04/12/24 10:00 Clonidine HCl 0.3 mg BID PO 04/11/24 22:00 04/12/24 09:56 0.3 MG Morphine Sulfate 2 mg Q4HPRN PRN IV 04/12/24 02:45 04/12/24 10:06 2 MG Hydromorphone HCl 0.5 mg Q4HPRN PRN IV 04/12/24 02:45 Hold 04/12/24 06:09 0.5 MG laboratory and microbiology Laboratory Tests 04/12/24 05:54 04/09/24 05:58 Test 04/12/24 05:54 Range/Units Serum Glucose 91 74-106 mg/dL Problem List ABD PAIN HAS NOT SEEN ME IN OFFICE SINCE LAST ADMISSION IN FEBRUARY PT HAS HAD MULTIPLE CTs OF ABD/ HEAD / CHEST LACK OF MOBILITY MORBID OBESITY SEVERE ABD / EPIGASTRIC PAIN AND TENDERNESS 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 WAS NEGATIVE CT OF CT NEGATIVE HIGH BUN/ CR RATION CONSISTENT WITH HYPOVOLEMIA WITH NAUSEA AND VOMITING PT WITH SEVERE HYPOKALEMIA PMH: DIABETES HTN HYPERLIPIDEMIA S/P PTCA CA OF LIVER S/P PARTIAL HEPATECTOMY HX OF COLSTOMY SECONDARY TO SBO AFIB CHRONIC HX OF L CVA RIGHT SIDED WEAKNESS Assessment/Plan S/P EGD HH EROSIVE ESOPHAGITIS EROSIVE GASTRITIS START POTASSIUM CHANNEL GOPAL VONOPRAZAN Dietary Evaluation Review Comments: encourage and monitor PO intake to meet 75% of her needs. diet as tolerated Expected Outcomes/Goals: maintain wt, recover from GI bleed TAY DUNLAP MD Apr 12, 2024 14:29
--- NOTE | 2024-04-12 19:54 | DVHPN2 ---
Subjective Better But still c/o epigastric pain Changes from previous H/P or p: Changes Eyes: No Pain, No Vision change, No Conjunctivae inflammation, No Eyelid inflammation, No Other, No Redness ENT: No Ear pain, No Ear discharge, No Nose pain, No Nose discharge, No Nose congestion, No Mouth pain, No Mouth swelling, No Throat pain, No Throat swelling, No Other Cardiovascular: No Chest Pain, No Palpitations, No Orthopnea, No Paroxysmal Noc. Dyspnea, No Edema, No Lt Headedness, No Other Respiratory: No Cough, No Dry, No Shortness of breath, No SOB with excertion, No Wheezing, No Hemoptysis, No Pleuritic Pain, No Sputum, No Other Gastrointestinal: Nausea, Vomiting, Abdominal Pain; No Diarrhea, No Constipation, No Melena, No Hematochezia, No Other Genitourinary: No Dysuria, No Frequency, No Incontinence, No Hematuria, No Retention, No Other Musculoskeletal: No other, No neck pain, No shoulder pain, No arm pain, No back pain, No hand pain, No leg pain, No foot pain Skin: No Rash, No Lesions, No Jaundice, No Bruising, No Other Objective Vitals Vital Signs Date Time Temp Pulse Resp B/P (MAP) Pulse Ox O2 Delivery O2 Flow Rate FiO2 04/12/24 19:03 64 17 130/83 04/12/24 17:00 97.5 96 97.5 04/12/24 08:20 Room Air* 0 21 Intake/Output Intake and Output 04/12/24 07:00 Intake Total 2800 ml Balance 2800 ml Intake Oral 2800 ml # Voids 11 General Appearance: Alert, Oriented X3, Cooperative Lungs: Clear to auscultation, Normal air movement Cardiovascular: Regular rate, Normal S1 Abdomen: Normal bowel sounds, Soft Extremities: No edema Medications Current Medications Medications Dose Ordered Sig/Jennifer Route Start Time Stop Time Status Last Admin Dose Admin Alprazolam 0.25 mg BID PO 04/07/24 22:00 04/12/24 09:55 0.25 MG Amlodipine Besylate 5 mg DAILY PO 04/08/24 10:00 04/12/24 09:54 5 MG Carisoprodol 350 mg TID PO 04/07/24 14:00 04/12/24 13:43 350 MG Hydralazine HCl 10 mg TID PO 04/07/24 14:00 04/12/24 13:43 10 MG Nifedipine 30 mg BID PO 04/07/24 22:00 04/12/24 09:55 30 MG Sacubitril/ Valsartan 1 tab BID PO 04/07/24 22:00 04/12/24 09:54 1 TAB Sucralfate 1 gm QID PO 04/07/24 12:00 04/12/24 17:34 1 GM Atorvastatin Calcium 40 mg HS PO 04/07/24 22:00 04/11/24 21:15 40 MG Metoprolol Succinate 25 mg DAILY PO 04/08/24 10:00 04/12/24 09:56 25 MG Sertraline HCl 25 mg BID PO 04/08/24 10:00 04/12/24 09:56 25 MG Docusate Sodium 100 mg BIDPRN PRN PO 04/07/24 11:45 Nitroglycerin 0.4 mg Q5MINP PRN SL 04/07/24 11:45 Sumatriptan Succinate 50 mg DAILY PRN PO 04/07/24 13:00 04/11/24 18:00 50 MG Ondansetron HCl 4 mg Q6HP IV 04/07/24 18:00 04/12/24 17:35 4 MG Metoclopramide HCl 10 mg Q8HR IV 04/07/24 22:00 04/12/24 13:43 10 MG Pantoprazole Sodium 40 mg BID@0600,1700 PO 04/08/24 17:00 04/12/24 17:34 40 MG Al Hydrox/Mg Hydrox/Simethicone 30 ml Q4HP PRN PO 04/11/24 10:15 Patient Own Medication 20 mg DAILY PO 04/12/24 10:00 Clonidine HCl 0.3 mg BID PO 04/11/24 22:00 04/12/24 09:56 0.3 MG Morphine Sulfate 2 mg Q4HPRN PRN IV 04/12/24 02:45 04/12/24 18:33 2 MG Laboratory Results Laboratory Tests 04/09/24 05:58 04/12/24 05:54 Chemistry Test 04/12/24 05:54 Calcium Level 9.7 mg/dL (8.7-10.4) Magnesium Level 2.1 mg/dL (1.6-2.6) Microbiology Microbiology Date/Time Source Procedure Growth Status 04/07/24 21:13 Nose MRSA Screen - Final Complete Assessment/Plan Assessment/Plan Upper GI bleed Hiatal hernia Mild gastritis History of atrial fibrillation History of CVA History of CHF Acute kidney injury hemodynamically mediated Rule out chronic kidney disease Type 2 diabetes Hypertension Hypokalemia Plan Continue p.o. Protonix Carafate Discontinue the IV fluids Replace potassium IV Home medications Place on entomology professor the patient closely Full code Rest of the management will depend on the hospital course Plan of care discussed for 20 minute 04/09/2024: Abdominal pain: Continue Carafate and Protonix Hypokalemia: Replace Anxiety: Xanax p.r.n. Hypertension: Amlodipine, clonidine, metoprolol, nifedipine CHF: JENNIE Lane the IV fluids Monitor the hospital closely The rest of the management will depend on the hospital course Cardiology is following 04/10/2024: Continue the current management with Protonix and Carafate Replace potassium for hypokalemia Anxiety: Xanax p.r.n. Hypertension CHF Monitor closely Advance diet slowly as tolerated to mechanical soft diet Hypomagnesemia, replace 04/11/2024: Hypokalemia: Replace Abdominal pain: The patient is still symptomatic, continue Carafate and Protonix, add Mylanta p.r.n. Anxiety: Takes Xanax p.r.n. Hypertension CHF Continue to monitor monitor the patient closely and the rest of the management will depend on the hospital course Hypomagnesemia: Replace magnesium 04/12/24: COntinue PPI, carafate, Replace K+ Plan discussed with: Patient Date of Service: Apr 12, 2024 Billing Provider: CORINNE AC MD Common Visit Codes: [id number] INP/OBS CARE(MOD) CORINNE AC MD Apr 12, 2024 19:54
[2024-04-13] VITALS (8 sets, daily range): BP systolic 120–188; BP diastolic 86–101; PULSE 55–84; RESP 16–19; TEMP 97.6–98.6; O2SAT 94–100
[2024-04-13] MEDS: ZOLPIDEM TARTRATE 5 MG TAB PO PRN (01:32)
[2024-04-13] MEDS: HYDROmorphone HCL 2 MG/ML VL/or syr IV ONE (07:00)
--- NOTE | 2024-04-13 13:04 | DVHPN2 ---
Reviewed: Care Plan, H&P, Labs, Medications, Previous Orders, Radiology Changes from previous H/P or p: No Changes General: Per HPI Eyes: No Pain, No Vision change, No Conjunctivae inflammation, No Eyelid inflammation, No Other, No Redness ENT: No Ear pain, No Ear discharge, No Nose pain, No Nose discharge, No Nose congestion, No Mouth pain, No Mouth swelling, No Throat pain, No Throat swelling, No Other Cardiovascular: No Chest Pain, No Palpitations, No Orthopnea, No Paroxysmal Noc. Dyspnea, No Edema, No Lt Headedness, No Other Respiratory: No Cough, No Dry, No Shortness of breath, No SOB with excertion, No Wheezing, No Hemoptysis, No Pleuritic Pain, No Sputum, No Other Gastrointestinal: Nausea, Vomiting, Abdominal Pain; No Diarrhea, No Constipation, No Melena, No Hematochezia, No Other Genitourinary: No Dysuria, No Frequency, No Incontinence, No Hematuria, No Retention, No Other Musculoskeletal: No other, No neck pain, No shoulder pain, No arm pain, No back pain, No hand pain, No leg pain, No foot pain Skin: No Rash, No Lesions, No Jaundice, No Bruising, No Other Objective Vitals Vital Signs Date Time Temp Pulse Resp B/P (MAP) Pulse Ox O2 Delivery O2 Flow Rate FiO2 04/13/24 11:00 132/80 04/13/24 09:18 63 18 04/13/24 09:00 97.9 98 97.9 04/13/24 08:00 Room Air* 0 21 Intake/Output Intake and Output 04/13/24 07:00 Intake Total 860 ml Output Total 250 ml Balance 610 ml Intake Oral 860 ml Output Urine Total 250 ml # Voids 4 General Appearance: Alert, Oriented X3, Cooperative Lungs: Clear to auscultation, Normal air movement Cardiovascular: Regular rate, Normal S1 Abdomen: Normal bowel sounds, Soft Extremities: No edema Medications Current Medications Medications Dose Ordered Sig/Jennifer Route Start Time Stop Time Status Last Admin Dose Admin Alprazolam 0.25 mg BID PO 04/07/24 22:00 04/13/24 09:12 0.25 MG Amlodipine Besylate 5 mg DAILY PO 04/08/24 10:00 04/13/24 09:13 5 MG Carisoprodol 350 mg TID PO 04/07/24 14:00 04/13/24 05:53 350 MG Hydralazine HCl 10 mg TID PO 04/07/24 14:00 04/13/24 05:55 10 MG Nifedipine 30 mg BID PO 04/07/24 22:00 04/13/24 09:14 30 MG Sacubitril/ Valsartan 1 tab BID PO 04/07/24 22:00 04/13/24 09:14 1 TAB Sucralfate 1 gm QID PO 04/07/24 12:00 04/13/24 11:59 1 GM Atorvastatin Calcium 40 mg HS PO 04/07/24 22:00 04/12/24 21:30 40 MG Metoprolol Succinate 25 mg DAILY PO 04/08/24 10:00 04/13/24 09:16 25 MG Sertraline HCl 25 mg BID PO 04/08/24 10:00 04/13/24 09:15 25 MG Docusate Sodium 100 mg BIDPRN PRN PO 04/07/24 11:45 Nitroglycerin 0.4 mg Q5MINP PRN SL 04/07/24 11:45 Sumatriptan Succinate 50 mg DAILY PRN PO 04/07/24 13:00 04/11/24 18:00 50 MG Ondansetron HCl 4 mg Q6HP IV 04/07/24 18:00 04/13/24 11:59 4 MG Metoclopramide HCl 10 mg Q8HR IV 04/07/24 22:00 04/13/24 05:54 10 MG Pantoprazole Sodium 40 mg BID@0600,1700 PO 04/08/24 17:00 04/13/24 05:53 40 MG Al Hydrox/Mg Hydrox/Simethicone 30 ml Q4HP PRN PO 04/11/24 10:15 Patient Own Medication 20 mg DAILY PO 04/12/24 10:00 Clonidine HCl 0.3 mg BID PO 04/11/24 22:00 04/13/24 10:00 0.3 MG Morphine Sulfate 2 mg Q4HPRN PRN IV 04/12/24 02:45 04/13/24 08:42 2 MG Zolpidem Tartrate 10 mg HSPRN PRN PO 04/13/24 01:15 04/13/24 01:32 10 MG Laboratory Results Laboratory Tests 04/09/24 05:58 04/12/24 05:54 Microbiology Microbiology Date/Time Source Procedure Growth Status 04/07/24 21:13 Nose MRSA Screen - Final Complete Assessment/Plan Assessment/Plan Upper GI bleed Hiatal hernia Mild gastritis History of atrial fibrillation History of CVA History of CHF Acute kidney injury hemodynamically mediated Rule out chronic kidney disease Type 2 diabetes Hypertension Hypokalemia Plan Continue p.o. Protonix Carafate Discontinue the IV fluids Replace potassium IV Home medications Place on sales administrator the patient closely Full code Rest of the management will depend on the hospital course Plan of care discussed for 20 minute 04/09/2024: Abdominal pain: Continue Carafate and Protonix Hypokalemia: Replace Anxiety: Xanax p.r.n. Hypertension: Amlodipine, clonidine, metoprolol, nifedipine CHF: JENNIE Lane the IV fluids Monitor the hospital closely The rest of the management will depend on the hospital course Cardiology is following 04/10/2024: Continue the current management with Protonix and Carafate Replace potassium for hypokalemia Anxiety: Xanax p.r.n. Hypertension CHF Monitor closely Advance diet slowly as tolerated to mechanical soft diet Hypomagnesemia, replace 04/11/2024: Hypokalemia: Replace Abdominal pain: The patient is still symptomatic, continue Carafate and Protonix, add Mylanta p.r.n. Anxiety: Takes Xanax p.r.n. Hypertension CHF Continue to monitor monitor the patient closely and the rest of the management will depend on the hospital course Hypomagnesemia: Replace magnesium 04/12/24: COntinue PPI, carafate, Replace K+ 04/13/24 pt is pending an pt states she still has some pain Plan discussed with: Patient Date of Service: Apr 13, 2024 Billing Provider: JESUS MURO DO Common Visit Codes: [id number] INP/OBS CARE(HIGH) JESUS MURO DO Apr 13, 2024 13:04
[2024-04-14] VITALS (8 sets, daily range): BP systolic 102–169; BP diastolic 55–97; PULSE 54–73; RESP 16–18; TEMP 97.6–98.4; O2SAT 92–96
--- NOTE | 2024-04-14 10:13 | DVHPN2 ---
Progress Note - Dictate Date Seen: Apr 14, 2024 Medical Necessity Reason Pt with a Central, PICC or Fol: No Subjective No new complaints ; patient states she is trying Patient has ongoing epigastric discomfort for which she takes pain medicines every 4 hours Patient appears to have pain medicine seeking behavior EGD findings reviewed with the patient she had mild gastritis with some erosions Patient is on PPI and Carafate Yesterday she required some oxygen supplementation but today she is saturating well on room air vital signs Vital Sign Date Time Temp Pulse Resp B/P (MAP) Pulse Ox O2 Delivery O2 Flow Rate FiO2 04/14/24 10:07 67 18 169/93 04/14/24 09:13 98.1 92 98.1 04/14/24 08:00 Room Air* 0 21 Total Intake and Output 04/13/24 04/13/24 04/14/24 15:00 23:00 07:00 Intake Total 540 ml 420 ml Balance 540 ml 420 ml medications Current Medications Medications Dose Ordered Sig/Jennifer Route Start Time Stop Time Status Last Admin Dose Admin Alprazolam 0.25 mg BID PO 04/07/24 22:00 04/14/24 10:04 0.25 MG Amlodipine Besylate 5 mg DAILY PO 04/08/24 10:00 04/14/24 10:02 5 MG Carisoprodol 350 mg TID PO 04/07/24 14:00 04/14/24 05:19 350 MG Hydralazine HCl 10 mg TID PO 04/07/24 14:00 04/14/24 05:20 10 MG Nifedipine 30 mg BID PO 04/07/24 22:00 04/14/24 10:02 30 MG Sacubitril/ Valsartan 1 tab BID PO 04/07/24 22:00 04/14/24 10:01 1 TAB Sucralfate 1 gm QID PO 04/07/24 12:00 04/14/24 05:19 1 GM Atorvastatin Calcium 40 mg HS PO 04/07/24 22:00 04/13/24 21:35 40 MG Metoprolol Succinate 25 mg DAILY PO 04/08/24 10:00 04/14/24 10:04 25 MG Sertraline HCl 25 mg BID PO 04/08/24 10:00 04/14/24 10:04 25 MG Docusate Sodium 100 mg BIDPRN PRN PO 04/07/24 11:45 Nitroglycerin 0.4 mg Q5MINP PRN SL 04/07/24 11:45 Sumatriptan Succinate 50 mg DAILY PRN PO 04/07/24 13:00 04/13/24 20:28 50 MG Ondansetron HCl 4 mg Q6HP IV 04/07/24 18:00 04/14/24 05:16 4 MG Metoclopramide HCl 10 mg Q8HR IV 04/07/24 22:00 04/14/24 05:17 10 MG Pantoprazole Sodium 40 mg BID@0600,1700 PO 04/08/24 17:00 04/14/24 05:19 40 MG Al Hydrox/Mg Hydrox/Simethicone 30 ml Q4HP PRN PO 04/11/24 10:15 Patient Own Medication 20 mg DAILY PO 04/12/24 10:00 Clonidine HCl 0.3 mg BID PO 04/11/24 22:00 04/14/24 10:01 0.3 MG Morphine Sulfate 2 mg Q4HPRN PRN IV 04/12/24 02:45 04/14/24 10:07 2 MG Zolpidem Tartrate 10 mg HSPRN PRN PO 04/13/24 01:15 04/13/24 21:38 10 MG objective General Appearance: Alert, Oriented X3, Cooperative Lungs: Clear to auscultation, Normal air movement Cardiovascular: Regular rate, Normal S1 Abdomen: Normal bowel sounds, Soft Extremities: No edema laboratory and microbiology Laboratory Tests 04/12/24 05:54 04/09/24 05:58 Test 04/12/24 05:54 Range/Units Serum Glucose 91 74-106 mg/dL Problems(with codes): (1) GI bleed (2) Hypertensive urgency (3) Chest pain of unknown etiology (4) Atrial fibrillation with RVR Prognosis Plan Continue PPI and Carafate I will order a gallbladder ultrasound rule out any gallstones Continue supportive care Patient states she has a good support system at home and lives with her daughter in [place] Patient otherwise is cleared from GI point of view She has been given my contact information to follow up with me as an outpatient Dietary Evaluation Review Comments: encourage and monitor PO intake to meet 75% of her needs. diet as tolerated Expected Outcomes/Goals: maintain wt, recover from GI bleed Plan discussed with: Patient, Other (Nurse ) CLEMENCIA SANCHES MD Apr 14, 2024 10:13
[2024-04-14] MEDS ORDERED: SUM25T PO (14:41)
--- NOTE | 2024-04-14 14:42 | DVHDS2 ---
Discharge Summary Date of Admission Apr 07, 2024 at 11:40 Date of Discharge: Apr 14, 2024 Labs/Diagnostic Data: Laboratory Results Test 04/12/24 05:54 04/09/24 05:58 04/08/24 06:20 04/07/24 09:00 Sodium Level 139 mmol/L (136-145) Potassium Level 3.7 mmol/L (3.5-5.1) Chloride Level 104 mmol/L (98-107) Carbon Dioxide Level 26 mmol/L (20-31) Anion Gap 9 (5-15) Blood Urea Nitrogen 16 mg/dL (9-23) Creatinine 1.28 mg/dL (0.550-1.02) Glomerular Filtration Rate Calc 46 mL/min (>90) BUN/Creatinine Ratio 12.5 (10.0-20.0) Serum Glucose 91 mg/dL (74-106) Calcium Level 9.7 mg/dL (8.7-10.4) Magnesium Level 2.1 mg/dL (1.6-2.6) White Blood Count 5.0 10^3/uL (4.4-10.8) Red Blood Count 4.19 10^6/uL (4.0-5.20) Hemoglobin 12.3 g/dL (12.2-16.2) Hematocrit 37.8 % (36.0-46.0) Mean Corpuscular Volume 90.1 fL (80.0-100.0) Mean Corpuscular Hemoglobin 29.3 pg (28.0-32.0) Mean Corpuscular Hemoglobin Concent 32.6 g/dL (32.0-36.0) Red Cell Distribution Width 16.5 % (11.8-14.3) Platelet Count 188 10^3/uL (140-450) Mean Platelet Volume 8.0 fL (6.9-10.8) Neutrophils (%) (Auto) 54.5 % (37.0-80.0) Lymphocytes (%) (Auto) 33.5 % (10.0-50.0) Monocytes (%) (Auto) 8.2 % (0.0-12.0) Eosinophils (%) (Auto) 3.3 % (0.0-7.0) Basophils (%) (Auto) 0.5 % (0.0-2.0) Neutrophils # (Auto) 2.7 10 ^3/uL (1.6-8.6) Lymphocytes # (Auto) 1.7 10 ^3/uL (0.4-5.4) Monocytes # (Auto) 0.4 10 ^3/uL (0-1.3) Eosinophils # (Auto) 0.2 10 ^3/uL (0-0.8) Basophils # (Auto) 0 10 ^3/uL (0-0.2) Nucleated Red Blood Cells 0.2 % Total Bilirubin 0.4 mg/dL (0.2-1.0) Aspartate Amino Transferase (AST) 29 U/L (13-40) Alanine Aminotransferase (ALT) 25 U/L (7-40) Alkaline Phosphatase 99 U/L (46-116) Total Protein 6.5 g/dL (5.7-8.2) Albumin 4.1 g/dL (3.2-4.8) Prothrombin Time 11.4 sec (9.3-11.8) Prothrombin Time INR 1.08 (0.9-1.15) Activated Partial Thromboplast Time 27.9 SEC (24.5-34.5) Phosphorus Level 3.3 mg/dL (2.4-5.1) Lipase 44 U/L (12-53) Other Laboratory Tests 04/12/24 05:54 04/09/24 05:58 Brief Hx & Hospital Course: Upper GI bleed Hiatal hernia Mild gastritis History of atrial fibrillation History of CVA History of CHF Acute kidney injury hemodynamically mediated Rule out chronic kidney disease Type 2 diabetes Hypertension Hypokalemia Plan Continue p.o. Protonix Carafate Discontinue the IV fluids Replace potassium IV Home medications Place on print buyer the patient closely Full code Rest of the management will depend on the hospital course Plan of care discussed for 20 minute 04/09/2024: Abdominal pain: Continue Carafate and Protonix Hypokalemia: Replace Anxiety: Xanax p.r.n. Hypertension: Amlodipine, clonidine, metoprolol, nifedipine CHF: JENNIE Lane the IV fluids Monitor the hospital closely The rest of the management will depend on the hospital course Cardiology is following 04/10/2024: Continue the current management with Protonix and Carafate Replace potassium for hypokalemia Anxiety: Xanax p.r.n. Hypertension CHF Monitor closely Advance diet slowly as tolerated to mechanical soft diet Hypomagnesemia, replace 04/11/2024: Hypokalemia: Replace Abdominal pain: The patient is still symptomatic, continue Carafate and Protonix, add Mylanta p.r.n. Anxiety: Takes Xanax p.r.n. Hypertension CHF Continue to monitor monitor the patient closely and the rest of the management will depend on the hospital course Hypomagnesemia: Replace magnesium 04/12/24: COntinue PPI, carafate, Replace K+ 04/13/24 pt is pending an pt states she still has some pain 04/14/24 discharged to home with self care Condition at Discharge: Good Final Diagnosis/Problems List see above Discharge Disposition: Home Discharge Instruct/Medications Diet: Cardiac 2g Na,low cholest Activity: No Restrictions, As Tolerated Discharge Statement: "Patient was advised to return to the ER or call 911 if any headaches, dizziness, shortness of breath, chest pain, abdominal pain, bleeding, fevers, or worsening of medical condition. Patient was counseled about treatment plan, medications, possible side effects, patientverbalized understanding. All questions were answered to the best of my ability. This discharge took greater then 30 minutes in planning, reviewing documentation, counseling the patient, and discussing with other team members." ASSESSMENT ASSESSMENT Assessment Date of Service: Apr 14, 2024 Billing Provider: JESUS MURO DO Common Visit Codes: 59735-YYI/OBS DISCH DAY >30min JESUS MURO DO Apr 14, 2024 14:42
--- NOTE | 2024-04-14 17:04 | DVH ---
INDICATION: persistent epigastric pain TECHNIQUE: Multiple real-time sonographic images of the abdomen were obtained. COMPARISON: None FINDINGS: The liver is homogenous in echogenicity. The liver measures 18.96 cm. No intrahepatic bili jamel ductal dilatation is noted. Gallbladder has been surgically removed. 0.55 cm and is unremarkable. No pericholecystic fluid is not ed. The right kidney measures 10.55 cm. No hydronephrosis. There is a 3 cm anechoic lesion in the lower pole cortex of the right kidney consistent with a cortical cyst The pancreas is not well visualized due to obscuration from bowel gas. IMPRESSION: 1. Gallbladder has been surgically removed. Common bile duct measures 0.55 cm. 2. 3 cm cortical cyst lower pole right kidney
--- NOTE | 2024-04-14 20:30 | DVHPN2 ---
Reviewed: Care Plan, H&P, Labs, Medications, Previous Orders, Radiology Changes from previous H/P or p: No Changes General: Per HPI Eyes: No Pain, No Vision change, No Conjunctivae inflammation, No Eyelid inflammation, No Other, No Redness ENT: No Ear pain, No Ear discharge, No Nose pain, No Nose discharge, No Nose congestion, No Mouth pain, No Mouth swelling, No Throat pain, No Throat swelling, No Other Cardiovascular: No Chest Pain, No Palpitations, No Orthopnea, No Paroxysmal Noc. Dyspnea, No Edema, No Lt Headedness, No Other Respiratory: No Cough, No Dry, No Shortness of breath, No SOB with excertion, No Wheezing, No Hemoptysis, No Pleuritic Pain, No Sputum, No Other Gastrointestinal: Nausea, Vomiting, Abdominal Pain; No Diarrhea, No Constipation, No Melena, No Hematochezia, No Other Genitourinary: No Dysuria, No Frequency, No Incontinence, No Hematuria, No Retention, No Other Musculoskeletal: No other, No neck pain, No shoulder pain, No arm pain, No back pain, No hand pain, No leg pain, No foot pain Skin: No Rash, No Lesions, No Jaundice, No Bruising, No Other Objective Vitals Vital Signs Date Time Temp Pulse Resp B/P (MAP) Pulse Ox O2 Delivery O2 Flow Rate FiO2 04/14/24 17:49 98.4 54 18 128/70 (89) 96 98.4 04/14/24 08:00 Room Air* 0 21 Intake/Output Intake and Output 04/14/24 07:00 Intake Total 960 ml Balance 960 ml Intake Oral 960 ml # Voids 4 General Appearance: Alert, Oriented X3, Cooperative Lungs: Clear to auscultation, Normal air movement Cardiovascular: Regular rate, Normal S1 Abdomen: Normal bowel sounds, Soft Extremities: No edema Medications Current Medications Medications Dose Ordered Sig/Jennifer Route Start Time Stop Time Status Last Admin Dose Admin Alprazolam 0.25 mg BID PO 04/07/24 22:00 04/14/24 10:04 0.25 MG Amlodipine Besylate 5 mg DAILY PO 04/08/24 10:00 04/14/24 10:02 5 MG Carisoprodol 350 mg TID PO 04/07/24 14:00 04/14/24 15:05 350 MG Hydralazine HCl 10 mg TID PO 04/07/24 14:00 04/14/24 15:06 10 MG Nifedipine 30 mg BID PO 04/07/24 22:00 04/14/24 10:02 30 MG Sacubitril/ Valsartan 1 tab BID PO 04/07/24 22:00 04/14/24 10:01 1 TAB Sucralfate 1 gm QID PO 04/07/24 12:00 04/14/24 17:14 1 GM Atorvastatin Calcium 40 mg HS PO 04/07/24 22:00 04/13/24 21:35 40 MG Metoprolol Succinate 25 mg DAILY PO 04/08/24 10:00 04/14/24 10:04 25 MG Sertraline HCl 25 mg BID PO 04/08/24 10:00 04/14/24 10:04 25 MG Docusate Sodium 100 mg BIDPRN PRN PO 04/07/24 11:45 Nitroglycerin 0.4 mg Q5MINP PRN SL 04/07/24 11:45 Sumatriptan Succinate 50 mg DAILY PRN PO 04/07/24 13:00 04/13/24 20:28 50 MG Ondansetron HCl 4 mg Q6HP IV 04/07/24 18:00 04/14/24 17:15 4 MG Metoclopramide HCl 10 mg Q8HR IV 04/07/24 22:00 04/14/24 15:05 10 MG Pantoprazole Sodium 40 mg BID@0600,1700 PO 04/08/24 17:00 04/14/24 17:14 40 MG Al Hydrox/Mg Hydrox/Simethicone 30 ml Q4HP PRN PO 04/11/24 10:15 Patient Own Medication 20 mg DAILY PO 04/12/24 10:00 Clonidine HCl 0.3 mg BID PO 04/11/24 22:00 04/14/24 10:01 0.3 MG Morphine Sulfate 2 mg Q4HPRN PRN IV 04/12/24 02:45 04/14/24 15:07 2 MG Zolpidem Tartrate 10 mg HSPRN PRN PO 04/13/24 01:15 04/13/24 21:38 10 MG Laboratory Results Laboratory Tests 04/09/24 05:58 04/12/24 05:54 Microbiology Microbiology Date/Time Source Procedure Growth Status 04/07/24 21:13 Nose MRSA Screen - Final Complete Assessment/Plan Assessment/Plan Upper GI bleed Hiatal hernia Mild gastritis History of atrial fibrillation History of CVA History of CHF Acute kidney injury hemodynamically mediated Rule out chronic kidney disease Type 2 diabetes Hypertension Hypokalemia Plan Continue p.o. Protonix Carafate Discontinue the IV fluids Replace potassium IV Home medications Place on director business development the patient closely Full code Rest of the management will depend on the hospital course Plan of care discussed for 20 minute 04/09/2024: Abdominal pain: Continue Carafate and Protonix Hypokalemia: Replace Anxiety: Xanax p.r.n. Hypertension: Amlodipine, clonidine, metoprolol, nifedipine CHF: JENNIE Lane the IV fluids Monitor the hospital closely The rest of the management will depend on the hospital course Cardiology is following 04/10/2024: Continue the current management with Protonix and Carafate Replace potassium for hypokalemia Anxiety: Xanax p.r.n. Hypertension CHF Monitor closely Advance diet slowly as tolerated to mechanical soft diet Hypomagnesemia, replace 04/11/2024: Hypokalemia: Replace Abdominal pain: The patient is still symptomatic, continue Carafate and Protonix, add Mylanta p.r.n. Anxiety: Takes Xanax p.r.n. Hypertension CHF Continue to monitor monitor the patient closely and the rest of the management will depend on the hospital course Hypomagnesemia: Replace magnesium 04/12/24: COntinue PPI, carafate, Replace K+ 04/13/24 pt is pending an US pt states she still has some pain 04/14/2024 discharge but due to pt still have a gallbladder US, discharge was held discharge in AM if US is negative and needs no further intervention Plan discussed with: Patient Date of Service: Apr 14, 2024 Billing Provider: JESUS MURO DO Common Visit Codes: [id number] INP/OBS CARE(HIGH) JESUS MURO DO Apr 14, 2024 20:30
[2024-04-15 05:00] VITALS: BP 147/84; PULSE 53; RESP 12; TEMP 98; O2SAT 95
[2024-04-15 08:10] VITALS: PULSE 57; PULSE 64; RESP 17; O2SAT 95
[2024-04-15 09:00] VITALS: BP 168/97; PULSE 64; RESP 17; TEMP 98.2; O2SAT 95
[2024-04-15 12:18] VITALS: BP 120/68; PULSE 50; RESP 17; TEMP 98; O2SAT 95
[2024-04-15] MEDS ORDERED: PANT40TA2 PO (12:30)
[2024-04-15] MEDS ORDERED: SUCR1TAB31 OR (12:30)
--- NOTE | 2024-04-15 12:30 | DVHPN2 ---
Progress Note - Dictate Date Seen: Apr 13, 2024 Medical Necessity Reason Pt with a Central, PICC or Fol: No Subjective ABD PAIN HAS NOT SEEN ME IN OFFICE SINCE LAST ADMISSION IN FEBRUARY PT HAS HAD MULTIPLE CTs OF ABD/ HEAD / CHEST LACK OF MOBILITY MORBID OBESITY SEVERE ABD / EPIGASTRIC PAIN AND TENDERNESS 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 WAS NEGATIVE CT OF CT NEGATIVE HIGH BUN/ CR RATION CONSISTENT WITH HYPOVOLEMIA WITH NAUSEA AND VOMITING PT WITH SEVERE HYPOKALEMIA PMH: DIABETES HTN HYPERLIPIDEMIA S/P PTCA CA OF LIVER S/P PARTIAL HEPATECTOMY HX OF COLSTOMY SECONDARY TO SBO AFIB CHRONIC HX OF L CVA RIGHT SIDED WEAKNESS vital signs Vital Sign Date Time Temp Pulse Resp B/P (MAP) Pulse Ox O2 Delivery O2 Flow Rate FiO2 04/15/24 12:18 98.0 50 17 120/68 (85) 95 98.0 04/15/24 08:10 Room Air* 0 21 Total Intake and Output 04/14/24 04/14/24 04/15/24 15:00 23:00 07:00 Intake Total 500 ml 400 ml Balance 500 ml 400 ml medications Current Medications Medications Dose Ordered Sig/Jennifer Route Start Time Stop Time Status Last Admin Dose Admin Alprazolam 0.25 mg BID PO 04/07/24 22:00 04/15/24 09:52 0.25 MG Amlodipine Besylate 5 mg DAILY PO 04/08/24 10:00 04/15/24 09:53 5 MG Carisoprodol 350 mg TID PO 04/07/24 14:00 04/15/24 05:25 350 MG Hydralazine HCl 10 mg TID PO 04/07/24 14:00 04/15/24 05:25 10 MG Nifedipine 30 mg BID PO 04/07/24 22:00 04/15/24 09:51 30 MG Sacubitril/ Valsartan 1 tab BID PO 04/07/24 22:00 04/15/24 09:51 1 TAB Sucralfate 1 gm QID PO 04/07/24 12:00 04/15/24 12:11 1 GM Atorvastatin Calcium 40 mg HS PO 04/07/24 22:00 04/14/24 21:33 40 MG Metoprolol Succinate 25 mg DAILY PO 04/08/24 10:00 04/15/24 10:03 25 MG Sertraline HCl 25 mg BID PO 04/08/24 10:00 04/15/24 09:50 25 MG Docusate Sodium 100 mg BIDPRN PRN PO 04/07/24 11:45 Nitroglycerin 0.4 mg Q5MINP PRN SL 04/07/24 11:45 Sumatriptan Succinate 50 mg DAILY PRN PO 04/07/24 13:00 04/13/24 20:28 50 MG Ondansetron HCl 4 mg Q6HP IV 04/07/24 18:00 04/15/24 12:11 4 MG Metoclopramide HCl 10 mg Q8HR IV 04/07/24 22:00 04/15/24 05:25 10 MG Pantoprazole Sodium 40 mg BID@0600,1700 PO 04/08/24 17:00 04/15/24 05:25 40 MG Al Hydrox/Mg Hydrox/Simethicone 30 ml Q4HP PRN PO 04/11/24 10:15 Patient Own Medication 20 mg DAILY PO 04/12/24 10:00 Clonidine HCl 0.3 mg BID PO 04/11/24 22:00 04/15/24 09:52 0.3 MG Morphine Sulfate 2 mg Q4HPRN PRN IV 04/12/24 02:45 04/15/24 09:48 2 MG Zolpidem Tartrate 10 mg HSPRN PRN PO 04/13/24 01:15 04/14/24 22:02 10 MG laboratory and microbiology Laboratory Tests 04/12/24 05:54 04/09/24 05:58 Test 04/12/24 05:54 Range/Units Serum Glucose 91 74-106 mg/dL Problem List ABD PAIN HAS NOT SEEN ME IN OFFICE SINCE LAST ADMISSION IN FEBRUARY PT HAS HAD MULTIPLE CTs OF ABD/ HEAD / CHEST LACK OF MOBILITY MORBID OBESITY SEVERE ABD / EPIGASTRIC PAIN AND TENDERNESS 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 WAS NEGATIVE CT OF CT NEGATIVE HIGH BUN/ CR RATION CONSISTENT WITH HYPOVOLEMIA WITH NAUSEA AND VOMITING PT WITH SEVERE HYPOKALEMIA PMH: DIABETES HTN HYPERLIPIDEMIA S/P PTCA CA OF LIVER S/P PARTIAL HEPATECTOMY HX OF COLSTOMY SECONDARY TO SBO AFIB CHRONIC HX OF L CVA RIGHT SIDED WEAKNESS Assessment/Plan S/P EGD HH EROSIVE ESOPHAGITIS EROSIVE GASTRITIS START POTASSIUM CHANNEL GOPAL VONOPRAZAN STILL PENDING Dietary Evaluation Review Comments: encourage and monitor PO intake to meet 75% of her needs. diet as tolerated Expected Outcomes/Goals: maintain wt, recover from GI bleed Plan discussed with: Patient TAY DUNLAP MD Apr 15, 2024 12:30
--- NOTE | 2024-04-15 12:33 | DVHDS2 ---
Discharge Summary Date of Admission Apr 07, 2024 at 11:40 Date of Discharge: Apr 14, 2024 Labs/Diagnostic Data: Laboratory Results Test 04/12/24 05:54 04/09/24 05:58 04/08/24 06:20 04/07/24 09:00 Sodium Level 139 mmol/L (136-145) Potassium Level 3.7 mmol/L (3.5-5.1) Chloride Level 104 mmol/L (98-107) Carbon Dioxide Level 26 mmol/L (20-31) Anion Gap 9 (5-15) Blood Urea Nitrogen 16 mg/dL (9-23) Creatinine 1.28 mg/dL (0.550-1.02) Glomerular Filtration Rate Calc 46 mL/min (>90) BUN/Creatinine Ratio 12.5 (10.0-20.0) Serum Glucose 91 mg/dL (74-106) Calcium Level 9.7 mg/dL (8.7-10.4) Magnesium Level 2.1 mg/dL (1.6-2.6) White Blood Count 5.0 10^3/uL (4.4-10.8) Red Blood Count 4.19 10^6/uL (4.0-5.20) Hemoglobin 12.3 g/dL (12.2-16.2) Hematocrit 37.8 % (36.0-46.0) Mean Corpuscular Volume 90.1 fL (80.0-100.0) Mean Corpuscular Hemoglobin 29.3 pg (28.0-32.0) Mean Corpuscular Hemoglobin Concent 32.6 g/dL (32.0-36.0) Red Cell Distribution Width 16.5 % (11.8-14.3) Platelet Count 188 10^3/uL (140-450) Mean Platelet Volume 8.0 fL (6.9-10.8) Neutrophils (%) (Auto) 54.5 % (37.0-80.0) Lymphocytes (%) (Auto) 33.5 % (10.0-50.0) Monocytes (%) (Auto) 8.2 % (0.0-12.0) Eosinophils (%) (Auto) 3.3 % (0.0-7.0) Basophils (%) (Auto) 0.5 % (0.0-2.0) Neutrophils # (Auto) 2.7 10 ^3/uL (1.6-8.6) Lymphocytes # (Auto) 1.7 10 ^3/uL (0.4-5.4) Monocytes # (Auto) 0.4 10 ^3/uL (0-1.3) Eosinophils # (Auto) 0.2 10 ^3/uL (0-0.8) Basophils # (Auto) 0 10 ^3/uL (0-0.2) Nucleated Red Blood Cells 0.2 % Total Bilirubin 0.4 mg/dL (0.2-1.0) Aspartate Amino Transferase (AST) 29 U/L (13-40) Alanine Aminotransferase (ALT) 25 U/L (7-40) Alkaline Phosphatase 99 U/L (46-116) Total Protein 6.5 g/dL (5.7-8.2) Albumin 4.1 g/dL (3.2-4.8) Prothrombin Time 11.4 sec (9.3-11.8) Prothrombin Time INR 1.08 (0.9-1.15) Activated Partial Thromboplast Time 27.9 SEC (24.5-34.5) Phosphorus Level 3.3 mg/dL (2.4-5.1) Lipase 44 U/L (12-53) Other Laboratory Tests 04/12/24 05:54 04/09/24 05:58 Brief Hx & Hospital Course: Final diagnoses: Upper GI bleed Hiatal hernia Mild gastritis History of atrial fibrillation History of CVA History of CHF Acute kidney injury hemodynamically mediated Rule out chronic kidney disease Type 2 diabetes Hypertension Hypokalemia 69-year-old female who was admitted for hematemesis She had an EGD It showed 2 cm hiatal hernia and mild gastritis She was given Protonix and Carafate but she continued to have abdominal pain therefore she stayed longer Her hypokalemia was corrected Acute kidney injury improved with hydration Hypomagnesemia was also corrected Overall she is doing better and therefore she will be discharged home today on Protonix and Carafate and the rest of her home medications and follow up with the primary care physician as soon as possible Condition at Discharge: Good Final Diagnosis/Problems List Upper GI bleed Hiatal hernia Mild gastritis History of atrial fibrillation History of CVA History of CHF Acute kidney injury hemodynamically mediated Rule out chronic kidney disease Type 2 diabetes Hypertension Hypokalemia Discharge Disposition: Home SNF Discharge Will this Physician continue t: No Discharge Instruct/Medications Diet: Cardiac 2g Na,low cholest Activity: No Restrictions, As Tolerated Follow Up/Referral: Dr. Storm the as soon as possible Medications: Protonix 40 mg twice a day Carafate 1 g 4 times a day Resume the home medications Discharge Statement: "Patient was advised to return to the ER or call 911 if any headaches, dizziness, shortness of breath, chest pain, abdominal pain, bleeding, fevers, or worsening of medical condition. Patient was counseled about treatment plan, medications, possible side effects, patientverbalized understanding. All questions were answered to the best of my ability. This discharge took greater then 30 minutes in planning, reviewing documentation, counseling the patient, and discussing with other team members." ASSESSMENT ASSESSMENT Assessment Upper GI bleed Hiatal hernia Mild gastritis History of atrial fibrillation History of CVA History of CHF Acute kidney injury hemodynamically mediated Rule out chronic kidney disease Type 2 diabetes Hypertension Hypokalemia Date of Service: Apr 15, 2024 Billing Provider: CORINNE AC MD Common Visit Codes: 25064-VOI/OBS DISCH DAY >30min CORINNE AC MD Apr 15, 2024 12:33
[2024-04-15 14:12] VITALS: BP 106/59; PULSE 73; RESP 16; TEMP 36.7; O2SAT 95
[2024-04-15] MEDS ORDERED: VONO20TA PO (14:33)
--- NOTE | 2024-04-15 14:41 | DVHPN2 ---
Progress Note Date Seen: Apr 15, 2024 Resident Creating Document: VASILE HANKINS RESIDENT Medical Necessity Reason Pt with a Central, PICC or Fol: No Subjective Patient reports: No new complaints Objective vital signs Vital Sign Date Time Temp Pulse Resp B/P (MAP) Pulse Ox O2 Delivery O2 Flow Rate FiO2 04/15/24 12:18 98.0 50 17 120/68 (85) 95 98.0 04/15/24 08:10 Room Air* 0 21 Total Intake and Output 04/14/24 04/14/24 04/15/24 15:00 23:00 07:00 Intake Total 500 ml 400 ml Balance 500 ml 400 ml medications Current Medications Medications Dose Ordered Sig/Jennifer Route Start Time Stop Time Status Last Admin Dose Admin Alprazolam 0.25 mg BID PO 04/07/24 22:00 04/15/24 09:52 0.25 MG Amlodipine Besylate 5 mg DAILY PO 04/08/24 10:00 04/15/24 09:53 5 MG Carisoprodol 350 mg TID PO 04/07/24 14:00 04/15/24 05:25 350 MG Hydralazine HCl 10 mg TID PO 04/07/24 14:00 04/15/24 05:25 10 MG Nifedipine 30 mg BID PO 04/07/24 22:00 04/15/24 09:51 30 MG Sacubitril/ Valsartan 1 tab BID PO 04/07/24 22:00 04/15/24 09:51 1 TAB Sucralfate 1 gm QID PO 04/07/24 12:00 04/15/24 12:11 1 GM Atorvastatin Calcium 40 mg HS PO 04/07/24 22:00 04/14/24 21:33 40 MG Metoprolol Succinate 25 mg DAILY PO 04/08/24 10:00 04/15/24 10:03 25 MG Sertraline HCl 25 mg BID PO 04/08/24 10:00 04/15/24 09:50 25 MG Docusate Sodium 100 mg BIDPRN PRN PO 04/07/24 11:45 Nitroglycerin 0.4 mg Q5MINP PRN SL 04/07/24 11:45 Sumatriptan Succinate 50 mg DAILY PRN PO 04/07/24 13:00 04/13/24 20:28 50 MG Ondansetron HCl 4 mg Q6HP IV 04/07/24 18:00 04/15/24 12:11 4 MG Metoclopramide HCl 10 mg Q8HR IV 04/07/24 22:00 04/15/24 05:25 10 MG Pantoprazole Sodium 40 mg BID@0600,1700 PO 04/08/24 17:00 04/15/24 05:25 40 MG Al Hydrox/Mg Hydrox/Simethicone 30 ml Q4HP PRN PO 04/11/24 10:15 Patient Own Medication 20 mg DAILY PO 04/12/24 10:00 Clonidine HCl 0.3 mg BID PO 04/11/24 22:00 04/15/24 09:52 0.3 MG Morphine Sulfate 2 mg Q4HPRN PRN IV 04/12/24 02:45 04/15/24 09:48 2 MG Zolpidem Tartrate 10 mg HSPRN PRN PO 04/13/24 01:15 04/14/24 22:02 10 MG Examination General Appearance: Cooperative. Well developed. Well nourished. NAD Head Exam: Normal inspection Neck Exam: Normal inspection. Non-tender. Normal alignment Pulmonary/Respiratory: Chest non-tender. Clear bilateral breath sounds Cardiovascular/Chest: Regular rate and rhythm. No murmurs. No JVD. Peripheral Pulses: 2+ Radial (R). 2+ Radial (L). 2+ Pedal (R). 2+ Pedal (L) Abdominal Exam: Normal bowel sounds. Soft. Mild tenderness over epigastric region, no rigidity, no guarding. No hepatospenomegaly. No masses Ankle Exam: Negative ankle edema Lower extremities: Negative lower extremity edema Neuro/Mental Status: A&O x4. Coherent Thoughts/Psych: Normal thought pattern. Appropriate mood and affect. Good judgement and insight Appearance: In no acute distress Skin Exam: Normal inspection. Normal color. Warm. Dry laboratory and microbiology Laboratory Tests 04/12/24 05:54 04/09/24 05:58 Test 04/12/24 05:54 Range/Units Serum Glucose 91 74-106 mg/dL Microbiology Date/Time Source Procedure Growth Status 04/07/24 21:13 Nose MRSA Screen - Final Complete Problem List/Assessment/Plan Problem List/Assessment/Plan Intractable nausea and vomiting Epigastric pain ? Acute gastritis, hiatal hernia, gastropathy, esophageal spasm Upper GI bleed Acute dehydration DANIA History of hepatitis-C antibody infection History of liver cancer with partial hepatectomy Diabetes mellitus Coronary artery disease with status post PTCA History of AFib History of CHF Pain seeking behavior Plan/recommendation Dr Granger EGD on 04/08/2024 POSTOPERATIVE DIAGNOSES: 1. 2 cm sliding-type hiatal hernia with slightly irregular squamocolumnar junction no significant erosive esophagitis 2. Mild antral gastritis with pre-pyloric antral gastric erosions and mild duodenitis of the duodenal bulb 3. Otherwise normal examination up to the 2nd and 3rd part of the duodenal with no active bleeding and good bile drainage -follow up in GI clinic in outpatient setting for colonoscopy. -symptomatic treatment with ondansetron 4 mg IV q.6, dicyclomine 10 mg IM once, metoclopramide 5 mg IV Q eight. Avoid opioids. -EGD on 12/13/2023: Hiatal hernia, duodenitis, acute gastritis with erosive esophagitis. -hepatitis-C antibody infection: Not sure patient followed up in outpatient setting, we will need outpatient follow up in GI clinic. -CT abdomen and pelvis no acute intra-abdominal pathology. -IV hydration -rest of the management as per hospitalist team -continue following up with this patient Plan discussed with: Patient, Other Dietary Evaluation Review Comments: encourage and monitor PO intake to meet 75% of her needs. diet as tolerated Expected Outcomes/Goals: maintain wt, recover from GI bleed VASILE HANKINS RESIDENT Apr 15, 2024 14:41
--- NOTE | 2024-04-16 15:39 | DVHPN2 ---
Progress Note - Dictate Date Seen: Apr 16, 2024 Medical Necessity Reason Pt with a Central, PICC or Fol: No Subjective ABD PAIN HAS NOT SEEN ME IN OFFICE SINCE LAST ADMISSION IN FEBRUARY PT HAS HAD MULTIPLE CTs OF ABD/ HEAD / CHEST LACK OF MOBILITY MORBID OBESITY SEVERE ABD / EPIGASTRIC PAIN AND TENDERNESS 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 WAS NEGATIVE CT OF CT NEGATIVE HIGH BUN/ CR RATION CONSISTENT WITH HYPOVOLEMIA WITH NAUSEA AND VOMITING PT WITH SEVERE HYPOKALEMIA PMH: DIABETES HTN HYPERLIPIDEMIA S/P PTCA CA OF LIVER S/P PARTIAL HEPATECTOMY HX OF COLSTOMY SECONDARY TO SBO AFIB CHRONIC HX OF L CVA RIGHT SIDED WEAKNESS vital signs Vital Sign Date Time Temp Pulse Resp B/P (MAP) Pulse Ox O2 Delivery O2 Flow Rate FiO2 04/15/24 14:12 36.7 73 16 95 04/15/24 12:18 120/68 (85) 04/15/24 08:10 Room Air* 0 21 Total Intake and Output 04/15/24 04/15/24 04/16/24 15:00 23:00 07:00 Intake Total 400 ml Balance 400 ml laboratory and microbiology Laboratory Tests 04/12/24 05:54 04/09/24 05:58 Test 04/12/24 05:54 Range/Units Serum Glucose 91 74-106 mg/dL Problem List ABD PAIN HAS NOT SEEN ME IN OFFICE SINCE LAST ADMISSION IN FEBRUARY PT HAS HAD MULTIPLE CTs OF ABD/ HEAD / CHEST LACK OF MOBILITY MORBID OBESITY SEVERE ABD / EPIGASTRIC PAIN AND TENDERNESS 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 WAS NEGATIVE CT OF CT NEGATIVE HIGH BUN/ CR RATION CONSISTENT WITH HYPOVOLEMIA WITH NAUSEA AND VOMITING PT WITH SEVERE HYPOKALEMIA PMH: DIABETES HTN HYPERLIPIDEMIA S/P PTCA CA OF LIVER S/P PARTIAL HEPATECTOMY HX OF COLSTOMY SECONDARY TO SBO AFIB CHRONIC HX OF L CVA RIGHT SIDED WEAKNESS Assessment/Plan S/P EGD HH EROSIVE ESOPHAGITIS EROSIVE GASTRITIS START POTASSIUM CHANNEL GOPAL VONOPRAZAN STILL PENDING Dietary Evaluation Review Comments: encourage and monitor PO intake to meet 75% of her needs. diet as tolerated Expected Outcomes/Goals: maintain wt, recover from GI bleed Plan discussed with: Patient TAY DUNLAP MD Apr 16, 2024 15:39
== END 2024-04-15 16:10 | disposition home or self-care (01) | DRG 380 ==
LOC: EDBD 08:16 → ER 08:16 → OVERFLOW 11:40 → EAST 13:00 → TELE-EAST 04-10 08:37
PROVIDERS: ADMIT Internal Medicine Geriatric Medicine; ATTEND Internal Medicine Geriatric Medicine
PROC: 0DB68ZX Excision of Stomach, Via Natural or Artificial Opening Endoscopic, Diagnostic (ICD-10-PCS; 2024-04-08)
PROC: 0DB98ZX Excision of Duodenum, Via Natural or Artificial Opening Endoscopic, Diagnostic (ICD-10-PCS; principal; 2024-04-08 14:13)
PROC: 05HC33Z Insertion of Infusion Device into Left Basilic Vein, Percutaneous Approach (ICD-10-PCS; 2024-04-14)
PROC: B54NZZA Ultrasonography of Left Upper Extremity Veins, Guidance (ICD-10-PCS; 2024-04-14)
DX: K22.11 Ulcer of esophagus with bleeding (principal); N17.0 Acute kidney failure with tubular necrosis; I13.0 Hypertensive heart and chronic kidney disease with heart failure and stage 1 through stage 4 chronic kidney disease, or unspecified chronic kidney disease; I69.351 Hemiplegia and hemiparesis following cerebral infarction affecting right dominant side; K25.4 Chronic or unspecified gastric ulcer with hemorrhage; K29.81 Duodenitis with bleeding; K52.9 Noninfective gastroenteritis and colitis, unspecified; E86.0 Dehydration; E87.6 Hypokalemia; K29.71 Gastritis, unspecified, with bleeding; K44.9 Diaphragmatic hernia without obstruction or gangrene; I25.10 Atherosclerotic heart disease of native coronary artery without angina pectoris; E83.42 Hypomagnesemia; N18.9 Chronic kidney disease, unspecified; E11.22 Type 2 diabetes mellitus with diabetic chronic kidney disease; I16.0 Hypertensive urgency; I48.91 Unspecified atrial fibrillation; I50.9 Heart failure, unspecified; Z79.899 Other long term (current) drug therapy; Z79.891 Long term (current) use of opiate analgesic; Z79.82 Long term (current) use of aspirin; Z98.84 Bariatric surgery status; Z85.05 Personal history of malignant neoplasm of liver; Z79.01 Long term (current) use of anticoagulants; Z80.3 Family history of malignant neoplasm of breast; Z82.49 Family history of ischemic heart disease and other diseases of the circulatory system; Z98.61 Coronary angioplasty status; Z93.3 Colostomy status
CPT/HCPCS: 36415; 43239; 71045; 74176; 76705; 80048; 80053; 83690; 83735; 84100; 85014; 85018; 85025; 85610; 85730; 86850; 86900; 86901; 87081; 93005; 96361; 96374; 96375; 99291; G0378; J2250; J2405; J2470; J3480

== ENCOUNTER 2024-10-07 19:33 | Emergency (ER) | payer MEDICARE, MEDICAID ==
[~2024-10-07] VITALS: Ht 172.7 cm; Wt 67.3 kg
[~2024-10-07 19:33] MED LIST changes: +SUM25T PO; +VONO20TA PO
[2024-10-07] MEDS: HYDROcodone-ACET 10/325MG TAB PO ONE (20:52)
[2024-10-07 20:53] VITALS: BP 170/125; PULSE 116; RESP 20; TEMP 99.6; O2SAT 97
--- NOTE | 2024-10-07 21:09 | DVH ---
CLINICAL HISTORY: fall injury pain TECHNIQUE: Helical scanning was performed of the head from the skull base to the vertex. Multiplanar reconstructions were performed. This exam was performed according to our departmental dose optimizat ion program. Up-to-date CT equipment and radiation dose reduction techniques are utilized as appropri ate. CTDI 55.4 DLP 999.8 COMPARISON: MRI BRAIN HEAD WO W CONTRAST on DOS: 08/14/23, CT HEAD WITHOUT CONTRAST on DOS: 08/12/23 FINDINGS: There is no evidence for acute intracranial hemorrhage, acute ischemic changes, mass, mass effect, or extra-axial fluid collection. There is no hydrocephalus or midline shift. There is no effacement of the cerebral sulci and basal subarachnoid cisterns. The bell-white matter differentiation is well mg ntained. There is extensive left periorbital soft tissue swelling / hematoma formation. There is a small old r ight cerebellar lacunar infarct. The imaged paranasal sinuses demonstrate mild left maxillary sinus mucosal thickening. IMPRESSION: Extensive left periorbital soft tissue swelling / hematoma formation. No underlying acute intracrania l abnormality seen.
--- NOTE | 2024-10-07 21:16 | DVH ---
EXAM: CT CERVICAL WITHOUT CONTRAST INDICATION: fall injury pain EXAM DATE: 10/07/2024 08:19 PM COMPARISON: MRI CERVICAL WO CONTRAST on DOS: 08/17/23, CT HEAD WITHOUT CONTRAST on DOS: 08/12/23 TECHNIQUE: Multiple axial CT images of the cervical spine were obtained using bone algorithm. Axial a nd coronal reformatting was done. Bone and soft tissue windows were reviewed. Radiation Dose Information: CT Dose: CTDI volume is 65.83 mGy. Dose-length product is 2664.74 mGy*cm FINDINGS: Limited evaluation of the mandible and anterior neck due to motion. The cervical alignment is intact. No acute cervical spine fracture is identified. The vertebral body heights are intact. No suspicious osseous lesions are identified. Multilevel moderate degenerative changes of the cervical spine. There is no prevertebral soft tissue swelling. Mucous retention cyst within the left maxillary sinus. Mucoperiosteal thickening of the inferior right maxillary sinus. The thyroid gland is unremarkable. Biapical atelectasis. IMPRESSION: No evidence of acute cervical spine fracture or traumatic malalignment. All CT scans at this medical facility are performed using dose modulation techniques as appropriate t o a performed exam including the following: Automated exposure control was utilized; adjustment of th e MA and/or KV according to patient size; and use of iterative reconstruction technique.
--- NOTE | 2024-10-07 21:22 | DVH ---
HISTORY: fall injury pain TECHNIQUE: Nonenhanced axial images through the facial bones with coronal and sagittal MPR. Radiation Dose Information: CT Dose: CTDI volume is 10.9 mGy. Dose-length product is 2665 mGy*cm COMPARISON: CT HEAD WITHOUT CONTRAST on DOS: 08/12/23 FINDINGS: Mandible: Unremarkable Maxilla: Unremarkable Zygomatic arches: Unremarkable Nasal bone: Unremarkable Orbits: Unremarkable Sinuses: Mucosal thickening of the left maxillary sinus. Facial swelling: Extensive left periorbital soft tissue swelling IMPRESSION: No acute facial fractures. Extensive left periorbital soft tissue swelling. Left maxillary sinusitis. Radiation optimization: All CT scans at this facility use at least one of these dose optimization lavinia hniques: automated exposure control mA and/or kV adjustment per patient size (includes targeted exam s where dose is matched to clinical indication) or iterative reconstruction.
--- NOTE | 2024-10-07 21:31 | ED.PDOC ---
History of Present Illness HPI Comments 69 y/o F presents with daughter for c/c left sided head, eye, and neck pain, with associated left eye swelling, bruising, and blurry vision and dizziness, s/p mechanical fall injury. Patient reports on falling and hitting the left side of her head onto ceramic tile nisha, earlier, today, after her pet dog caused her to trip.Event was witnessed by nearby family. No lost of consciousness endorsed. No history of prior injuries or pertinent events, with exception of GI surgery 3x weeks ago. No prior symptoms. Patient denies on having any weakness, lightheadedness, additional injuries, or further acute symptoms at this time. Chief Complaint: Fall Injury Time Seen by MD: 20:10 Primary Care Provider: TAY Reviewed Notes: Nurses Notes, Medications, Allergies Allergies: Coded Allergies: NO KNOWN ALLERGIES (Unverified , 02/16/23) Home Meds Active Scripts Vonoprazan Fumarate (Voquezna) 20 Mg Tab, 20 MG PO DAILY for 30 Days, #30 TAB Prov:CORINNE AC MD 04/15/24 Sucralfate (CARAFATE) 1 Gm Tab, 1 GM OR QIDACHS for 30 Days, #120 TAB 3 Refills Prov:CORINNE AC MD 04/15/24 Pantoprazole Sodium Sesquihydr (Protonix) 40 Mg Tab, 40 MG PO BID for 30 Days, #60 TAB 3 Refills Prov:CORINNE AC MD 04/15/24 Sumatriptan Succinate (IMITREX TABLET) 25 Mg Tb, 50 MG PO DAILY PRN for 30 Days, #60 TAB 3 Refills Prov:JESUS MURO DO 04/14/24 Sertraline Hcl (Zoloft) 25 Mg Tab, 1 TAB PO BID, #30 TAB 2 Refills Prov:KEVIN POSADA MD 08/18/23 Zolpidem Tartrate (Ambien) 10 Mg Tab, 1 TAB PO QPM PRN, #20 TAB 5 Refills Prov:KEVIN POSADA MD 08/18/23 Oxycodone W/ Acetaminophen (Percocet 5/325MG) 1 Tab Tb, 1 TAB PO QID, #30 TAB Prov:KEVIN POSADA MD 08/18/23 Pantoprazole Sodium Sesquihydr (Protonix) 40 Mg Tab, 40 MG PO DAILY, #30 TAB Prov:CESAR CHIN ACTUARIAL ANALYST 02/24/23 Sucralfate (CARAFATE) 1 Gm Tab, 1 GM OR QID for 30 Days, #120 TAB Prov:CESAR CHIN ACTUARIAL ANALYST 02/24/23 Reported Medications Carisoprodol (Soma) 350 Mg Tab, 350 MG PO TID, #30 TAB 08/18/23 Tizanidine Hydrochloride (Zanaflex) 4 Mg Cap, 2 MG PO TID 08/14/23 Clopidogrel Bisulfate (CLOPIDOGREL) 75 Mg Tab, 1 TAB PO DAILY 08/14/23 Atorvastatin Calcium (Lipitor) 40 Mg Tab, 1 TAB PO DAILY 08/14/23 Metoprolol Succinate (Metoprolol Succinate Er) 25 Mg Tab, 1 TAB PO DAILY 08/14/23 Potassium Chloride (Potassium Chloride ER) 20 Meq Tab, 1 TAB PO DAILY 08/14/23 Aspirin (Aspirin Low Dose) 81 Mg Chw, 1 TAB PO DAILY 08/14/23 Furosemide (Furosemide) 20 Mg Tab, 1 TAB PO DAILY 08/14/23 Sumatriptan Succinate (Sumatriptan Succinate) 50 Mg Tab, 1 TAB PO DAILY for 9 Days, #9 08/14/23 Alprazolam (Alprazolam) 0.25 Mg Tab, 1 TAB PO BID 08/14/23 Nifedipine (Nifedipine Er) 30 Mg Tab, 1 TAB PO BID 08/14/23 Clonidine Hydrochloride (Clonidine Hcl) 0.3 Mg Tab, 1 TAB PO BID 08/14/23 Hydralazine Hcl (Hydralazine Hcl) 10 Mg Tab, 1 TAB PO TID 08/14/23 Sacubitril-Valsartan (Entresto 24-26 mg) 1 Tab Tab, 1 TAB PO BID 02/17/23 Amlodipine Besylate (Amlodipine Besylate) 5 Mg Tab, 1 TAB PO DAILY 02/17/23 Information Source: Patient, Relative (Child) Mode of Arrival: Ambulatory Severity: Moderate Timing: Hours Duration: Since onset Prehospital treatment: Other (Ice packs ) Past Medical History PAST MEDICAL HISTORY: AFIB, Cancer, CHF, CVA, DM (type II), HTN, NE Past Medical History (Other): history of upper GI bleed hiatal hernia gastritis DANIA Surgical History: Tonsillectomy DIRECTOR SALES TRAINING History: No Pertinent DIRECTOR SALES TRAINING History Family History Family History: Reviewed,noncontributory to illness, Unknown Social History Smoker: Non-Smoker Alcohol: Denies ETOH Use Drugs: Denies Drug Use Lives In: Home All Other Systems: Reviewed and Negative (Comprehensive systems review obtained and negative except for what is stated in the HPI.) Physical Exam General Appearance: Moderate Distress, Normal HEENT: Pharynx Normal, TMs Normal, Other (contusion to left periorbital area with significant swelling and ecchymosis) Neck: Full Range of Motion, Non-Tender, Normal, Normal Inspection Respiratory: Chest Non-Tender, Lungs Clear, No Accessory Muscle Use, No Respiratory Distress, Normal Breath Sounds Cardiovascular: No Edema, No JVD, No Murmur, No Gallop, Normal Peripheral Pulses, Regular Rate/Rhythm Breast Exam: Deferred Gastrointestinal: No Organomegaly, Non Tender, No Pulsatile Mass, Normal Bowel Sounds, Soft Genitalia: Deferred Pelvic: Deferred Rectal: Deferred Extremities: No calf tenderness, Normal capillary refill, Normal inspection, Normal range of motion, Non-tender, No pedal edema Musculoskeletal : Apperance: Normal Neurologic: Alert, charge entry clerk II-XII nml as Tested, No Motor Deficits, Normal Affect, Normal Mood, No Sensory Deficits Cerebellar Function: Normal Reflexes: Normal Skin: Bruises (contusion to left periorbital area with significant swelling and ecchymosis), Dry, Normal Color, Warm Lymphatic: No Adenopathy Was a procedure done? Was a procedure done?: No Differential Dx Considerations may include: fractures, contusions, closed head injury, intracranial bleed, among others X-Ray, Labs, Meds, VS Vital Signs Date Time Temp Pulse Resp B/P (MAP) Pulse Ox O2 Delivery O2 Flow Rate FiO2 10/07/24 20:53 99.6 116 20 170/125 (140) 97 99.6 10/07/24 20:53 116 20 97 Room Air 10/07/24 19:39 99.6 116 20 170/125 97 99.6 Current Medications Medications (Trade) Dose Ordered Sig/Jennifer Route Start Time Stop Time Status Last Admin Acetaminophen/ Hydrocodone Bitart ([place] 10/325MG Tab) 1 tab ONCE ONCE PO 10/07/24 20:15 10/07/24 20:16 DC 10/07/24 20:[address] - [address] Ph: [phone] DIAGNOSTIC IMAGING Diagnostic Imaging Report : [id number] Signed PATIENT: MANNY ZACARIAS ACCT: [id number] UNIT: [id number] : 1955 LOC: ER ROOM / BED: / AGE / SEX: 69 / F ADM STATUS: REG ER SERVICE 11 ORDERING PHYSICIAN: SHAYNE STEARNS MD PROCEDURE(s): FAC2C - MAXILLOFACIAL WITHOUT REASON: fall injury pain ORDER NUMBER(s): [id number], ACCESSION NUMBER(s): [id number] HISTORY: fall injury pain TECHNIQUE: Nonenhanced axial images through the facial bones with coronal and sagittal MPR. Radiation Dose Information: CT Dose: CTDI volume is 10.9 mGy. Dose-length product is 2665 mGy*cm COMPARISON: CT HEAD WITHOUT CONTRAST on DOS: 08/12/23 FINDINGS: Mandible: Unremarkable Maxilla: Unremarkable Zygomatic arches: Unremarkable Nasal bone: Unremarkable Orbits: Unremarkable Sinuses: Mucosal thickening of the left maxillary sinus. Facial swelling: Extensive left periorbital soft tissue swelling IMPRESSION: No acute facial fractures. Extensive left periorbital soft tissue swelling. Left maxillary sinusitis. Radiation optimization: All CT scans at this facility use at least one of these dose optimization techniques: automated exposure control mA and/or kV adjustment per patient size (includes targeted exams where dose is matched to clinical indication) or iterative reconstruction. ATED BY: URIEL MENARD MD DICTATED DATE/TIME: 10/07/242119 SIGNED BY: URIEL MENARD MD SIGNED DATE/TIME: 10/07/242119 CC: [address] [address] Ph: [phone] DIAGNOSTIC IMAGING Diagnostic Imaging Report : [id number] Signed PATIENT: MANNY ZACARIAS ACCT: [id number] UNIT: [id number] : 1955 LOC: ER ROOM / BED: / AGE / SEX: 69 / F ADM STATUS: REG ER SERVICE 11 ORDERING PHYSICIAN: SHAYNE STEARNS MD PROCEDURE(s): HWOCT - HEAD WITHOUT CONTRAST REASON: fall injury pain ORDER NUMBER(s): [id number], ACCESSION NUMBER(s): [id number] CLINICAL HISTORY: fall injury pain TECHNIQUE: Helical scanning was performed of the head from the skull base to the vertex. Multiplanar reconstructions were performed. This exam was performed according to our departmental dose optimization program. Up-to-date CT equipment and radiation dose reduction techniques are utilized as appropriate. CTDI 55.4 DLP 999.8 COMPARISON: MRI BRAIN HEAD WO W CONTRAST on DOS: 08/14/23, CT HEAD WITHOUT CONTRAST on DOS: 08/12/23 FINDINGS: There is no evidence for acute intracranial hemorrhage, acute ischemic changes, mass, mass effect, or extra-axial fluid collection. There is no hydrocephalus or midline shift. There is no effacement of the cerebral sulci and basal subarachnoid cisterns. The bell-white matter differentiation is well maintained. There is extensive left periorbital soft tissue swelling / hematoma formation. There is a small old right cerebellar lacunar infarct. The imaged paranasal sinuses demonstrate mild left maxillary sinus mucosal thickening. IMPRESSION: Extensive left periorbital soft tissue swelling / hematoma formation. No underlying acute intracranial abnormality seen. ATED BY: MARIA LUISA MCDONALD MD DICTATED DATE/TIME: 10/07/242105 SIGNED BY: MARIA LUISA MCDONALD MD SIGNED DATE/TIME: 10/07/242105 CC: [place] [address] Ph: [phone] DIAGNOSTIC IMAGING Diagnostic Imaging Report : [id number] Signed PATIENT: MANNY ZACARIAS ACCT: [id number] UNIT: [id number] : 1955 LOC: ER ROOM / BED: / AGE / SEX: 69 / F ADM STATUS: REG ER SERVICE 11 ORDERING PHYSICIAN: SHAYNE STEARNS MD PROCEDURE(s): CS2 - CERVICAL WITHOUT CONTRAST REASON: fall injury pain ORDER NUMBER(s): [id number], ACCESSION NUMBER(s): [id number] EXAM: CT CERVICAL WITHOUT CONTRAST INDICATION: fall injury pain EXAM DATE: 10/07/2024 08:19 PM COMPARISON: MRI CERVICAL WO CONTRAST on DOS: 08/17/23, CT HEAD WITHOUT CONTRAST on DOS: 08/12/23 TECHNIQUE: Multiple axial CT images of the cervical spine were obtained using bone algorithm. Axial and coronal reformatting was done. Bone and soft tissue windows were reviewed. Radiation Dose Information: CT Dose: CTDI volume is 65.83 mGy. Dose-length product is 2664.74 mGy*cm FINDINGS: Limited evaluation of the mandible and anterior neck due to motion. The cervical alignment is intact. No acute cervical spine fracture is identified. The vertebral body heights are intact. No suspicious osseous lesions are identified. Multilevel moderate degenerative changes of the cervical spine. There is no prevertebral soft tissue swelling. Mucous retention cyst within the left maxillary sinus. Mucoperiosteal thickening of the inferior right maxillary sinus. The thyroid gland is unremarkable. Biapical atelectasis. IMPRESSION: No evidence of acute cervical spine fracture or traumatic malalignment. All CT scans at this medical facility are performed using dose modulation techniques as appropriate to a performed exam including the following: Automated exposure control was utilized; adjustment of the MA and/or KV according to patient size; and use of iterative reconstruction technique. ATED BY: COURTNEY SAVAGE DO DICTATED DATE/TIME: 10/07/242113 SIGNED BY: COURTNEY SAVAGE DO SIGNED DATE/TIME: 10/07/242113 CC: Time of 1ST Reevaluation: 20:40 Reevaluation 1ST: Unchanged Patient Education/Counseling: Diagnosis, Treatment Family Education/Counseling: Diagnosis, Treatment SEPSIS Sepsis Screen Date sepsis recognized/suspect: Oct 07, 2024 Time Sepsis recognized/suspect: 2056 Recent Procedure: No On Antibiotic Therapy: No Respiratory Rate >20: No Heart Rate >90: Yes Temp<36 C (96.8 F) or >38.3 C: No SBP <90 or MAP <65 mmHG: No New Acute Mental Status Change: No Is the patient on CPAP, BIPAP,: No Physician Orders Head Without Contrast (10/07/24 20:12) Maxillofacial Without (10/07/24 20:12) Cervical Without Contrast (10/07/24 20:12) Vital Signs Date Time Temp Pulse Resp B/P (MAP) Pulse Ox O2 Delivery O2 Flow Rate FiO2 10/07/24 20:53 99.6 116 20 170/125 (140) 97 99.6 10/07/24 20:53 116 20 97 Room Air 10/07/24 19:39 99.6 116 20 170/125 97 99.6 Medications Medications Dose Ordered Sig/Jennifer Route Start Time Stop Time Status Last Admin Dose Admin Acetaminophen/ Hydrocodone Bitart 1 tab ONCE ONCE PO 10/07/24 20:15 10/07/24 20:16 DC 10/07/24 20:52 Departure 1 Departure Time of Disposition: 22:30 Impression: Primary Impression: Head injury Additional Impression: Periorbital contusion of left eye Disposition: HOME / SELF CARE / HOMELESS Condition: Stable Discharged With: Self, Relative Critical Care Note Critical Care Time?: No Stability Stability form required: No Heart Score Heart Score: Heart Score Response (Comments) Value History N/A 0 EKG N/A 0 Age N/A 0 Risk Factors N/A 0 Troponin N/A 0 Total 0 I personally scribed for SHAYNE STEARNS MD ([email or web address]) on 10/07/24 at 21:31. Electronically submitted by Elkin Bullock ([email or web address]). SHAYNE STEARNS MD Oct 07, 2024 21:31
== END 2024-10-07 22:40 | disposition home or self-care (01) ==
LOC: ER 19:33
DX: S00.12XA Contusion of left eyelid and periocular area, initial encounter (principal); S00.93XA Contusion of unspecified part of head, initial encounter; I11.0 Hypertensive heart disease with heart failure; I50.9 Heart failure, unspecified; E11.9 Type 2 diabetes mellitus without complications; I48.91 Unspecified atrial fibrillation; J32.0 Chronic maxillary sinusitis; Z79.82 Long term (current) use of aspirin; Z79.899 Other long term (current) drug therapy; Z86.73 Personal history of transient ischemic attack (TIA), and cerebral infarction without residual deficits; Z87.19 Personal history of other diseases of the digestive system; Z90.89 Acquired absence of other organs; W18.39XA Other fall on same level, initial encounter; Y93.89 Activity, other specified; Y92.89 Other specified places as the place of occurrence of the external cause; Y99.8 Other external cause status
CPT/HCPCS: 70450; 70486; 72125